=== PATIENT | female | born 1955 | race Caucasian/White ===

== ENCOUNTER 2021-12-29 07:10 | Outpatient (CLI) | payer OTHER, SELFPAY ==
--- NOTE | 2021-12-29 09:41 | W.ANESCHARGE ---
Anesthesia Charges Start Date/Time Anesthesia Start Date: 12/29/21 Anesthesia Start Time: 08:05 Stop Date/Time Anesthesia Stop Date: 12/29/21 Anesthesia Stop Time: 09:41 Summary Emergency: No
--- NOTE | 2021-12-29 10:20 | W.ANESCHARGE ---
Anesthesia Charges Start Date/Time Anesthesia Start Date: 12/29/21 Anesthesia Start Time: 08:05 Stop Date/Time Anesthesia Stop Date: 12/29/21 Anesthesia Stop Time: 09:41 Summary Emergency: No
[2021-12-29] MEDS: ERTAPENEM 1 GM in 0.9 % SODIUM CHLORIDE Mini-bag 100 ML IVPB (13:46)
== END 2021-12-29 07:11 | disposition home or self-care (01) ==
PROVIDERS: PCP Family Medicine; Visit Provider Surgery
DX: Z12.11 Encounter for screening for malignant neoplasm of colon (principal); K63.5 Polyp of colon; K64.8 Other hemorrhoids; K57.30 Diverticulosis of large intestine without perforation or abscess without bleeding; Z86.010 Personal history of colon polyps
CPT/HCPCS: 45381; 45385; 811; 812; J0780; J1170; J1335; J2405; J2704

== ENCOUNTER 2021-12-29 12:21 | Inpatient (IN) | payer OTHER, SELFPAY ==
[2021-12-29 15:59] VITALS: BP 110/59; PULSE 77; RESP 18; TEMP 36.7; O2SAT 93; BMI 26.1
--- NOTE | 2021-12-29 16:09 | P.GSHP_ITS ---
History of Present Illness History of Present Illness Chief complaint: Surgery complications Narrative: Linnette Brown is a 66 year old female Who underwent a colonoscopy today. Patient was found to have a 27 mm polyp in the cecum. This polyp was removed with endoscopic mucosal resection. The mucosal defect was closed with 8 clips in his upper like technique. When patient was woken up from mac anesthesia, she complained of nausea and right lower quadrant abdominal pain. Decision was made to admit this patient for observation. Review of Systems Narrative: General: no fevers HENT: no problems swallowing CV: no shortness of breath Resp: no cough GI: see above Skin: no new rashes Musculoskeletal: no back pain Neuro: no muscle weakness Psyche: no depression, no anxiety PFSH PFSH Medical History (Updated 12/29/21 @ 17:57 by Enriqueta Richter MD) Abdominal pain Acute flank pain Atypical chest pain Concussion (08/2018) Depression (01/13/13) Hypoxia Musculoskeletal chest pain Rectal hemorrhage Right lower quadrant abdominal pain Right upper quadrant pain Weakness of hand Surgical History (Updated 12/29/21 @ 17:56 by Enriqueta Richter MD) H/O: hysterectomy History of salpingo-oophorectomy S/P laparoscopic cholecystectomy S/P sacrocolpopexy Status post colonoscopy with polypectomy Family History Mother Diabetes High blood pressure Myocardial infarction, Onset Age: 93 Rheumatoid arthritis Father Myocardial infarction, Onset Age: 83 Maternal Grandfather Stroke, Onset Age: 42 Other Bipolar disorder Colonic polyp Schizophrenia Social History Narrative: cigarette smoker- 40 pack years, still smoking does not drink alcohol does not exercise lives with chen Greene 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 boyfriend [place], 3 kids, sons adult past problems: tobacco abuse- quitting by using e cigarettes Meds Home Medications and Allergies Allergies Allergy/AdvReac Type Severity Reaction Status Date / Time amoxicillin Allergy Intermediate itchy, Verified 12/19/21 14:20 diarhea, upset stomach venlafaxine Allergy Intermediate Hives Verified 12/19/21 14:20 atorvastatin AdvReac Unknown Verified 12/19/21 14:20 simvastatin AdvReac Unknown Verified 12/19/21 14:20 Exam Narrative: Exam Narrative: General appearance: Alert, cooperative, and in no distress Pulmonary: Chest symmetric, lungs clear bilaterally Cardiovascular Heart: Regular rate and rhythm, S1, S2, no murmurs/rubs/gallops Gastrointestinal Abdominal: soft, not distended, Tender to palpation suprapubically and in the right lower quadrant. Skin: Normal skin color, texture, and turgor. No rashes or lesions. Psychiatric: Alert, cooperative, normal affect. Const: Vital Signs, click to edit/add: Vital Signs - 24 hr 12/29/21 15:59 Temperature 98.1 F Pulse Rate [Right Pulse Oximeter] 77 Respiratory Rate 18 Blood Pressure [Le ft Arm] 110/59 L Pulse Oximetry 93 Assessment and Plan Assessment and plan (1) Right lower quadrant abdominal pain: Status: Acute (2) Status post colonoscopy with polypectomy: Status: Acute Plan 66-year-old female s/p colonoscopy today with EMR of a large cecal polyp admitted for observation due to Postprocedure right lower quadrant abdominal pain. I discussed with the patient and her that postprocedure right lower quadrant pain could be due to post polypectomy syndrome versus micro perforation. Her mucosal defect was large and was closed with endoscopic clips. At this time will keep the patient NPO with IV fluids. We will treat her with antibiotics and observe and patient.
[2021-12-29] MEDS: ALBUTEROL SULFATE 2.5 MG/3 ML VIAL.NEB NEB (17:13)
[2021-12-29] MEDS: HYDROmorphone 0.5 mg/0.5 ml inj IVP (19:26)
[2021-12-29] MEDS: LACTATED RINGERS 1000 ML 1,000 ML 100 ML IV (19:27)
[2021-12-29 19:30] VITALS: BP 104/64; PULSE 88; RESP 18; TEMP 37.1; O2SAT 91
[2021-12-29 19:37] VITALS: RESP 18; O2SAT 92
[2021-12-29 20:48] VITALS: O2SAT 85; O2SAT 91
[2021-12-29 23:00] VITALS: PULSE 88; RESP 18; O2SAT 93
--- NOTE | 2021-12-29 23:39 | PC.NURSE ---
End of Shift: Patient admitted to 245. Pleasant and cooperative. Afebrile. Patient c/o some SOB and wheezes noted, updated MD and Albuterol neb given x1 with improvement. Rating pain 4-5/10 upon arrival, PRN Dilaudid given x1. Pain decreased to 2-3/10. Patient up to bathroom with SBA. NPO. Denies passing any flatus. O2 sats decreased to mid 80s while asleep, updated MD. 1L O2 applied via nasal cannula and sats remained above 90%. Encouraged frequent use of IS while awake.
[2021-12-30] VITALS: BP 99/59; PULSE 70; RESP 18; TEMP 37; O2SAT 93
[2021-12-30] MEDS: ALBUTEROL SULFATE 2.5 MG/3 ML VIAL.NEB NEB (02:00)
[2021-12-30 03:00] VITALS: BP 109/59; PULSE 83; RESP 18; TEMP 37.1; O2SAT 96
--- NOTE | 2021-12-30 06:04 | PC.NURSE ---
shift note : pt pleasant and cooperative. SBA to assist with IV pole, NC, SCDs. pt initially complaining of gas pains, after taking a walk pt relieved gas and was rather comfortable. 2x incontinent urine episodes, pt stated she was passing gas and urinating at the same time. LS wheezy throughout, PRN neb given 1x, pt stated relief. LR running with no complications. VSS. pt on 1L O2 and maintaining sats >90%.
[2021-12-30] MEDS: LACTATED RINGERS 1000 ML 1,000 ML 100 ML IV (06:10)
[2021-12-30 07:34] LABS: Basophils Absolute Auto 0.03 K/uL (0.00-0.30); Basophils Percent Auto 0.3 % (0.0-3.0); Eosinophils Absolute Auto 0.43 K/uL (0.00-0.50); Eosinophils Percent Auto 4.5 % (0.0-7.0); Hemoglobin* 13.1 gm/dL (12.0-16.0); Immature Granulocytes Abs Auto 0.04 K/uL (0.00-0.30); Lymphocytes Absolute Auto 2.95 K/uL (0.90-2.90); Lymphocytes Percent Auto 31.2 % (20-44); Mean Corpuscular HGB Conc 33 gm/dL (32-36); Mean Corpuscular Hemoglobin 30 pg (26-34); Mean Corpuscular Volume 90 fL (80-100); Monocytes Percent Auto 8.7 % (0.0-11.0); Neutrophils Percent Auto 54.9 % (42.0-72.0); Platelet Count* 233 K/uL (140-440); RDW Coefficient of Variation % 14.5 % (11.5-15.5); Red Blood Count 4.43 m/uL (4.00-5.20); White Blood Count* 9.47 K/uL (4.50-11.00)
[2021-12-30 07:42] LABS: Albumin* 3.3 g/dL (3.3-5.0); Chloride* 107 mmol/L (96-114); Potassium* 3.5 mmol/L (3.6-5.1); Sodium* 135 mmol/L (135-149)
[2021-12-30 07:44] LABS: Bilirubin Direct* 0.2 mg/dL (0.0-0.5); Bilirubin Total* 0.6 mg/dL (0.1-1.5); Carbon Dioxide* 22 mmol/L (20-32); Creatinine* 0.5 mg/dL (0.5-1.5); Est. Creatinine Clearance* 44.95; Estimated Glomerular Filt Rate 104.67; Total Protein* 5.2 g/dL (6.0-8.3)
[2021-12-30 07:45] LABS: Alanine Aminotransferase* 74 U/L (4-35); Alkaline Phosphatase* 86 U/L (40-150); Aspartate Amino Transferase* 56 U/L (12-35); Blood Urea Nitrogen* 10 mg/dL (7-30); Calcium* 7.9 mg/dL (8.4-10.6); Glucose* 55 mg/dL (60-115); Lipase* 47 U/L (23-300)
[2021-12-30 07:46] LABS: Slide Review Reflex No
[2021-12-30 08:22] VITALS: BP 121/56; PULSE 75; RESP 16; TEMP 36.8; O2SAT 96
[2021-12-30 11:26] VITALS: BP 131/71; PULSE 65; RESP 16; TEMP 36.8; O2SAT 95
[2021-12-30] MEDS: ERTAPENEM 1 GM in 0.9 % SODIUM CHLORIDE Mini-bag 100 ML IVPB (12:45)
--- NOTE | 2021-12-30 12:58 | P.DS_ITS ---
DS: Providers Provider Date of admission: 12/29/21 12:21 Primary care physician: Cheyenne Guardado MD Admitting Clinician: Enriqueta Richter MD Attending Physician on discharge: Enriqueta Richter MD DS: Diagnosis Discharge Diagnosis (1) Right lower quadrant abdominal pain: Status: Acute (2) Status post colonoscopy with polypectomy: Status: Acute DS: Summary Hospital Course Hospital Course: Patient was admitted after she underwent a colonoscopy with EMR of 27 mm cecal polyp. Patient developed right lower quadrant pain, nausea and vomiting immediately postprocedure. She was admitted to the hospital and her pain was managed with pain medication. Patient was placed on IV antibiotics and improved overnight. She continues to have mild pain in the right lower quadrant which is significantly improved. Time Spent with Patient Time attestation: Total time spent providing and/or coordinating discharge services: Exam Narrative: Exam Narrative: Abdomen is soft, not distended, minimal discomfort to palpation in the right lower quadrant. Significantly improved from yesterday. Const: Vital Signs, click to edit/add: Vital Signs - 24 hr 12/29/21 15:59 12/29/21 19:30 12/29/21 19:37 Temperature 98.1 F 98.8 F Pulse Rate [Right Pulse Oximeter] 77 88 Respiratory Rate 18 18 18 Blood Pressure [Le ft Arm] 110/59 L 104/64 Pulse Oximetry 93 91 92 12/29/21 20:48 12/29/21 23:00 12/30/21 00:00 Temperature 98.6 F Pulse Rate [Right Pulse Oximeter] 88 70 Respiratory Rate 18 18 Blood Pressure [Le ft Arm] 99/59 L Pulse Oximetry 91 93 93 12/30/21 03:00 12/30/21 08:22 12/30/21 11:26 Temperature 98.8 F 98.2 F 98.2 F Pulse Rate [Right Pulse Oximeter] 83 75 65 Respiratory Rate 18 16 16 Blood Pressure [Le ft Arm] 109/59 L 121/56 L 131/71 Pulse Oximetry 96 96 95 DS: Data Data Completed and Pending Labs on day of discharge: Labs from last 24 hours 12/30/21 12/30/21 06:13 06:13 WBC 9.47 RBC 4.43 Hgb 13.1 Hct 40.0 MCV 90 MCH 30 MCHC 33 RDW Coeff of Helio 14.5 Plt Count 233 Neut % (Auto) 54.9 Lymph % (Auto) 31.2 [place] % (Auto) 8.7 Eos % (Auto) 4.5 Baso % (Auto) 0.3 Neut # (Auto) 5.20 Lymph # (Auto) 2.95 H [place] # (Auto) 0.80 Eos # (Auto) 0.43 Baso # (Auto) 0.03 Abs Immat Gran (auto) 0.04 Sodium 135 Potassium 3.5 L Chloride 107 Carbon Dioxide 22 BUN 10 Creatinine 0.5 Estimated Creat Clear 44.95 Glucose 55 L Calcium 7.9 L Total Bilirubin 0.6 Direct Bilirubin 0.2 AST 56 H ALT 74 H Alkaline Phosphatase 86 Total Protein 5.2 L Albumin 3.3 Lipase 47 Discharge Plan Discharge Disposition: Home, Self-Care Date of Admission: 12/29/21 12:21 Attending Provider on Discharge: Enriqueta Richter Primary Care Provider: Cheyenne Guardado Condition: Improved Anticipated Discharge Date/Time: 12/30/21 12:55 Discharge Medications: New hydrocodone-acetaminophen 5-325 mg tablet 1 tab PO Q6H PRN (Reason: pain) Qty: 25 0RF Discharge Orders: Discharge Order (Routine); Ordered 12/30/21 Ordered By: Enriqueta Richter Activity Level: Light activity Discharge Diet: Full Liquid Diet Detail: advance diet to regular tomorrow Follow Up Appointments: Enriqueta Richter MD [Staff Physician] - Forms: [facility] Info Instructions Discharge Comment: patient needs Ertapenem iv x3 days.
--- NOTE | 2021-12-30 14:23 | PC.NURSE ---
PATIENT DISCHARGED TO HOME WITH , UP AD MAIKOL WITH STEADY GAIT, IV LEFT IN PLACE PER MD PATIENT COMING IN FOR OUTPATIENT ABX THROUGHOUT THE WEEKEND, PATIENT RATING PAIN TO ABDOMEN MINIMAL, TENDERNESS TO RLQ IS BETTER BUT REMAINS PRESENT, NO PAIN MEDICATION NEED FOR ABDOMINAL PAIN, ACTIVE BOWEL SOUNDS, PASSING GAS, NO BOWEL MOVEMENT, PATIENT VERBALIZED UNDERSTANDING OF DISCHARGE INFORMATION AND HAD NO FURTHER QUESTIONS AT THIS TIME.
== END 2021-12-30 14:15 | disposition home or self-care (01) | DRG 948 ==
PROVIDERS: Admitting Provider Surgery; PCP Family Medicine; Visit Provider Surgery
DX: G89.18 Other acute postprocedural pain (principal); R10.31 Right lower quadrant pain; R11.2 Nausea with vomiting, unspecified; D12.0 Benign neoplasm of cecum; M06.9 Rheumatoid arthritis, unspecified; E11.65 Type 2 diabetes mellitus with hyperglycemia; F32.A Depression, unspecified
CPT/HCPCS: 36415; 80048; 80076; 83690; 85018; 85025; 94640; 94761; J1170; J1335; J7120

== ENCOUNTER 2022-01-02 12:59 | Outpatient (RCR) | payer OTHER, SELFPAY ==
[2021-12-31] MEDS: ERTAPENEM 1 GM in 0.9 % SODIUM CHLORIDE Mini-bag 100 ML IVPB (13:25)
[2021-12-31] MEDS: SODIUM CHLORIDE 0.9 % (FLUSH) 10 ML SYRINGE 5 ML IVF (13:27)
[2021-12-31 14:20] VITALS: BP 107/63; RESP 18; TEMP 37.2; O2SAT 96
--- NOTE | 2021-12-31 14:21 | PC.NURSE ---
IV abx infused. IV site to left wrist patent and intact. Pt to be back [facility] 01/01/22.
[2022-01-01] MEDS: ERTAPENEM 1 GM in 0.9 % SODIUM CHLORIDE Mini-bag 100 ML IVPB (13:06)
[2022-01-01] MEDS: SODIUM CHLORIDE 0.9 % (FLUSH) 10 ML SYRINGE 5 ML IVF (13:06)
[2022-01-01 13:20] VITALS: BP 115/57; RESP 18; TEMP 36.5; O2SAT 95
[2022-01-02] MEDS: ERTAPENEM 1 GM in 0.9 % SODIUM CHLORIDE Mini-bag 100 ML IVPB (13:04)
--- NOTE | 2022-01-02 13:09 | PC.NURSE ---
Pt was here 1300 for ABO IV, see VS charted and infused ABO in IV Left wrist.
[2022-01-02 13:15] VITALS: BP 118/68; RESP 20; TEMP 36.6; O2SAT 96
--- NOTE | 2022-01-02 13:16 | PC.NURSE ---
Pt has phone call follow up planned for 01/03/[address] Richter
[2022-01-02] MEDS: SODIUM CHLORIDE 0.9 % (FLUSH) 10 ML SYRINGE 5 ML IVF (13:19)
== END 2022-01-02 23:59 | disposition home or self-care (01) ==
LOC: MS OUT 12:59
PROVIDERS: PCP Family Medicine; Visit Provider Surgery
DX: K91.81 Other intraoperative complications of digestive system (principal); R10.31 Right lower quadrant pain
CPT/HCPCS: 96365; 99211; J1335

== ENCOUNTER 2022-01-18 11:04 | Emergency (ER) | payer OTHER, SELFPAY ==
[2022-01-18 11:11] VITALS: BP 107/53; PULSE 85; RESP 18; TEMP 36.8; O2SAT 92; BMI 25.2
[2022-01-18] MEDS: 0.9 % SODIUM CHLORIDE 1000 ml 1,000 ML IV (12:31)
[2022-01-18 12:37] LABS: Lactate* 1.1 mmol/L (0.5-1.9)
[2022-01-18 12:40] LABS: Basophils Absolute Auto 0.02 K/uL (0.00-0.30); Basophils Percent Auto 0.3 % (0.0-3.0); Eosinophils Absolute Auto 0.37 K/uL (0.00-0.50); Eosinophils Percent Auto 5.6 % (0.0-7.0); Hematocrit 41.5 % (33.0-51.0); Hemoglobin* 13.8 gm/dL (12.0-16.0); Immature Granulocytes Abs Auto 0.01 K/uL (0.00-0.30); Lymphocytes Absolute Auto 2.64 K/uL (0.90-2.90); Lymphocytes Percent Auto 40.1 % (20-44); Mean Corpuscular HGB Conc 33 gm/dL (32-36); Mean Corpuscular Hemoglobin 30 pg (26-34); Mean Corpuscular Volume 89 fL (80-100); Monocytes Percent Auto 9.3 % (0.0-11.0); Neutrophils Absolute Auto 2.93 K/uL (1.7-7.0); Neutrophils Percent Auto 44.5 % (42.0-72.0); Platelet Count* 309 K/uL (140-440); RDW Coefficient of Variation % 14.6 % (11.5-15.5); Red Blood Count 4.66 m/uL (4.00-5.20); White Blood Count* 6.58 K/uL (4.50-11.00)
[2022-01-18 12:43] LABS: Slide Review Reflex No
[2022-01-18 12:53] LABS: Chloride* 107 mmol/L (96-114); Sodium* 139 mmol/L (135-149)
[2022-01-18 12:54] LABS: Potassium* 4.2 mmol/L (3.6-5.1)
[2022-01-18 12:55] LABS: Creatinine* 0.6 mg/dL (0.5-1.5); Est. Creatinine Clearance* 44.95; Estimated Glomerular Filt Rate 100 ml/min
[2022-01-18 12:56] LABS: Alkaline Phosphatase* 99 U/L (40-150); Aspartate Amino Transferase* 22 U/L (12-35); Bilirubin Total* 0.4 mg/dL (0.1-1.5); Carbon Dioxide* 28 mmol/L (20-32)
[2022-01-18 12:57] LABS: Alanine Aminotransferase* 11 U/L (4-35); Blood Urea Nitrogen* 9 mg/dL (7-30); Calcium* 9.1 mg/dL (8.4-10.6); Glucose* 110 mg/dL (60-115); Total Protein* 6.3 g/dL (6.0-8.3)
[2022-01-18 12:59] LABS: C Reactive Protein* 0.9 mg/dL (0.5-1.0)
--- NOTE | 2022-01-18 13:08 | ED_ITS ---
HPI - Abdominal Pain General Time Seen by Provider: 12:00 Date Seen: 01/18/22 Chief Complaint: Abdominal Pain Stated Complaint: Abdominal pain after colonoscopy Time Seen by Provider: 01/18/22 11:51 Source: patient and RN notes reviewed Mode of arrival: ambulatory Limitations: no limitations History of Present Illness HPI narrative: Linnette is a very pleasant 66-year-old female with a history of COPD, PRANEETH with BSO, cholecystectomy and recent colonoscopy who comes to the emergency room with abdominal pain. Patient notes that she had colonoscopy with Dr. Hughes on December 29 of this year. Since that time she has continued to experience right lower quadrant pain with radiation to the left side. She notes no blood in her stools and her stools have been normal. Two nights ago she did try hard hydrocodone but it made her nauseated so she did not take it. She has been eating and drinking. When she has a bowel movement she has no relief of the discomfort. She also notes a cough but this is chronic for her as she is a smoker. She does have a history of COPD emphysema. She has not been experiencing any fevers, painful urination blood in urine or stool. Movement seems to make it worse and she describes mowing the lawn yesterday which made sleeping last night very difficult. Resting helps improve the pain. The pain has not worsened gotten better but has remained the same since she departed the hospital after her colonoscopy. MD elicited complaint: abdominal pain Pertinent past history: other (Polyp removal on 12/29/2021) Onset (ago): week(s) Pain Consistency: constant Location: RUQ and other Severity: moderate Quality: fullness and sharp Radiation: LLQ Exacerbating factors: movement Relieving factors: rest Associated symptoms: denies other symptoms Treatments prior to arrival: prescription analgesics Related Data Patient : No Home Medications Medication Instructions Recorded Confirmed albuterol sulfate 2.5 mg/3 mL mg 01/18/22 (0.083 %) solution for nebulization albuterol sulfate 90 mcg/actuation INHALATION 01/18/22 aerosol inhaler (ProAir HFA) amlodipine 5 mg tablet mg 01/18/22 evolocumab 140 mg/mL subcutaneous mg SUBCUT 01/18/22 pen injector (Repatha SureClick) ezetimibe 10 mg tablet mg 01/18/22 fluticasone propionate 115 INHALATION 01/18/22 mcg-salmeterol 21 mcg/actuation HFA inhaler (Advair HFA) mirtazapine 30 mg tablet mg 01/18/22 rosuvastatin 40 mg tablet mg 01/18/22 Previous Rx's Medication Instructions Recorded hydrocodone 5 mg-acetaminophen 325 1 tab PO Q6H PRN #25 tab 12/30/21 mg tablet Allergies Allergy/AdvReac Type Severity Reaction Status Date / Time amoxicillin Allergy Intermediate itchy, Verified 01/18/22 14:38 diarhea, upset stomach venlafaxine Allergy Intermediate Hives Verified 01/18/22 14:38 atorvastatin AdvReac Unknown Verified 01/18/22 14:38 simvastatin AdvReac Unknown Verified 01/18/22 14:38 hydocodone AdvReac Uncoded 01/18/22 14:38 Review of Systems Status of ROS Reports: 10 or more systems reviewed and unremarkable except as noted in History and below Const Denies: fever, chills or change in weight Eyes Denies: change in vision ENMT Denies: throat pain or difficulty swallowing Cardio Denies: chest pain, palpitations or shortness of breath with exertion Resp Reports: cough (Chronic); Denies: shortness of breath or pain on inspiration GI Reports: abdominal pain; Denies: diarrhea, constipation, difficulty swallowing or blood in stool Denies: painful urination or urinary frequency Musculo Reports: back pain (Some radiation to her back.) Integ/Breast Denies: rash Neuro Denies: headache or numbness in extremities PFSH PFSH Medical History Abdominal pain Acute flank pain Atypical chest pain Concussion (08/2018) Depression (01/13/13) Hypoxia Musculoskeletal chest pain Rectal hemorrhage Right lower quadrant abdominal pain Right upper quadrant pain Weakness of hand Surgical History H/O: hysterectomy History of salpingo-oophorectomy S/P laparoscopic cholecystectomy S/P sacrocolpopexy Status post colonoscopy with polypectomy Family History Mother Diabetes High blood pressure Myocardial infarction, Onset Age: 93 Rheumatoid arthritis Father Myocardial infarction, Onset Age: 83 Maternal Grandfather Stroke, Onset Age: 42 Other Bipolar disorder Colonic polyp Schizophrenia Social History Narrative: cigarette smoker- 40 pack years, still smoking does not drink alcohol does not exercise lives with chen Greene 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 also live in boyfriend [place], 3 kids, sons adult past problems: tobacco abuse- quitting by using e cigarettes Smoking Status: Current every day smoker How often do you have a drink containing alcohol: never AUDIT-C Alcohol total score: 0 Non-prescribed substance use: denies use Caffeine: Yes service: Yes Exam Const: Vital Signs, click to edit/add: Vital Signs - 24 hr 01/18/22 11:11 01/18/22 13:30 01/18/22 15:11 Temperature 98.3 F 97.4 F L Pulse Rate [Pulse Oximeter] 85 76 81 Respiratory Rate 18 18 22 Blood Pressure [Le ft Upper Arm] 107/53 L 140/73 H 154/78 H Pulse Oximetry 92 96 91 Documenting provider has reviewed patient's vital signs: yes Common normals: no apparent distress, oriented x3 and no limitations General appearance: cooperative and other (Frustrated ongoing discomfort for weeks.) HENMT: Common normals: normocephalic Head and scalp: normocephalic Mouth: oral and palatal mucosa normal Eye: Common normals: PERRL General eye: normal appearance of both eyes Pupil: PERRL Neck & C-Spine: Common normals: full ROM Resp: Common normals: normal respiratory effort Effort & inspection: able to speak in complete sentences Auscultation: wheezes Other: Occasional inspiratory wheeze otherwise clear lung sounds. Cardio: Common normals: regular rate and regular rhythm Rate: regular rate Rhythm: regular rhythm GI: Common normals: soft to palpation Auscultation: hypoactive bowel sounds Palpation: soft and tender (Right lower quadrant without rebound) : Common normals: no CVA tenderness Bladder/kidney exam: no CVA tenderness Back & Pelvis: Common normals: no CVA tenderness and no thoracic nor lumbar tenderness Extremity: Common normals: normal to inspection and full ROM Neuro: Common normals: oriented x3 Skin: Common normals: no rashes or lesions noted General skin exam: no rashes or lesions noted Course Course Hospital Course: Patient is noted to have a colonoscopy with polyp removal on December 29. She has continued to have ongoing pain since that time in the right lower quadrant with radiation to the left lower quadrant. She has been able to eat and drink. She has not had any blood in her stool. Will order CBC, comprehensive panel as well as CRP, urinalysis. Our plan is to get CT but will wait on the creatinine at this time. Patient is agreeable to waiting for any pain medications such as Toradol until creatinine has been returned. Reevaluation(s) Reevaluation #1: Patient notes that she continues to have pain. We will give her Toradol 15 mg IV. Did discuss with her normal labs including white count and CT results. Patient is also complaining about some wheezing and difficulty breathing. She is requesting a nebulizer. Reevaluation #2: Did discuss with patient her laboratory values as well as CT. She has had complete resolution of her breathing difficulty after her DuoNeb. She notes her pain has decreased to a 3/10 and she is very happy with that. She also had the opportunity to speak with Dr. Hughes. Our plan is to discharge her home. Consultations Consultation #1: Dr. Hughes consulted in regards to this patient. Informed of normal CT. Dr. Hughes seeing this patient in consult in the ED. Dr. Hughes suggest using ibuprofen 600 mg every 8 hours as needed for pain. Also suggests [facility] if [facility] can be assigned to assist her with her 's cares. Vital Signs Vital signs: Initial Vital Signs Temperature 98.3 F 01/18/22 11:11 Temperature Source Temporal Artery Scan 01/18/22 11:11 Pulse Rate 85 01/18/22 11:11 Pulse Rhythm 01/18/22 11:11 Respiratory Rate 18 01/18/22 11:11 Blood Pressure 107/53 L 01/18/22 11:11 Blood Pressure Mean 71 01/18/22 11:11 Blood Pressure Position Supine 01/18/22 11:11 Pulse Oximetry 92 01/18/22 11:11 Oxygen Delivery Method 01/18/22 11:11 Vital Signs Temperature 98.3 F 01/18/22 11:11 Pulse Rate 85 01/18/22 11:11 Respiratory Rate 18 01/18/22 11:11 Blood Pressure 107/53 L 01/18/22 11:11 Pulse Oximetry 92 01/18/22 11:11 Temperature 97.4 F L 01/18/22 15:11 Pulse Rate 81 01/18/22 15:11 Respiratory Rate 22 01/18/22 15:11 Blood Pressure 154/78 H 01/18/22 15:11 Pulse Oximetry 91 01/18/22 15:11 MDM - Abdominal Pain MDM Narrative Medical decision making narrative: 1. Abdominal pain-patient has had continued right lower quadrant pain with radiation into her left abdomen since her colonoscopy on December 29. At this time will give patient Toradol [address] and laboratory results are reassuring. Dr. Hughes in consult currently. Dr. Hughes suggests ibuprofen 800 mg p.o. t.i.d. as patient has had significant relief with Toradol IV. Patient also receive IV fluids. 2. L3 endplate compression-patient has small L3 compression fracture. She denies any history of recent falls and has no back pain at this time. 3. Disposition-home. Return for worsening symptoms and as needed. Note patient has resolution of her shortness of breath and wheezing after DuoNeb. Medical Records Attestation: I reviewed the patient's medical records. Lab Data Attestation: I reviewed the patient's lab results. Labs: Lab Results 01/18/22 01/18/22 01/18/22 Range/Units 12:25 12:25 12:25 WBC 6.58 (4.50-11.00) K/uL RBC 4.66 (4.00-5.20) m/uL Hgb 13.8 (12.0-16.0) gm/dL Hct 41.5 (33.0-51.0) % MCV 89 (80-100) fL MCH 30 (26-34) pg MCHC 33 (32-36) gm/dL RDW Coeff of Helio 14.6 (11.5-15.5) % Plt Count 309 (140-440) K/uL Neut % (Auto) 44.5 (42.0-72.0) % Lymph % (Auto) 40.1 (20-44) % [place] % (Auto) 9.3 (0.0-11.0) % Eos % (Auto) 5.6 (0.0-7.0) % Baso % (Auto) 0.3 (0.0-3.0) % Neut # (Auto) 2.93 (1.7-7.0) K/uL Lymph # (Auto) 2.64 (0.90-2.90) K/uL [place] # (Auto) 0.60 (0.00-0.90) K/UL Eos # (Auto) 0.37 (0.00-0.50) K/uL Baso # (Auto) 0.02 (0.00-0.30) K/uL Abs Immat Gran (auto) 0.01 (0.00-0.30) K/uL Sodium 139 (135-149) mmol/L Potassium 4.2 (3.6-5.1) mmol/L Chloride 107 (96-114) mmol/L Carbon Dioxide 28 (20-32) mmol/L BUN 9 (7-30) mg/dL Creatinine 0.6 (0.5-1.5) mg/dL Estimated Creat Clear 44.95 Estimated GFR 100 ml/min Glucose 110 (60-115) mg/dL Lactate 1.1 (0.5-1.9) mmol/L Calcium 9.1 (8.4-10.6) mg/dL Total Bilirubin 0.4 (0.1-1.5) mg/dL AST 22 (12-35) U/L ALT 11 (4-35) U/L Alkaline Phosphatase 99 (40-150) U/L C-Reactive Protein 0.9 (0.5-1.0) mg/dL Total Protein 6.3 (6.0-8.3) g/dL Albumin 4.0 (3.3-5.0) g/dL Urine Color (Yellow) Urine Appearance (Clear) Urine pH (5.0-8.5) Ur Specific [place] (1.000-1.030) Urine Protein (Negative) Urine Glucose (UA) (Negative) Urine Ketones (Negative) Urine Blood (Negative) Urine Nitrite (Negative) Urine Bilirubin (Negative) Urine Urobilinogen (0.2-1.0) Ur Leukocyte Esterase (Negative) 01/18/22 Range/Units 12:25 WBC (4.50-11.00) K/uL RBC (4.00-5.20) m/uL Hgb (12.0-16.0) gm/dL Hct (33.0-51.0) % MCV (80-100) fL MCH (26-34) pg MCHC (32-36) gm/dL RDW Coeff of Helio (11.5-15.5) % Plt Count (140-440) K/uL Neut % (Auto) (42.0-72.0) % Lymph % (Auto) (20-44) % [place] % (Auto) (0.0-11.0) % Eos % (Auto) (0.0-7.0) % Baso % (Auto) (0.0-3.0) % Neut # (Auto) (1.7-7.0) K/uL Lymph # (Auto) (0.90-2.90) K/uL [place] # (Auto) (0.00-0.90) K/UL Eos # (Auto) (0.00-0.50) K/uL Baso # (Auto) (0.00-0.30) K/uL Abs Immat Gran (auto) (0.00-0.30) K/uL Sodium (135-149) mmol/L Potassium (3.6-5.1) mmol/L Chloride (96-114) mmol/L Carbon Dioxide (20-32) mmol/L BUN (7-30) mg/dL Creatinine (0.5-1.5) mg/dL Estimated Creat Clear Estimated GFR ml/min Glucose (60-115) mg/dL Lactate (0.5-1.9) mmol/L Calcium (8.4-10.6) mg/dL Total Bilirubin (0.1-1.5) mg/dL AST (12-35) U/L ALT (4-35) U/L Alkaline Phosphatase (40-150) U/L C-Reactive Protein (0.5-1.0) mg/dL Total Protein (6.0-8.3) g/dL Albumin (3.3-5.0) g/dL Urine Color Yellow (Yellow) Urine Appearance Clear (Clear) Urine pH 7.5 (5.0-8.5) Ur Specific [place] 1.015 (1.000-1.030) Urine Protein Negative (Negative) Urine Glucose (UA) Negative (Negative) Urine Ketones Negative (Negative) Urine Blood Negative (Negative) Urine Nitrite Negative (Negative) Urine Bilirubin Negative (Negative) Urine Urobilinogen 0.2 (0.2-1.0) Ur Leukocyte Esterase Negative (Negative) Imaging Data CT scan - abdomen: Attestation: I have reviewed the pertinent imaging results. My impression: No acute findings Radiologist's impression: No evidence of appendicitis or other intra-abdominal acute findings. There is an L3 some endplate compression fracture that is very mild. Subacute? Discharge Plan Discharge Clinical Impression: Non-traumatic compression fracture of L3 lumbar vertebra, Abdominal pain Patient Disposition: Home, Self-Care Condition: Improved Additional Instructions: Per Dr. Hughes suggestion, recommend using ibuprofen 600 mg every [address] Hughes also recommends reaching out for help with a SEATER GRINDER so that you can avoid heavy lifting. Return to the emergency room for fever, chills, worsening symptoms. Activity Level: No strenuous activity Prescriptions: No Action albuterol sulfate 2.5 mg /3 mL (0.083 %) solution for nebulization 0RF amlodipine 5 mg tablet 0RF mirtazapine 30 mg tablet 0RF albuterol sulfate [ProAir HFA] 90 mcg/actuation HFA aerosol inhaler INHALATION 0RF ezetimibe 10 mg tablet 0RF rosuvastatin 40 mg tablet 0RF Advair HFA 115-21 mcg/actuation HFA aerosol inhaler INHALATION 0RF Repatha SureClick 140 mg/mL pen injector SUBCUT 0RF hydrocodone-acetaminophen 5-325 mg tablet 1 tab PO Q6H PRN (Reason: pain) Qty: 25 0RF Follow Up/Referrals: Cheyenne Guardado MD [Primary Care Provider] - Stand Alone Forms: [facility] Info Instructions
[2022-01-18 13:30] VITALS: BP 140/73; PULSE 76; RESP 18; O2SAT 96
--- NOTE | 2022-01-18 13:31 | CRLHL7_ITS ---
For Patients: As a result of the Century Cures Act, medical imaging exams and procedure reports are released immediately into your electronic medical record. You may view this report before your referring provider. If you have questions, please contact your health care provider. INDICATION: Right lower quadrant pain post colonoscopy. TECHNIQUE: CT of the abdomen and pelvis with 68 cc Isovue 370 IV contrast. Coronal and sagittal reconstructions. COMPARISON: CTA chest, abdomen, pelvis 07/25/2015. FINDINGS: There are tiny low-attenuation lesions in the inferior right hepatic lobe and lateral segment of the left hepatic lobe which are too small to characterize but likely benign. Cholecystectomy. Mild intra and extrahepatic bile duct dilation likely related to post cholecystectomy state. The spleen, pancreas, and adrenal glands are negative. Portal veins are patent. Symmetric enhancement of the kidneys. No hydronephrosis or ureteral dilation. No obstructing urinary calculi identified. Minimal diffuse bladder wall thickening. Hysterectomy. No adnexal mass. The pelvic floor is not fully imaged. Small hiatal hernia. No bowel dilation. Moderate amount of stool in the proximal colon. Colonic diverticulosis without evidence of diverticulitis. Negative appendix. No intraperitoneal free air or fluid. Aortoiliac vascular calcifications. No lymphadenopathy. There is new mild depression of the L3 superior endplate with associated sclerosis. This may be acute or subacute. No retropulsion. Stable scarring in the right middle lobe and lingula. The lung bases are otherwise clear. IMPRESSION: 1. New acute/subacute appearing mild superior endplate compression fracture of L3. 2. No other acute findings in the abdomen or pelvis. 3. Colonic diverticulosis. Negative appendix. No evidence of perforation. 4. Minimal diffuse bladder wall thickening. Correlate with urinalysis. Please note that all CT scans at this facility use dose modulation, iterative reconstruction, and/or weight-based dosing when appropriate to reduce radiation dose to as low as reasonably achievable. Dictated by Marielena Garza MD @ 01/18/2022 3:14:20 PM (Electronically Signed)
[2022-01-18 13:40] LABS: Appearance Urine Clear (Clear); Bilirubin Urine Negative (Negative); Blood Urine Negative (Negative); Color Urine Yellow (Yellow); Glucose Urine Negative (Negative); Ketones Urine Negative (Negative); Leukocyte Esterase Urine Negative (Negative); Nitrite Urine Negative (Negative); Protein Urine Negative (Negative); Specific Gravity Urine 1.015 (1.000-1.030); Urobilinogen Urine 0.2 (0.2-1.0); pH Urine 7.5 (5.0-8.5)
--- NOTE | 2022-01-18 15:04 | ED.NURSE ---
Report from Amber HOLLOWAY, I will now assume care of patient.
[2022-01-18 15:11] VITALS: BP 154/78; PULSE 81; RESP 22; TEMP 36.3; O2SAT 91
[2022-01-18] MEDS: KETOROLAC 15 MG/ML inj IVP (15:41)
[2022-01-18] MEDS: IPRAT-ALBUT 0.5-2.5 MG/3 ML NEB 1 NEB IH (15:41)
--- NOTE | 2022-01-18 16:01 | PM.GSCN ---
History of Present Illness Consult details Consult date: 01/18/22 Narrative: 66-year-old female presented to emergency room with right sided lower quadrant abdominal pain. Patient had a colonoscopy with removal of large cecal polyp. Patient developed right lower quadrant abdominal pain immediately postprocedure and was hospitalized overnight with IV antibiotics. Her pain improved significantly overnight and she was discharged home. She received 5 days of IV antibiotics and overall was feeling better. Patient presents today because her pain in the right lower quadrant has not been improving. The pain has not been getting worse and has been staying the same since her colonoscopy. Patient is able to tolerate regular diet and having regular bowel movements. She takes care of her with multiple sclerosis and has not been able to take it easy. Patient's fell a couple times and she had to help him get up. Patient took ibuprofen last night and that helped her pain. She has not been taking any other pain medications. Review of Systems Narrative: .ro PFSH PFSH Medical History Abdominal pain Acute flank pain Atypical chest pain Concussion (08/2018) Depression (01/13/13) Hypoxia Musculoskeletal chest pain Rectal hemorrhage Right lower quadrant abdominal pain Right upper quadrant pain Weakness of hand Surgical History H/O: hysterectomy History of salpingo-oophorectomy S/P laparoscopic cholecystectomy S/P sacrocolpopexy Status post colonoscopy with polypectomy Family History Mother Diabetes High blood pressure Myocardial infarction, Onset Age: 93 Rheumatoid arthritis Father Myocardial infarction, Onset Age: 83 Maternal Grandfather Stroke, Onset Age: 42 Other Bipolar disorder Colonic polyp Schizophrenia Social History Narrative: cigarette smoker- 40 pack years, still smoking does not drink alcohol does not exercise lives with chen Greene who has 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 boyfriend [place], 3 kids, sons adult past problems: tobacco abuse- quitting by using e cigarettes Smoking Status: Current every day smoker How often do you have a drink containing alcohol: never AUDIT-C Alcohol total score: 0 Non-prescribed substance use: denies use Caffeine: Yes service: Yes Meds Home Medications and Allergies Home Medications Medication Instructions Recorded Confirmed Type albuterol sulfate 2.5 mg/3 mL mg 01/18/22 History (0.083 %) solution for nebulization albuterol sulfate 90 mcg/actuation INHALATION 01/18/22 History aerosol inhaler (ProAir HFA) amlodipine 5 mg tablet mg 01/18/22 History evolocumab 140 mg/mL subcutaneous mg SUBCUT 01/18/22 History pen injector (Repatha SureClick) ezetimibe 10 mg tablet mg 01/18/22 History fluticasone propionate 115 INHALATION 01/18/22 History mcg-salmeterol 21 mcg/actuation HFA inhaler (Advair HFA) mirtazapine 30 mg tablet mg 01/18/22 History rosuvastatin 40 mg tablet mg 01/18/22 History Allergies Allergy/AdvReac Type Severity Reaction Status Date / Time amoxicillin Allergy Intermediate itchy, Verified 01/18/22 14:38 diarhea, upset stomach venlafaxine Allergy Intermediate Hives Verified 01/18/22 14:38 atorvastatin AdvReac Unknown Verified 01/18/22 14:38 simvastatin AdvReac Unknown Verified 01/18/22 14:38 hydocodone AdvReac Uncoded 01/18/22 14:38 Exam Narrative: Exam Narrative: General appearance: Alert, cooperative, and in no distress Pulmonary: Chest symmetric, breathing is nonlabored. Gastrointestinal Abdominal: soft, not distended, patient has some discomfort to palpation in the left lower quadrant and right lower quadrant that she describes as ?uncomfortable?. I was pressing hard in her right lower quadrant and there were no signs of guarding or significant abdominal pain. Skin: Normal skin color, texture, and turgor. No rashes or lesions. Psychiatric: Alert, cooperative, normal affect. Const: Vital Signs, click to edit/add: Vital Signs - 24 hr 01/18/22 11:11 01/18/22 13:30 01/18/22 15:11 Temperature 98.3 F 97.4 F L Pulse Rate [Pulse Oximeter] 85 76 81 Respiratory Rate 18 18 22 Blood Pressure [Le ft Upper Arm] 107/53 L 140/73 H 154/78 H Pulse Oximetry 92 96 91 Results Labs Labs: Diabetes panel 01/18/22 Range/Units 12:25 Sodium 139 (135-149) mmol/L Potassium 4.2 (3.6-5.1) mmol/L Chloride 107 (96-114) mmol/L Carbon Dioxide 28 (20-32) mmol/L BUN 9 (7-30) mg/dL Creatinine 0.6 (0.5-1.5) mg/dL Glucose 110 (60-115) mg/dL Calcium 9.1 (8.4-10.6) mg/dL AST 22 (12-35) U/L ALT 11 (4-35) U/L Alkaline Phosphatase 99 (40-150) U/L Total Protein 6.3 (6.0-8.3) g/dL Albumin 4.0 (3.3-5.0) g/dL Calcium panel 01/18/22 Range/Units 12:25 Calcium 9.1 (8.4-10.6) mg/dL Albumin 4.0 (3.3-5.0) g/dL Pituitary panel 01/18/22 Range/Units 12:25 Sodium 139 (135-149) mmol/L Potassium 4.2 (3.6-5.1) mmol/L Chloride 107 (96-114) mmol/L Carbon Dioxide 28 (20-32) mmol/L BUN 9 (7-30) mg/dL Creatinine 0.6 (0.5-1.5) mg/dL Glucose 110 (60-115) mg/dL Calcium 9.1 (8.4-10.6) mg/dL Adrenal panel 01/18/22 Range/Units 12:25 Sodium 139 (135-149) mmol/L Potassium 4.2 (3.6-5.1) mmol/L Chloride 107 (96-114) mmol/L Carbon Dioxide 28 (20-32) mmol/L BUN 9 (7-30) mg/dL Creatinine 0.6 (0.5-1.5) mg/dL Glucose 110 (60-115) mg/dL Calcium 9.1 (8.4-10.6) mg/dL Total Bilirubin 0.4 (0.1-1.5) mg/dL AST 22 (12-35) U/L ALT 11 (4-35) U/L Alkaline Phosphatase 99 (40-150) U/L Total Protein 6.3 (6.0-8.3) g/dL Albumin 4.0 (3.3-5.0) g/dL All other labs normal. Imaging Abdomen CT scan report/results: image reviewed Assessment and Plan Assessment and plan (1) Right lower quadrant abdominal pain: Status: Acute Plan 66-year-old female presents with right lower quadrant abdominal pain. I discussed with the patient that her WBC is normal. Her abdominal CT did not show any signs of inflammation near the right colon. There are no fluid collections. I think she is still recovering from her post polypectomy pain and has not been able to avoid strenuous activity and take it easy since she is helping her with multiple sclerosis. I recommended to do 600 mg of ibuprofen t.i.d. for the next week. If she patient continues to take ibuprofen beyond 1 week, I recommended to start a PPI for as long as she is taking ibuprofen. Patient should avoid heavy lifting and strenuous activity to see if that improves her pain. 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 Patient is relieved that nothing serious was found. All questions were answered.
--- OUTSIDE RECORDS SUMMARY | 2022-02-07 18:55 | XMS_ITS | Continuity of Care Document ---
:1955 Author Organization [facility] Care Team Providers Name Role Phone [facility] Unavailable Unavailable Medications Combined list of outpatient medications from Department of Defense and Veterans Affairs facilities. Medications provided include 1) outpatient medications from the last 15 months, and 2) patient-reported medications. Medication Details Route Status Patient Prescription Prescription Last Ordering Order Source Instructions Expires Number Dispense Provider Date Date ADVAIR HFA Active [id number] HERNBERG, 5/ Pharmac (FLUTICASON 2 KENISHA 2021 y Data E/SALMETERO Transac L), tion 115-21MCG, Service HFA AER AD, Facilit INHALATION, y GLAXOSMITHK LINE, 12 g CANISTER ADVAIR HFA Active [id number] HERNBERG, 12/31 6/ Pharmac (FLUTICASON 2 KENISHA 2021 y Data E/SALMETERO Transac L), tion 115-21MCG, Service HFA AER AD, Facilit INHALATION, y GLAXOSMITHK LINE, 12 g CANISTER ADVAIR HFA Active [id number] HERNBERG, 10/31 8/ Pharmac (FLUTICASON 2 KENISHA 2021 y Data E/SALMETERO Transac L), tion 115-21MCG, Service HFA AER AD, Facilit INHALATION, y GLAXOSMITHK LINE, 12 g CANISTER ADVAIR HFA Active [id number] HERNBERG, 11/30 4/ Pharmac (FLUTICASON 1 KENISHA 2020 y Data E/SALMETERO Transac L), tion 115-21MCG, Service HFA AER AD, Facilit INHALATION, y GLAXOSMITHK LINE, 12 g CANISTER ADVAIR HFA Active [id number] HERNBERG, 01/30 4/ Pharmac (FLUTICASON 1 KENISHA 2020 y Data E/SALMETERO Transac L), tion 115-21MCG, Service HFA AER AD, Facilit INHALATION, y GLAXOSMITHK LINE, 12 g CANISTER ADVAIR HFA Active [id number] HERNBERG, 03/02 5/ Pharmac (FLUTICASON 1 KENISHA 2020 y Data E/SALMETERO Transac L), tion 115-21MCG, Service HFA AER AD, Facilit INHALATION, y GLAXOSMITHK LINE, 12 g CANISTER ADVAIR HFA Active [id number] HERNBERG, 05/02 5/ Pharmac (FLUTICASON 1 KENISHA 2020 y Data E/SALMETERO Transac L), tion 115-21MCG, Service HFA AER AD, Facilit INHALATION, y GLAXOSMITHK LINE, 12 g CANISTER ADVAIR HFA Active [id number] HERNBERG, 07/02 0/ Pharmac (FLUTICASON 2 KENISHA 2021 y Data E/SALMETERO Transac L), tion 115-21MCG, Service HFA AER AD, Facilit INHALATION, y GLAXOSMITHK LINE, 12 g CANISTER ADVAIR HFA Active [id number] HERNBERG, 08/30 3/ Pharmac (FLUTICASON 2 KENISHA 2021 y Data E/SALMETERO Transac L), tion 115-21MCG, Service HFA AER AD, Facilit INHALATION, y GLAXOSMITHK LINE, 12 g CANISTER ALBUTEROL Active [id number] HERNBERG, 11/29 / Pharmac SULFATE 2 KENISHA2021 y Data (ALBUTEROL Transac SULFATE), tion 2.5 MG/3ML, Service VIAL-NEB, Facilit INHALATION, y MYLAN, 3 ml VIAL ALBUTEROL Active [id number] HERNBERG, 11/26 / Pharmac SULFATE 2 KENISHA 2021 y Data (ALBUTEROL Transac SULFATE), tion 2.5 MG/3ML, Service VIAL-NEB, Facilit INHALATION, y MYLAN, 3 ml VIAL ALBUTEROL Active [id number] BIRGITTA 10/10/ Pharmac SULFATE HFA 2 HERNBE, 2021 y Data (albuterol Transac sulfate), tion 90 MCG, HFA Service AER AD, Facilit INHALATION, y [employer] 6.7 g CANISTER ALBUTEROL Active [id number] BIRGITTA 03/27/ Pharmac SULFATE HFA 1 HERNBE, 2020 y Data (albuterol Transac sulfate), tion 90 MCG, HFA Service AER AD, Facilit INHALATION, y [employer] 6.7 g CANISTER ALBUTEROL Active [id number] BIRGITTA 07/27/ Pharmac SULFATE HFA 2 HERNBE, 2021 y Data (albuterol Transac sulfate), tion 90 MCG, HFA Service AER AD, Facilit INHALATION, y [employer] 6.7 g CANISTER ALBUTEROL Active [id number] BIRGITTA 08/22/ Pharmac SULFATE HFA 2 HERNB, 2021 y Data (albuterol Transac sulfate), tion 90 MCG, HFA Service AER AD, Facilit INHALATION, y [employer] 6.7 g CANISTER ALBUTEROL Active [id number] BIRGITTA 09/27/ Pharmac SULFATE HFA 2 HERNB, 2021 y Data (albuterol Transac sulfate), tion 90 MCG, HFA Service AER AD, Facilit INHALATION, y [employer] 6.7 g CANISTER AMLODIPINE Active [id number] KHALIL,AM 11/06 / Pharmac BESYLATE 2 Y 2021 y Data (AMLODIPINE Transac BESYLATE), tion 5 MG, Service TABLET, Facilit ORAL, y EXELAN PHARMACE, 1000 ea. BOTTLE AMLODIPINE Active [id number] KHALIL,AM 12/01 9/ Pharmac BESYLATE 2 Y 2021 y Data (AMLODIPINE Transac BESYLATE), tion 5 MG, Service TABLET, Facilit ORAL, y EXELAN PHARMACE, 1000 ea. BOTTLE AMLODIPINE Active [id number] KHALIL, 10/23/ Pharmac BESYLATE 2 2021 y Data (amlodipine Transac besylate), tion 5 MG, Service TABLET, Facilit ORAL, LUPIN y PHARMACEU, 1000 ea. BOTTLE DOXYCYCLINE Active [id number] BIRGITTA 03/03 4/ Pharmac MONOHYDRATE 1 HERNBE, 2020 y Data (DOXYCYCLIN Transac E tion MONOHYDRATE Service ), 100 MG, Facilit TABLET, y ORAL, [employer] PHARMA, 50 ea. BOTTLE DOXYCYCLINE Active [id number] HERNBERG, / Pharmac MONOHYDRATE 1 KENISHA 2020 y Data (DOXYCYCLIN Transac E tion MONOHYDRATE Service ), 100MG, Facilit TABLET, y ORAL, [employer], 50 ea. BOTTLE EZETIMIBE Active [id number] KHALIL,AM Pharmac (ezetimibe) 2 Y 2021 y Data , 10 MG, Transac TABLET, tion ORAL, [employer] 500 Facilit ea. BOTTLE y EZETIMIBE Active [id number] KHALIL,AM 01/31/ Pharmac (ezetimibe) 2 Y 2021 y Data , 10 MG, Transac TABLET, tion ORAL, [employer] 500 Facilit ea. BOTTLE y HYDROCODONE Active [id number] SANDY, 07/ Pharmac -ACETAMINOP 2 2021 y Data HEN Transac (HYDROCODON tion E/ACETAMINO Service PHEN), Facilit 5MG-325MG, y TABLET, ORAL, MALLINCKROD T PH, 500 ea. BOTTLE IBUPROFEN Active [id number] HERNBERG, 11/29 Pharmac (ibuprofen) 2 KENISHA 2021 y Data , 800 MG, Transac TABLET, tion ORAL, [employer] 500 Facilit ea. BOTTLE y IBUPROFEN Active [id number] HERNBERG, 11/26 Pharmac (ibuprofen) 2 KENISHA 2021 y Data , 800 MG, Transac TABLET, tion ORAL, [employer], [employer] 500 Facilit ea. BOTTLE y MIRTAZAPINE Active [id number] DOMPIERRE Pharmac (MIRTAZAPIN 1 , 2020 y Data E), 15 MG, Transac TABLET, tion ORAL, Service AUROBINDO Facilit PHARM, 30 y ea. BOTTLE MIRTAZAPINE Active [id number] DOMPIERRE Pharmac (MIRTAZAPIN 1 , 2020 y Data E), 15 MG, Transac TABLET, tion ORAL, Service AUROBINDO Facilit PHARM, 30 y ea. BOTTLE MIRTAZAPINE Active [id number] [facility] 07 Pharmac (mirtazapin 1 ALKA 2020 y Data e), 15 MG, Transac TABLET, tion ORAL, Service DEEPIKA Facilit JHONATHAN [place], y 1000 ea. BOTTLE MIRTAZAPINE Active [id number] DOMPIERRE Pharmac (MIRTAZAPIN 2 , 2021 y Data E), 30 MG, Transac TABLET, tion ORAL, Service AUROBINDO Facilit PHARM, 30 y ea. BOTTLE MIRTAZAPINE Active [id number] [facility] 04 Pharmac (mirtazapin 2 AL[place] 2021 y Data e), 30 MG, Transac TABLET, tion ORAL, [employer] INC[employer] 500 Facilit ea. BOTTLE y MIRTAZAPINE Active [id number] [facility]P 05 Pharmac (mirtazapin 2 AL[place] 2021 y Data e), 30 MG, Transac TABLET, tion ORAL, [employer], Service INC[employer] 500 Facilit ea. BOTTLE y MIRTAZAPINE Active [id number] [facility],SEP 03 Pharmac (mirtazapin 2 ALKA 2021 y Data e), 30 MG, Transac TABLET, tion ORAL, [employer] 500 Facilit ea. BOTTLE y MIRTAZAPINE Active [id number] [facility] 03 Pharmac (mirtazapin 2 AL[place] 2021 y Data e), 30 MG, Transac TABLET, tion ORAL, [employer] 500 Facilit ea. BOTTLE y MIRTAZAPINE Active [id number] [facility]G 31 Pharmac (mirtazapin 1 AL[place] 2021 y Data e), 30 MG, Transac TABLET, tion ORAL, [employer] 500 Facilit ea. BOTTLE y MIRTAZAPINE Active [id number] [facility] 03 Pharmac (mirtazapin 2 AL[place] 2021 y Data e), 30 MG, Transac TABLET, tion ORAL, [employer] 500 Facilit ea. BOTTLE y PREDNISONE Active [id number] BRITTNEYERG, 12/01 Pharmac (prednisone 2 KENISHA 2021 y Data ), 20 MG, Transac TABLET, tion ORAL, [employer] 500 Facilit ea. BOTTLE y PREDNISONE Active [id number] BIRGITTA 12/28 / Pharmac (prednisone 2 HERNBE, 2021 y Data ), 20 MG, Transac TABLET, tion ORAL, Service NOVITIUM Facilit PHARMA, 500 y ea. BOTTLE PREDNISONE Active [id number] HERNBERG, 03/03 Pharmac (PREDNISONE 1 KENISHA 2020 y Data ), 20MG, Transac TABLET, tion ORAL, Service QUALITEST, Facilit 500 ea. y BOTTLE PREDNISONE Active [id number] BIRGITTA 03/25 Pharmac (PREDNISONE 1 HERNBE, 2020 y Data ), 20MG, Transac TABLET, tion ORAL, Service VERNON Facilit LABS, 500 y ea. BOTTLE PROAIR HFA Active [id number] HERNBERG, Pharmac (ALBUTEROL 2 KENISHA 2021 y Data SULFATE), Transac 90 MCG, HFA tion AER AD, Service INHALATION, Facilit TEVA y SPECIALTY, 8.5 g CANISTER PROAIR HFA Active [id number] HERNBERG, 11/30 Pharmac (ALBUTEROL 2 KENISHA 2021 y Data SULFATE), Transac 90 MCG, HFA tion AER AD, Service INHALATION, Facilit TEVA y SPECIALTY, 8.5 g CANISTER PROAIR HFA Active [id number] HERNBERG, 10/30 Pharmac (ALBUTEROL 2 KENISHA 2021 y Data SULFATE), Transac 90 MCG, HFA tion AER AD, Service INHALATION, Facilit TEVA y SPECIALTY, 8.5 g CANISTER REPATHA Active [id number] KHALIL,AM 11/28/ Pharmac SURECLICK 2 Y 2021 y Data (evolocumab Transac ), 140 tion MG/ML, PEN Service INJCTR, Facilit SUBCUT, y [employer] 1 ml SYRINGE REPATHA Active [id number] KHALIL,AM 01/20/ Pharmac SURECLICK 2 Y 2021 y Data (evolocumab Transac ), 140 tion MG/ML, PEN Service INJCTR, Facilit SUBCUT, y [employer] 1 ml SYRINGE TRAZODONE Active [id number] [facility] 02/08 / Pharmac HCL 2020 y Data (trazodone Transac HCl), 50 tion MG, TABLET, Service ORAL, Facilit AVKARE, y 1000 ea. BOTTLE TRAZODONE Active [id number] [facility] 12[facility] / Pharmac HCL 2020 y Data (trazodone Transac HCl), 50 tion MG, TABLET, Service ORAL, Facilit AVKARE, y 1000 ea. BOTTLE VENLAFAXINE Active [id number] [facility] / Pharmac HCL ER 2020 y Data (venlafaxin Transac e HCl), 150 tion MG, CAP ER Service 24H, ORAL, Facilit ACETRIS y HEALTH, 30 ea. BOTTLE VENLAFAXINE Active [id number] [facility] / Pharmac HCL ER 2020 y Data (venlafaxin Transac e HCl), 150 tion MG, CAP ER Service 24H, ORAL, Facilit ACETRIS y HEALTH, 90 ea. BOTTLE VENLAFAXINE Active [id number] [facility] / Pharmac HCL ER 2020 y Data (venlafaxin Transac e HCl), 150 tion MG, CAP ER Service 24H, ORAL, Facilit ACETRIS y HEALTH, 90 ea. BOTTLE VENLAFAXINE Active [id number] NIDIA, 11/10/ Pharmac HCL ER 2020 y Data (VENLAFAXIN Transac E HCL), 150 tion MG, CAP ER Service 24H, ORAL, Facilit AUROBINDO y PHARM, 90 ea. BOTTLE VENLAFAXINE Active [id number] DOMPIERRE / Pharmac HCL ER 2020 y Data (VENLAFAXIN Transac E HCL), tion 37.5 MG, Service CAP ER 24H, Facilit ORAL, y AUROBINDO PHARM, 90 ea. BOTTLE VENLAFAXINE Active [id number] DOMPIERRE / Pharmac HCL ER 2020 y Data (VENLAFAXIN Transac E HCL), tion 37.5 MG, Service CAP ER 24H, Facilit ORAL, y AUROBINDO PHARM, 90 ea. BOTTLE VENLAFAXINE Active [id number] BENITA JACOB / Pharmac HCL ER 2020 y Data (venlafaxin Transac e HCl), 75 tion MG, CAP ER Service 24H, ORAL, Facilit ACETRIS y HEALTH, 90 ea. BOTTLE VENLAFAXINE Active [id number] NIDIA,BENITA / Pharmac HCL ER 2020 y Data (venlafaxin Transac e HCl), 75 tion MG, CAP ER Service 24H, ORAL, Facilit ACETRIS y HEALTH, 90 ea. BOTTLE VENLAFAXINE Active [id number] BENITA JACOB / Pharmac HCL ER 2020 y Data (venlafaxin Transac e HCl), 75 tion MG, CAP ER Service 24H, ORAL, Facilit ACETRIS y HEALTH, 90 ea. BOTTLE VENLAFAXINE Active [id number] NIDIA, 11/10/ Pharmac HCL ER 2020 y Data (VENLAFAXIN Transac E HCL), 75 tion MG, CAP ER Service 24H, ORAL, Facilit AUROBINDO y PHARM, 90 ea. BOTTLE Social History Combined list of available smoking, tobacco, and other social history from Department of Defense andVeterans Affairs facilities. Social History Type Response Date Comment Source This section is an empty social history section. [employer]
--- OUTSIDE RECORDS SUMMARY | 2022-02-07 19:10 | XMS_ITS | Continuity of Care Document ---
:1955 Author Organization [facility] Care Team Providers Name Role Phone [facility] Unavailable Unavailable Medications Combined list of outpatient medications from Department of Defense and Veterans Affairs facilities. Medications provided include 1) outpatient medications from the last 15 months, and 2) patient-reported medications. Medication Details Route Status Patient Prescription Prescription Last Ordering Order Source Instructions Expires Number Dispense Provider Date Date ADVAIR HFA Active [id number] HERNBERG, 5/ Pharmac (FLUTICASON 2 KENISHA 2021 y Data E/SALMETERO Transac L), tion 115-21MCG, Service HFA AER AD, Facilit INHALATION, y GLAXOSMITHK LINE, 12 g CANISTER ADVAIR HFA Active [id number] HERNBERG, 12/31 6/ Pharmac (FLUTICASON 2 KENISHA 2021 y Data E/SALMETERO Transac L), tion 115-21MCG, Service HFA AER AD, Facilit INHALATION, y GLAXOSMITHK LINE, 12 g CANISTER ADVAIR HFA Active [id number] HERNBERG, 10/31 8/ Pharmac (FLUTICASON 2 KENISHA 2021 y Data E/SALMETERO Transac L), tion 115-21MCG, Service HFA AER AD, Facilit INHALATION, y GLAXOSMITHK LINE, 12 g CANISTER ADVAIR HFA Active [id number] HERNBERG, 11/30 4/ Pharmac (FLUTICASON 1 KENISHA 2020 y Data E/SALMETERO Transac L), tion 115-21MCG, Service HFA AER AD, Facilit INHALATION, y GLAXOSMITHK LINE, 12 g CANISTER ADVAIR HFA Active [id number] HERNBERG, 01/30 4/ Pharmac (FLUTICASON 1 KENISHA 2020 y Data E/SALMETERO Transac L), tion 115-21MCG, Service HFA AER AD, Facilit INHALATION, y GLAXOSMITHK LINE, 12 g CANISTER ADVAIR HFA Active [id number] HERNBERG, 03/02 5/ Pharmac (FLUTICASON 1 KENISHA 2020 y Data E/SALMETERO Transac L), tion 115-21MCG, Service HFA AER AD, Facilit INHALATION, y GLAXOSMITHK LINE, 12 g CANISTER ADVAIR HFA Active [id number] HERNBERG, 05/02 5/ Pharmac (FLUTICASON 1 KENISHA 2020 y Data E/SALMETERO Transac L), tion 115-21MCG, Service HFA AER AD, Facilit INHALATION, y GLAXOSMITHK LINE, 12 g CANISTER ADVAIR HFA Active [id number] HERNBERG, 07/02 0/ Pharmac (FLUTICASON 2 KENISHA 2021 y Data E/SALMETERO Transac L), tion 115-21MCG, Service HFA AER AD, Facilit INHALATION, y GLAXOSMITHK LINE, 12 g CANISTER ADVAIR HFA Active [id number] HERNBERG, 08/30 3/ Pharmac (FLUTICASON 2 KENISHA 2021 y Data E/SALMETERO Transac L), tion 115-21MCG, Service HFA AER AD, Facilit INHALATION, y GLAXOSMITHK LINE, 12 g CANISTER ALBUTEROL Active [id number] HERNBERG, 11/29 / Pharmac SULFATE 2 KENISHA2021 y Data (ALBUTEROL Transac SULFATE), tion 2.5 MG/3ML, Service VIAL-NEB, Facilit INHALATION, y MYLAN, 3 ml VIAL ALBUTEROL Active [id number] HERNBERG, 11/26 / Pharmac SULFATE 2 KENISHA 2021 y Data (ALBUTEROL Transac SULFATE), tion 2.5 MG/3ML, Service VIAL-NEB, Facilit INHALATION, y MYLAN, 3 ml VIAL ALBUTEROL Active [id number] BIRGITTA 10/10/ Pharmac SULFATE HFA 2 HERNBE, 2021 y Data (albuterol Transac sulfate), tion 90 MCG, HFA Service AER AD, Facilit INHALATION, y [employer] 6.7 g CANISTER ALBUTEROL Active [id number] BIRGITTA 03/27/ Pharmac SULFATE HFA 1 HERNBE, 2020 y Data (albuterol Transac sulfate), tion 90 MCG, HFA Service AER AD, Facilit INHALATION, y [employer] 6.7 g CANISTER ALBUTEROL Active [id number] BIRGITTA 07/27/ Pharmac SULFATE HFA 2 HERNBE, 2021 y Data (albuterol Transac sulfate), tion 90 MCG, HFA Service AER AD, Facilit INHALATION, y [employer] 6.7 g CANISTER ALBUTEROL Active [id number] BIRGITTA 08/22/ Pharmac SULFATE HFA 2 HERNB, 2021 y Data (albuterol Transac sulfate), tion 90 MCG, HFA Service AER AD, Facilit INHALATION, y CIPLA Active [employer] INC[employer] 6.7 g CANISTER ALBUTEROL Active [id number] BIRGITTA 09/27/ Pharmac SULFATE HFA 2 HERNB, 2021 y Data (albuterol Transac sulfate), tion 90 MCG, HFA Service AER AD, Facilit INHALATION, y CIPLA Active [employer] INC[employer] 6.7 g CANISTER AMLODIPINE Active [id number] KHALIL,AM 11/06 / Pharmac BESYLATE 2 Y 2021 y Data (AMLODIPINE Transac BESYLATE), tion 5 MG, Service TABLET, Facilit ORAL, y EXELAN PHARMACE, 1000 ea. BOTTLE AMLODIPINE Active [id number] KHALIL,AM 12/01 9/ Pharmac BESYLATE 2 Y 2021 y Data (AMLODIPINE Transac BESYLATE), tion 5 MG, Service TABLET, Facilit ORAL, y EXELAN PHARMACE, 1000 ea. BOTTLE AMLODIPINE Active [id number] KHALIL, 10/23/ Pharmac BESYLATE 2 2021 y Data (amlodipine Transac besylate), tion 5 MG, Service TABLET, Facilit ORAL, LUPIN y PHARMACEU, 1000 ea. BOTTLE DOXYCYCLINE Active [id number] BIRGITTA 03/03 4/ Pharmac MONOHYDRATE 1 HERNBE, 2020 y Data (DOXYCYCLIN Transac E tion MONOHYDRATE Service ), 100 MG, Facilit TABLET, y ORAL, [employer] PHARMA, 50 ea. BOTTLE DOXYCYCLINE Active [id number] HERNBERG, / Pharmac MONOHYDRATE 1 KENISHA 2020 y Data (DOXYCYCLIN Transac E tion MONOHYDRATE Service ), 100MG, Facilit TABLET, y ORAL, [employer], 50 ea. BOTTLE EZETIMIBE Active [id number] KHALIL,AM Pharmac (ezetimibe) 2 Y 2021 y Data , 10 MG, Transac TABLET, tion ORAL, [employer] 500 Facilit ea. BOTTLE y EZETIMIBE Active [id number] KHALIL,AM 01/31/ Pharmac (ezetimibe) 2 Y 2021 y Data , 10 MG, Transac TABLET, tion ORAL, [employer] 500 Facilit ea. BOTTLE y HYDROCODONE Active [id number] SANDY, 07/ Pharmac -ACETAMINOP 2 2021 y Data HEN Transac (HYDROCODON tion E/ACETAMINO Service PHEN), Facilit 5MG-325MG, y TABLET, ORAL, MALLINCKROD T PH, 500 ea. BOTTLE IBUPROFEN Active [id number] HERNBERG, 11/29 Pharmac (ibuprofen) 2 KENISHA 2021 y Data , 800 MG, Transac TABLET, tion ORAL, [employer] 500 Facilit ea. BOTTLE y IBUPROFEN Active [id number] HERNBERG, 11/26 Pharmac (ibuprofen) 2 KENISHA 2021 y Data , 800 MG, Transac TABLET, tion ORAL, Orth[employer], [employer] 500 Facilit ea. BOTTLE y MIRTAZAPINE Active [id number] DOMPIERRE Pharmac (MIRTAZAPIN 1 , 2020 y Data E), 15 MG, Transac TABLET, tion ORAL, Service AUROBINDO Facilit PHARM, 30 y ea. BOTTLE MIRTAZAPINE Active [id number] DOMPIERRE Pharmac (MIRTAZAPIN 1 , 2020 y Data E), 15 MG, Transac TABLET, tion ORAL, Service AUROBINDO Facilit PHARM, 30 y ea. BOTTLE MIRTAZAPINE Active [id number] [facility] Pharmac (mirtazapin 1 [place] 2020 y Data e), 15 MG, Transac TABLET, tion ORAL, Service DEEPIKA Facilit JHONATHAN LA, y 1000 ea. BOTTLE MIRTAZAPINE Active [id number] DOMPIERRE Pharmac (MIRTAZAPIN 2 , 2021 y Data E), 30 MG, Transac TABLET, tion ORAL, Service AUROBINDO Facilit PHARM, 30 y ea. BOTTLE MIRTAZAPINE Active [id number] [facility] Pharmac (mirtazapin 2 [place] 2021 y Data e), 30 MG, Transac TABLET, tion ORAL, [employer] INC., 500 Facilit ea. BOTTLE y MIRTAZAPINE Active [id number] [facility] Pharmac (mirtazapin 2 [place] 2021 y Data e), 30 MG, Transac TABLET, tion ORAL, [employer] 500 Facilit ea. BOTTLE y MIRTAZAPINE Active [id number] [facility] 03 Pharmac (mirtazapin 2 [place] 2021 y Data e), 30 MG, Transac TABLET, tion ORAL, [employer] 500 Facilit ea. BOTTLE y MIRTAZAPINE Active [id number] [facility] Pharmac (mirtazapin 2 [place] 2021 y Data e), 30 MG, Transac TABLET, tion ORAL, GS[employer], [employer] INC[employer] 500 Facilit ea. BOTTLE y MIRTAZAPINE Active [id number] [facility] Pharmac (mirtazapin 1 [place] 2021 y Data e), 30 MG, Transac TABLET, tion ORAL, [employer] 500 Facilit ea. BOTTLE y MIRTAZAPINE Active [id number] [facility] Pharmac (mirtazapin 2 [place] 2021 y Data e), 30 MG, Transac TABLET, tion ORAL, [employer] 500 Facilit ea. BOTTLE y PREDNISONE Active [id number] BRITTNEYERG, 12/01 Pharmac (prednisone 2 KENISHA 2021 y Data ), 20 MG, Transac TABLET, tion ORAL, [employer] 500 Facilit ea. BOTTLE y PREDNISONE Active [id number] BIRGITTA 12/28 / Pharmac (prednisone 2 HERNBE, 2021 y Data ), 20 MG, Transac TABLET, tion ORAL, Service NOVITIUM Facilit PHARMA, 500 y ea. BOTTLE PREDNISONE Active [id number] HERNBERG, 03/03 Pharmac (PREDNISONE 1 KENISHA 2020 y Data ), 20MG, Transac TABLET, tion ORAL, Service QUALITEST, Facilit 500 ea. y BOTTLE PREDNISONE Active [id number] BIRGITTA 03/25 Pharmac (PREDNISONE 1 HERNBE, 2020 y Data ), 20MG, Transac TABLET, tion ORAL, Service VERNON Facilit LABS, 500 y ea. BOTTLE PROAIR HFA Active [id number] HERNBERG, Pharmac (ALBUTEROL 2 KENISHA 2021 y Data SULFATE), Transac 90 MCG, HFA tion AER AD, Service INHALATION, Facilit TEVA y SPECIALTY, 8.5 g CANISTER PROAIR HFA Active [id number] HERNBERG, 11/30 Pharmac (ALBUTEROL 2 KENISHA 2021 y Data SULFATE), Transac 90 MCG, HFA tion AER AD, Service INHALATION, Facilit TEVA y SPECIALTY, 8.5 g CANISTER PROAIR HFA Active [id number] HERNBERG, 10/30 Pharmac (ALBUTEROL 2 KENISHA 2021 y Data SULFATE), Transac 90 MCG, HFA tion AER AD, Service INHALATION, Facilit TEVA y SPECIALTY, 8.5 g CANISTER REPATHA Active [id number] KHALIL,AM 11/28/ Pharmac SURECLICK 2 Y 2021 y Data (evolocumab Transac ), 140 tion MG/ML, PEN Service INJCTR, Facilit SUBCUT, y AMGEN Active [employer] 1 ml SYRINGE REPATHA Active [id number] KHALIL,AM 01/20/ Pharmac SURECLICK 2 Y 2021 y Data (evolocumab Transac ), 140 tion MG/ML, PEN Service INJCTR, Facilit SUBCUT, y AMGEN Active [employer] 1 ml SYRINGE TRAZODONE Active [id number] [place] 02/08 / Pharmac HCL 2020 y Data (trazodone Transac HCl), 50 tion MG, TABLET, Service ORAL, Facilit AVKARE, y 1000 ea. BOTTLE TRAZODONE Active [id number] [facility] / Pharmac HCL 2020 y Data (trazodone Transac HCl), 50 tion MG, TABLET, Service ORAL, Facilit AVKARE, y 1000 ea. BOTTLE VENLAFAXINE Active [id number] [facility] / Pharmac HCL ER 2020 y Data (venlafaxin Transac e HCl), 150 tion MG, CAP ER Service 24H, ORAL, Facilit ACETRIS y HEALTH, 30 ea. BOTTLE VENLAFAXINE Active [id number] [facility] / Pharmac HCL ER 2020 y Data (venlafaxin Transac e HCl), 150 tion MG, CAP ER Service 24H, ORAL, Facilit ACETRIS y HEALTH, 90 ea. BOTTLE VENLAFAXINE Active [id number] [facility] / Pharmac HCL ER 2020 y Data (venlafaxin Transac e HCl), 150 tion MG, CAP ER Service 24H, ORAL, Facilit ACETRIS y HEALTH, 90 ea. BOTTLE VENLAFAXINE Active [id number] NIDIA, 11/10/ Pharmac HCL ER 2020 y Data (VENLAFAXIN Transac E HCL), 150 tion MG, CAP ER Service 24H, ORAL, Facilit AUROBINDO y PHARM, 90 ea. BOTTLE VENLAFAXINE Active [id number] DOMPIERRE / Pharmac HCL ER 2020 y Data (VENLAFAXIN Transac E HCL), tion 37.5 MG, Service CAP ER 24H, Facilit ORAL, y AUROBINDO PHARM, 90 ea. BOTTLE VENLAFAXINE Active [id number] DOMPIERRE / Pharmac HCL ER 2020 y Data (VENLAFAXIN Transac E HCL), tion 37.5 MG, Service CAP ER 24H, Facilit ORAL, y AUROBINDO PHARM, 90 ea. BOTTLE VENLAFAXINE Active [id number] BENITA JACOB / Pharmac HCL ER 2020 y Data (venlafaxin Transac e HCl), 75 tion MG, CAP ER Service 24H, ORAL, Facilit ACETRIS y HEALTH, 90 ea. BOTTLE VENLAFAXINE Active [id number] NIDIA,BENITA / Pharmac HCL ER 2020 y Data (venlafaxin Transac e HCl), 75 tion MG, CAP ER Service 24H, ORAL, Facilit ACETRIS y HEALTH, 90 ea. BOTTLE VENLAFAXINE Active [id number] BENITA JACOB / Pharmac HCL ER 2020 y Data (venlafaxin Transac e HCl), 75 tion MG, CAP ER Service 24H, ORAL, Facilit ACETRIS y HEALTH, 90 ea. BOTTLE VENLAFAXINE Active [id number] NIDIA, 11/10/ Pharmac HCL ER 2020 y [...]
== END 2022-01-18 16:30 | disposition home or self-care (01) ==
PROVIDERS: Emergency Provider Family Medicine; PCP Family Medicine
DX: R10.31 Right lower quadrant pain (principal); S32.030A Wedge compression fracture of third lumbar vertebra, initial encounter for closed fracture
CPT/HCPCS: 36415; 74177; 80053; 81003; 83605; 85025; 86140; 94640; 96374; 99284; 99285; J1885; J7030; Q9967

== ENCOUNTER 2022-02-07 14:36 | Outpatient (CLI) | payer OTHER, SELFPAY ==
[2022-02-07] MEDS: PERFLUTREN LIPID MICROSPHERES 2 ML VIAL IV (16:26)
[2022-02-07 16:55] VITALS: BP 126/85; PULSE 91
--- NOTE | 2022-02-07 17:12 | P.STN_ITS ---
Stress Test Note Date Date Seen: 02/07/22 Date of test: 02/07/22 Providers Referring provider: Cheyenne Guardado Primary care provider: Cheyenne Guardado Stress test physician: Rubén Palacios Stress Test Note Stress test ordered: Stress Echo Indication for test: Chest pain Stress test medicine: [facility] Results discussion: Patient is a norberto 66-year-old female presents here for stress echo and primary indication is chest pain after discussion the risks benefits and side effects he would like proceed pretest EKG shows normal sinus rhythm, Q-waves are noted in V1 V2, diffuse ST wave changes are noted throughout the baseline EKG. Rhythm is sinus, with a ventricular rate of 79 and blood pressure 120/78. Standard Jc protocol is employed along the time course of 8 minutes 50 seconds, achieved a metabolic equivalent in a 10.3 Mets. There were no dysrhythmias, EKG showed no ST wave changes, she recovered normally, her only complaint was fatigue. Impression: Negative electrographic portion of stress echo Follow up suggested: Follow-up with cardiology/primary care,suggest correlation with the Echo read by Cardiology. Patient left this facility in good condition.
--- OUTSIDE RECORDS SUMMARY | 2022-02-08 06:45 | XMS_ITS | Continuity of Care Document ---
:[address] [facility] Care Team Providers Name Role Phone [facility] Unavailable Unavailable Medications Combined list of outpatient medications from Department of Defense and Veterans Affairs facilities. Medications provided include 1) outpatient medications from the last 15 months, and 2) patient-reported medications. Medication Details Route Status Patient Prescription Prescription Last Ordering Order Source Instructions Expires Number Dispense Provider Date Date ADVAIR HFA Active [id number] HERNBERG, 5/ Pharmac (FLUTICASON 2 KENISHA 2021 y Data E/SALMETERO Transac L), tion 115-21MCG, Service HFA AER AD, Facilit INHALATION, y GLAXOSMITHK LINE, 12 g CANISTER ADVAIR HFA Active [id number] HERNBERG, 12/31 6/ Pharmac (FLUTICASON 2 KENISHA 2021 y Data E/SALMETERO Transac L), tion 115-21MCG, Service HFA AER AD, Facilit INHALATION, y GLAXOSMITHK LINE, 12 g CANISTER ADVAIR HFA Active [id number] HERNBERG, 10/31 8/ Pharmac (FLUTICASON 2 KENISHA 2021 y Data E/SALMETERO Transac L), tion 115-21MCG, Service HFA AER AD, Facilit INHALATION, y GLAXOSMITHK LINE, 12 g CANISTER ADVAIR HFA Active [id number] HERNBERG, 11/30 4/ Pharmac (FLUTICASON 1 KENISHA 2020 y Data E/SALMETERO Transac L), tion 115-21MCG, Service HFA AER AD, Facilit INHALATION, y GLAXOSMITHK LINE, 12 g CANISTER ADVAIR HFA Active [id number] HERNBERG, 01/30 4/ Pharmac (FLUTICASON 1 KENISHA 2020 y Data E/SALMETERO Transac L), tion 115-21MCG, Service HFA AER AD, Facilit INHALATION, y GLAXOSMITHK LINE, 12 g CANISTER ADVAIR HFA Active [id number] HERNBERG, 03/02 5/ Pharmac (FLUTICASON 1 KENISHA 2020 y Data E/SALMETERO Transac L), tion 115-21MCG, Service HFA AER AD, Facilit INHALATION, y GLAXOSMITHK LINE, 12 g CANISTER ADVAIR HFA Active [id number] HERNBERG, 05/02 5/ Pharmac (FLUTICASON 1 KENISHA 2020 y Data E/SALMETERO Transac L), tion 115-21MCG, Service HFA AER AD, Facilit INHALATION, y GLAXOSMITHK LINE, 12 g CANISTER ADVAIR HFA Active [id number] HERNBERG, 07/02 0/ Pharmac (FLUTICASON 2 KENISHA 2021 y Data E/SALMETERO Transac L), tion 115-21MCG, Service HFA AER AD, Facilit INHALATION, y GLAXOSMITHK LINE, 12 g CANISTER ADVAIR HFA Active [id number] HERNBERG, 08/30 3/ Pharmac (FLUTICASON 2 KENISHA 2021 y Data E/SALMETERO Transac L), tion 115-21MCG, Service HFA AER AD, Facilit INHALATION, y GLAXOSMITHK LINE, 12 g CANISTER ALBUTEROL Active [id number] HERNBERG, 11/29 / Pharmac SULFATE 2 KENISHA2021 y Data (ALBUTEROL Transac SULFATE), tion 2.5 MG/3ML, Service VIAL-NEB, Facilit INHALATION, y MYLAN, 3 ml VIAL ALBUTEROL Active [id number] HERNBERG, 11/26 / Pharmac SULFATE 2 KENISHA 2021 y Data (ALBUTEROL Transac SULFATE), tion 2.5 MG/3ML, Service VIAL-NEB, Facilit INHALATION, y MYLAN, 3 ml VIAL ALBUTEROL Active [id number] BIRGITTA 10/10/ Pharmac SULFATE HFA 2 HERNBE, 2021 y Data (albuterol Transac sulfate), tion 90 MCG, HFA Service AER AD, Facilit INHALATION, y [employer] 6.7 g CANISTER ALBUTEROL Active [id number] BIRGITTA 03/27/ Pharmac SULFATE HFA 1 HERNBE, 2020 y Data (albuterol Transac sulfate), tion 90 MCG, HFA Service AER AD, Facilit INHALATION, y [employer] 6.7 g CANISTER ALBUTEROL Active [id number] BIRGITTA 07/27/ Pharmac SULFATE HFA 2 HERNBE, 2021 y Data (albuterol Transac sulfate), tion 90 MCG, HFA Service AER AD, Facilit INHALATION, y [employer] 6.7 g CANISTER ALBUTEROL Active [id number] BIRGITTA 08/22/ Pharmac SULFATE HFA 2 HERNB, 2021 y Data (albuterol Transac sulfate), tion 90 MCG, HFA Service AER AD, Facilit INHALATION, y [employer] 6.7 g CANISTER ALBUTEROL Active [id number] BIRGITTA 09/27/ Pharmac SULFATE HFA 2 HERNB, 2021 y Data (albuterol Transac sulfate), tion 90 MCG, HFA Service AER AD, Facilit INHALATION, y [employer] 6.7 g CANISTER AMLODIPINE Active [id number] KHALIL,AM 11/06 / Pharmac BESYLATE 2 Y 2021 y Data (AMLODIPINE Transac BESYLATE), tion 5 MG, Service TABLET, Facilit ORAL, y EXELAN PHARMACE, 1000 ea. BOTTLE AMLODIPINE Active [id number] KHALIL,AM 12/01 9/ Pharmac BESYLATE 2 Y 2021 y Data (AMLODIPINE Transac BESYLATE), tion 5 MG, Service TABLET, Facilit ORAL, y EXELAN PHARMACE, 1000 ea. BOTTLE AMLODIPINE Active [id number] KHALIL, 10/23/ Pharmac BESYLATE 2 2021 y Data (amlodipine Transac besylate), tion 5 MG, Service TABLET, Facilit ORAL, LUPIN y PHARMACEU, 1000 ea. BOTTLE DOXYCYCLINE Active [id number] BIRGITTA 03/03 4/ Pharmac MONOHYDRATE 1 HERNBE, 2020 y Data (DOXYCYCLIN Transac E tion MONOHYDRATE Service ), 100 MG, Facilit TABLET, y ORAL, [employer] PHARMA, 50 ea. BOTTLE DOXYCYCLINE Active [id number] HERNBERG, / Pharmac MONOHYDRATE 1 KENISHA 2020 y Data (DOXYCYCLIN Transac E tion MONOHYDRATE Service ), 100MG, Facilit TABLET, y ORAL, [employer], 50 ea. BOTTLE EZETIMIBE Active [id number] KHALIL,AM Pharmac (ezetimibe) 2 Y 2021 y Data , 10 MG, Transac TABLET, tion ORAL, [employer] 500 Facilit ea. BOTTLE y EZETIMIBE Active [id number] KHALIL,AM 01/31/ Pharmac (ezetimibe) 2 Y 2021 y Data , 10 MG, Transac TABLET, tion ORAL, [employer] 500 Facilit ea. BOTTLE y HYDROCODONE Active [id number] SANDY, 07/ Pharmac -ACETAMINOP 2 2021 y Data HEN Transac (HYDROCODON tion E/ACETAMINO Service PHEN), Facilit 5MG-325MG, y TABLET, ORAL, MALLINCKROD T PH, 500 ea. BOTTLE IBUPROFEN Active [id number] HERNBERG, 11/29 Pharmac (ibuprofen) 2 KENISHA 2021 y Data , 800 MG, Transac TABLET, tion ORAL, [employer] 500 Facilit ea. BOTTLE y IBUPROFEN Active [id number] HERNBERG, 11/26 Pharmac (ibuprofen) 2 KENISHA 2021 y Data , 800 MG, Transac TABLET, tion ORAL, [employer] 500 Facilit ea. BOTTLE y MIRTAZAPINE Active [id number] DOMPIERRE Pharmac (MIRTAZAPIN 1 , 2020 y Data E), 15 MG, Transac TABLET, tion ORAL, Service AUROBINDO Facilit PHARM, 30 y ea. BOTTLE MIRTAZAPINE Active [id number] DOMPIERRE Pharmac (MIRTAZAPIN 1 , 2020 y Data E), 15 MG, Transac TABLET, tion ORAL, Service AUROBINDO Facilit PHARM, 30 y ea. BOTTLE MIRTAZAPINE Active [id number] [facility] Pharmac (mirtazapin 1 [place] 2020 y Data e), 15 MG, Transac TABLET, tion ORAL, Service DEEPIKA Facilit JHONATHAN ID, y 1000 ea. BOTTLE MIRTAZAPINE Active [id number] DOMPIERRE Pharmac (MIRTAZAPIN 2 , 2021 y Data E), 30 MG, Transac TABLET, tion ORAL, Service AUROBINDO Facilit PHARM, 30 y ea. BOTTLE MIRTAZAPINE Active [id number] [facility] Pharmac (mirtazapin 2 [place] 2021 y Data e), 30 MG, Transac TABLET, tion ORAL, [employer] 500 Facilit ea. BOTTLE y MIRTAZAPINE Active [id number] [facility] Pharmac (mirtazapin 2 [place] 2021 y Data e), 30 MG, Transac TABLET, tion ORAL, [employer] 500 Facilit ea. BOTTLE y MIRTAZAPINE Active [id number] [facility] 03 Pharmac (mirtazapin 2 [place] 2021 y Data e), 30 MG, Transac TABLET, tion ORAL, [employer] 500 Facilit ea. BOTTLE y MIRTAZAPINE Active [id number] [facility] Pharmac (mirtazapin 2 [place] 2021 y Data e), 30 MG, Transac TABLET, tion ORAL, [employer] 500 Facilit ea. BOTTLE y MIRTAZAPINE Active [id number] [facility] Pharmac (mirtazapin 1 [place] 2021 y Data e), 30 MG, Transac TABLET, tion ORAL, [employer] 500 Facilit ea. BOTTLE y MIRTAZAPINE Active [id number] [facility] Pharmac (mirtazapin 2 [place] 2021 y Data e), 30 MG, Transac TABLET, tion ORAL, [employer] 500 Facilit ea. BOTTLE y PREDNISONE Active [id number] BRITTNEYERG, 12/01 Pharmac (prednisone 2 KENISHA 2021 y Data ), 20 MG, Transac TABLET, tion ORAL, [employer] 500 Facilit ea. BOTTLE y PREDNISONE Active [id number] BIRGITTA 12/28 / Pharmac (prednisone 2 HERNBE, 2021 y Data ), 20 MG, Transac TABLET, tion ORAL, Service NOVITIUM Facilit PHARMA, 500 y ea. BOTTLE PREDNISONE Active [id number] HERNBERG, 03/03 Pharmac (PREDNISONE 1 KENISHA 2020 y Data ), 20MG, Transac TABLET, tion ORAL, Service QUALITEST, Facilit 500 ea. y BOTTLE PREDNISONE Active [id number] BIRGITTA 03/25 Pharmac (PREDNISONE 1 HERNBE, 2020 y Data ), 20MG, Transac TABLET, tion ORAL, Service VERNON Facilit LABS, 500 y ea. BOTTLE PROAIR HFA Active [id number] HERNBERG, Pharmac (ALBUTEROL 2 KENISHA 2021 y Data SULFATE), Transac 90 MCG, HFA tion AER AD, Service INHALATION, Facilit TEVA y SPECIALTY, 8.5 g CANISTER PROAIR HFA Active [id number] HERNBERG, 11/30 Pharmac (ALBUTEROL 2 KENISHA 2021 y Data SULFATE), Transac 90 MCG, HFA tion AER AD, Service INHALATION, Facilit TEVA y SPECIALTY, 8.5 g CANISTER PROAIR HFA Active [id number] HERNBERG, 10/30 Pharmac (ALBUTEROL 2 KENISHA 2021 y Data SULFATE), Transac 90 MCG, HFA tion AER AD, Service INHALATION, Facilit TEVA y SPECIALTY, 8.5 g CANISTER REPATHA Active [id number] KHALIL,AM 11/28/ Pharmac SURECLICK 2 Y 2021 y Data (evolocumab Transac ), 140 tion MG/ML, PEN Service INJCTR, Facilit SUBCUT, y [employer] 1 ml SYRINGE REPATHA Active [id number] KHALIL,AM 01/20/ Pharmac SURECLICK 2 Y 2021 y Data (evolocumab Transac ), 140 tion MG/ML, PEN Service INJCTR, Facilit SUBCUT, y [employer] 1 ml SYRINGE TRAZODONE Active [id number] [place] 02/08 / Pharmac HCL 2020 y Data (trazodone Transac HCl), 50 tion MG, TABLET, Service ORAL, Facilit AVKARE, y 1000 ea. BOTTLE TRAZODONE Active [id number] [place] / Pharmac HCL 2020 y Data (trazodone Transac HCl), 50 tion MG, TABLET, Service ORAL, Facilit AVKARE, y 1000 ea. BOTTLE VENLAFAXINE Active [id number] [place] / Pharmac HCL ER 2020 y Data (venlafaxin Transac e HCl), 150 tion MG, CAP ER Service 24H, ORAL, Facilit ACETRIS y HEALTH, 30 ea. BOTTLE VENLAFAXINE Active [id number] [place] / Pharmac HCL ER 2020 y Data (venlafaxin Transac e HCl), 150 tion MG, CAP ER Service 24H, ORAL, Facilit ACETRIS y HEALTH, 90 ea. BOTTLE VENLAFAXINE Active [id number] [place] / Pharmac HCL ER 2020 y Data (venlafaxin Transac e HCl), 150 tion MG, CAP ER Service 24H, ORAL, Facilit ACETRIS y HEALTH, 90 ea. BOTTLE VENLAFAXINE Active [id number] NIDIA, 11/10/ Pharmac HCL ER 2020 y Data (VENLAFAXIN Transac E HCL), 150 tion MG, CAP ER Service 24H, ORAL, Facilit AUROBINDO y PHARM, 90 ea. BOTTLE VENLAFAXINE Active [id number] DOMPIERRE / Pharmac HCL ER 2020 y Data (VENLAFAXIN Transac E HCL), tion 37.5 MG, Service CAP ER 24H, Facilit ORAL, y AUROBINDO PHARM, 90 ea. BOTTLE VENLAFAXINE Active [id number] DOMPIERRE / Pharmac HCL ER 2020 y Data (VENLAFAXIN Transac E HCL), tion 37.5 MG, Service CAP ER 24H, Facilit ORAL, y AUROBINDO PHARM, 90 ea. BOTTLE VENLAFAXINE Active [id number] BENITA JACOB / Pharmac HCL ER 2020 y Data (venlafaxin Transac e HCl), 75 tion MG, CAP ER Service 24H, ORAL, Facilit [facility], 90 ea. BOTTLE VENLAFAXINE Active [id number] NIDIA,BENITA / Pharmac HCL ER 2020 y Data (venlafaxin Transac e HCl), 75 tion MG, CAP ER Service 24H, ORAL, Facilit [facility], 90 ea. BOTTLE VENLAFAXINE Active [id number] BENITA JACOB / Pharmac HCL ER 2020 y Data (venlafaxin Transac e HCl), 75 tion MG, CAP ER Service 24H, ORAL, Facilit [facility], 90 ea. BOTTLE VENLAFAXINE Active [id number] NIDIA, 11/10/ Pharmac HCL ER 2020 y [...]
== END 2022-02-07 14:37 | disposition home or self-care (01) ==
LOC: STRESS 14:36
PROVIDERS: PCP Family Medicine; Visit Provider Family Medicine
DX: R07.89 Other chest pain (principal)
CPT/HCPCS: 80061; 83036; 93016; 93325; 93351; Q9957

== ENCOUNTER 2022-03-29 14:00 | Outpatient (RCR) | payer OTHER, SELFPAY | END 2022-05-08 08:23 | disposition home or self-care (01) | PROVIDERS: PCP Family Medicine; Visit Provider Family Medicine | DX: M75.00 Adhesive capsulitis of unspecified shoulder (principal); Z51.89 Encounter for other specified aftercare | CPT/HCPCS: 97110; 97140 ==

== ENCOUNTER 2023-01-03 10:48 | Outpatient (CLI) | payer MEDICARE, OTHER, SELFPAY ==
--- NOTE | 2023-01-03 11:00 | CRLHL7_ITS ---
For Patients: As a result of the Century Cures Act, medical imaging exams and procedure reports are released immediately into your electronic medical record. You may view this report before your referring provider. If you have questions, please contact your health care provider. INDICATION: Follow-up hemorrhage COMPARISON: 11/19/2022 TECHNIQUE: A CT volumetric acquisition was performed of the brain without IV contrast. Please note that all CT scans at this facility use dose modulation, iterative reconstruction, and/or weight-based dosing when appropriate to reduce radiation dose to as low as reasonably achievable. FINDINGS: Interval resolution of previously noted left frontal intraparenchymal hemorrhage. Resolution of the right frontal scalp hematoma. No fracture deformity. Increased fluid within the right maxillary sinus. Fluid and mucosal thickening also noted within the left maxillary sinus. Mucous in the right sphenoid sinus is similar. Mucosal thickening in the right frontal sinus noted. Mild ethmoid sinus disease. IMPRESSION: Interval resolution of previously noted intraparenchymal hemorrhage. Bilateral sinus disease, increased within the right maxillary sinus compared to the prior studies. Please note that all CT scans at this facility use dose modulation, iterative reconstruction, and/or weight-based dosing when appropriate to reduce radiation dose to as low as reasonably achievable. Dictated by Rudolph Rutherford MD @ 01/03/2023 12:07:30 PM (Electronically Signed)
== END 2023-01-03 10:49 | disposition home or self-care (01) ==
LOC: CT 10:48
PROVIDERS: PCP Family Medicine; Visit Provider Family Medicine
DX: I61.9 Nontraumatic intracerebral hemorrhage, unspecified (principal); J32.0 Chronic maxillary sinusitis
CPT/HCPCS: 70450

== ENCOUNTER 2023-01-08 10:18 | Outpatient (CLI) | payer MEDICARE, OTHER, SELFPAY | END 2023-01-08 10:19 | disposition home or self-care (01) | LOC: NFLDREF 01-09 11:13 | PROVIDERS: PCP Family Medicine; Referring Provider Family Medicine; Visit Provider Family Medicine | DX: E78.00 Pure hypercholesterolemia, unspecified (principal); I10 Essential (primary) hypertension; I61.9 Nontraumatic intracerebral hemorrhage, unspecified; R73.03 Prediabetes | CPT/HCPCS: 80053; 80061 ==

== ENCOUNTER 2023-01-18 08:02 | Outpatient (CLI) | payer MEDICARE, OTHER, SELFPAY ==
--- NOTE | 2023-01-18 07:08 | W.ANESCHARGE ---
Anesthesia Charges Start Date/Time Anesthesia Start Date: 01/18/23 Anesthesia Start Time: 09:32 Stop Date/Time Anesthesia Stop Date: 01/18/23 Anesthesia Stop Time: 10:07
--- NOTE | 2023-01-18 10:17 | W.ANESCHARGE ---
Anesthesia Charges Start Date/Time Anesthesia Start Date: 01/18/23 Anesthesia Start Time: 09:32 Stop Date/Time Anesthesia Stop Date: 01/18/23 Anesthesia Stop Time: 10:07
== END 2023-01-18 08:03 | disposition home or self-care (01) ==
LOC: OP CLINIC 08:02
PROVIDERS: PCP Family Medicine; Visit Provider Surgery
DX: Z86.010 Personal history of colon polyps (principal); K64.9 Unspecified hemorrhoids; K63.5 Polyp of colon; K57.30 Diverticulosis of large intestine without perforation or abscess without bleeding; Z98.890 Other specified postprocedural states
CPT/HCPCS: 45385; 811; 88305; J2704

== ENCOUNTER 2023-01-25 12:28 | Outpatient (CLI) | payer MEDICARE, OTHER, SELFPAY ==
--- NOTE | 2023-01-25 12:33 | CRLHL7_ITS ---
For Patients: As a result of the Cures Act, medical imaging exams and procedure reports are released immediately into your electronic medical record. You may view this report before your referring provider. If you have questions, please contact your health care provider. INDICATION: Lung cancer screening. History of smoking. High risk patient with greater than 51 pack-year smoking history. TECHNIQUE: Low-dose lung cancer screening non-contrast CT chest. Dose reduction techniques were used. COMPARISON: 07.25.15 FINDINGS: NODULES: None. LUNGS AND PLEURA: COPD/emphysema. Linear subsegmental atelectasis in the inferior lingula. MEDIASTINUM: Dense calcifications within the aorta. No adenopathy. CORONARY ARTERY CALCIFICATION: Present. LIMITED UPPER ABDOMEN: Normal. MUSCULOSKELETAL: Old right posterior lateral 10th rib fracture. IMPRESSION: Negative for lung cancer screening purposes. LUNG-RADS CATEGORY: 1: Negative. RADIOLOGIST RECOMMENDATION: Continue annual screening with low-dose CT chest in 12 months. Please note that all CT scans at this facility use dose modulation, iterative reconstruction, and/or weight-based dosing when appropriate to reduce radiation dose to as low as reasonably achievable. Dictated by Rudolph Rutherford MD @ 01/26/2023 10:08:34 AM (Electronically Signed)
--- NOTE | 2023-01-25 13:30 | CRLHL7_ITS ---
For Patients: As a result of the Century Cures Act, medical imaging exams and procedure reports are released immediately into your electronic medical record. You may view this report before your referring provider. If you have questions, please contact your health care provider. DXA BONE MINERAL DENSITY STUDY Current height (in): 61.5. Weight (lb): 110.0. Menopause age: 57. Ethnicity: White. Reason for exam: Screening. Asymptomatic menopausal state. 1. Have you had a previous hip or vertebral fracture? Yes. 2. Have you had any fractures during your adult life which did not result from significant trauma (e.g., auto accident)? Yes. 3. Did either of your parents have a hip fracture? No. 4. Do you smoke? No. 5. Have you ever taken Glucocorticoids? No. 6. Do you have rheumatoid arthritis? Yes. 7. Do you have secondary osteoporosis? No. 8. Do you drink 3 or more alcoholic drinks per day? No. 9. Are you being treated for osteoporosis? No. 10. Have you ever taken any of the following medications: Actonel, Evista, Fosamax, Miacalcin, Reclast, Boniva, Forteo, HRT (i.e. estrogen/hormone therapy), Protelos, Prolia, Vitamin D, Calcium, other ??? please specify. ANSWER: Yes, vitamin D, calcium. 11. Do you have any of the following medical conditions: Anorexia or bulimia, asthma or emphysema, end stage renal disease, hyperparathyroidism, any seizure disorders, cancer, inflammatory bowel diseases, hysterectomy, other ??? please specify. ANSWER: Yes, asthma or emphysema, hysterectomy. 12. What was your maximum height (inches)? 62. 13. Do you perform weight bearing exercise regularly? No. 14. Do you regularly consume dairy products? Yes. 15. Do you drink caffeinated beverages? Yes. 16. At what age did your period start? 15. 17. Are you premenopausal? No. 18. How many full term pregnancies have you had? 3. 19. Have you ever missed your period for more than 6 months in a row (not including or menopause)? No. TECHNIQUE: Bone mineral density study was performed using the Cortilia. FINDINGS: The results of the study expressed as bone mineral density (BMD) are as follows: Lumbar spine L1 to L4: BMD: 0.641 g/cm2. T-score: -3.7. Z-score: -1.9. Neck Left: BMD: 0.481 g/cm2. T-score: -3.3. Z-score: _-1.8. Right: BMD: 0.533 g/cm2. T-score: -2.8. Z-score: -1.3. Total Left: BMD: 0.538 g/cm2. T-score: -3.3. Z-score: -2.1. Right: BMD: 0.587 g/cm2. T-score: -2.9. Z-score: -1.7. IMPRESSION: Osteoporosis. Rudolph Rutherford M.D. Diagnostic Radiologist [email or web address] Transcribed: 9:58 a.m. DW/Dictated by: Rudolph Rutherford MD @ 01/26/2023 9:20:00 AM (Electronically Signed)
== END 2023-01-25 12:29 | disposition home or self-care (01) ==
LOC: CT 12:29
PROVIDERS: PCP Family Medicine; Visit Provider Family Medicine
DX: Z12.2 Encounter for screening for malignant neoplasm of respiratory organs (principal); Z87.891 Personal history of nicotine dependence; Z13.820 Encounter for screening for osteoporosis; Z78.0 Asymptomatic menopausal state; M81.0 Age-related osteoporosis without current pathological fracture
CPT/HCPCS: 71271; 77080

== ENCOUNTER 2023-04-26 12:36 | Outpatient (REF) | payer MEDICARE, OTHER, SELFPAY ==
[2023-04-26 13:18] LABS: Chloride* 104 mmol/L (96-114); Sodium* 140 mmol/L (135-149)
[2023-04-26 13:19] LABS: Potassium* 4.8 mmol/L (3.6-5.1)
[2023-04-26 13:21] LABS: Anion Gap 5 mEq/L (7-15); Carbon Dioxide* 31 mmol/L (20-32); Cholesterol* 97 mg/dL (90-199); Creatinine* 0.6 mg/dL (0.5-1.5); Estimated Glomerular Filt Rate 100 ml/min
[2023-04-26 13:22] LABS: Blood Urea Nitrogen* 13 mg/dL (7-30); Calcium* 9.5 mg/dL (8.4-10.6); Glucose* 105 mg/dL (60-115); HDL Cholesterol* 69 mg/dL (>=50); LDL Cholesterol Calculated 18 mg/dL (<100); Triglycerides* 49 mg/dL (40-149)
[2023-04-26 14:02] LABS: HIV 1/2/P24 Combo Screen* Negative (Negative)
[2023-04-26 19:57] LABS: Hemoglobin A1C* 5.7 % (0-5.6)
== END 2023-04-26 12:37 | disposition home or self-care (01) ==
LOC: NPINS 12:36
PROVIDERS: PCP Family Medicine; Visit Provider Nurse Practitioner Family
DX: I25.10 Atherosclerotic heart disease of native coronary artery without angina pectoris (principal); E78.5 Hyperlipidemia, unspecified; E78.01 Familial hypercholesterolemia; F17.200 Nicotine dependence, unspecified, uncomplicated; R79.89 Other specified abnormal findings of blood chemistry; R73.09 Other abnormal glucose; Z82.49 Family history of ischemic heart disease and other diseases of the circulatory system
CPT/HCPCS: 80048; 80061; 83036; 86703

== ENCOUNTER 2023-08-06 09:05 | Inpatient (IN) | payer MEDICARE, OTHER, SELFPAY ==
[2023-08-06] VITALS (25 sets, daily range): BP systolic 93–127; BP diastolic 53–77; PULSE 81–112; RESP 16–22; TEMP 36.7–37.1; O2SAT 88–98; BMI 21.0
--- OUTSIDE RECORDS SUMMARY | 2023-08-06 09:52 | XMS_ITS | Clinical Summary ---
Author Name Unknown Organization [facility] Address [place], [place] [address] Care Team Providers Care Packing Machine Tender Name Role Phone Cheyenne Guardado MD Primary Care Provider + Allergies Active Allergy Reactions Criticality Noted Date Comments Amoxicillin Rash Low 11/08/2018 Rash as well as feels flush. Venlafaxine Contact Dermatitis High 10/18/2021 Medications Medication Sig Dispensed Refills Start Date End Date Status albuterol (PROVENTIL) 0.083 % neb solution VVN Q 4 H PRN 5 019 Active PROAIR HFA 90 mcg/actuation inhaler 0 018 Active ADVAIR HFA 115-21 mcg/actuation inhaler 0 018 Active losartan (COZAAR) 25 mg tabletIndications:[facility] exam Take 1 Tablet (25 mg) by mouth once daily. 90 Tablet 1 023 Active DULoxetine (CYMBALTA) 20 mg Delayed-release capsule Take 1 Capsule by mouth once daily. 0 023 Active DULoxetine (CYMBALTA) 60 mg Delayed-release capsule Take 1 Capsule by mouth once daily. 0 023 Active cholecalciferol, Vitamin D3, 5,000 unit tab tabletIndications:Low vitamin D level Take 1 Tablet (5,000 units) by mouth once daily. 0 023 Active aspirin (ECOTRIN) 81 mg enteric coated tablet Take 1 Tablet (81 mg) by mouth once daily with a meal. 0 023 Active mirtazapine (REMERON) 7.5 mg tablet Take 5.5 Tablets (41.25 mg) by mouth at bedtime. 0 023 Active alendronate (FOSAMAX) 70 mg tablet Take 70 mg by mouth once a week in the morning. 0 023 Active amLODIPine (NORVASC) 5 mg tabletIndications:Hyper tension Take 1 Tablet (5 mg) by mouth once daily. 90 Tablet 3 024 Active ezetimibe (ZETIA) 10 mg tabletIndications:Famil ial hypercholesterolemia Take 1 Tablet (10 mg) by mouth once daily. 90 Tablet 3 024 Active evolocumab (Repatha SureClick) 140 mg/mL subcutaneous pen injectorIndications:Hyp erlipidemia, unspecified hyperlipidemia type Inject 1 mL (140 mg) subcutaneous every 2 weeks. Inject into abdomen, thigh, or upper arm; rotate injection sites. 6 mL 3 024 Active rosuvastatin (CRESTOR) 40 mg tabletIndications:Famil ial hypercholesterolemia Take 1 Tablet (40 mg) by mouth at bedtime. 90 Tablet 3 024 Active rosuvastatin (CRESTOR) 40 mg tabletIndications:Famil ial hypercholesterolemia Take 1 Tablet (40 mg) by mouth at bedtime. 90 Tablet 3 023 2023 Discontinued ezetimibe (ZETIA) 10 mg tabletIndications:Famil ial hypercholesterolemia Take 1 Tablet (10 mg) by mouth once daily. 90 Tablet 3 023 2023 Discontinued(R eorder (E-cancel not sent)) amLODIPine (NORVASC) 5 mg tabletIndications:Hyper tension TAKE 1 TABLET DAILY 90 Tablet 1 023 2023 Discontinued(R eorder (E-cancel not sent)) Repatha SureClick 140 mg/mL subcutaneous pen injectorIndications:Hyp erlipidemia, unspecified hyperlipidemia type INJECT 1 ML (140 MG) UNDER THE SKIN EVERY 2 WEEKS INTO ABDOMEN, THIGH, OR UPPER ARM. ROTATE INJECTION SITE 6 mL 3 023 2023 Discontinued(R eorder (E-cancel not sent)) rosuvastatin (CRESTOR) 40 mg tabletIndications:Famil ial hypercholesterolemia Take 1 Tablet (40 mg) by mouth at bedtime. More refills provided at completion of appointment scheduled 07/31/2023 with Pamela Conner NP. 90 Tablet 0 024 2023 Discontinued(R eorder (E-cancel not sent)) Active Problems Patient Care Coordination No te Formatting of this note is d ifferent from the original. HF/Structural/Prevention Research Eligibility Review Date: 08/04/19 Upcoming Visit Location: [facility] Age: 63 y.o. Research Purpose Insurance Type: Uncertain Body mass index is 25.8 kg/m??. Social History Tobacco Use Smoking Status Current Every Day Smoker ? ? Packs/day: 1.00 ? ? Types: Cigarettes ? ? Start date: 11/08/1978 Smokeless Tobacco Never Used Social History Substance and Sexual Activity Alcohol Use Not Currently ? ? Frequency: Never ? ? Binge frequency: Never Comments: HF: DNQ Structural: DNQ Prevention: No DMII Vesalius: no d/t on repatha currently Problem Noted Date Diagnosed Date Current every day smoker 11/12/2018 Familial hypercholesterolemia w LDL 303. Normal Lp(a) 11/07/2018 Low vitamin D level - 13 11/07/2018 Borderline Low vitamin B12 level 11/07/2018 Chronic obstructive pulmonary disease 11/20/2016 Encounters Date Type Department Care Team Description 07/31/2023 10:00 AM BACTERIOLOGY TEACHER Telemedicine [facility] [address] [facility] [address] [place] [address] Pamela Conner NP CV General Cardiology Est 07/23/2023 Refill [facility] [address] [facility] [address] [place] [address] Pamela Connre NP Refill Request (Rosuvastatin) 05/07/2023 Telephone [facility] [address] [facility] [address] [place] [phone] Research, if Research ([facility] 12 Month Follow-Up Visit) from Last 3 Months Immunizations Name Administration Dates Next Due COVID-19 vaccine ([place] [employer] 30mcg/0.3mL) 12YO+ FRANCOISE-SUCROSE PF, MDV 11/02/2021 Influenza RIV4 (Age 18+ Year s) PRESERV FREE 05/18/2020,04/04/2019 Influenza, IIV4 04/24/2018,06/07/2017 Pneumococcal Poly,23-Valent (Pneumovax) 06/07/2017 Td (Age >=7 Years) 01/31/2017(Deferred: Patient Refused),02/22/2004 Tdap 06/07/2017 Family History Medical History Relation Name Comments Heart Disease Father Stroke Maternal Grandfather Hypertension Mother Valvular heart disease Mother Relation Name Status Comments Father Maternal Grandfather Mother Social History Tobacco Use Types Packs/Day Years Used Date Smoking Tobacco: Former Cigarettes 1 44.7 S tarted: 11/08/1978 Smokeless Tobacco: Never Tobacco Cessation:Counseling Given: Not Answered Comments:0.5 to 1 pack per day Alcohol Use Standard Drinks/Week Comments Not Currently 1 (1 standard drink = 0.6 oz pure alcohol) ocassional glass of wine 07/31/23 Social Connections Answer Date Recorded Frequency of Communication with Friends and Fami ly Not on file 07/02/2021 Financial Resource Strain Answer Date R ecorded Difficulty of Paying Living Expenses Not on file 07/02/2021 Difficulty of Paying Living Expenses Not on file 07/02/2021 Sex and Gender Information Value Date Recorded Sex Assigned at Not on file Gender Identity Not on file Sexual Orientation Not on file Obstetrics History Last Filed Vital Signs Vital Sign Reading Time Taken Comments Blood Pressure 124/80 07/31/2023 9:45 AM BACTERIOLOGY TEACHER Pulse 66 11/02/2022 11:16 AM CDT Temperature - - Respiratory Rate 14 08/30/2018 10:36 AM BACTERIOLOGY TEACHER Oxygen Saturation 93% 11/02/2022 11:16 AM CDT Inhaled Oxygen Concentration - - Weight 53.1 kg (117 lb) 07/31/2023 9:45 AM BACTERIOLOGY TEACHER Height 157.5 cm (5' 2) 11/02/2022 11:16 AM CDT Body Mass Index 21.4 11/02/2022 11:16 AM CDT Plan of Treatment Health Maintenance Due Date Last Done Comments Depression screening for age 12+ 1969 HIV for age 15-65 1972 Hepatitis C screening for ag e 18-79 09/15/1975 Colonoscopy through age 75 2002 Zoster (shingles) series for age 50+ (1 of 2) 09/15/2007 Mammogram for age 45-75 12/18/2008 12/19/2007 Pneumococcal series for age 65+ (2 of 2 - PCV) 06/07/2018 06/07/2017 Pap test for age 21-65 11/11/2019 7, 11/10/2016, 11/09/2010 DEXA/DXA scan for age 65+ 2022 Medicare Wellness for age 65+ 2022 COVID-19 vaccine series ( season) 2023 04/03/2022, 11/02/2021 Influenza for age 65+ 03/02/2023 05/18/2020 , 04/04/2019, 04/24/2018, Additional history exists BMI (ht and wt on same day) for age 18+ 11/03/2023 11/02/2022, 06/09/2022, 02/28/2022, Additional history exists Tetanus booster 06/07/2027 06/07/2017, 02/22/2004 Lipids for age 45-75 11/01/2027 10/31/2022, 05/05/2022, 07/18/2002, Additional history exists Tdap Completed 06/07/2017 Care Teams Packing Machine Tender Relationship Specialty Start Date End Date Cheyenne Guardado MD [address] [place] [address] PCP - General Family Practice 09/02/18
--- OUTSIDE RECORDS SUMMARY | 2023-08-06 09:52 | XMS_ITS | Continuity of Care Document ---
Author Name [facility] Organization [facility] Care Team Providers Care Sampler Radioactive Waste Name Role Phone [facility] Unavailable Unavailable Problems Combined list of problems from Department of Defense and Veterans Affairs facilities. It does not include entries that were removed or entered in error. Problem Status Onset Date Problem Type Date of Resolution Comments Source Diagnosis: ICD-10-CM Z65.8 Oth problems related to psychosocial circumstances Active Diagnosis [facility] Medications Combined list of outpatient medications from Department of Defense and Veterans Affairs facilities.Medications provided include 1) outpatient medications from the last 15 months, and 2) patient-reported medications. Medication Details Route Status Patient Instructions Prescription Expires Prescription Number Last Dispense Date Ordering Provider Order Date Source ALBUTEROL SULFATE HFA (albuterol sulfate), 90 MCG, HFA AER AD, INHALATION, TEVA [place], 8.5 g CANISTER Active [id number] 2023 Pharmac y Data Transac tion Service Facilit y ALENDRONATE SODIUM (alendronat e sodium), 70 MG, TABLET, ORAL, EXELAN PHARMACE, 4 ea. BLIST PACK Active [id number] 2023 Pharmac y Data Transac tion Service Facilit y AMLODIPINE BESYLATE (amlodipine besylate), 5 MG, TABLET, ORAL, AVKARE, 1000 ea. BOTTLE Cancele d [id number] : 2023 Pharmac y Data Transac tion Service Facilit y AMLODIPINE BESYLATE (amlodipine besylate), 5 MG, TABLET, ORAL, AVKARE, 1000 ea. BOTTLE Cancele d [id number] : 2023 Pharmac y Data Transac tion Service Facilit y AMLODIPINE BESYLATE (amlodipine besylate), 5 MG, TABLET, ORAL, AVKARE, 1000 ea. BOTTLE Cancele d [id number] : 2023 Pharmac y Data Transac tion Service Facilit y EZETIMIBE (ezetimibe) , 10 MG, TABLET, ORAL, [employer] 500 ea. BOTTLE Cancele d [id number] : 2023 Pharmac y Data Transac tion Service Facilit y EZETIMIBE (ezetimibe) , 10 MG, TABLET, ORAL, [employer] 500 ea. BOTTLE Active [id number] 2022 Pharmac y Data Transac tion Service Facilit y MIRTAZAPINE (mirtazapin e), 30 MG, TABLET, ORAL, [employer] 500 ea. BOTTLE Active [id number] 4 2023 Pharmac y Data Transac tion Service Facilit y REPATHA SURECLICK (evolocumab ), 140 MG/ML, PEN INJCTR, SUBCUT, Mimoco., 1 ml SYRINGE Active [id number] 2023 Pharmac y Data Transac tion Service Facilit y ROSUVASTATI N CALCIUM (rosuvastat in calcium), 40 MG, TABLET, ORAL, [employer] 30 ea. BOTTLE Cancele d [id number] : 2023 Pharmac y Data Transac tion Service Facilit y ROSUVASTATI N CALCIUM (rosuvastat in calcium), 40 MG, TABLET, ORAL, [employer] 30 ea. BOTTLE Active [id number] 4 2023 Pharmac y Data Transac tion Service Facilit y Encounters Combined list of: 1) Encounters from Department of [facility] Affairs facilities going back up to thelast 18 months. 2) Encounters from the Department of Defense facilities going back up to 280 months. Location Location Details Encounter Type Encounter Number Reason For Visit Attending Provider ADM Date DC Date Status Disposition Source [facility] Outpatient [facility]counter [id number] 05/01 [facility] Outpatient Encounter [id number] 05/01 [facility] PROGRAM INTAKE ASSESSMENT [id number] Diagnos is: ICD-10- CM Z65.8 Oth problem s related to psychos ocial circums tances< br/> TONIO HERRERA 05/24 [facility] [place] [facility] Outpatient Encounter [id number] KELVIN BELTRE 06/08 [facility] Social History Combined list of available smoking, tobacco, and other social history from Department of Defense and Veterans Affairs facilities. Social History Type Response Date Comment [facility] This section is an empty social history section. DoD
--- NOTE | 2023-08-06 09:56 | CRLHL7_ITS ---
For Patients: As a result of the Century Cures Act, medical imaging exams and procedure reports are released immediately into your electronic medical record. You may view this report before your referring provider. If you have questions, please contact your health care provider. Indication: Cough Technique: Chest 2 views Comparison: Chest x-ray 04/02/2019 Findings/Impression: Cardiovascular and mediastinum: Normal heart size with atherosclerotic calcification. Lungs and pleural spaces: Mild hyperinflation without pleural effusion or pneumothorax. No focal consolidation. Bones and soft tissues: Right upper quadrant surgical clips. Dictated by Nawaf Alatorre MD @ 08/06/2023 10:54:05 AM (Electronically Signed)
[2023-08-06] MEDS: 0.9 % SODIUM CHLORIDE 1000 ml 1,000 ML IV (10:03)
[2023-08-06 10:12] LABS: PCR FLU A Negative PCR FLU A (Negative); PCR FLU B Negative PCR FLU B (Negative); PCR RSV Negative PCR RSV (Negative); SARS PCR* Negative SARS-CoV-2 (Negative)
[2023-08-06 10:27] LABS: HCO3 VBG 28 mmol/L (21-28); Lactate* 0.9 mmol/L (0.5-1.9); PCO2 VBG 43 mmHG (40-50); PO2 VBG 30.3 mmHG (25-47); pH VBG 7.424 (7.32-7.43)
[2023-08-06 10:28] LABS: Basophils Percent Auto 0.2 % (0.0-3.0); Eosinophils Percent Auto 0.4 % (0.0-7.0); Hematocrit 41.9 % (33.0-51.0); Immature Granulocytes Pct Auto 0.2 %; Lymphocytes Percent Auto 10.1 % (20-44); Mean Corpuscular HGB Conc 33 gm/dL (32-36); Mean Corpuscular Hemoglobin 30 pg (26-34); Mean Corpuscular Volume 90 fL (80-100); Monocytes Percent Auto 9.9 % (0.0-11.0); Neutrophils Percent Auto 79.2 % (42.0-72.0); Platelet Count* 182 K/uL (140-440); RDW Coefficient of Variation % 14.4 % (11.5-15.5); Red Blood Count 4.65 m/uL (4.00-5.20); White Blood Count* 17.49 K/uL (4.50-11.00)
[2023-08-06 10:30] LABS: Slide Review Reflex No
[2023-08-06] MEDS: IPRAT-ALBUT 0.5-2.5 MG/3 ML NEB 1 NEB IH ×3 (10:30→18:53)
--- NOTE | 2023-08-06 10:40 | RESP.RT ---
DuoNeb given with Mouth piece and small volume nebulizer, with Medical Air at 6 Lpm, patient used well, stated feels better post treatment and is able to take larger breath. Post treatment patient has improved cough for thick green/dark creme colored secretions. Patient had MDI of albuterol prior to admission to ED. Discussed with patient use of extension with MDI. Patient understands and verbally states so. Extension given to patient. Decreased to 1 Lpm, SaO2 93%.
[2023-08-06 10:45] LABS: Chloride* 101 mmol/L (96-114); Sodium* 136 mmol/L (135-149)
[2023-08-06 10:46] LABS: Potassium* 3.6 mmol/L (3.6-5.1)
[2023-08-06 10:48] LABS: Creatinine* 0.5 mg/dL (0.5-1.5); Est. Creatinine Clearance* 44.36; Estimated Glomerular Filt Rate 104 ml/min
[2023-08-06 10:49] LABS: Anion Gap 11 mEq/L (7-15); Blood Urea Nitrogen* 9 mg/dL (7-30); Carbon Dioxide* 24 mmol/L (20-32); Glucose* 110 mg/dL (60-115)
[2023-08-06 10:51] LABS: Prothrombin Time 14.9 Seconds
[2023-08-06 10:52] LABS: C Reactive Protein* 4.7 mg/dL (0.5-1.0); Partial Thromboplastin Time* 33 Seconds (23-33)
[2023-08-06 10:54] LABS: D Dimer Quantitative* 0.62 ug/ml (0.00-0.50)
[2023-08-06 11:03] LABS: Procalcitonin* 0.06 ng/mL (<0.50)
[2023-08-06 11:10] LABS: NT Pro B Type NatriureticPept* 73 pg/mL
--- NOTE | 2023-08-06 11:45 | ED.NURSE ---
Bed Request sent to [facility].
[2023-08-06] MEDS: METHYLPREDNISOLONE SOD SUCC 62.5 MG/ML (125) 125 MG IVP (11:50)
[2023-08-06] MEDS: levoFLOXacin 500 MG TABLET PO (11:50)
--- NOTE | 2023-08-06 12:03 | ED.SOB ---
HPI - SOB/Dyspnea General Date Seen: 08/06/23 Chief Complaint: Shortness of Breath/Dyspnea Stated Complaint: trouble breathing Time Seen by Provider: 08/06/23 09:35 Source: patient Mode of arrival: ambulatory Limitations: no limitations History of Present Illness HPI Narrative: Patient is a 67-year-old female with known COPD. She presents with a couple day history of increasing shortness of breath, feeling she can not get her breath, initially seen her saturations are 87% on room air in triage. Brought back here placed on 3 L of oxygen which she is 89, Sees in the clinic normally, was a smoker in the past but quit quite a few years ago, history of osteoporosis. No chest pain just can not catch her breath denies any leg swelling, any hemoptysis, any increasing weight, MD elicited complaint: shortness of breath and cough Pertinent past history: COPD Onset (ago): day(s) Context: recent illness Timing: constant Severity: moderate Exacerbating factors: lying flat Relieving factors: oxygen Known history of: COPD Treatment prior to arrival: none Related Data Home oxygen amount: none Home Medications Medication Instructions Recorded Confirmed evolocumab 140 mg/mL subcutaneous 140 mg subcut 01/18/22 05/31/23 pen injector (Boyd Newton) ezetimibe 10 mg tablet 10 mg PO DAILY 01/18/22 08/06/23 mirtazapine 30 mg tablet 30 mg PO HS 01/18/22 08/06/23 rosuvastatin 40 mg tablet 40 mg PO QPM 01/18/22 08/06/23 aspirin 81 mg tablet,delayed 81 mg PO QDAY 12/22/22 08/06/23 release (Adult Low Dose Aspirin) duloxetine 20 mg capsule,delayed 20 mg PO DAILY 12/22/22 08/06/23 release duloxetine 60 mg capsule,delayed 60 mg PO DAILY 12/22/22 08/06/23 release cholecalciferol (vitamin D3) 125 125 mcg PO QDAY 01/31/23 08/06/23 mcg (5,000 unit) capsule Previous Rx's Medication Instructions Recorded albuterol sulfate 2.5 mg/3 mL 2.5 mg (3 mL) continuous 04/05/22 (0.083 %) solution for nebulization nebulization Q4H PRN bronchospasm #90 mL ibuprofen 800 mg tablet 800 mg PO TID PRN pain #45 tabs 04/07/22 albuterol sulfate 90 mcg/actuation 2 puff inhalation Q4H PRN 01/11/23 aerosol inhaler shortness of breath or wheezing #8.5 grams amlodipine 5 mg tablet 5 mg PO QDAY #90 tabs 01/11/23 fluticasone propionate 115 1 puff inhalation BID #12 grams 01/11/23 mcg-salmeterol 21 mcg/actuation HFA inhaler (Advair HFA) alendronate 70 mg tablet (Fosamax) 70 mg PO QWEEK #14 tabs 02/01/23 Allergies Allergy/AdvReac Type Severity Reaction Status Date / Time amoxicillin Allergy Intermediate itchy, Verified 08/06/23 09:21 diarhea, upset stomach venlafaxine Allergy Intermediate Hives Verified 08/06/23 09:21 atorvastatin AdvReac Unknown Verified 08/06/23 09:21 simvastatin AdvReac Unknown Verified 08/06/23 09:21 hydocodone AdvReac Uncoded 05/31/23 09:27 Review of Systems Status of ROS: Reports: 10 or more systems reviewed and unremarkable except as noted in History and below [facility] Medical History Osteoporosis (12/2022) ?M81.0 - Age-related osteoporosis without current pathological fracture (ICD-10) Mixed anxiety depressive disorder ?F41.8 - Other specified anxiety disorders (ICD-10) Chronic obstructive pulmonary disease (01/13/13) ?J44.9 - Chronic obstructive pulmonary disease, unspecified (ICD-10) Insomnia ?G47.00 - Insomnia, unspecified (ICD-10) Hypertension ?I10 - Essential (primary) hypertension (ICD-10) Encounter for counseling regarding advance directives (04/04/19) ?Z71.89 - Other specified counseling (ICD-10) Nicotine dependence (07/25/12) ?F17.200 - Nicotine dependence, unspecified, uncomplicated (ICD-10) Right lower quadrant abdominal pain ?R10.31 - Right lower quadrant pain (ICD-10) Hypoxia ?R09.02 - Hypoxemia (ICD-10) Depression (01/13/13) ?F32.A - Depression, unspecified (ICD-10) Concussion (08/2018) ?S06.0X9A - Concussion with loss of consciousness of unspecified duration, initial encounter (ICD-10) Surgical History History of tonsillectomy (01/13/13) ?Z90.89 - Acquired absence of other organs (ICD-10) History of knee surgery (12/2003) ?Z98.890 - Other specified postprocedural states (ICD-10) History of esophagogastroduodenoscopy (2014) ?Z98.890 - Other specified postprocedural states (ICD-10) History of dilation and curettage (01/13/13) ?Z98.890 - Other specified postprocedural states (ICD-10) Status post colonoscopy with polypectomy (2014) ?Z98.890 - Other specified postprocedural states (ICD-10) H/O: hysterectomy ?Z90.710 - Acquired absence of both cervix and uterus (ICD-10) History of salpingo-oophorectomy ?Z90.79 - Acquired absence of other genital organ(s) (ICD-10) ?Z90.721 - Acquired absence of ovaries, unilateral (ICD-10) S/P laparoscopic cholecystectomy (2014) ?Z90.49 - Acquired absence of other specified parts of digestive tract (ICD-10) S/P sacrocolpopexy (2016) ?Z98.890 - Other specified postprocedural states (ICD-10) Family History Mother Diabetes High blood pressure Myocardial infarction, Onset Age: 93 Rheumatoid arthritis Father Myocardial infarction, Onset Age: 83 Maternal Grandfather Stroke, Onset Age: 42 Other Bipolar disorder Colonic polyp Schizophrenia Social History Narrative: lives withrene Greene who has MS, 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 smoker, 10/2022 ex-cigarette smoker- 40 pack years does not drink alcohol Walks 30 minutes 5 days a week 3 kids, sons adult What is your current living situation?: I presently have a place to live Problems where you live: no known problems In the past 12 months, utilities in danger of being shut off: no In past 12 months, lack of transportation kept you from medical appts, meetings, work, or getting things needed for daily living: no In the past 12 mos, have been you worried that your food would run out before you had money to buy more?: never true In the past 12 mos, the food you bought just didn't last and you didn't have money to buy more?: never true Smoking Status: Current every day smoker How often do you have a drink containing alcohol: never AUDIT-C Alcohol total score: 0 Non-prescribed substance use: denies use Caffeine: Yes How often does anyone, including family, friends and others, physically hurt you: never How often does anyone, including family, friends and others, insult or talk down to you: never How often does anyone, including family, friends and others, threaten you with harm: never How often does anyone, including family, friends and others, scream or curse at you: never Little interest or pleasure in doing things: not at all Feeling down, depressed, or hopeless: not at all service: Yes Exam Narrative: Exam Narrative: Patient is seen in room 7 she is in no apparent distress, although she has a hard time speaking in full sentences. Pupils are equal round reactive to light there is no scleral icterus redness, her TMs are normal oropharynx is normal there is no adenopathy anterior posterior chains wheezing is noted bilaterally in her lungs left greater than right, and prolonged expiratory phase, no crackles are noted, heart sounds are distant faint but S1-S2 are normal there is no S3-S4 clicks murmurs or gallops, her abdomen is soft there is no guarding no organomegaly, normal bowel sounds, no tenderness to palpation. Her extremities are all thin with no edema, no swelling, and symmetrical bilaterally in moving all extremities independently well, she does not have any rashes. Const: Vital Signs, click to edit/add: Vital Signs - 24 hr 08/06/23 09:17 08/06/23 09:28 08/06/23 09:29 Temperature 98.3 F Pulse Rate 98 97 Pulse Rate [Pulse Oximeter] 112 H Respiratory Rate 16 Blood Pressure 117/64 Blood Pressure [Ri ght Upper Arm] 93/58 L Pulse Oximetry 88 88 90 Oxygen Delivery Me thod Room Air Oxygen Flow Rate 08/06/23 09:30 08/06/23 09:32 08/06/23 09:45 Temperature Pulse Rate 102 H 101 H 98 Pulse Rate [Pulse Oximeter] Respiratory Rate Blood Pressure 102/67 Blood Pressure [Ri ght Upper Arm] Pulse Oximetry 93 92 95 Oxygen Delivery Me thod Oxygen Flow Rate 08/06/23 09:55 08/06/23 10:00 08/06/23 10:02 Temperature Pulse Rate 93 94 Pulse Rate [Pulse Oximeter] Respiratory Rate 18 Blood Pressure 109/64 Blood Pressure [Ri ght Upper Arm] Pulse Oximetry 98 95 95 Oxygen Delivery Me thod Oxygen Flow Rate 08/06/23 10:15 08/06/23 10:36 08/06/23 10:41 Temperature Pulse Rate 100 91 Pulse Rate [Pulse Oximeter] Respiratory Rate 22 Blood Pressure Blood Pressure [Ri ght Upper Arm] Pulse Oximetry 93 93 89 Oxygen Delivery Me thod Nasal Cannula Oxygen Flow Rate 1 08/06/23 10:45 08/06/23 11:00 08/06/23 11:02 Temperature Pulse Rate 89 96 93 Pulse Rate [Pulse Oximeter] Respiratory Rate 18 Blood Pressure 127/66 Blood Pressure [Ri ght Upper Arm] Pulse Oximetry 92 93 95 Oxygen Delivery Me thod Nasal Cannula Oxygen Flow Rate 1 08/06/23 11:02 08/06/23 11:15 08/06/23 11:30 Temperature Pulse Rate 93 97 101 H Pulse Rate [Pulse Oximeter] Respiratory Rate Blood Pressure 127/66 Blood Pressure [Ri ght Upper Arm] Pulse Oximetry 95 93 92 Oxygen Delivery Me thod Oxygen Flow Rate 08/06/23 11:31 08/06/23 11:45 Temperature Pulse Rate 99 100 Pulse Rate [Pulse Oximeter] Respiratory Rate Blood Pressure 119/67 Blood Pressure [Ri ght Upper Arm] Pulse Oximetry 91 93 Oxygen Delivery Me thod Oxygen Flow Rate Documenting provider has reviewed patient's vital signs: yes Course Course ED Course: I had respiratory a Medicine see her, Demetria helped her, we were able to wean her down to 1 L of oxygen, we gave her Solu-Medrol, and oral route of Levaquin. I spoke to Dr. Francisco from hospital medicine she agreed to admit her to the hospital with COPD exacerbation. Vital Signs Vital signs: Initial Vital Signs Temperature 98.3 F 08/06/23 09:17 Temperature Source Oral 08/06/23 09:17 Pulse Rate 112 H 08/06/23 09:17 Pulse Rhythm Regular 08/06/23 09:17 Pulse Strength 3+ Normal 08/06/23 09:17 Respiratory Rate 16 08/06/23 09:17 Blood Pressure 93/58 L 08/06/23 09:17 Blood Pressure Mean 69 L 08/06/23 09:17 Blood Pressure Position Sitting 08/06/23 09:17 Pulse Oximetry 88 08/06/23 09:17 Oxygen Delivery Method Room Air 08/06/23 09:17 Vital Signs Temperature 98.3 F 08/06/23 09:17 Pulse Rate 112 H 08/06/23 09:17 Respiratory Rate 16 08/06/23 09:17 Blood Pressure 93/58 L 08/06/23 09:17 Pulse Oximetry 88 08/06/23 09:17 Oxygen Delivery Method Room Air 08/06/23 09:17 Temperature 98.3 F 08/06/23 09:17 Pulse Rate 100 08/06/23 11:45 Respiratory Rate 18 08/06/23 10:45 Blood Pressure 119/67 08/06/23 11:31 Pulse Oximetry 93 08/06/23 11:45 Oxygen Delivery Method Nasal Cannula 08/06/23 10:45 Oxygen Flow Rate 1 08/06/23 10:45 Medications Administered Medications: Discontinued Medications Generic Name Dose Route Start Last Admin Trade Name Freq PRN Reason Stop Dose Admin Albuterol/Ipratropium 1 neb 08/06/23 09:55 08/06/23 10:30 Iprat-Albut 0.5-2.5 Mg/3 Ml Neb IH 08/06/23 09:56 1 neb ONCE ONE Administration Sodium Chloride 1,000 mls @ 1,000 mls/hr 08/06/23 10:00 08/06/23 11:50 0.9 % Sodium Chloride 1000 Ml IV 08/06/23 10:59 Infused .Q1H GAY Infusion Levofloxacin 500 mg 08/06/23 10:57 08/06/23 11:50 Levofloxacin 500 Mg Tablet PO 08/06/23 10:58 500 mg ONCE ONE Administration Methylprednisolone Sodium Succinate 125 mg 08/06/23 10:57 08/06/23 11:50 Methylprednisolone Sod Succ 62.5 Mg/Ml (125) IVP 08/06/23 10:58 125 mg ONCE ONE Administration MDM - SOB/Dyspnea MDM Narrative Medical decision making narrative: Life-threatening differential diagnosis includes occluded COPD exacerbation, pulmonary edema, acute coronary syndromes, pulmonary embolism, pneumonia, and pneumothorax. Other differential diagnosis considerations include asthma, bronchitis as well as other etiologies Differential Diagnosis Differential diagnosis: Likely acute exacerbation of chronic obstructive airways disease, congestive heart failure, community acquired pneumonia, asthma with exacerbation and pulmonary embolism Medical Records Attestation: I reviewed the patient's medical records. Lab Data Attestation: I reviewed the patient's lab results. Labs: Lab Results 08/06/23 08/06/23 08/06/23 Range/Units 10:10 10:10 10:10 WBC 17.49 H (4.50-11.00) K/uL RBC 4.65 (4.00-5.20) m/uL Hgb 14.0 (12.0-16.0) gm/dL Hct 41.9 (33.0-51.0) % MCV 90 (80-100) fL MCH 30 (26-34) pg MCHC 33 (32-36) gm/dL RDW Coeff of Helio 14.4 (11.5-15.5) % Plt Count 182 (140-440) K/uL Neut % (Auto) 79.2 H (42.0-72.0) % Lymph % (Auto) 10.1 L (20-44) % Christian % (Auto) 9.9 (0.0-11.0) % Eos % (Auto) 0.4 (0.0-7.0) % Baso % (Auto) 0.2 (0.0-3.0) % Neut # (Auto) 13.90 H (1.7-7.0) K/uL Lymph # (Auto) 1.80 (0.90-2.90) K/uL Christian # (Auto) 1.70 H (0.00-0.90) K/UL Eos # (Auto) 0.10 (0.00-0.50) K/uL Baso # (Auto) 0.00 (0.00-0.30) K/uL Abs Immat Gran (auto) 0.00 (0.00-0.30) K/uL Imm/Tot Granulo (auto) 0.2 % INR 1.10 (0.91-1.10) APTT 33 (23-33) Seconds D-Dimer Quant (PE/DVT) 0.62 H (0.00-0.50) ug/ml ABG pH Cancelled ABG pCO2 Cancelled ABG pO2 Cancelled ABG HCO3 Cancelled ABG Total CO2 Cancelled ABG O2 Saturation Cancelled ABG Base Excess Cancelled VBG pH Cancelled 7.424 VBG pCO2 Cancelled 43 VBG pO2 Cancelled VBG HCO3 Carboxyhemoglobin Sodium Potassium Chloride Carbon Dioxide Anion Gap BUN Creatinine Estimated Creat Clear Estimated GFR Glucose Lactate (0.5-1.9) mmol/L Calcium C-Reactive Protein NT-Pro-B Natriuret Pep pg/mL Procalcitonin (<0.50) ng/mL POC Troponin I (0.01-0.04) ng/ml 08/06/23 08/06/23 08/06/23 Range/Units 10:10 10:10 10:10 WBC (4.50-11.00) K/uL RBC (4.00-5.20) m/uL Hgb (12.0-16.0) gm/dL Hct (33.0-51.0) % MCV (80-100) fL MCH (26-34) pg MCHC (32-36) gm/dL RDW Coeff of Helio (11.5-15.5) % Plt Count (140-440) K/uL Neut % (Auto) (42.0-72.0) % Lymph % (Auto) (20-44) % Christian % (Auto) (0.0-11.0) % Eos % (Auto) (0.0-7.0) % Baso % (Auto) (0.0-3.0) % Neut # (Auto) (1.7-7.0) K/uL Lymph # (Auto) (0.90-2.90) K/uL Christian # (Auto) (0.00-0.90) K/UL Eos # (Auto) (0.00-0.50) K/uL Baso # (Auto) (0.00-0.30) K/uL Abs Immat Gran (auto) (0.00-0.30) K/uL Imm/Tot Granulo (auto) % INR (0.91-1.10) APTT (23-33) Seconds D-Dimer Quant (PE/DVT) (0.00-0.50) ug/ml ABG pH ABG pCO2 ABG pO2 ABG HCO3 ABG Total CO2 ABG O2 Saturation ABG Base Excess VBG pH VBG pCO2 VBG pO2 30.3 VBG HCO3 Cancelled 28 Carboxyhemoglobin Cancelled Sodium Cancelled 136 Potassium Cancelled Chloride Carbon Dioxide Anion Gap BUN Creatinine Estimated Creat Clear Estimated GFR Glucose Lactate (0.5-1.9) mmol/L Calcium C-Reactive Protein NT-Pro-B Natriuret Pep pg/mL Procalcitonin (<0.50) ng/mL POC Troponin I (0.01-0.04) ng/ml 08/06/23 08/06/23 08/06/23 Range/Units 10:10 10:10 10:10 WBC (4.50-11.00) K/uL RBC (4.00-5.20) m/uL Hgb (12.0-16.0) gm/dL Hct (33.0-51.0) % MCV (80-100) fL MCH (26-34) pg MCHC (32-36) gm/dL RDW Coeff of Helio (11.5-15.5) % Plt Count (140-440) K/uL Neut % (Auto) (42.0-72.0) % Lymph % (Auto) (20-44) % Christian % (Auto) (0.0-11.0) % Eos % (Auto) (0.0-7.0) % Baso % (Auto) (0.0-3.0) % Neut # (Auto) (1.7-7.0) K/uL Lymph # (Auto) (0.90-2.90) K/uL Christian # (Auto) (0.00-0.90) K/UL Eos # (Auto) (0.00-0.50) K/uL Baso # (Auto) (0.00-0.30) K/uL Abs Immat Gran (auto) (0.00-0.30) K/uL Imm/Tot Granulo (auto) % INR (0.91-1.10) APTT (23-33) Seconds D-Dimer Quant (PE/DVT) (0.00-0.50) ug/ml ABG pH ABG pCO2 ABG pO2 ABG HCO3 ABG Total CO2 ABG O2 Saturation ABG Base Excess VBG pH VBG pCO2 VBG pO2 VBG HCO3 Carboxyhemoglobin Sodium Potassium 3.6 Chloride Cancelled 101 Carbon Dioxide Cancelled 24 Anion Gap Cancelled BUN Creatinine Estimated Creat Clear Estimated GFR Glucose Lactate (0.5-1.9) mmol/L Calcium C-Reactive Protein NT-Pro-B Natriuret Pep pg/mL Procalcitonin (<0.50) ng/mL POC Troponin I (0.01-0.04) ng/ml 08/06/23 08/06/23 08/06/23 Range/Units 10:10 10:10 10:10 WBC (4.50-11.00) K/uL RBC (4.00-5.20) m/uL Hgb (12.0-16.0) gm/dL Hct (33.0-51.0) % MCV (80-100) fL MCH (26-34) pg MCHC (32-36) gm/dL RDW Coeff of Helio (11.5-15.5) % Plt Count (140-440) K/uL Neut % (Auto) (42.0-72.0) % Lymph % (Auto) (20-44) % Christian % (Auto) (0.0-11.0) % Eos % (Auto) (0.0-7.0) % Baso % (Auto) (0.0-3.0) % Neut # (Auto) (1.7-7.0) K/uL Lymph # (Auto) (0.90-2.90) K/uL Christian # (Auto) (0.00-0.90) K/UL Eos # (Auto) (0.00-0.50) K/uL Baso # (Auto) (0.00-0.30) K/uL Abs Immat Gran (auto) (0.00-0.30) K/uL Imm/Tot Granulo (auto) % INR (0.91-1.10) APTT (23-33) Seconds D-Dimer Quant (PE/DVT) (0.00-0.50) ug/ml ABG pH ABG pCO2 ABG pO2 ABG HCO3 ABG Total CO2 ABG O2 Saturation ABG Base Excess VBG pH VBG pCO2 VBG pO2 VBG HCO3 Carboxyhemoglobin Sodium Potassium Chloride Carbon Dioxide Anion Gap 11 BUN Cancelled 9 Creatinine Cancelled 0.5 Estimated Creat Clear Cancelled Estimated GFR Glucose Lactate (0.5-1.9) mmol/L Calcium C-Reactive Protein NT-Pro-B Natriuret Pep pg/mL Procalcitonin (<0.50) ng/mL POC Troponin I (0.01-0.04) ng/ml 08/06/23 08/06/23 08/06/23 Range/Units 10:10 10:10 10:10 WBC (4.50-11.00) K/uL RBC (4.00-5.20) m/uL Hgb (12.0-16.0) gm/dL Hct (33.0-51.0) % MCV (80-100) fL MCH (26-34) pg MCHC (32-36) gm/dL RDW Coeff of Helio (11.5-15.5) % Plt Count (140-440) K/uL Neut % (Auto) (42.0-72.0) % Lymph % (Auto) (20-44) % Christian % (Auto) (0.0-11.0) % Eos % (Auto) (0.0-7.0) % Baso % (Auto) (0.0-3.0) % Neut # (Auto) (1.7-7.0) K/uL Lymph # (Auto) (0.90-2.90) K/uL Christian # (Auto) (0.00-0.90) K/UL Eos # (Auto) (0.00-0.50) K/uL Baso # (Auto) (0.00-0.30) K/uL Abs Immat Gran (auto) (0.00-0.30) K/uL Imm/Tot Granulo (auto) % INR (0.91-1.10) APTT (23-33) Seconds D-Dimer Quant (PE/DVT) (0.00-0.50) ug/ml ABG pH ABG pCO2 ABG pO2 ABG HCO3 ABG Total CO2 ABG O2 Saturation ABG Base Excess VBG pH VBG pCO2 VBG pO2 VBG HCO3 Carboxyhemoglobin Sodium Potassium Chloride Carbon Dioxide Anion Gap BUN Creatinine Estimated Creat Clear 44.36 Estimated GFR Cancelled 104 Glucose Cancelled 110 Lactate 0.9 (0.5-1.9) mmol/L Calcium Cancelled C-Reactive Protein NT-Pro-B Natriuret Pep pg/mL Procalcitonin (<0.50) ng/mL POC Troponin I (0.01-0.04) ng/ml 08/06/23 08/06/23 08/06/23 Range/Units 10:10 10:10 10:15 WBC (4.50-11.00) K/uL RBC (4.00-5.20) m/uL Hgb (12.0-16.0) gm/dL Hct (33.0-51.0) % MCV (80-100) fL MCH (26-34) pg MCHC (32-36) gm/dL RDW Coeff of Helio (11.5-15.5) % Plt Count (140-440) K/uL Neut % (Auto) (42.0-72.0) % Lymph % (Auto) (20-44) % Christian % (Auto) (0.0-11.0) % Eos % (Auto) (0.0-7.0) % Baso % (Auto) (0.0-3.0) % Neut # (Auto) (1.7-7.0) K/uL Lymph # (Auto) (0.90-2.90) K/uL Christian # (Auto) (0.00-0.90) K/UL Eos # (Auto) (0.00-0.50) K/uL Baso # (Auto) (0.00-0.30) K/uL Abs Immat Gran (auto) (0.00-0.30) K/uL Imm/Tot Granulo (auto) % INR (0.91-1.10) APTT (23-33) Seconds D-Dimer Quant (PE/DVT) (0.00-0.50) ug/ml ABG pH ABG pCO2 ABG pO2 ABG HCO3 ABG Total CO2 ABG O2 Saturation ABG Base Excess VBG pH VBG pCO2 VBG pO2 VBG HCO3 Carboxyhemoglobin Sodium Potassium Chloride Carbon Dioxide Anion Gap BUN Creatinine Estimated Creat Clear Estimated GFR Glucose Lactate (0.5-1.9) mmol/L Calcium 9.0 C-Reactive Protein Cancelled 4.7 H NT-Pro-B Natriuret Pep 73 pg/mL Procalcitonin 0.06 (<0.50) ng/mL POC Troponin I 0.00 L (0.01-0.04) ng/ml ABG Data Attestation: I personally reviewed and interpreted this ABG as follows: Interpretation: Hypoxia Imaging Data Chest x-ray: Attestation: I have reviewed the pertinent imaging results. My impression: Hyperinflation no acute changes ECG Data ECG interpretation date: 08/06/23 Prior ECG tracings: not available for review Interpretation: EKG shows normal sinus rhythm with a ventricular rate of 93, Q-waves are noted V1 and V2, with no some nonspecific ST wave changes, assessment abnormal EKG Discharge Plan Discharge Clinical Impression: Leukocytosis, Hypoxia, Acute exacerbation of chronic obstructive pulmonary disease Patient Disposition: Admitted As Observation
[2023-08-06] MEDS: ASPIRIN 81 MG TABLET EC PO (13:57)
[2023-08-06] MEDS: AMLODIPINE 5 MG TABLET PO (13:57)
--- NOTE | 2023-08-06 14:07 | RESP.RT ---
PEP instruction, information and return demonstration by patient. Good to excellent exhalation with Aerobika set at 5. Good chest shake, had patient feel chest shake to help understand how Aerobika was helping mobilize secretions. Promoted good forceful cough with scant amount secretions. Sputum cup on table for patient to cough secretions in when present. Patient now receiving DuoNeb as scheduled.
[2023-08-06] MEDS: predniSONE 20 MG TABLET 40 MG PO (14:37)
--- NOTE | 2023-08-06 15:02 | P.IMHP_ITS ---
Hospitalist- H&P: HPI History of Present Illness Time Seen by Provider: 12:00 Date Seen: 08/06/23 Chief complaint: trouble breathing Narrative: Linnette Brown is a 67 year old female who has a history of COPD who developed worsening dyspnea over the weekend. She notes that she had RSV in May for which she was on 5 days of prednisone, but has felt that she never really recovered from that. About 3 weeks ago she had an episode where she woke up completely drenched in the middle of the night and then felt cold for a while after that. Since then she has felt hot and cold. This weekend she has been coughing more, bringing up cloudy greenish or yellow sputum, and has become more short of breath. She has been checking her oxygen saturations at home and her monitor reads 75-85%. This morning she did not feel better and could not get in with her usual provider, Dr. Guardado, so she came to the emergency department. She has been using albuterol nebs q.6 hours at home and they do help some. She can use them every 4 hours but has not done that for unclear reasons. Review of Systems Status of ROS: Reports: 10 or more systems reviewed and unremarkable except as noted in History and below [facility] Medical History (Updated 08/06/23 @ 15:13 by Hanna Francisco MD) RSV infection (~05/2023) ?B33.8 - Other specified viral diseases (ICD-10) Allergic rhinitis ?J30.9 - Allergic rhinitis, unspecified (ICD-10) Chronic sinusitis ?J32.9 - Chronic sinusitis, unspecified (ICD-10) Ex-smoker for less than 1 year ?Z78.9 - Other specified health status (ICD-10) Brain bleed (11/18/22) ?I61.9 - Nontraumatic intracerebral hemorrhage, unspecified (ICD-10) Screening for lung cancer (11/2021) ?Z12.2 - Encounter for screening for malignant neoplasm of respiratory organs (ICD-10) Osteoarthritis involving multiple joints on both sides of body ?M15.9 - Polyosteoarthritis, unspecified (ICD-10) Hypercholesterolemia ?E78.00 - Pure hypercholesterolemia, unspecified (ICD-10) Upper airway resistance syndrome ?G47.8 - Other sleep disorders (ICD-10) Colon polyp ?K63.5 - Polyp of colon (ICD-10) Osteoporosis (12/2022) ?M81.0 - Age-related osteoporosis without current pathological fracture (ICD- 10) Mixed anxiety depressive disorder ?F41.8 - Other specified anxiety disorders (ICD-10) Chronic obstructive pulmonary disease (01/13/13) ?J44.9 - Chronic obstructive pulmonary disease, unspecified (ICD-10) Insomnia ?G47.00 - Insomnia, unspecified (ICD-10) Hypertension ?I10 - Essential (primary) hypertension (ICD-10) Encounter for counseling regarding advance directives (04/04/19) ?Z71.89 - Other specified counseling (ICD-10) Nicotine dependence (07/25/12) ?F17.200 - Nicotine dependence, unspecified, uncomplicated (ICD-10) Right lower quadrant abdominal pain ?R10.31 - Right lower quadrant pain (ICD-10) Hypoxia ?R09.02 - Hypoxemia (ICD-10) Depression (01/13/13) ?F32.A - Depression, unspecified (ICD-10) Concussion (08/2018) ?S06.0X9A - Concussion with loss of consciousness of unspecified duration, initial encounter (ICD-10) Surgical History History of tonsillectomy (01/13/13) ?Z90.89 - Acquired absence of other organs (ICD-10) History of knee surgery (12/2003) ?Z98.890 - Other specified postprocedural states (ICD-10) History of esophagogastroduodenoscopy (2014) ?Z98.890 - Other specified postprocedural states (ICD-10) History of dilation and curettage (01/13/13) ?Z98.890 - Other specified postprocedural states (ICD-10) Status post colonoscopy with polypectomy (2014) ?Z98.890 - Other specified postprocedural states (ICD-10) H/O: hysterectomy ?Z90.710 - Acquired absence of both cervix and uterus (ICD-10) History of salpingo-oophorectomy ?Z90.79 - Acquired absence of other genital organ(s) (ICD-10) ?Z90.721 - Acquired absence of ovaries, unilateral (ICD-10) S/P laparoscopic cholecystectomy (2015) ?Z90.49 - Acquired absence of other specified parts of digestive tract (ICD- 10) S/P sacrocolpopexy (2017) ?Z98.890 - Other specified postprocedural states (ICD-10) Family History Mother Diabetes High blood pressure Myocardial infarction, Onset Age: 93 Rheumatoid arthritis Father Myocardial infarction, Onset Age: 83 Maternal Grandfather Stroke, Onset Age: 42 Other Bipolar disorder Colonic polyp Schizophrenia Social History (Updated 08/06/23 @ 15:07 by Hanna Francisco MD) Narrative: lives withrene Greene who has MS, 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 Her son and grandson also live with her. Non smoker, 10/2022 ex-cigarette smoker- 40 pack years does not drink alcohol Walks 30 minutes 5 days a week 3 kids, sons adult What is your current living situation?: I presently have a place to live Problems where you live: no known problems Problems where you live details: NA In the past 12 months, utilities in danger of being shut off: no In past 12 months, lack of transportation kept you from medical appts, meetings, work, or getting things needed for daily living: no In the past 12 mos, have been you worried that your food would run out before you had money to buy more?: never true In the past 12 mos, the food you bought just didn't last and you didn't have money to buy more?: never true Highest level of school completed/degree received: some college, no degree Smoking Status: Current some day smoker Do you use any of these nicotine containing products: None Nicotine containing products detail: quit in November 2022 How often do you have a drink containing alcohol: never AUDIT-C Alcohol total score: 0 Non-prescribed substance use: denies use Caffeine: Yes How often does anyone, including family, friends and others, physically hurt you : never How often does anyone, including family, friends and others, insult or talk down to you: never How often does anyone, including family, friends and others, threaten you with harm: never How often does anyone, including family, friends and others, scream or curse at you: never Little interest or pleasure in doing things: not at all Feeling down, depressed, or hopeless: not at all service: Yes Meds Home Medications and Allergies Home Medications Medication Instructions Recorded Confirmed Type evolocumab 140 mg/mL subcutaneous 140 mg subcut 01/18/22 05/31/23 History pen injector (Boyd Newton) ezetimibe 10 mg tablet 10 mg PO DAILY 01/18/22 05/31/23 History mirtazapine 30 mg tablet 30 mg PO HS 01/18/22 05/31/23 History rosuvastatin 40 mg tablet 40 mg PO QPM 01/18/22 05/31/23 History aspirin 81 mg tablet,delayed 81 mg PO QDAY 12/22/22 05/31/23 History release (Adult Low Dose Aspirin) duloxetine 20 mg capsule,delayed 20 mg PO DAILY 12/22/22 05/31/23 History release duloxetine 60 mg capsule,delayed 60 mg PO DAILY 12/22/22 05/31/23 History release cholecalciferol (vitamin D3) 125 125 mcg PO QDAY 01/31/23 05/31/23 History mcg (5,000 unit) capsule Allergies Allergy/AdvReac Type Severity Reaction Status Date / Time amoxicillin Allergy Intermediate itchy, Verified 08/06/23 09:21 diarhea, upset stomach venlafaxine Allergy Intermediate Hives Verified 08/06/23 09:21 atorvastatin AdvReac Unknown Verified 08/06/23 09:21 simvastatin AdvReac Unknown Verified 08/06/23 09:21 hydocodone AdvReac Uncoded 05/31/23 09:27 Exam Narrative: Exam Narrative: General: No acute distress. Awake alert oriented x3. HEENT: Normocephalic atraumatic, pupils equally round and reactive to light and accommodation. Oropharynx clear. Mucous membranes are moist. No cervical lymphadenopathy, thyromegaly or carotid bruits. No JVD. Cardiovascular: Regular rate and rhythm. No murmurs, gallops, or rubs. Chest: No increased work of breathing. Distant breath sounds, some air movement, no crackles or wheezes. Abdomen: Bowel sounds present. Soft, nondistended, nontender. No hepatosplenomegaly or masses. Extremities: No edema, no cyanosis or clubbing. Skin: No jaundice, no pallor, no rashes. Neuro: Grossly intact. No focal deficits. Const: Vital Signs, click to edit/add: Vital Signs - 24 hr 08/06/23 09:17 08/06/23 09:28 08/06/23 09:29 Temperature 98.3 F Pulse Rate 98 97 Pulse Rate [Pulse Oximeter] 112 H Respiratory Rate 16 Blood Pressure 117/64 Blood Pressure [Ri ght Arm] Blood Pressure [Ri ght Upper Arm] 93/58 L Pulse Oximetry 88 88 90 Oxygen Delivery Me thod Room Air Oxygen Flow Rate 08/06/23 09:30 08/06/23 09:32 08/06/23 09:45 Temperature Pulse Rate 102 H 101 H 98 Pulse Rate [Pulse Oximeter] Respiratory Rate Blood Pressure 102/67 Blood Pressure [Ri ght Arm] Blood Pressure [Ri ght Upper Arm] Pulse Oximetry 93 92 95 Oxygen Delivery Me thod Oxygen Flow Rate 08/06/23 09:55 08/06/23 10:00 08/06/23 10:02 Temperature Pulse Rate 93 94 Pulse Rate [Pulse Oximeter] Respiratory Rate 18 Blood Pressure 109/64 Blood Pressure [Ri ght Arm] Blood Pressure [Ri ght Upper Arm] Pulse Oximetry 98 95 95 Oxygen Delivery Me thod Oxygen Flow Rate 08/06/23 10:15 08/06/23 10:36 08/06/23 10:41 Temperature Pulse Rate 100 91 Pulse Rate [Pulse Oximeter] Respiratory Rate 22 Blood Pressure Blood Pressure [Ri ght Arm] Blood Pressure [Ri ght Upper Arm] Pulse Oximetry 93 93 89 Oxygen Delivery Me thod Nasal Cannula Oxygen Flow Rate 1 08/06/23 10:45 08/06/23 11:00 08/06/23 11:02 Temperature Pulse Rate 89 96 93 Pulse Rate [Pulse Oximeter] Respiratory Rate 18 Blood Pressure 127/66 Blood Pressure [Ri ght Arm] Blood Pressure [Ri ght Upper Arm] Pulse Oximetry 92 93 95 Oxygen Delivery Me thod Nasal Cannula Oxygen Flow Rate 1 08/06/23 11:02 08/06/23 11:15 08/06/23 11:30 Temperature Pulse Rate 93 97 101 H Pulse Rate [Pulse Oximeter] Respiratory Rate Blood Pressure 127/66 Blood Pressure [Ri ght Arm] Blood Pressure [Ri ght Upper Arm] Pulse Oximetry 95 93 92 Oxygen Delivery Me thod Oxygen Flow Rate 08/06/23 11:31 08/06/23 11:45 08/06/23 12:09 Temperature 98.1 F Pulse Rate 99 100 Pulse Rate [Pulse Oximeter] 95 Respiratory Rate 20 Blood Pressure 119/67 Blood Pressure [Ri ght Arm] 115/77 Blood Pressure [Ri ght Upper Arm] Pulse Oximetry 91 93 91 Oxygen Delivery Me thod Nasal Cannula Oxygen Flow Rate 0.5 08/06/23 12:35 08/06/23 14:40 08/06/23 14:45 Temperature 98.2 F Pulse Rate Pulse Rate [Pulse Oximeter] 93 Respiratory Rate 20 18 18 Blood Pressure Blood Pressure [Ri ght Arm] 103/53 L Blood Pressure [Ri ght Upper Arm] Pulse Oximetry 91 90 90 Oxygen Delivery Me thod Nasal Cannula Room Air Room Air Oxygen Flow Rate 0.5 Hospitalist - H&P: Result Labs Labs: Short CBC 08/06/23 Range/Units 10:10 WBC 17.49 H (4.50-11.00) K/uL Hgb 14.0 (12.0-16.0) gm/dL Hct 41.9 (33.0-51.0) % Plt Count 182 (140-440) K/uL BMP 08/06/23 08/06/23 08/06/23 10:10 10:10 10:10 Sodium Cancelled 136 Potassium Cancelled 3.6 Chloride Cancelled Carbon Dioxide BUN Creatinine Glucose Calcium 08/06/23 08/06/23 08/06/23 10:10 10:10 10:10 Sodium Potassium Chloride 101 Carbon Dioxide Cancelled 24 BUN Cancelled 9 Creatinine Cancelled Glucose Calcium 08/06/23 08/06/23 08/06/23 10:10 10:10 10:10 Sodium Potassium Chloride Carbon Dioxide BUN Creatinine 0.5 Glucose Cancelled 110 Calcium Cancelled 9.0 08/06/2023 EKG: Normal sinus rhythm, 93 beats per minute, left axis deviation, septal infarct, age undetermined. Ordering Physician: Rubén Palacios M.D. Date of Service: 08/06/23 Procedure(s): XR chest 2V Accession Number(s): [id number] cc: Cheyenne Guardado M.D.; Rubén Palacios M.D.~ For Patients: As a result of the Cures Act, medical imaging exams and procedure reports are released immediately into your electronic medical record. You may view this report before your referring provider. If you have questions, please contact your health care provider. Indication: Cough Technique: Chest 2 views Comparison: Chest x-ray 04/02/2019 Findings/Impression: Cardiovascular and mediastinum: Normal heart size with atherosclerotic calcification. Lungs and pleural spaces: Mild hyperinflation without pleural effusion or pneumothorax. No focal consolidation. Bones and soft tissues: Right upper quadrant surgical clips. Dictated by Nawaf Alatorre MD @ 08/06/2023 10:54:05 AM (Electronically Signed) Assessment and Plan Assessment and plan (1) Acute exacerbation of chronic obstructive pulmonary disease: Problem comment: Admit for observation, oxygen as needed to keep O2 sats greater than 88%. VBG is reviewed and she has no CO2 retention, no symptoms of hypercapnia. Scheduled q.6 hours DuoNebs, also p.r.n. albuterol nebs. Was given methylprednisolone in the emergency department. Will start oral prednisone burst for 5 days. She already appears much better than what she was in the emergency department and I think she will likely be able to go home tomorrow. Additionally I note that she has leukocytosis and increased sputum production which is concerning for bronchitis. She was started on levofloxacin in the emergency department which I will continue, renally dosed. Notably her chest x-ray does not show consolidation and her procalcitonin is unremarkable. SARs/influenza/RSV swabs are negative. Will obtain a sputum culture and start her on vibratory pep as well. Status: Acute (2) Chronic obstructive pulmonary disease: Problem comment: - outpatient meds: Advair and albuterol - 11/[address] screen negative Status: Chronic (3) Hypertension: Problem comment: Continue outpatient medication Status: Chronic (4) Hypercholesterolemia: Problem comment: Severe , sees specialist Repatha injections every 2 weeks, Zetia 10 mg, rosuvastatin 40 mg Continue outpatient medication Status: Chronic (5) Upper airway resistance syndrome: Problem comment: severe, on CPAP Status: Chronic (6) Obstructive sleep apnea syndrome: Problem comment: On CPAP Status: Chronic
[2023-08-06] MEDS: ROSUVASTATIN CALCIUM 10 MG TABLET 40 MG PO (18:23)
--- NOTE | 2023-08-06 18:45 | PC.NURSE ---
Pt arrived to floor from ED at 1209pm. Pt alert and oriented. Pt up independently. Pt has SOB with exertion. Pt arrived to floor on 1 Liter and was titrated down to 0.5 L and Pt maintained saturations of 89-95%. Pt titrated to RA and maintained saturations of 88-90%.Pt to bed at 88% or higher per hospitalist. Pt had no complaints of dizziness with activity and Pt stated, ?she feels a lot better since arriving in ED this morning?.? ?
[2023-08-06] MEDS: MIRTAZAPINE 15 MG TABLET 30 MG PO (21:28)
[2023-08-06] MEDS: SODIUM CHLORIDE 0.9 % (FLUSH) 10 ML SYRINGE 5 ML IVF (21:28)
[2023-08-06] MEDS: DULOXETINE 30 MG CAPSULE DR 60 MG PO (21:28)
[2023-08-06] MEDS: DULOXETINE HCL 20 MG CAPSULE DR PO (21:28)
[2023-08-07] VITALS (11 sets, daily range): BP systolic 95–115; BP diastolic 51–68; PULSE 81–99; RESP 16–20; TEMP 36.8–37; O2SAT 83–91
[2023-08-07] MEDS: IPRAT-ALBUT 0.5-2.5 MG/3 ML NEB 1 NEB IH ×3 (06:59→19:58)
--- NOTE | 2023-08-07 07:53 | PC.NURSE ---
Pt alert and oriented x3. Afebrile. Pleasant and cooperative. Pt denies pain, SOB, chest pain and N/V. Pt is up ad kojo in room, voiding, and on room air throughout night. Pt refused one scheduled neb overnight wanting to sleep and agreed to take the scheduled neb in the morning. Pt slept throughout most of night.
[2023-08-07] MEDS: EZETIMIBE 10 MG TABLET PO (08:26)
[2023-08-07] MEDS: ASPIRIN 81 MG TABLET EC PO (08:27)
[2023-08-07] MEDS: AMLODIPINE 5 MG TABLET PO (08:27)
[2023-08-07] MEDS: levoFLOXacin 250 MG TABLET PO (08:27)
[2023-08-07] MEDS: predniSONE 20 MG TABLET 40 MG PO (08:27)
[2023-08-07] MEDS: SODIUM CHLORIDE 0.9 % (FLUSH) 10 ML SYRINGE 5 ML IVF ×2 (08:30→20:35)
--- NOTE | 2023-08-07 08:35 | PC.NURSE ---
MD notified of diminished lung sounds in RLL. MD plans to order a CT scan.
--- NOTE | 2023-08-07 08:48 | CRLHL7_ITS ---
For Patients: As a result of the Century Cures Act, medical imaging exams and procedure reports are released immediately into your electronic medical record. You may view this report before your referring provider. If you have questions, please contact your health care provider. INDICATION: Hypoxia. TECHNIQUE: CT chest PE was acquired with 95 cc Isovue 370 IV contrast. COMPARISON: 01/25/2023. FINDINGS: Heart and vasculature: Contrast opacification of the pulmonary arterial tree is adequate. No sign of pulmonary embolism. Mild atherosclerotic coronary calcifications. Lungs and pleura: Mild bilateral upper lobe predominant centrilobular emphysema. Bilateral multilobar multisegmental subsegmental bronchial wall thickening (right upper lobe greater than left upper lobe, medial segment right middle lobe, anterior basal segment right lower lobe, posterior basal segment right lower lobe and posterior basal segment left lower lobe). Posterior segment right lower lobe subsegmental mucous plugging associated with minimal subpleural atelectasis. Clustered apical segment right upper lobe ground-glass tree-in-bud opacities consistent with nonspecific benign small airways disease. No coalescent consolidation, significant atelectasis or pleural effusion. Anterior right upper lobe and bibasilar multilobar (lingular and anterior basal segment right lower lobe) pleural-based reticular opacities consistent with nonspecific fibrosis. Lymph nodes/mediastinum: No mediastinal, hilar, or axillary adenopathy. Chest wall: No masses. Upper abdomen: Cholecystectomy. Bones: Unremarkable for age. IMPRESSION: No evidence of pulmonary embolism. Mild emphysema. Bilateral multilobar small airways disease described in detail above. No coalescent consolidation, significant atelectasis or pleural effusion. Please note that all CT scans at this facility use dose modulation, iterative reconstruction, and/or weight-based dosing when appropriate to reduce radiation dose to as low as reasonably achievable. Dictated by Yuval Quiñones MD @ 08/07/2023 12:06:38 PM (Electronically Signed)
--- NOTE | 2023-08-07 12:16 | PM.IMPN1 ---
Progress Note: A&P Assessment and plan (1) Acute hypoxic respiratory failure: Problem details: - CTA negative for PE 08/07/23, does show mucous plugging - Secondary to COPD exacerbation and mucous plugging Status: Acute (2) Mucus plugging of bronchi: Problem details: - 08/07 Continue oxygen supplementation as needed, nebs, vibratory pep, levofloxacin Status: Acute (3) Acute exacerbation of chronic obstructive pulmonary disease: Problem details: - 2/5 Oxygen as needed to keep O2 sats greater than 88%. VBG is reviewed and she has no CO2 retention, no symptoms of hypercapnia. Scheduled q.6 hours DuoNebs, also p.r.n. albuterol nebs. Was given methylprednisolone in the emergency department. Notably her chest x-ray does not show consolidation and her procalcitonin is unremarkable. SARs/influenza/RSV swabs are negative. - 08/07 Continue levofloxacin, vibratory pep, oral prednisone burst for 5 days. Status: Acute (4) Upper airway resistance syndrome: Problem details: severe, on CPAP Status: Chronic (5) Chronic obstructive pulmonary disease: Problem details: - outpatient meds: Advair and albuterol - 11/[address] screen negative Status: Chronic (6) Obstructive sleep apnea syndrome: Problem details: On CPAP Status: Chronic Subjective Time Seen by Provider: 08:30 Date Seen: 08/07/23 Interval history: Linnette feels much better, but she is having slightly increased oxygen needs today. Exam Narrative: Exam Narrative: General: No acute distress. Awake alert oriented. Cardiovascular: Regular rate and rhythm. No murmurs, gallops, or rubs. Chest: No increased work of breathing. Improved breath sounds on left, diminished breath sounds on right. No crackles or wheezes. Abdomen: Bowel sounds present. Soft, nondistended, nontender. No hepatosplenomegaly or masses. Extremities: No edema, no cyanosis or clubbing. Const: Vital Signs, click to edit/add: Vital Signs - 24 hr 08/06/23 12:35 08/06/23 14:40 08/06/23 14:45 Temperature 98.2 F Pulse Rate [Pulse Oximeter] 93 Respiratory Rate 20 18 18 Blood Pressure [Ri ght Arm] 103/53 L Pulse Oximetry 91 90 90 Oxygen Delivery Me thod Nasal Cannula Room Air Room Air Oxygen Flow Rate 0.5 08/06/23 19:50 08/06/23 23:00 08/06/23 23:00 Temperature 98.8 F Pulse Rate [Pulse Oximeter] 86 Respiratory Rate 18 18 16 Blood Pressure [Ri ght Arm] 104/62 Pulse Oximetry 89 91 Oxygen Delivery Me thod Room Air Room Air Oxygen Flow Rate 08/06/23 23:00 08/07/23 01:20 08/07/23 07:28 Temperature 98.3 F 98.3 F 98.2 F Pulse Rate [Pulse Oximeter] 81 81 88 Respiratory Rate 18 18 16 Blood Pressure [Ri ght Arm] 119/65 95/53 L 108/66 Pulse Oximetry 90 91 83 L Oxygen Delivery Me thod Room Air Room Air Room Air Oxygen Flow Rate 08/07/23 07:29 08/07/23 09:31 Temperature Pulse Rate [Pulse Oximeter] Respiratory Rate Blood Pressure [Ri ght Arm] Pulse Oximetry 90 89 Oxygen Delivery Me thod Nasal Cannula Nasal Cannula Oxygen Flow Rate [address] scan - chest: Attestation: I have reviewed the pertinent imaging results. Radiologist's impression: Ordering Physician: Hanna Francisco M.D. Date of Service: 08/07/23 Procedure(s): CT angio chest PE protocol Accession Number(s): [id number] cc: Cheyenne Guardado M.D.; Hanna Francisco M.D.~ For Patients: As a result of the Cures Act, medical imaging exams and procedure reports are released immediately into your electronic medical record. You may view this report before your referring provider. If you have questions, please contact your health care provider. INDICATION: Hypoxia. TECHNIQUE: CT chest PE was acquired with 95 cc Isovue 370 IV contrast. COMPARISON: 01/25/2023. FINDINGS: Heart and vasculature: Contrast opacification of the pulmonary arterial tree is adequate. No sign of pulmonary embolism. Mild atherosclerotic coronary calcifications. Lungs and pleura: Mild bilateral upper lobe predominant centrilobular emphysema. Bilateral multilobar multisegmental subsegmental bronchial wall thickening (right upper lobe greater than left upper lobe, medial segment right middle lobe, anterior basal segment right lower lobe, posterior basal segment right lower lobe and posterior basal segment left lower lobe). Posterior segment right lower lobe subsegmental mucous plugging associated with minimal subpleural atelectasis. Clustered apical segment right upper lobe ground-glass tree-in-bud opacities consistent with nonspecific benign small airways disease. No coalescent consolidation, significant atelectasis or pleural effusion. Anterior right upper lobe and bibasilar multilobar (lingular and anterior basal segment right lower lobe) pleural-based reticular opacities consistent with nonspecific fibrosis. Lymph nodes/mediastinum: No mediastinal, hilar, or axillary adenopathy. Chest wall: No masses. Upper abdomen: Cholecystectomy. Bones: Unremarkable for age. IMPRESSION: No evidence of pulmonary embolism. Mild emphysema. Bilateral multilobar small airways disease described in detail above. No coalescent consolidation, significant atelectasis or pleural effusion. Please note that all CT scans at this facility use dose modulation, iterative reconstruction, and/or weight-based dosing when appropriate to reduce radiation dose to as low as reasonably achievable. Dictated by Yuval Quiñones MD @ 08/07/2023 12:06:38 PM (Electronically Signed)
[2023-08-07] MEDS: ALBUTEROL SULFATE 2.5 MG/3 ML VIAL.NEB NEB (12:46)
--- NOTE | 2023-08-07 14:02 | PC.NURSE ---
End of shift report: Patient reports feeling much better today than yesterday. Patient very pleasant. Patient's saturations were 85% this morning on room air. Right lower lobe lung sounds were diminished. MD notified of this. CT of chest completed. Spoke with RT regarding patient breathing through mouth and not nose. Recommended oxymask for oxygen. This was placed on patient and tolerating well. Currently on 1L oxymask. Did attempt to wean to RA but patient desaturated to 86%. Patient has been doing aerobika every hour. Has been coughing up a lot of yellow, thick mucous. BP has been soft but patient denies dizzy and light headedness. Afebrile this shift. Up independently in room. PIV patent. Denies n/v. Tolerating a regular diet. Voiding without difficulty. LBM 2/5. Patient plans to stay another night.
[2023-08-07] MEDS: ROSUVASTATIN CALCIUM 10 MG TABLET 40 MG PO (18:18)
[2023-08-07] MEDS: DULOXETINE 30 MG CAPSULE DR 60 MG PO (20:34)
[2023-08-07] MEDS: DULOXETINE HCL 20 MG CAPSULE DR PO (20:34)
[2023-08-07] MEDS: MIRTAZAPINE 15 MG TABLET 30 MG PO (20:34)
[2023-08-08] MEDS: ACETAMINOPHEN 325 MG TABLET 650 MG PO (04:23)
[2023-08-08 04:31] VITALS: BP 118/70; PULSE 77; RESP 20; TEMP 36.7; O2SAT 89
[2023-08-08 04:34] LABS: Appearance Urine Clear (Clear); Bilirubin Urine Negative (Negative); Blood Urine Trace-intact (Negative); Color Urine Yellow (Yellow); Glucose Urine Negative (Negative); Ketones Urine Negative (Negative); Leukocyte Esterase Urine 1+ (Negative); Nitrite Urine Negative (Negative); Protein Urine Negative (Negative); Urobilinogen Urine 0.2 (0.2-1.0)
[2023-08-08 04:52] LABS: Bacteria Urine Few; RBC Urine 0-2 (0-2); Squamous Epithelial Cell Urine Few (None-Few); WBC Urine 0-2 (0-5)
[2023-08-08] MEDS: IPRAT-ALBUT 0.5-2.5 MG/3 ML NEB 1 NEB IH ×2 (06:11→18:42)
[2023-08-08 06:49] LABS: Basophils Percent Auto 0.1 % (0.0-3.0); Hematocrit 37.2 % (33.0-51.0); Hemoglobin* 12.5 gm/dL (12.0-16.0); Immature Granulocytes Pct Auto 0.3 %; Lymphocytes Percent Auto 9.8 % (20-44); Mean Corpuscular HGB Conc 34 gm/dL (32-36); Mean Corpuscular Hemoglobin 30 pg (26-34); Mean Corpuscular Volume 90 fL (80-100); Monocytes Percent Auto 6.9 % (0.0-11.0); Neutrophils Percent Auto 82.9 % (42.0-72.0); Platelet Count* 243 K/uL (140-440); RDW Coefficient of Variation % 14.4 % (11.5-15.5); Red Blood Count 4.15 m/uL (4.00-5.20); White Blood Count* 19.83 K/uL (4.50-11.00)
--- NOTE | 2023-08-08 06:51 | PC.NURSE ---
15: pleasant and cooperative. Indep. Pt remains on 1L NC when awake, and 1L Oxymask when asleep d/t mouth breathing. LS dim in the bases, clear throughout. Pt reports coughing up thick sputum, by end of shift pt reports feeling much better & expresses that she hopes to d/c today so she can get home to her grandson to whom she recently became primary caregiver for.
[2023-08-08 07:06] LABS: Slide Review Reflex No
[2023-08-08 07:20] LABS: C Reactive Protein* 3.7 mg/dL (0.5-1.0)
[2023-08-08 09:00] VITALS: BP 118/66; PULSE 76; RESP 22; TEMP 36.8; O2SAT 92
[2023-08-08] MEDS: EZETIMIBE 10 MG TABLET PO (09:03)
[2023-08-08] MEDS: AMLODIPINE 5 MG TABLET PO (09:03)
[2023-08-08] MEDS: ASPIRIN 81 MG TABLET EC PO (09:03)
[2023-08-08] MEDS: predniSONE 20 MG TABLET 40 MG PO (09:04)
[2023-08-08] MEDS: SODIUM CHLORIDE 0.9 % (FLUSH) 10 ML SYRINGE 5 ML IVF ×2 (09:04→20:56)
[2023-08-08 11:00] VITALS: BP 106/69; PULSE 87; RESP 22; TEMP 36.8; O2SAT 90
[2023-08-08] MEDS: levoFLOXacin 250 MG TABLET PO (11:13)
[2023-08-08 15:00] VITALS: RESP 20; O2SAT 91
--- NOTE | 2023-08-08 15:23 | P.IMPN_ITS ---
Progress Note: A&P Assessment and plan (1) Acute hypoxic respiratory failure: Problem details: - CTA negative for PE 08/07/23, does show mucous plugging - Secondary to COPD exacerbation and mucous plugging Status: Acute (2) Mucus plugging of bronchi: Problem details: Continue oxygen supplementation as needed, nebs, vibratory pep, aerobika, levofloxacin. Mucinex added Status: Acute (3) Acute exacerbation of chronic obstructive pulmonary disease: Problem details: - COPD outpatient meds: Advair and albuterol - 11/[address] screen negative - 2/ Oxygen as needed to keep O2 sats greater than 88%. VBG is reviewed and she has no CO2 retention, no symptoms of hypercapnia. Scheduled q.6 hours D uoNebs, also p.r.n. albuterol nebs. Was given methylprednisolone in the emergency department. Notably her chest x-ray does not show consolidation and her procalcitonin is unremarkable. SARs/influenza/RSV swabs are negative. - 08/07 Continue levofloxacin, vibratory pep, oral prednisone burst for 5 days - leukocytosis noted c/w steroid use Status: Acute (4) Upper airway resistance syndrome: Problem details: severe, on CPAP Status: Chronic (5) Obstructive sleep apnea syndrome: Problem details: On CPAP Status: Chronic Plan Possible discharge 1-2 days pending continued clinical improvement Time Spent With Patient Total time spent: Total time spent caring for the patient today was 45 minutes. This includes time spent for the visit reviewing the chart, time spent during the visit, time spent after the visit and documentation and planning in coordination of care. Subjective Date Seen: 08/08/23 Interval history: Patient reports feeling better today than on admission. Shortness of breath slightly improving. Denies chest pain or tightness. Denies headaches or dizziness. Has remained afebrile. Exam Narrative: Exam Narrative: PHYSICAL EXAM General: Pleasant, conversant, NAD HEENT: Normocephalic, atraumatic, sclera white, EOMI, oral mucosa moist Cardiovascular: RRR, S1S2. No pitting edema Pulmonary: Mildly diminished, few expiratory wheezes. No dyspnea on 1 L Neurological: Alert, answering questions appropriately, cranial nerves intact, no focal findings Extremities: No gross joint deformity or swelling. AROMI. Neurovascularly intact Skin: Warm, dry. Const: Vital Signs, click to edit/add: Vital Signs - 24 hr 08/07/23 19:00 08/07/23 22:30 08/07/23 22:30 Temperature 98.4 F Pulse Rate [Pulse Oximeter] 98 99 Respiratory Rate 20 20 20 Blood Pressure [Ri ght Arm] 112/63 101/59 L Pulse Oximetry 89 89 89 Oxygen Delivery Me thod OxyMask OxyMask OxyMask Oxygen Flow Rate 1 1 1 08/07/23 23:00 08/08/23 04:31 08/08/23 09:00 Temperature 98.1 F Pulse Rate [Pulse Oximeter] 77 Respiratory Rate 20 20 22 Blood Pressure [Ri ght Arm] 118/70 Pulse Oximetry 89 92 Oxygen Delivery Me thod OxyMask Nasal Cannula Oxygen Flow Rate 1 1 08/08/23 09:00 08/08/23 11:00 Temperature 98.3 F 98.3 F Pulse Rate [Pulse Oximeter] 76 87 Respiratory Rate 22 22 Blood Pressure [Ri ght Arm] 118/66 106/69 Pulse Oximetry 92 90 Oxygen Delivery Me thod Nasal Cannula Nasal Cannula Oxygen Flow Rate 1 1 Labs Labs: Laboratory Results - last 24 hr 08/08/23 08/08/23 04:20 06:07 WBC 19.83 H RBC 4.15 Hgb 12.5 Hct 37.2 MCV 90 MCH 30 MCHC 34 RDW Coeff of Helio 14.4 Plt Count 243 Neut % (Auto) 82.9 H Lymph % (Auto) 9.8 L [place] % (Auto) 6.9 Eos % (Auto) 0.0 Baso % (Auto) 0.1 Neut # (Auto) 16.40 H Lymph # (Auto) 1.90 [place] # (Auto) 1.40 H Eos # (Auto) 0.00 Baso # (Auto) 0.00 Abs Immat Gran (auto) 0.10 Imm/Tot Granulo (auto) 0.3 C-Reactive Protein 3.7 H Urine Color Yellow Urine Appearance Clear Urine pH 6.0 Ur Specific [place] 1.010 Urine Protein Negative Urine Glucose (UA) Negative Urine Ketones Negative Urine Blood Trace-intact A Urine Nitrite Negative Urine Bilirubin Negative Urine Urobilinogen 0.2 Ur Leukocyte Esterase 1+ A Urine RBC 0-2 Urine WBC 0-2 Ur Squamous Epith Cells Few Urine Bacteria Few A
[2023-08-08] MEDS: ROSUVASTATIN CALCIUM 10 MG TABLET 40 MG PO (18:41)
[2023-08-08 19:00] VITALS: BP 120/55; PULSE 78; RESP 20; TEMP 36.8; O2SAT 90
--- NOTE | 2023-08-08 19:55 | PC.NURSE ---
Pt denies pain. Pt reports phlegm she is coughing up has changed from thick green to thinner creamy yellow. Using Arobika and nebs along with 1L O2 to maintain sats 88-93%. Independent in room.
[2023-08-08] MEDS: MIRTAZAPINE 15 MG TABLET 30 MG PO (20:53)
[2023-08-08] MEDS: DULOXETINE 30 MG CAPSULE DR 60 MG PO (20:54)
[2023-08-08] MEDS: guaiFENesin 600 MG TAB.ER.12H PO (20:54)
[2023-08-08] MEDS: DULOXETINE HCL 20 MG CAPSULE DR PO (20:54)
[2023-08-08 23:00] VITALS: BP 114/79; PULSE 87; RESP 20; TEMP 36.6; O2SAT 90
[2023-08-09] MEDS: IPRAT-ALBUT 0.5-2.5 MG/3 ML NEB 1 NEB IH ×4 (01:39→19:46)
[2023-08-09 03:00] VITALS: BP 120/90; PULSE 85; RESP 20; TEMP 36.6; O2SAT 91
--- NOTE | 2023-08-09 05:26 | PC.NURSE ---
Shift note: Pt has been on 1L of oxygen throughout the shift.Alert and oriented, pleasant and cooperate with treatment. Cough out clear to yellowish creamy sputum. Pt is independent in room. V/S checked and recorded as per chart.
[2023-08-09 06:57] LABS: Hematocrit 39.1 % (33.0-51.0); Mean Corpuscular HGB Conc 33 gm/dL (32-36); Mean Corpuscular Hemoglobin 30 pg (26-34); Mean Corpuscular Volume 90 fL (80-100); Platelet Count* 212 K/uL (140-440); Red Blood Count 4.33 m/uL (4.00-5.20); White Blood Count* 12.27 K/uL (4.50-11.00)
[2023-08-09 07:22] LABS: Chloride* 106 mmol/L (96-114); Sodium* 140 mmol/L (135-149)
[2023-08-09 07:23] LABS: Potassium* 3.5 mmol/L (3.6-5.1)
[2023-08-09 07:25] LABS: Anion Gap 8 mEq/L (7-15); Carbon Dioxide* 26 mmol/L (20-32); Creatinine* 0.5 mg/dL (0.5-1.5); Est. Creatinine Clearance* 44.36; Estimated Glomerular Filt Rate 104 ml/min
[2023-08-09 07:26] LABS: Blood Urea Nitrogen* 13 mg/dL (7-30); Calcium* 8.7 mg/dL (8.4-10.6); Glucose* 103 mg/dL (60-115)
[2023-08-09 07:35] LABS: Slide Review Reflex No
[2023-08-09 09:00] VITALS: BP 129/84; PULSE 84; RESP 24; TEMP 36.7; O2SAT 90
[2023-08-09] MEDS: levoFLOXacin 250 MG TABLET PO (09:06)
[2023-08-09] MEDS: AMLODIPINE 5 MG TABLET PO (09:06)
[2023-08-09] MEDS: predniSONE 20 MG TABLET 40 MG PO (09:06)
[2023-08-09] MEDS: EZETIMIBE 10 MG TABLET PO (09:06)
[2023-08-09] MEDS: ASPIRIN 81 MG TABLET EC PO (09:06)
[2023-08-09] MEDS: guaiFENesin 600 MG TAB.ER.12H PO ×2 (09:06→21:09)
[2023-08-09] MEDS: SODIUM CHLORIDE 0.9 % (FLUSH) 10 ML SYRINGE 5 ML IVF (09:07)
[2023-08-09 11:00] VITALS: BP 109/74; PULSE 93; RESP 20; TEMP 36.9; O2SAT 93
--- NOTE | 2023-08-09 13:23 | P.IMPN_ITS ---
Progress Note: A&P Assessment and plan (1) Acute hypoxic respiratory failure: Problem details: - CTA negative for PE 08/07/23, does show mucous plugging - Secondary to COPD exacerbation and mucous plugging Status: Acute (2) Mucus plugging of bronchi: Problem details: Continue oxygen supplementation as needed, nebs, vibratory pep, aerobika, levofloxacin. Mucinex added Status: Acute (3) Acute exacerbation of chronic obstructive pulmonary disease: Problem details: - COPD outpatient meds: Advair and albuterol - 11/[address] screen negative - 2/ Oxygen as needed to keep O2 sats greater than 88%. VBG is reviewed and she has no CO2 retention, no symptoms of hypercapnia. Scheduled q.6 hours D uoNebs, also p.r.n. albuterol nebs. Was given methylprednisolone in the emergency department. Notably her chest x-ray does not show consolidation and her procalcitonin is unremarkable. SARs/influenza/RSV swabs are negative. - 08/07 Continue levofloxacin, vibratory pep, oral prednisone burst for 5 days - leukocytosis noted c/w steroid use, improving Status: Acute (4) Upper airway resistance syndrome: Problem details: severe, on CPAP Status: Chronic (5) Obstructive sleep apnea syndrome: Problem details: On CPAP Status: Chronic Plan Likely discharge tomorrow 08/10 to complete oral antibiotic and prednisone course Time Spent With Patient Total time spent: Total time spent caring for the patient today was 45 minutes. This includes time spent for the visit reviewing the chart, time spent during the visit, time spent after the visit and documentation and planning in coordination of care. Subjective Date Seen: 08/09/23 Interval history: Patient is feeling better this morning but tells me she does not feel she is ready to go yet today. She was able to cough up quite a bit of phlegm yesterday but tells me this wore her out. Has remained afebrile. No events reported overnight. Tolerating orals without nausea. Exam Narrative: Exam Narrative: PHYSICAL EXAM General: Pleasant, conversant, NAD HEENT: Normocephalic, atraumatic, sclera white, EOMI, oral mucosa moist Cardiovascular: RRR, S1S2. No pitting edema Pulmonary: Breath sounds improving, no wheezes, upper airway noise noted. No dyspnea on 1 L Neurological: Alert, answering questions appropriately, cranial nerves intact, no focal findings Extremities: No gross joint deformity or swelling. AROMI. Neurovascularly intact Skin: Warm, dry. Const: Vital Signs, click to edit/add: Vital Signs - 24 hr 08/08/23 15:00 08/08/23 19:00 08/08/23 23:00 Temperature 98.3 F 98 F Pulse Rate [Pulse Oximeter] 78 87 Respiratory Rate 20 20 20 Blood Pressure [Ri ght Arm] 120/55 L 114/79 Pulse Oximetry 91 90 90 Oxygen Delivery Me thod Nasal Cannula Nasal Cannula Nasal Cannula Oxygen Flow Rate 1 1 1 08/08/23 23:00 08/08/23 23:00 08/09/23 03:00 Temperature 98 F Pulse Rate [Pulse Oximeter] 87 85 Respiratory Rate 20 20 20 Blood Pressure [Ri ght Arm] 120/90 H Pulse Oximetry 90 91 Oxygen Delivery Me thod Nasal Cannula Nasal Cannula Oxygen Flow Rate 1 1 08/09/23 09:00 08/09/23 09:00 08/09/23 09:00 Temperature 98.1 F Pulse Rate [Pulse Oximeter] 84 Respiratory Rate 24 24 24 Blood Pressure [Ri ght Arm] 129/84 Pulse Oximetry 90 90 Oxygen Delivery Me thod Nasal Cannula Nasal Cannula Oxygen Flow Rate 1 1 Labs Labs: Laboratory Results - last 24 hr 08/09/23 05:58 WBC 12.27 H RBC 4.33 Hgb 13.0 Hct 39.1 MCV 90 MCH 30 MCHC 33 Plt Count 212 Sodium 140 Potassium 3.5 L Chloride 106 Carbon Dioxide 26 Anion Gap 8 BUN 13 Creatinine 0.5 Estimated Creat Clear 44.36 Estimated GFR 104 Glucose 103 Calcium 8.7
[2023-08-09 15:00] VITALS: BP 103/65; PULSE 74; RESP 20; O2SAT 91
--- NOTE | 2023-08-09 18:26 | PC.NURSE ---
Pt denies pain. Reports phlegm being secreted is becoming less often and looser. Arobika and neb treatments with relief. Up independently in room. Trial on RA showed sats in mid 80's; pt remained on 1 L O2 via nasal cannula.
[2023-08-09 19:00] VITALS: BP 97/79; PULSE 79; RESP 20; TEMP 36.6; O2SAT 91
[2023-08-09] MEDS: ROSUVASTATIN CALCIUM 10 MG TABLET 40 MG PO (19:49)
[2023-08-09] MEDS: DULOXETINE HCL 20 MG CAPSULE DR PO (21:09)
[2023-08-09] MEDS: DULOXETINE 30 MG CAPSULE DR 60 MG PO (21:09)
[2023-08-09] MEDS: MIRTAZAPINE 15 MG TABLET 30 MG PO (21:09)
[2023-08-09 23:00] VITALS: BP 117/62; PULSE 70; RESP 20; TEMP 36.6; O2SAT 89
[2023-08-10] MEDS: IPRAT-ALBUT 0.5-2.5 MG/3 ML NEB 1 NEB IH ×3 (01:30→15:12)
[2023-08-10 03:00] VITALS: BP 119/62; PULSE 70; RESP 20; TEMP 36.6; O2SAT 90
--- NOTE | 2023-08-10 04:45 | PC.NURSE ---
Shift note: Pt continue to desaturate to 80s without oxygen. Has been on 1L throughout the shift. Alert and oriented 3x. Coughing out yellowish creamy sputum. Pt in independent in room. No fever and chest pain observed.
[2023-08-10 08:46] VITALS: BP 127/85; PULSE 70; RESP 18; O2SAT 95
[2023-08-10] MEDS: predniSONE 20 MG TABLET 40 MG PO (08:51)
[2023-08-10] MEDS: AMLODIPINE 5 MG TABLET PO (08:51)
[2023-08-10] MEDS: levoFLOXacin 250 MG TABLET PO (08:51)
[2023-08-10] MEDS: EZETIMIBE 10 MG TABLET PO (08:52)
[2023-08-10] MEDS: guaiFENesin 600 MG TAB.ER.12H PO (08:52)
[2023-08-10] MEDS: ASPIRIN 81 MG TABLET EC PO (08:52)
[2023-08-10 08:53] VITALS: O2SAT 82; O2SAT 86; O2SAT 90
[2023-08-10 11:00] VITALS: BP 116/73; PULSE 94; RESP 18; O2SAT 92
--- NOTE | 2023-08-10 14:52 | PM.DS1 ---
DS: Providers Provider Date Seen: 08/10/23 Date of admission: 08/07/23 09:52 Primary care physician: Cheyenne Guardado MD Admitting Clinician: Hanna Francisco MD Consults: 08/06/23 09:55 Consult to Respiratory Therapy [CONS] Urgent Comment: Reason(s) for RT Consult:: Consult 08/06/23 13:20 Consult to Respiratory Therapy [CONS] Routine Comment: Reason(s) for RT Consult:: Consult Attending Physician on discharge: Codie Perez [facility] Date of Discharge: 08/10/23 DS: Diagnosis Discharge Diagnosis (1) Acute hypoxic respiratory failure: Status: Acute Problem details: CTA negative for PE 08/07/23, does show mucous plugging. Secondary to COPD exacerbation and mucous plugging. Improved during hospital course, requiring 1 L at discharge. Home oxygen assessment completed, requiring home O2. PCP to continue to manage this. Encouraged to continue Aerobika, Mucinex. (2) Acute exacerbation of chronic obstructive pulmonary disease: Status: Acute Problem details: Continued on COPD outpatient meds: Advair and albuterol. Completed a 5 day course of oral levofloxacin and prednisone with significant clinical improvement. - 11/[address] screen negative (3) Upper airway resistance syndrome: Status: Chronic Problem details: severe, on CPAP (4) Obstructive sleep apnea syndrome: Status: Chronic Problem details: On CPAP DS: Summary Hospital Course Hospital Course: [age] year old female past medical history significant for COPD, SRAVAN, chronic sinusitis, oa, hypercholesterolemia, upper airway resistance syndrome, hypertension was admitted to the medical floor for further management COPD exacerbation with acute hypoxic respiratory failure. Course of care and details as noted above. Details as above, patient completed a 5 day course of oral levofloxacin and prednisone with significant clinical improvement. She is discharged to home with home oxygen. PCP to continue to monitor and manage this. Patient will need a COVID booster. Remainder of chronic medical comorbidities were monitored and managed with home medications. Status at Discharge Overall status at discharge: patient is back to baseline Time Spent with Patient Time attestation: Total time spent providing and/or coordinating discharge services: Time spent: Greater than 30 minutes Exam Narrative: Exam Narrative: PHYSICAL EXAM General: Pleasant, conversant, NAD Cardiovascular: RRR Pulmonary: No dyspnea Neurological: Alert, answering questions appropriately Skin: Warm, dry. Const: Vital Signs, click to edit/add: Vital Signs - 24 hr 08/09/23 15:00 08/09/23 15:00 08/09/23 19:00 Temperature 97.9 F Pulse Rate [Pulse Oximeter] 74 79 Respiratory Rate 20 20 20 Blood Pressure [Ri ght Arm] 103/65 97/79 Pulse Oximetry 91 91 91 Oxygen Delivery Me thod Nasal Cannula Nasal Cannula Nasal Cannula Oxygen Flow Rate 1 1 1 08/09/23 23:00 08/09/23 23:00 08/09/23 23:00 Temperature 97.9 F Pulse Rate [Pulse Oximeter] 70 Respiratory Rate 20 20 20 Blood Pressure [Ri ght Arm] 117/62 Pulse Oximetry 89 89 Oxygen Delivery Me thod Nasal Cannula Nasal Cannula Oxygen Flow Rate 1 1 08/10/23 03:00 08/10/23 08:46 08/10/23 08:46 Temperature 98 F Pulse Rate [Pulse Oximeter] 70 70 Respiratory Rate 20 18 18 Blood Pressure [Ri ght Arm] 119/62 Pulse Oximetry 90 95 Oxygen Delivery Me thod Nasal Cannula Nasal Cannula Oxygen Flow Rate 1 1 08/10/23 08:46 08/10/23 11:00 Temperature Pulse Rate [Pulse Oximeter] 70 94 Respiratory Rate 18 18 Blood Pressure [Ri ght Arm] 127/85 116/73 Pulse Oximetry 95 92 Oxygen Delivery Me thod Nasal Cannula Nasal Cannula Oxygen Flow Rate 1 0.5 DS: Data Data Completed and Pending Labs on day of discharge: Preliminary micro results at discharge 08/06/23 10:19 Blood Culture - Preliminary Blood NO GROWTH AFTER 96 HOURS 08/06/23 10:10 Blood Culture - Preliminary Blood NO GROWTH AFTER 96 HOURS Discharge Plan Discharge Disposition: Home, Self-Care Date of Admission: 08/07/23 09:52 Attending Provider on Discharge: Codie Perez Primary Care Provider: Cheyenne Guardado Condition: Improved Anticipated Discharge Date/Time: 08/10/23 14:46 Discharge Medications: Continued duloxetine 60 mg capsule,delayed release(DR/EC) 60 mg PO DAILY duloxetine 20 mg capsule,delayed release(DR/EC) 20 mg PO DAILY aspirin [Adult Low Dose Aspirin] 81 mg tablet,delayed release (DR/EC) 81 mg PO QDAY amlodipine 5 mg tablet 5 mg PO QDAY Qty: 90 4RF Advair HFA 115-21 mcg/actuation HFA aerosol inhaler 1 puff INHALATION BID Qty: 12 12RF Rx Instructions: 1 puff twice a day albuterol sulfate 90 mcg/actuation HFA aerosol inhaler 2 puff inhalation Q4H PRN (Reason: shortness of breath or wheezing) Qty: 8.5 12RF mirtazapine 30 mg tablet 30 mg PO HS ezetimibe 10 mg tablet 10 mg PO DAILY rosuvastatin 40 mg tablet 40 mg PO QPM Repatha SureClick 140 mg/mL pen injector 140 mg SUBCUT albuterol sulfate 2.5 mg /3 mL (0.083 %) solution for nebulization 2.5 mg continuous nebulization Q4H PRN (Reason: bronchospasm) Qty: 90 2RF ibuprofen 800 mg tablet 800 mg PO TID PRN (Reason: pain) Qty: 45 1RF cholecalciferol (vitamin D3) 125 mcg (5,000 unit) capsule 125 mcg PO QDAY alendronate [Fosamax] 70 mg tablet 70 mg PO QWEEK Qty: 14 3RF Discharge Orders: Discharge Order (Routine); Ordered 08/10/23 Ordered By: Codie Perez Patient Education: Chronic Lung Disease and Infection Prevention (GEN) Additional Instructions: You have completed a 5 day course of oral antibiotics and prednisone for your COPD exacerbation. Continue your home inhalers, Aerobika use. Follow-up with your PCP and get your latest COVID booster. You are discharged with home oxygen. Your PCP will continue to manage this for you. Activity Level: No Restrictions Discharge Diet: Regular Follow Up Appointments: Cheyenne Guardado MD [Primary Care Provider] - 08/17/23 (Post hospital follow-up, COPD exacerbation, home oxygen. Needs COVID booster) Forms: [employer] Info Instructions
[2023-08-10 15:13] VITALS: BP 97/67; PULSE 81; RESP 18; O2SAT 94; O2SAT 95
--- NOTE | 2023-08-10 18:43 | PC.NURSE ---
Nursing Care Hours: [id number] Pt this shift calm and cooperative, alert and oriented. No c/o pain. Attempt to titrate to RA d/t sats being 93% on 0.5L but alarm would set off frequently. Placed back on 0.5L and maintained spo2 at 90-93%. Moist productive cough. Pt using areobika frequently and states how impressed she is with how well it works. Pt states she has not felt this good in months. Independent in room. Eating and drinking sufficiently. No IV. DC instructions went over with pt. No question or concerns per pt. Picked up by friend.
== END 2023-08-10 16:23 | disposition home or self-care (01) | DRG 189 ==
LOC: ED 09:50 → MEDSURG 12:02
PROVIDERS: Physician Assistant; Admitting Provider Family Medicine; Emergency Provider Family Medicine; PCP Family Medicine; Visit Provider Family Medicine
DX: J96.01 Acute respiratory failure with hypoxia (principal); J44.1 Chronic obstructive pulmonary disease with (acute) exacerbation; Z99.81 Dependence on supplemental oxygen; G47.33 Obstructive sleep apnea (adult) (pediatric); Z99.89 Dependence on other enabling machines and devices; I10 Essential (primary) hypertension; J32.8 Other chronic sinusitis; E78.00 Pure hypercholesterolemia, unspecified; M81.0 Age-related osteoporosis without current pathological fracture; F41.8 Other specified anxiety disorders; G47.00 Insomnia, unspecified; Z87.891 Personal history of nicotine dependence; F32.A Depression, unspecified
CPT/HCPCS: 36415; 36600; 71046; 71275; 80048; 81001; 82803; 83605; 83880; 84145; 84484; 85025; 85027; 85379; 85610; 85730; 86140; 87040; 87070; 87086; 87631; 94640; 94664; 94761; 99284; 99285; A9270; G0378; J2930; J7030; J7512; Q9967

== ENCOUNTER 2024-01-16 10:22 | Outpatient (CLI) | payer MEDICARE, OTHER, SELFPAY ==
--- OUTSIDE RECORDS SUMMARY | 2024-01-18 07:29 | XMS_ITS | Continuity of Care Document ---
Author Name [facility] Organization [facility] Care Team Providers Care Picture Booker Name Role Phone [facility] Unavailable Unavailable Medications Combined list of outpatient medications from Department of Defense and Veterans Affairs facilities.Medications provided include 1) outpatient medications from the last 15 months, and 2) patient-reported medications. Medication Details Route Status Patient Instructions Prescription Expires Prescription Number Last Dispense Date Ordering Provider Order Date Order Qty Source ALBUTEROL SULFATE HFA (albuterol sulfate), 90 MCG, HFA AER AD, INHALATION, [employer], 8.5 g CANISTER Active [id number] 4 2023 8.5 Pharmac y Data Transac tion Service Facilit y ALBUTEROL SULFATE HFA (albuterol sulfate), 90 MCG, HFA AER AD, INHALATION, [employer], 8.5 g CANISTER Active [id number] 4 2023 8.5 Pharmac y Data Transac tion Service Facilit y ALBUTEROL SULFATE HFA (albuterol sulfate), 90 MCG, HFA AER AD, INHALATION, [employer], 8.5 g CANISTER Active [id number] 4 2023 8.5 Pharmac y Data Transac tion Service Facilit y ALENDRONATE SODIUM (alendronat e sodium), 70 MG, TABLET, ORAL, EXELAN [employer]ARMACE, 4 ea. BLIST PACK Active [id number] 2023 12 Pharmac y Data Transac tion Service Facilit y ALENDRONATE SODIUM (alendronat e sodium), 70 MG, TABLET, ORAL, MARLEX PHARM., 4 ea. BLIST PACK Active [id number] 4 2023 12 Pharmac y Data Transac tion Service Facilit y ALENDRONATE SODIUM (alendronat e sodium), 70 MG, TABLET, ORAL, [employer]., 4 ea. BLIST PACK Active [id number] 4 2023 12 Pharmac y Data Transac tion Service Facilit y AMLODIPINE BESYLATE (amlodipine besylate), 5 MG, TABLET, ORAL, AVKARE, 1000 ea. BOTTLE Cancele d [id number] : 2023 0 Pharmac y Data Transac tion Service Facilit y AMLODIPINE BESYLATE (amlodipine besylate), 5 MG, TABLET, ORAL, AVKARE, 1000 ea. BOTTLE Cancele d [id number] 4 [id number] : 2023 0 Pharmac y Data Transac tion Service Facilit y AMLODIPINE BESYLATE (amlodipine besylate), 5 MG, TABLET, ORAL, AVKARE, 1000 ea. BOTTLE Cancele d [id number] : 2023 0 Pharmac y Data Transac tion Service Facilit y AMLODIPINE BESYLATE (AMLODIPINE BESYLATE), 5 MG, TABLET, ORAL, EXELAN PHARMACE, 1000 ea. BOTTLE Cancele d [id number] : 2023 0 Pharmac y Data Transac tion Service Facilit y AMLODIPINE BESYLATE (AMLODIPINE BESYLATE), 5 MG, TABLET, ORAL, EXELAN PHARMACE, 1000 ea. BOTTLE Cancele d [id number] 4 [id number] : 2023 0 Pharmac y Data Transac tion Service Facilit y AMLODIPINE BESYLATE (AMLODIPINE BESYLATE), 5 MG, TABLET, ORAL, EXELAN PHARMACE, 1000 ea. BOTTLE Active [id number] 4 2023 90 Pharmac y Data Transac tion Service Facilit y DULOXETINE HCL (duloxetine HCl), 20 MG, CAPSULE DR, ORAL, [employer] 60 ea. BOTTLE Cancele d [id number] 4 [id number] : 2023 0 Pharmac y Data Transac tion Service Facilit y DULOXETINE HCL (duloxetine HCl), 20 MG, CAPSULE DR, ORAL, [employer] 60 ea. BOTTLE Active [id number] 4 2023 90 Pharmac y Data Transac tion Service Facilit y DULOXETINE HCL (duloxetine HCl), 60 MG, CAPSULE DR, ORAL, [employer] 1000 ea. BOTTLE Active [id number] 4 2023 90 Pharmac y Data Transac tion Service Facilit y EZETIMIBE (ezetimibe) , 10 MG, TABLET, ORAL, [employer] 500 ea. BOTTLE Cancele d [id number] 4 [id number] : 2023 0 Pharmac y Data Transac tion Service Facilit y EZETIMIBE (ezetimibe) , 10 MG, TABLET, ORAL, [employer] 500 ea. BOTTLE Active [id number] 4 2023 90 Pharmac y Data Transac tion Service Facilit y EZETIMIBE (ezetimibe) , 10 MG, TABLET, ORAL, [employer] 500 ea. BOTTLE Active [id number] 3 2022 90 Pharmac y Data Transac tion Service Facilit y FLUTICASONE -SALMETEROL HFA (fluticason e propionate/ salmeterol xinafoate), 115-21MCG, HFA AER AD, INHALATION, [employer] [facility], 12 g CANISTER Active [id number] 4 2023 12 Pharmac y Data Transac tion Service Facilit y FLUTICASONE -SALMETEROL HFA (fluticason e propionate/ salmeterol xinafoate), 115-21MCG, HFA AER AD, INHALATION, [employer] [facility], 12 g CANISTER Active [id number] 2023 36 Pharmac y Data Transac tion Service Facilit y MIRTAZAPINE (mirtazapin e), 30 MG, TABLET, ORAL, [employer] 500 ea. BOTTLE Active [id number] 4 2023 90 Pharmac y Data Transac tion Service Facilit y MIRTAZAPINE (mirtazapin e), 30 MG, TABLET, ORAL, [employer] 500 ea. BOTTLE Active [id number] 2023 90 Pharmac y Data Transac tion Service Facilit y REPATHA SURECLICK (evolocumab ), 140 MG/ML, PEN INJCTR, SUBCUT, [employer] 1 ml SYRINGE Active [id number] 4 2023 6 Pharmac y Data Transac tion Service Facilit y REPATHA SURECLICK (evolocumab ), 140 MG/ML, PEN INJCTR, SUBCUT, [employer] 1 ml SYRINGE Active [id number] 4 2023 6 Pharmac y Data Transac tion Service Facilit y ROSUVASTATI N CALCIUM (rosuvastat in calcium), 40 MG, TABLET, ORAL, [employer] 1000 ea. BOTTLE Active [id number] 4 2023 90 Pharmac y Data Transac tion Service Facilit y ROSUVASTATI N CALCIUM (rosuvastat in calcium), 40 MG, TABLET, ORAL, [employer] 30 ea. BOTTLE Cancele d [id number] 4 [id number] : 2023 0 Pharmac y Data Transac tion Service Facilit y ROSUVASTATI N CALCIUM (rosuvastat in calcium), 40 MG, TABLET, ORAL, [employer] 30 ea. BOTTLE Active [id number] 4 2023 90 Pharmac y Data Transac tion Service Facilit y Social History Combined list of available smoking, tobacco, and other social history from Department of Defense and Veterans Affairs facilities. Social History Type Response Date Comment Sour e This section is an empty social history section. [employer]
--- OUTSIDE RECORDS SUMMARY | 2024-01-18 07:29 | XMS_ITS | Clinical Summary ---
Author Organization [employer] [facility] Address [place], [place] [address] Care Team Providers Care Racing Mechanic Name Role Phone Cheyenne Guardado MD Primary Care Provider + Allergies Active Allergy Reactions Criticality Noted Date Comments Amoxicillin Rash Low 11/08/2018 Rash as well as feels flush. Venlafaxine Contact Dermatitis High 10/18/2021 Medications Medication Sig Dispensed Refills Start Date End Date Status albuterol (PROVENTIL) 0.083 % neb solution VVN Q 4 H PRN 5 9 Active PROAIR HFA 90 mcg/actuation inhaler 8 Active ADVAIR HFA 115-21 mcg/actuation inhaler 8 Active DULoxetine (CYMBALTA) 20 mg Delayed-release capsule Take 1 Capsule by mouth once daily. 3 Active DULoxetine (CYMBALTA) 60 mg Delayed-release capsule Take 1 Capsule by mouth once daily. 3 Active cholecalciferol, Vitamin D3, 5,000 unit tab tabletIndications:Low vitamin D level Take 1 Tablet (5,000 units) by mouth once daily. 0 3 Active aspirin (ECOTRIN) 81 mg enteric coated tablet Take 1 Tablet (81 mg) by mouth once daily with a meal. 0 3 Active mirtazapine (REMERON) 7.5 mg tablet Take 5.5 Tablets (41.25 mg) by mouth at bedtime. 3 Active alendronate (FOSAMAX) 70 mg tablet Take 70 mg by mouth once a week in the morning. 3 Active amLODIPine (NORVASC) 5 mg tabletIndications:Hyperte nsion Take 1 Tablet (5 mg) by mouth once daily. 90 Tablet 3 4 Active ezetimibe (ZETIA) 10 mg tabletIndications:Abhi l hypercholesterolemia Take 1 Tablet (10 mg) by mouth once daily. 90 Tablet 3 4 Active evolocumab (Repatha SureClick) 140 mg/mL subcutaneous pen injectorIndications:Hyper lipidemia, unspecified hyperlipidemia type Inject 1 mL (140 mg) subcutaneous every 2 weeks. Inject into abdomen, thigh, or upper arm; rotate injection sites. 6 mL 3 4 Active rosuvastatin (CRESTOR) 40 mg tabletIndications:Abhi l hypercholesterolemia Take 1 Tablet (40 mg) by mouth at bedtime. 90 Tablet 3 4 Active Active Problems Patient Care Coordination No te [...] level 11/07/2018 Chronic obstructive pulmonary disease 11/20/2016 Immunizations Name Administration Dates Next Due COVID-19 vaccine ([employer] 30mcg/0.3mL) 12YO+ FRANCOISE-SUCROSE PF, MDV 11/02/2021 Influenza [...] Used Date Smoking Tobacco: Former Cigarettes 1 45.2 S tarted: 11/08/1978 Smokeless Tobacco: Never Tobacco [...] Comments Blood Pressure 124/80 07/31/2023 9:45 AM INSTALLATION TECHNICIAN Pulse 66 11/02/2022 11:16 AM CDT Temperature - - Respiratory Rate 14 08/30/2018 10:36 AM INSTALLATION TECHNICIAN Oxygen Saturation 93% 11/02/2022 11:16 AM CDT Inhaled Oxygen Concentration - - Weight 53.1 kg (117 lb) 07/31/2023 9:45 AM INSTALLATION TECHNICIAN Height 157.5 cm (5' 2) 11/02/2022 11:16 AM CDT Body Mass Index 21.4 11/02/2022 11:16 AM CDT Plan of Treatment Health Maintenance Due Date Last Done Comments Depression screening for age 12+ 1969 Hepatitis C screening for ag e 18-79 09/15/1975 Colonoscopy through age 75 2002 Zoster (shingles) series for age 50+ (1 of 2) 09/15/2007 Mammogram for age 45-75 12/18/2008 12/19/2007 Pneumococcal series for age 65+ (2 of 2 - PCV) 06/07/2018 06/07/2017 DEXA/DXA scan for age 65+ 2022 Medicare Wellness for age 65+ 2022 COVID-19 vaccine series (3 - season) 2023 04/03/2022, 11/02/2021 BMI (ht and wt on same day) for age 18+ 11/03/2023 11/02/2022, 06/09/2022, 02/28/2022, Additional history exists Influenza for age 65+ 03/02/2024 05/18/2020 , 04/04/2019, 04/24/2018, Additional history exists Tetanus booster 06/07/2027 06/07/2017, 02/22/2004 Lipids for age 45-75 11/01/2027 10/31/2022, 05/05/2022, 07/18/2002, Additional history exists Tdap Completed 06/07/2017 Procedures Procedure Name Priority Date/Time Associated Diagnosis Comments LIPID PANEL Routine 10/31/2022 9:15 AM CDT Hyperlipidemia, unspecified hyperlipidemia type Familial hypercholesterolemia Hypertension Current every day smoker Family history of ASCVD Low vitamin D level Chronic obstructive pulmonary disease, unspecified COPD type (HC) Coronary artery calcification Elevated hemoglobin A1c SCAN-MAMMOGRAPHY REPORT 12/19/2007 12:00 AM CDT from Last 3 Months or Most Recently Relevant to Health Maintenance Results * (ABNORMAL) LIPID PANEL (10/31/2022 9:15 AM CDT) CHOLESTEROL,TOTAL 108 mg/dL 023 6:42 PM CDT [facility] Comment: Cholesterol, Total Reference Ranges Desirable <200 mg/dL Borderline 200-239 mg/dL High >=240 mg/dL TRIGLYCERIDES 86 <150 mg/dL 10/31/2022 6:42 PM CDT [employer] [facility] HDL CHOLESTEROL 47 >40 mg/dL 3 6:42 PM CDT [facility] [employer] [facility] NON-HDL CHOLESTEROL 61 <145 mg/dl 10/31/2022 6:42 PM CDT [facility] CHOL/HDL RATIO 2.30 <4.50 10/31/2022 6:42 PM CDT [facility] LDL CHOLESTEROL 44 <=130 mg/dL 10/31/2022 6:42 PM CDT [facility] VLDL CHOLESTEROL 17(L) >30 mg/dL 11/01/19 6:42 PM CDT [facility] PROVIDER ORDERED STATUS RANDOM 10/31/2022 6:42 PM CDT [facility] Blood BLOOD SPECIMEN / Unknown Venipuncture / Unknown 10/31/2022 9:15 AM CDT 10/31/2022 9:21 AM CDT Pamela Conner NP [facility] [address] [place] [address], * SCAN-MAMMOGRAPHY REPORT (12/19/2007 12:00 AM CDT) Anatomical Region Laterality Modality Other Narrative Procedure Note Scanner - 12/19/2007 12:00 AM CDT Scanner OTHER from Last 3 Months or Most Recently Relevant to Health Maintenance Care Teams Racing Mechanic Relationship Specialty Start Date End Date Cheyenne Guardado MD [address] [place] [address] PCP - General Family Practice 09/02/18
== END 2024-01-16 10:23 | disposition home or self-care (01) ==
LOC: NFLDREF 01-18 07:26
PROVIDERS: PCP Family Medicine; Referring Provider Family Medicine; Visit Provider Family Medicine
DX: R73.03 Prediabetes (principal); E55.9 Vitamin D deficiency, unspecified; I10 Essential (primary) hypertension; E78.5 Hyperlipidemia, unspecified
CPT/HCPCS: 80053; 80061; 82306

== ENCOUNTER 2024-01-24 07:40 | Outpatient (CLI) | payer MEDICARE, OTHER, SELFPAY ==
--- OUTSIDE RECORDS SUMMARY | 2024-01-24 07:43 | XMS_ITS | Clinical Summary ---
Author Organization [employer] [facility] Address [place], [place] [address] Care Team Providers Care Accelerator Operator Name Role Phone Cheyenne Guardado MD Primary [...] Name Administration Dates Next Due COVID-19 vaccine ([employer] 30mcg/0.3mL) 12YO+ FRANCOISE-SUCROSE PF, MDV 11/02/2021 Influenza [...] Comments Blood Pressure 124/80 07/31/2023 9:45 AM CONDEMNATION ENGINEER Pulse 66 11/02/2022 11:16 AM CDT Temperature - - Respiratory Rate 14 08/30/2018 10:36 AM CONDEMNATION ENGINEER Oxygen Saturation 93% 11/02/2022 11:16 AM CDT Inhaled Oxygen Concentration - - Weight 53.1 kg (117 lb) 07/31/2023 9:45 AM CONDEMNATION ENGINEER Height 157.5 cm (5' 2) 11/02/2022 11:16 [...] CHOLESTEROL,TOTAL 108 mg/dL 023 6:42 PM CDT [employer] Comment: Cholesterol, Total Reference Ranges Desirable <200 mg/dL Borderline 200-239 mg/dL High >=240 mg/dL TRIGLYCERIDES 86 <150 mg/dL 10/31/2022 6:42 PM CDT [employer] [facility] HDL CHOLESTEROL 47 >40 mg/dL 3 6:42 PM CDT [facility] [employer] [facility]AT[facility] NON-HDL CHOLESTEROL 61 <145 mg/dl 10/31/2022 6:42 PM CDT [facility] CHOL/HDL RATIO 2.30 <4.50 10/31/2022 6:42 PM CDT [facility] LDL CHOLESTEROL 44 <=130 mg/dL 10/31/2022 6:42 PM CDT [facility] VLDL CHOLESTEROL 17(L) >30 mg/dL 11/01/19 6:42 PM CDT [facility] PROVIDER ORDERED STATUS RANDOM 10/31/2022 6:42 PM CDT [facility] Blood BLOOD SPECIMEN / Unknown Venipuncture / Unknown 10/31/2022 9:15 AM CDT 10/31/2022 9:21 AM CDT Pamela Conner [facility] [address] [place] [address], * SCAN-MAMMOGRAPHY REPORT (12/19/2007 12:00 AM CDT) Anatomical Region Laterality Modality Other Narrative Procedure Note Scanner - 12/19/2007 12:00 AM CDT Scanner OTHER from Last 3 Months or Most Recently Relevant to Health Maintenance Care Teams Accelerator Operator Relationship Specialty Start Date End Date Cheyenne Guardado MD [address] [place] [address] PCP - General Family Practice 09/02/18
--- OUTSIDE RECORDS SUMMARY | 2024-01-24 07:43 | XMS_ITS | Continuity of Care Document ---
Author Name [employer] Organization [facility] Care Team Providers Care Pipe Stress Engineer Name Role Phone [employer] Unavailable Unavailable Medications Combined list of outpatient [...] INHALATION, TEVA [place], 8.5 g CANISTER Active [id number] 4 2023 8.5 Pharmac y Data Transac tion Service Facilit y ALBUTEROL SULFATE HFA (albuterol sulfate), 90 MCG, HFA AER AD, INHALATION, TEVA [place], 8.5 g CANISTER Active [id number] 4 2023 8.5 Pharmac y Data Transac tion Service Facilit y ALBUTEROL SULFATE HFA (albuterol sulfate), 90 MCG, HFA AER AD, INHALATION, TEVA [place], 8.5 g CANISTER Active [id number] 4 2023 8.5 Pharmac y Data Transac tion Service Facilit y ALENDRONATE SODIUM (alendronat e sodium), 70 MG, TABLET, ORAL, EXELAN PHARMACE, 4 ea. BLIST PACK Active [id number] 4 2023 12 Pharmac y Data Transac tion Service Facilit y ALENDRONATE SODIUM (alendronat e sodium), 70 MG, TABLET, ORAL, MARLEX PHARM., 4 ea. BLIST PACK Active [id number] 4 2023 12 Pharmac y Data Transac tion Service Facilit y ALENDRONATE SODIUM (alendronat e sodium), 70 MG, TABLET, ORAL, [employer]., 4 ea. BLIST PACK Active [id number] 4 2023 12 Pharmac y Data Transac tion Service Facilit y AMLODIPINE BESYLATE (amlodipine besylate), 5 MG, TABLET, ORAL, AVKARE, 1000 ea. BOTTLE Cancele d [id number] 4 [id number] : 2023 0 Pharmac y Data Transac tion Service Facilit y AMLODIPINE BESYLATE (amlodipine besylate), 5 MG, TABLET, ORAL, AVKARE, 1000 ea. BOTTLE Cancele d [id number] : 2023 0 Pharmac y Data Transac tion Service Facilit y AMLODIPINE BESYLATE (amlodipine besylate), 5 MG, TABLET, ORAL, AVKARE, 1000 ea. BOTTLE Cancele d [id number] 4 [id number] : 2023 0 Pharmac y Data Transac tion Service Facilit y AMLODIPINE BESYLATE (AMLODIPINE BESYLATE), 5 MG, TABLET, ORAL, EXELAN PHARMACE, 1000 ea. BOTTLE Cancele d [id number] : 2023 0 Pharmac y Data Transac tion Service Facilit y AMLODIPINE BESYLATE (AMLODIPINE BESYLATE), 5 MG, TABLET, ORAL, EXELAN PHARMACE, 1000 ea. BOTTLE Cancele d [id number] 4 [id number] : 2023 0 Pharmac y Data Transac tion Service Facilit y AMLODIPINE BESYLATE (AMLODIPINE BESYLATE), 5 MG, TABLET, ORAL, EXELAN PHARMACE, 1000 ea. BOTTLE Active [id number] 4 2023 90 Pharmac y Data Transac tion Service Facilit y DULOXETINE HCL (duloxetine HCl), 20 MG, CAPSULE DR, ORAL, [employer] 60 ea. BOTTLE Cancele d [id number] 4 [id number] : 2023 0 Pharmac y Data Transac tion Service Facilit y DULOXETINE HCL (duloxetine HCl), 20 MG, CAPSULE DR, ORAL, [employer] 60 ea. BOTTLE Active [id number] 2023 90 Pharmac y Data Transac tion Service Facilit y DULOXETINE HCL (duloxetine HCl), 60 MG, CAPSULE DR, ORAL, [employer] 1000 ea. BOTTLE Active [id number] 4 2023 90 Pharmac y Data Transac tion Service Facilit y EZETIMIBE (ezetimibe) , 10 MG, TABLET, ORAL, [employer] 500 ea. BOTTLE Cancele d [id number] : 2023 0 Pharmac y Data Transac tion Service Facilit y EZETIMIBE (ezetimibe) , 10 MG, TABLET, ORAL, [employer] 500 ea. BOTTLE Active [id number] 2023 90 Pharmac y Data Transac tion Service Facilit y EZETIMIBE (ezetimibe) , 10 MG, TABLET, ORAL, [employer] 500 ea. BOTTLE Active [id number] 3 2022 90 Pharmac y Data Transac tion Service Facilit y FLUTICASONE -SALMETEROL HFA (fluticason e propionate/ salmeterol xinafoate), 115-21MCG, HFA AER AD, INHALATION, [facility], 12 g CANISTER Active [id number] 4 2023 12 Pharmac y Data Transac tion Service Facilit y FLUTICASONE -SALMETEROL HFA (fluticason e propionate/ salmeterol xinafoate), 115-21MCG, HFA AER AD, INHALATION, [facility], 12 g CANISTER Active [id number] 2023 36 Pharmac y Data Transac tion Service Facilit y MIRTAZAPINE (mirtazapin e), 30 MG, TABLET, ORAL, [employer] 500 ea. BOTTLE Active [id number] 4 2023 90 Pharmac y Data Transac tion Service Facilit y MIRTAZAPINE (mirtazapin e), 30 MG, TABLET, ORAL, [employer] 500 ea. BOTTLE Active [id number] 4 2023 90 Pharmac y Data Transac tion Service Facilit y REPATHA SURECLICK (evolocumab ), 140 MG/ML, PEN INJCTR, SUBCUT, [employer] 1 ml SYRINGE Active [id number] 2023 6 Pharmac y Data Transac tion Service Facilit y REPATHA SURECLICK (evolocumab ), 140 MG/ML, PEN INJCTR, SUBCUT, [employer] 1 ml SYRINGE Active [id number] 4 2023 6 Pharmac y Data Transac tion Service Facilit y ROSUVASTATI N CALCIUM (rosuvastat in calcium), 40 MG, TABLET, ORAL, [employer] 1000 ea. BOTTLE Active [id number] 4 2023 90 Pharmac y Data Transac tion Service Facilit y ROSUVASTATI N CALCIUM (rosuvastat in calcium), 40 MG, TABLET, ORAL, [employer] 30 ea. BOTTLE Cancele d [id number] : 2023 0 Pharmac y Data Transac tion Service Facilit y ROSUVASTATI N CALCIUM (rosuvastat in calcium), 40 MG, TABLET, ORAL, [employer] 30 ea. BOTTLE Active [id number] 2023 90 Pharmac y Data Transac tion Service Facilit y Social History Combined list of available smoking, tobacco, and other social history from Department of Defense and Veterans Affairs facilities. Social History Type Response Date Comment Sour e This section is an empty social history section. DoD
--- NOTE | 2024-01-24 09:19 | W.ANESCHARGE ---
Anesthesia Charges Start Date/Time Anesthesia Start Date: 01/24/24 Anesthesia Start Time: 08:31 Stop Date/Time Anesthesia Stop Date: 01/24/24 Anesthesia Stop Time: 09:14
--- NOTE | 2024-01-24 11:28 | W.ANESCHARGE ---
Anesthesia Charges Start Date/Time Anesthesia Start Date: 01/24/24 Anesthesia Start Time: 08:31 Stop Date/Time Anesthesia Stop Date: 01/24/24 Anesthesia Stop Time: 09:14
== END 2024-01-24 07:41 | disposition home or self-care (01) ==
LOC: OP CLINIC 07:41
PROVIDERS: PCP Family Medicine; Visit Provider Surgery
DX: Z12.11 Encounter for screening for malignant neoplasm of colon (principal); Z86.010 Personal history of colon polyps; K64.9 Unspecified hemorrhoids; K57.30 Diverticulosis of large intestine without perforation or abscess without bleeding; K91.71 Accidental puncture and laceration of a digestive system organ or structure during a digestive system procedure
CPT/HCPCS: 00811; 45381; J0330; J1100; J1335; J2371; J2405; J2704; J3010

== ENCOUNTER 2024-01-24 10:20 | Inpatient (IN) | payer MEDICARE, OTHER, SELFPAY ==
[2024-01-24] VITALS (28 sets, daily range): BP systolic 85–109; BP diastolic 48–65; PULSE 80–104; RESP 14–24; TEMP 36–37.6; O2SAT 88–98; BMI 21.3
--- OUTSIDE RECORDS SUMMARY | 2024-01-24 10:27 | XMS_ITS | Clinical Summary ---
Author Organization [employer] [facility] [employer] Address [place], [place] [address] Care Team Providers Care On Air Personality Name Role Phone Cheyenne Guardado MD Primary [...] Name Administration Dates Next Due COVID-19 vaccine ([employer] 30mcg/0.3mL) 12YO+ FRANCOISE-SUCROSE PF, MDV 11/02/2021 Influenza [...] Comments Blood Pressure 124/80 07/31/2023 9:45 AM SUPERVISING PRODUCER Pulse 66 11/02/2022 11:16 AM CDT Temperature - - Respiratory Rate 14 08/30/2018 10:36 AM SUPERVISING PRODUCER Oxygen Saturation 93% 11/02/2022 11:16 AM CDT Inhaled Oxygen Concentration - - Weight 53.1 kg (117 lb) 07/31/2023 9:45 AM SUPERVISING PRODUCER Height 157.5 cm (5' 2) 11/02/2022 11:16 [...] CHOLESTEROL,TOTAL 108 mg/dL 023 6:42 PM CDT [facility] Comment: Cholesterol, Total Reference Ranges Desirable <200 mg/dL Borderline 200-239 mg/dL High >=240 mg/dL TRIGLYCERIDES 86 <150 mg/dL 10/31/2022 6:42 PM CDT [email or web address] HDL CHOLESTEROL 47 >40 mg/dL 3 6:42 PM CDT [facility] [facility] NON-HDL CHOLESTEROL 61 <145 mg/dl 10/31/2022 6:42 PM CDT [facility] CHOL/HDL RATIO 2.30 <4.50 10/31/2022 6:42 PM CDT [facility] LDL CHOLESTEROL 44 <=130 mg/dL 10/31/2022 6:42 PM CDT [facility] VLDL CHOLESTEROL 17(L) >30 mg/dL 11/01/19 6:42 PM CDT [facility] PROVIDER ORDERED STATUS RANDOM 10/31/2022 6:42 PM CDT [facility] Blood BLOOD SPECIMEN / Unknown Venipuncture / Unknown 10/31/2022 9:15 AM CDT 10/31/2022 9:21 AM CDT Pamela Conner NP [facility] [address] [place] [address], * SCAN-MAMMOGRAPHY REPORT (12/19/2007 12:00 AM CDT) Anatomical Region Laterality Modality Other Narrative Procedure Note Scanner - 12/19/2007 12:00 AM CDT Scanner OTHER from Last 3 Months or Most Recently Relevant to Health Maintenance Care Teams On Air Personality Relationship Specialty Start Date End Date Cheyenne Guardado MD [address] [place] [address] PCP - General Family Practice 09/02/18
--- OUTSIDE RECORDS SUMMARY | 2024-01-24 10:27 | XMS_ITS | Continuity of Care Document ---
Author Name [facility] Organization [facility] Care Team Providers Care Manager Infrastructure Name Role Phone [facility] Unavailable Unavailable Medications Combined list of outpatient [...] INHALATION, TEVA [place], 8.5 g CANISTER Active [id number] 4 2023 8.5 Pharmac y Data Transac tion Service Facilit y ALBUTEROL SULFATE HFA (albuterol sulfate), 90 MCG, HFA AER AD, INHALATION, TEVA [place], 8.5 g CANISTER Active [id number] 4 2023 8.5 Pharmac y Data Transac tion Service Facilit y ALBUTEROL SULFATE HFA (albuterol sulfate), 90 MCG, HFA AER AD, INHALATION, TEVA [place], 8.5 g CANISTER Active [id number] 4 2023 8.5 Pharmac y Data Transac tion Service Facilit y ALENDRONATE SODIUM (alendronat e sodium), 70 MG, TABLET, ORAL, EXELAN PHARMACE, 4 ea. BLIST PACK Active [id number] 4 2023 12 Pharmac y Data Transac tion Service Facilit y ALENDRONATE SODIUM (alendronat e sodium), 70 MG, TABLET, ORAL, MARLEX PHARM., 4 ea. BLIST PACK Active [id number] 2023 12 Pharmac y Data Transac tion Service Facilit y ALENDRONATE SODIUM (alendronat e sodium), 70 MG, TABLET, ORAL, [employer] PH[employer]., 4 ea. BLIST PACK Active [id number] 4 2023 12 Pharmac y Data Transac tion Service Facilit y AMLODIPINE BESYLATE (amlodipine besylate), 5 MG, TABLET, ORAL, AVKARE, 1000 ea. BOTTLE Cancele d [id number] : 2023 0 Pharmac y Data Transac tion Service Facilit y AMLODIPINE BESYLATE (amlodipine besylate), 5 MG, TABLET, ORAL, AVKARE, 1000 ea. BOTTLE Cancele d [id number] : 2023 0 Pharmac y Data Transac tion Service Facilit y AMLODIPINE BESYLATE (amlodipine besylate), 5 MG, TABLET, ORAL, AVKARE, 1000 ea. BOTTLE Cancele d [id number] : 2023 0 Pharmac y Data Transac tion Service Facilit y AMLODIPINE BESYLATE (AMLODIPINE BESYLATE), 5 MG, TABLET, ORAL, EXELAN PHARMACE, 1000 ea. BOTTLE Cancele d [id number] : 2023 0 Pharmac y Data Transac tion Service Facilit y AMLODIPINE BESYLATE (AMLODIPINE BESYLATE), 5 MG, TABLET, ORAL, EXELAN PHARMACE, 1000 ea. BOTTLE Cancele d [id number] : 2023 0 Pharmac y Data Transac tion Service Facilit y AMLODIPINE BESYLATE (AMLODIPINE BESYLATE), 5 MG, TABLET, ORAL, EXELAN PHARMACE, 1000 ea. BOTTLE Active [id number] 4 2023 90 Pharmac y Data Transac tion Service Facilit y DULOXETINE HCL (duloxetine HCl), 20 MG, CAPSULE DR, ORAL, [employer] 60 ea. BOTTLE Cancele d [id number] : 2023 0 Pharmac y Data Transac tion Service Facilit y DULOXETINE HCL (duloxetine HCl), 20 MG, CAPSULE DR, ORAL, [employer] 60 ea. BOTTLE Active [id number] 4 2023 90 Pharmac y Data Transac tion Service Facilit y DULOXETINE HCL (duloxetine HCl), 60 MG, CAPSULE DR, ORAL, [employer] 1000 ea. BOTTLE Active [id number] 2023 90 Pharmac y Data Transac tion Service Facilit y EZETIMIBE (ezetimibe) , 10 MG, TABLET, ORAL, [employer] 500 ea. BOTTLE Cancele d [id number] : 2023 0 Pharmac y Data Transac tion Service Facilit y EZETIMIBE (ezetimibe) , 10 MG, TABLET, ORAL, [employer] 500 ea. BOTTLE Active [id number] 2023 90 Pharmac y Data Transac tion Service Facilit y EZETIMIBE (ezetimibe) , 10 MG, TABLET, ORAL, [employer] 500 ea. BOTTLE Active [id number] 2022 90 Pharmac y Data Transac tion Service Facilit y FLUTICASONE -SALMETEROL HFA (fluticason e propionate/ salmeterol xinafoate), 115-21MCG, HFA AER AD, INHALATION, [facility], 12 g CANISTER Active [id number] 2023 12 Pharmac y Data Transac tion Service Facilit y FLUTICASONE -SALMETEROL HFA (fluticason e propionate/ salmeterol xinafoate), 115-21MCG, HFA AER AD, INHALATION, [facility], 12 g CANISTER Active [id number] 2023 36 Pharmac y Data Transac tion Service Facilit y MIRTAZAPINE (mirtazapin e), 30 MG, TABLET, ORAL, [employer] 500 ea. BOTTLE Active [id number] 4 2023 90 Pharmac y Data Transac tion Service Facilit y MIRTAZAPINE (mirtazapin e), 30 MG, TABLET, ORAL, [employer] 500 ea. BOTTLE Active [id number] 2023 90 Pharmac y Data Transac tion Service Facilit y REPATHA SURECLICK (evolocumab ), 140 MG/ML, PEN INJCTR, SUBCUT, [employer] 1 ml SYRINGE Active [id number] 2023 6 Pharmac y Data Transac tion Service Facilit y REPATHA SURECLICK (evolocumab ), 140 MG/ML, PEN INJCTR, SUBCUT, [employer] 1 ml SYRINGE Active [id number] 2023 6 Pharmac y Data Transac tion Service Facilit y ROSUVASTATI N CALCIUM (rosuvastat in calcium), 40 MG, TABLET, ORAL, [employer] 1000 ea. BOTTLE Active [id number] 4 2023 90 Pharmac y Data Transac tion Service Facilit y ROSUVASTATI N CALCIUM (rosuvastat in calcium), 40 MG, TABLET, ORAL, [employer] 30 ea. BOTTLE Cancele d [id number] : 2023 0 Pharmac y Data Transac tion Service Facilit y ROSUVASTATI N CALCIUM (rosuvastat in calcium), 40 MG, TABLET, ORAL, [employer] 30 ea. BOTTLE Active [id number] 2023 90 Pharmac y Data Transac tion Service Facilit y Social History Combined list of available smoking, tobacco, and other social history from Department of Defense and Veterans Affairs facilities. Social History Type Response Date Comment Sour e This section is an empty social history section. DoD
[2024-01-24] MEDS: ERTAPENEM 1 GM in 0.9 % SODIUM CHLORIDE Mini-bag 100 ML IVPB (10:44)
--- NOTE | 2024-01-24 11:30 | W.ANESCHARGE ---
Anesthesia Charges Start Date/Time Anesthesia Start Date: 01/24/24 Anesthesia Start Time: 10:24 Stop Date/Time Anesthesia Stop Date: 01/24/24 Anesthesia Stop Time: 12:20 Summary Emergency: MDA
--- NOTE | 2024-01-24 11:30 | W.PM.NB ---
Nerve Block Nerve Block Time Seen by Provider: 10:35 Date Seen: 01/24/24 Type of block requested by surgeon for post-operative analgesia: TAP Side: bilateral Time out performed: Yes Verification of patient name: Yes Verification of date of : Yes Site marking: site marked Name of person performing procedure: Suleman Continuous monitoring Was continuous monitoring of O2 sat, B/P, quality assurance monitor final, recorded every 15 minutes?: Yes Procedure Checklist: sterile prep, needles and gloves Ultrasound guided. Images saved: Yes Medications given in 5ml increments after negative aspiration: Marcaine %: 0.25 mL: 30 Needle gauge: 20 and Exparel mL: 10 Patient tolerated procedure well: Yes Additional comments: Needle noted between internal oblique and transversus abdominus. Local spread visualized Block Charges Block Charge (with Pro Fee): TAP Bilateral Use of Ultrasound Machine for Block: Yes- US Guidance/pain block
[2024-01-24] MEDS: LACTATED RINGERS 1000 ML 1,000 ML 100 ML IV (11:50)
--- NOTE | 2024-01-24 12:07 | PM.GSHP ---
History of Present Illness History of Present Illness Date Seen: 01/24/24 Chief complaint: Surgery Narrative: Linnette Brown is a 68 year old female was undergoing surveillance colonoscopy today. She sustained a perforation at the sigmoid colon. The perforation was attempted to be closed with clips but was not successful. Tattoo was placed distal to the perforation site and patient was brought to the postoperative area. She had abdominal pain and abdominal distension. Patient was taken to the operating room emergently for exploratory laparotomy and repair of sigmoid perforation. Review of Systems Narrative: General: no fevers HENT: no problems swallowing CV: no shortness of breath Resp: no cough GI: No nausea, vomiting, abdominal pain : no dysuria, no increased urinary frequency, no hematuria Skin: no new rashes Musculoskeletal: no back pain Neuro: no muscle weakness Psyche: no depression, no anxiety PFSH PFSH Medical History Hypertension ?I10 - Essential (primary) hypertension (ICD-10) Hypercholesterolemia ?E78.00 - Pure hypercholesterolemia, unspecified (ICD-10) Mucus plugging of bronchi ?T17.500A - Unspecified foreign body in bronchus causing asphyxiation, initial encounter (ICD-10) Obstructive sleep apnea syndrome ?G47.33 - Obstructive sleep apnea (adult) (pediatric) (ICD-10) RSV infection (~05/2023) ?B33.8 - Other specified viral diseases (ICD-10) Allergic rhinitis ?J30.9 - Allergic rhinitis, unspecified (ICD-10) Chronic sinusitis ?J32.9 - Chronic sinusitis, unspecified (ICD-10) Ex-smoker for less than 1 year ?Z78.9 - Other specified health status (ICD-10) Brain bleed (11/18/22) ?I61.9 - Nontraumatic intracerebral hemorrhage, unspecified (ICD-10) Screening for lung cancer (11/2021) ?Z12.2 - Encounter for screening for malignant neoplasm of respiratory organs (ICD-10) Osteoarthritis involving multiple joints on both sides of body ?M15.9 - Polyosteoarthritis, unspecified (ICD-10) Upper airway resistance syndrome ?G47.8 - Other sleep disorders (ICD-10) Colon polyp ?K63.5 - Polyp of colon (ICD-10) Osteoporosis (12/2022) ?M81.0 - Age-related osteoporosis without current pathological fracture (ICD-10) Mixed anxiety depressive disorder ?F41.8 - Other specified anxiety disorders (ICD-10) Chronic obstructive pulmonary disease (01/13/13) ?J44.9 - Chronic obstructive pulmonary disease, unspecified (ICD-10) Insomnia ?G47.00 - Insomnia, unspecified (ICD-10) Encounter for counseling regarding advance directives (04/04/19) ?Z71.89 - Other specified counseling (ICD-10) Nicotine dependence (07/25/12) ?F17.200 - Nicotine dependence, unspecified, uncomplicated (ICD-10) Right lower quadrant abdominal pain ?R10.31 - Right lower quadrant pain (ICD-10) Hypoxia ?R09.02 - Hypoxemia (ICD-10) Depression (01/13/13) ?F32.A - Depression, unspecified (ICD-10) Concussion (08/2018) ?S06.0X9A - Concussion with loss of consciousness of unspecified duration, initial encounter (ICD-10) Surgical History (Updated 01/24/24 @ 12:11 by Enriqueta Richter MD) History of tonsillectomy (01/13/13) ?Z90.89 - Acquired absence of other organs (ICD-10) History of knee surgery (12/2003) ?Z98.890 - Other specified postprocedural states (ICD-10) History of esophagogastroduodenoscopy (2014) ?Z98.890 - Other specified postprocedural states (ICD-10) History of dilation and curettage (01/13/13) ?Z98.890 - Other specified postprocedural states (ICD-10) Status post colonoscopy with polypectomy (2014) ?Z98.890 - Other specified postprocedural states (ICD-10) H/O: hysterectomy ?Z90.710 - Acquired absence of both cervix and uterus (ICD-10) History of salpingo-oophorectomy ?Z90.79 - Acquired absence of other genital organ(s) (ICD-10) ?Z90.721 - Acquired absence of ovaries, unilateral (ICD-10) S/P laparoscopic cholecystectomy (2014) ?Z90.49 - Acquired absence of other specified parts of digestive tract (ICD-10) S/P sacrocolpopexy (2017) ?Z98.890 - Other specified postprocedural states (ICD-10) Family History Rheumatoid arthritis Mother Diabetes Mother Bipolar disorder Myocardial infarction Mother, Onset Age: 93 Father, Onset Age: 83 Schizophrenia High blood pressure Mother Colonic polyp Stroke Maternal Grandfather, Onset Age: 42 Social History Narrative: lives withrene Greene who has MS, 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 Her son and grandson also live with her. Non smoker, 10/2022 ex-cigarette smoker- 40 pack years does not drink alcohol Walks 30 minutes 5 days a week 3 kids, sons adult What is your current living situation?: I presently have a place to live Problems where you live: no known problems Problems where you live details: NA In the past 12 months, utilities in danger of being shut off: no In past 12 months, lack of transportation kept you from medical appts, meetings, work, or getting things needed for daily living: no In the past 12 mos, have been you worried that your food would run out before you had money to buy more?: never true In the past 12 mos, the food you bought just didn't last and you didn't have money to buy more?: never true Highest level of school completed/degree received: some college, no degree Smoking Status: Current some day smoker Do you use any of these nicotine containing products: None Nicotine containing products detail: quit in November 2022 How often do you have a drink containing alcohol: never AUDIT-C Alcohol total score: 0 Non-prescribed substance use: denies use Caffeine: Yes How often does anyone, including family, friends and others, physically hurt you: never How often does anyone, including family, friends and others, insult or talk down to you: never How often does anyone, including family, friends and others, threaten you with harm: never How often does anyone, including family, friends and others, scream or curse at you: never Little interest or pleasure in doing things: not at all Feeling down, depressed, or hopeless: not at all service: Yes Meds Home Medications and Allergies Home Medications ?Medication ?Instructions ?Recorded ?Confirmed ?Type evolocumab 140 mg/mL subcutaneous 140 mg subcut Q14D 01/18/22 01/24/24 History pen injector (Boyd Newton) ezetimibe 10 mg tablet 10 mg PO DAILY 01/18/22 01/24/24 History mirtazapine 30 mg tablet 30 mg PO HS 01/18/22 01/24/24 History rosuvastatin 40 mg tablet 40 mg PO HS 01/18/22 01/24/24 History aspirin 81 mg tablet,delayed 81 mg PO DAILY 12/22/22 01/24/24 History release (Adult Low Dose Aspirin) duloxetine 20 mg capsule,delayed 20 mg PO DAILY 12/22/22 01/24/24 History release duloxetine 60 mg capsule,delayed 60 mg PO DAILY 12/22/22 01/24/24 History release cholecalciferol (vitamin D3) 125 125 mcg PO DAILY 01/31/23 01/24/24 History mcg (5,000 unit) capsule amlodipine 5 mg tablet 5 mg PO DAILY 01/24/24 01/24/24 History Allergies Allergy/AdvReac Type Severity Reaction Status Date / Time amoxicillin Allergy Intermediate itchy, Verified 01/18/24 12:43 diarhea, upset stomach venlafaxine Allergy Intermediate Hives Verified 01/18/24 12:43 atorvastatin AdvReac Unknown Verified 01/18/24 12:43 simvastatin AdvReac Unknown Verified 01/18/24 12:43 hydocodone AdvReac Uncoded 01/18/24 12:43 Exam Narrative: Exam Narrative: General appearance: Alert, cooperative, and in no distress Pulmonary: Chest symmetric, lungs clear bilaterally Cardiovascular Heart: Regular rate and rhythm, S1, S2, no murmurs/rubs/gallops Gastrointestinal Abdominal: soft, distended,tender to palpation throughout the abdomen Skin: Normal skin color, texture, and turgor. No rashes or lesions. Psychiatric: Alert, cooperative, normal affect. Progress Note:A&P Assessment and plan (1) S/P exploratory laparotomy: Status: Acute Assessment and Plan: 68-year-old female presented for surveillance colonoscopy that was complicated by sigmoid perforation s/p exploratory laparotomy with primary repair of sigmoid perforation and rigid proctoscopy. Will admit patient to the hospital. We will keep NPO for now and keep the patient on prophylactic antibiotics. Will consult hospitalist for management of comorbidities.
--- NOTE | 2024-01-24 12:16 | P.GSOP_ITS ---
Operative Note Date of procedure: 01/24/24 Pre-op diagnosis: 1. Iatrogenic sigmoid perforation during surveillance colonoscopy. Post-op diagnosis: 1. Sigmoid perforation adjacent to diverticulum in the mid sigmoid colon. 2. Redundant sigmoid colon with diverticulosis. Type of Procedure: 1. Exploratory laparotomy. 2. Primary repair of sigmoid perforation. 3. Rigid proctoscopy. Indications: 68-year-old female was undergoing surveillance colonoscopy due to history of polyps. 2 years ago patient had a large adenoma removed from the cecum. Patient subsequently had follow-up colonoscopy with inadequate prep. She presented today for surveillance colonoscopy. The colonoscopy was difficult due to rigid mobility of the colon and was complicated by perforation in the sigmoid colon. An attempt was made to close the perforation with clips but was not successful. A tattoo was placed just distal to the site of perforation and the scope was removed. Patient was woken up from anesthesia and the complication of perforation were discussed with the patient. The perforation was also discussed with the patient's son. Patient had moderate amount of abdominal pain postprocedure. Exploratory laparotomy was recommended. The procedure was discussed in detail. The risks associated procedure including infection, bleeding, the need for sigmoid colectomy, and the need for additional procedures were all discussed with the patient and her son, and the son signed informed consent. Procedure Description: After discussing the risks and benefits of the procedure, the patient signed informed consent.? The operative site was marked and the patient was brought to the operating room and placed on the operating table in supine position.? Care was taken to pad the patient's pressure points.?? The patient was then intubated by anesthesia.? Shepherd catheter was placed under sterile conditions. TAP blocks were placed by Anesthesia.? The operative site was then prepped and draped in the usual sterile fashion.? A time-out was then performed. A lower midline vertical laparotomy incision was made with a scalpel. Subcutaneous fat was divided with cautery down to the anterior fascia. The anterior fascia was grasped with Art clamps and incised with Metzenbaum scissors. The posterior sheath and peritoneum were then grasped with Luly clamps and incised with Metzenbaum scissors as well. Abdomen was entered. Small amount of murky ascites was suctioned out. Peritonitis was noted in the small bowel mesentery. The small bowel was then retracted cephalad and a redundant sigmoid colon was examined. Tattoo was identified in the distal to mid sigmoid colon. Trauma was seen on the right lateral sigmoid colon and a site of perforation was found. This was located adjacent to a diverticulum. The mucosa of sigmoid colon was then closed with [id number] 3-0 Vicryl suture. The perforated serosa was then closed with Lembert sutures incorporating the adjacent diverticulum in the closure. This was done with 3-0 silk. The sigmoid colon was well perfused and no bleeding was seen. The sigmoid colon was palpated and was widely patent after this closure. We then elected to proceed with rigid proctoscopy. Patient was placed in the modified lithotomy position and a proctoscope was inserted through the anus. With the manual pressure applied just proximal to the close perforation site by an operations manager assistant, sigmoid colon was insufflated with air and submerged under sterile saline. No bubbles were seen confirming tight closure. The proctoscope was then removed. I then changed my gown and gloves and proceeded with abdominal closure. The abdomen was irrigated with copious amounts of warm normal saline. The omentum was placed over the small intestine. The Deepak retractor was removed and dairy instruments were removed from the field. The anterior fascia was then closed with 2 running 0-0 Maxon sutures. Subcutaneous fat was reapproximated with interrupted 3-O Vicryl sutures. The incision was closed with matt. All counts were correct at the end of the case. Sterile dressings were then applied. ? The patient tolerated the procedure well and was transferred to PACU in stable condition. Findings: Sigmoid perforation in the mid sigmoid adjacent to diverticulum. Closed primarily. Anesthesia: GETA Surgeon: Enriqueta Richter MD Estimated blood loss (mL): 10 Additional Specimen Information: None Condition: stable Disposition: PACU
--- NOTE | 2024-01-24 12:35 | W.ANESCHARGE ---
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
[2024-01-24] MEDS: ONDANSETRON 2 MG/ML inj 4 MG IVP (12:40)
[2024-01-24] MEDS: fentaNYL 100 MCG/2 ML inj 50 MCG IVP (13:05)
[2024-01-24] MEDS: HYDROmorphone 0.5 mg/0.5 ml inj IVP ×2 (13:46→18:50)
--- NOTE | 2024-01-24 15:03 | CRLHL7_ITS ---
For Patients: As a result of the Century Cures Act, medical imaging exams and procedure reports are released immediately into your electronic medical record. You may view this report before your referring provider. If you have questions, please contact your health care provider. Indication: Postop emergency laparotomy Comparison: Two-view chest August 06, 2023 Technique: Single AP view chest Findings: There is hyperinflation and chronic interstitial change. Mildly increased interstitial markings likely representing minimal pulmonary vascular congestion. There is no pneumothorax or pleural effusion. The cardiomediastinal silhouette is within normal limits. The bony thorax is grossly intact. Impression: Chronic interstitial change with mildly increased interstitial markings likely representing mild pulmonary vascular congestion. Dictated by Mazin Mclean MD @ 01/24/2024 4:01:32 PM (Electronically Signed)
--- NOTE | 2024-01-24 15:21 | PM.IMCN1 ---
Date of Consult Consult date: 01/24/24 Requesting Physician: General Surgery Primary Care Provider: Cheyenne Guardado MD Consult Narrative Reason for consult: post-op care Narrative: HOSPITALIST CONSULT Hospital Day 1, Post OP Day 0 Procedure; Dr. Richter, 01/24/24 1. Exploratory laparotomy. 2. Primary repair of sigmoid perforation. 3. Rigid proctoscopy. The hospital medicine team was asked by the general surgery team to help manage the patient's postoperative course. Patient was having a surveillance colonoscopy this morning, given her history of a large polypectomy last year. She suffered an iatrogenic sigmoid perforation that was immediately identified. This resulted in open exploratory laparotomy and primary repair of the sigmoid perforation. Patient has moderate to severe COPD, severe hyperlipidemia, hypertension, history of and current use of tobacco, depression with insomnia and chronic pain. Her her weight is 51 kilos. She is edentulous. I have updated and reviewed the active medical problems, past medical history, past surgical history, social history, allergies and medications in our electronic EMR. This includes a cross reference to care everywhere in [facility] and with [facility] databases. Labs: CBC wnl, INR 1.10, chemistries show LFT elevation, GGT normal , VBG at 1515 revealed acidosis (repeating in three hours) and mild CO2 retention, lactate XXXX CXR: hyperinflated. no pneumo or infiltrate. official read: Chronic interstitial change with mildly increased interstitial markings likely representing mild pulmonary vascular congestion. Weaned from oxygen at 1615 hrs ECG: some new TWave changes in the lateral leads, loss of R wave height. Neg troponin tonight. IV fluids ongoing w/LR @ 100cc/hr - UOP since arrival on the floor at 1330 - 100 cc which equals 0.48 cc/kg/hr - will give fluid bolus Shepherd in place MAP has been 65-70 without pressors PHYSICAL EXAM: CODE STATUS: FULL CODE CONSTITUTIONAL: Sleepy, clearly uncomfortable. Able to make small jokes and answer my questions in short answers. VITAL SIGNS: see record. Map 65-70. HEENT: Normocephalic, atraumatic. PERRL, EOMI, conjunctivae pink, no scleral icterus. Ears and nose externally normal. Pharynx normal. NECK: No JVD. No carotid bruit, no thyromegaly, no adenopathy. CHEST: Prolonged expiratory phase. No obvious wheezes. HEART: S1 and S2 normal. ABDOMEN: Soft. Tender appropriately. Surgical dressing in place. No obvious bleeding. EXTREMITIES: No edema. NEURO: Cranial nerves intact. Mentation normal. Normal affect. SKIN: No rashes, petechiae, concerning changes PSYCHIATRIC: Mentation normal. INVESTIGATIONS: EMR Reviewed; Pre-OP Reviewed, operative note reviewed. DISPOSITION: Inpatient, home when bowel function returns to normal. DVT: SCDs. GI: Currently NPO. Consider PPI, IV PFSH PFSH Medical History (Updated 01/24/24 @ 15:41 by Juju Hughes MD) Encounter for follow-up surveillance of colon cancer ?Z08 - Encounter for follow-up examination after completed treatment for malignant neoplasm (ICD-10) ?Z85.038 - Personal history of other malignant neoplasm of large intestine (ICD-10) SRAVAN and COPD overlap syndrome ?G47.33 - Obstructive sleep apnea (adult) (pediatric) (ICD-10) ?J44.9 - Chronic obstructive pulmonary disease, unspecified (ICD-10) Edentulism ?K08.109 - Complete loss of teeth, unspecified cause, unspecified class (ICD-10) Smoker ?F17.200 - Nicotine dependence, unspecified, uncomplicated (ICD-10) Hypertension ?I10 - Essential (primary) hypertension (ICD-10) Hypercholesterolemia ?E78.00 - Pure hypercholesterolemia, unspecified (ICD-10) Mucus plugging of bronchi ?T17.500A - Unspecified foreign body in bronchus causing asphyxiation, initial encounter (ICD-10) Obstructive sleep apnea syndrome ?G47.33 - Obstructive sleep apnea (adult) (pediatric) (ICD-10) RSV infection (~05/2023) ?B33.8 - Other specified viral diseases (ICD-10) Allergic rhinitis ?J30.9 - Allergic rhinitis, unspecified (ICD-10) Chronic sinusitis ?J32.9 - Chronic sinusitis, unspecified (ICD-10) Brain bleed (11/18/22) ?I61.9 - Nontraumatic intracerebral hemorrhage, unspecified (ICD-10) Screening for lung cancer (11/2021) ?Z12.2 - Encounter for screening for malignant neoplasm of respiratory organs (ICD-10) Osteoarthritis involving multiple joints on both sides of body ?M15.9 - Polyosteoarthritis, unspecified (ICD-10) Upper airway resistance syndrome ?G47.8 - Other sleep disorders (ICD-10) Colon polyp ?K63.5 - Polyp of colon (ICD-10) Osteoporosis (12/2022) ?M81.0 - Age-related osteoporosis without current pathological fracture (ICD-10) Mixed anxiety depressive disorder ?F41.8 - Other specified anxiety disorders (ICD-10) Chronic obstructive pulmonary disease (01/13/13) ?J44.9 - Chronic obstructive pulmonary disease, unspecified (ICD-10) Insomnia ?G47.00 - Insomnia, unspecified (ICD-10) Encounter for counseling regarding advance directives (04/04/19) ?Z71.89 - Other specified counseling (ICD-10) Nicotine dependence (07/25/12) ?F17.200 - Nicotine dependence, unspecified, uncomplicated (ICD-10) Hypoxia ?R09.02 - Hypoxemia (ICD-10) Concussion (08/2018) ?S06.0X9A - Concussion with loss of consciousness of unspecified duration, initial encounter (ICD-10) Surgical History (Updated 01/24/24 @ 16:50 by Juju Hughes MD) History of tonsillectomy (01/13/13) ?Z90.89 - Acquired absence of other organs (ICD-10) History of knee surgery (12/2003) ?Z98.890 - Other specified postprocedural states (ICD-10) History of esophagogastroduodenoscopy (2014) ?Z98.890 - Other specified postprocedural states (ICD-10) History of dilation and curettage (01/13/13) ?Z98.890 - Other specified postprocedural states (ICD-10) Status post colonoscopy with polypectomy (2014) ?Z98.890 - Other specified postprocedural states (ICD-10) H/O: hysterectomy ?Z90.710 - Acquired absence of both cervix and uterus (ICD-10) History of salpingo-oophorectomy ?Z90.79 - Acquired absence of other genital organ(s) (ICD-10) ?Z90.721 - Acquired absence of ovaries, unilateral (ICD-10) S/P laparoscopic cholecystectomy (2014) ?Z90.49 - Acquired absence of other specified parts of digestive tract (ICD-10) S/P sacrocolpopexy (2017) ?Z98.890 - Other specified postprocedural states (ICD-10) Family History Rheumatoid arthritis Mother Diabetes Mother Bipolar disorder Myocardial infarction Mother, Onset Age: 93 Father, Onset Age: 83 Schizophrenia High blood pressure Mother Colonic polyp Stroke Maternal Grandfather, Onset Age: 42 Social History Narrative: lives withrene Greene who has MS, patient is warp tier. Her son and grandson also live with her. Non smoker, 10/2022 ex-cigarette smoker- 40 pack years does not drink alcohol Walks 30 minutes 5 days a week 3 kids, sons adult What is your current living situation?: I presently have a place to live Problems where you live: no known problems Problems where you live details: NA In the past 12 months, utilities in danger of being shut off: no In past 12 months, lack of transportation kept you from medical appts, meetings, work, or getting things needed for daily living: no In the past 12 mos, have been you worried that your food would run out before you had money to buy more?: never true In the past 12 mos, the food you bought just didn't last and you didn't have money to buy more?: never true Highest level of school completed/degree received: some college, no degree Smoking Status: Current some day smoker Do you use any of these nicotine containing products: None Nicotine containing products detail: quit in November 2022 How often do you have a drink containing alcohol: never AUDIT-C Alcohol total score: 0 Non-prescribed substance use: denies use Caffeine: Yes How often does anyone, including family, friends and others, physically hurt you: never How often does anyone, including family, friends and others, insult or talk down to you: never How often does anyone, including family, friends and others, threaten you with harm: never How often does anyone, including family, friends and others, scream or curse at you: never Little interest or pleasure in doing things: not at all Feeling down, depressed, or hopeless: not at all service: Yes Meds Home Medications and Allergies Home Medications ?Medication ?Instructions ?Recorded ?Confirmed ?Type evolocumab 140 mg/mL subcutaneous 140 mg subcut Q14D 01/18/22 01/24/24 History pen injector (Boyd Newton) ezetimibe 10 mg tablet 10 mg PO DAILY 01/18/22 01/24/24 History mirtazapine 30 mg tablet 30 mg PO HS 01/18/22 01/24/24 History rosuvastatin 40 mg tablet 40 mg PO HS 01/18/22 01/24/24 History aspirin 81 mg tablet,delayed 81 mg PO DAILY 12/22/22 01/24/24 History release (Adult Low Dose Aspirin) duloxetine 20 mg capsule,delayed 20 mg PO DAILY 12/22/22 01/24/24 History release duloxetine 60 mg capsule,delayed 60 mg PO DAILY 12/22/22 01/24/24 History release cholecalciferol (vitamin D3) 125 125 mcg PO DAILY 01/31/23 01/24/24 History mcg (5,000 unit) capsule amlodipine 5 mg tablet 5 mg PO DAILY 01/24/24 01/24/24 History Allergies Allergy/AdvReac Type Severity Reaction Status Date / Time amoxicillin Allergy Intermediate itchy, Verified 01/18/24 12:43 diarhea, upset stomach venlafaxine Allergy Intermediate Hives Verified 01/18/24 12:43 hydrocodone Allergy Verified 01/24/24 12:26 atorvastatin AdvReac Unknown Verified 01/18/24 12:43 simvastatin AdvReac Unknown Verified 01/18/24 12:43 Exam Const: Vital Signs, click to edit/add: Vital Signs - 24 hr 01/24/24 12:15 01/24/24 12:20 01/24/24 12:25 Temperature 96.8 F L Pulse Rate 80 81 82 Respiratory Rate 24 22 23 Blood Pressure 106/54 L 90/54 L 101/56 L Pulse Oximetry 95 94 96 Oxygen Delivery Me thod OxyMask Oxygen Flow Rate 6 01/24/24 12:30 01/24/24 12:35 01/24/24 12:40 Temperature Pulse Rate 80 80 80 Respiratory Rate 22 20 22 Blood Pressure 88/57 L 98/53 L 91/52 L Pulse Oximetry 94 95 94 Oxygen Delivery Me thod Oxygen Flow Rate 01/24/24 12:45 01/24/24 12:50 01/24/24 12:55 Temperature Pulse Rate 81 82 86 Respiratory Rate 23 24 22 Blood Pressure 98/52 L 98/57 L 91/61 Pulse Oximetry 93 94 95 Oxygen Delivery Me thod Oxygen Flow Rate 01/24/24 13:00 01/24/24 13:10 01/24/24 13:15 Temperature Pulse Rate 85 80 81 Respiratory Rate 24 24 24 Blood Pressure 88/64 L 92/48 L 85/48 L Pulse Oximetry 92 98 97 Oxygen Delivery Me thod Oxygen Flow Rate 01/24/24 13:20 01/24/24 13:30 01/24/24 13:45 Temperature 97.6 F 96.8 F L 97.2 F L Pulse Rate 84 88 88 Respiratory Rate 22 14 18 Blood Pressure 89/55 L 91/56 L 94/57 L Pulse Oximetry 98 92 93 Oxygen Delivery Me thod OxyMask OxyMask Oxygen Flow Rate 3.5 3.5 01/24/24 14:00 01/24/24 14:36 01/24/24 14:37 Temperature 97.4 F L Pulse Rate 86 91 92 Respiratory Rate 16 Blood Pressure 90/57 L 94/53 L Pulse Oximetry 97 92 91 Oxygen Delivery Me thod OxyMask Oxygen Flow Rate 3 Assessment and Plan Assessment and plan (1) S/P exploratory laparotomy: Problem comment: -screening colonoscopy with iatrogenic sigmoid perforation - immediately recognized and exploratory laparotomy pursued. -repaired -surveilliance colonoscopy was originally for hx of large polyp resected in 2022 -hospital medicine team is happy to co-manage. cardiac monitoring, continuous pulse ox, aggressive pulmonary hygiene, pain management and fluid balance all top of mind. -EKG shows some flipped Ts in the lateral leads that are new from Aug 2023. Trop negative -LFT elevation likely from surgical trauma -low UOP and acidosis post op: nebs, fluid bolus, respiratory hygiene with ISP/Aerobika Status: Acute (2) Chronic obstructive pulmonary disease: Problem comment: -several hospitalizations -albuterol, advair -oxygenation supplementation, RT to see and evaluated. Has both oxygen at home (used on humid days) and CPAP - not used. Walking test: Oximetry 99% on room air at rest, oximetry 95% at room air after walking briskly. 09/20/2023 Status: Chronic (3) SRAVAN and COPD overlap syndrome: Problem comment: non compliance with home oxygen and CPAP still smoking -will have nebs, pulmonary exercises/hygiene, and monitoring in place Status: Acute (4) Smoker: Status: Acute (5) Hypertension: Problem comment: amlodipine 5mg qhs Status: Chronic (6) Hypercholesterolemia: Problem comment: Severe , sees specialist Repatha injections every 2 weeks, Zetia 10 mg, rosuvastatin 40 mg Continue outpatient medication Status: Acute (7) Mixed anxiety depressive disorder: Problem comment: sees Dr Lo for CBT duloxetine 80mg daily Status: Chronic (8) Insomnia: Problem comment: mirtazapine 30mg qhs Status: Chronic (9) Edentulism: Status: Acute
[2024-01-24 15:24] LABS: HCO3 VBG 24 mmol/L (21-28); PCO2 VBG 56 mmHG (40-50)
[2024-01-24 15:39] LABS: Basophils Absolute Auto 0.01 K/uL (0.00-0.30); Basophils Percent Auto 0.2 % (0.0-3.0); Eosinophils Absolute Auto 0.01 K/uL (0.00-0.50); Eosinophils Percent Auto 0.2 % (0.0-7.0); Hematocrit 39.9 % (33.0-51.0); Hemoglobin* 12.7 gm/dL (12.0-16.0); Lymphocytes Percent Auto 6.3 % (20-44); Mean Corpuscular HGB Conc 32 gm/dL (32-36); Mean Corpuscular Hemoglobin 30 pg (26-34); Mean Corpuscular Volume 93 fL (80-100); Monocytes Percent Auto 5.4 % (0.0-11.0); Neutrophils Percent Auto 87.9 % (42.0-72.0); Platelet Count* 177 K/uL (140-440); RDW Coefficient of Variation % 14.9 % (11.5-15.5); Red Blood Count 4.27 m/uL (4.00-5.20); White Blood Count* 6.06 K/uL (4.50-11.00)
[2024-01-24 15:53] LABS: Albumin* 3.2 g/dL (3.3-5.0); Chloride* 109 mmol/L (96-114); Sodium* 137 mmol/L (135-149)
[2024-01-24 15:54] LABS: Potassium* 3.8 mmol/L (3.6-5.1)
[2024-01-24 15:55] LABS: Slide Review Reflex No
[2024-01-24 15:56] LABS: Bilirubin Total* 0.7 mg/dL (0.1-1.5); Creatinine* 0.6 mg/dL (0.5-1.5); Est. Creatinine Clearance* 41.76; Estimated Glomerular Filt Rate 99 ml/min
[2024-01-24 15:57] LABS: Alanine Aminotransferase* 223 U/L (4-35); Alkaline Phosphatase* 64 U/L (40-150); Anion Gap 3 mEq/L (7-15); Aspartate Amino Transferase* 643 U/L (12-35); Blood Urea Nitrogen* 14 mg/dL (7-30); Calcium* 7.9 mg/dL (8.4-10.6); Carbon Dioxide* 25 mmol/L (20-32); Glucose* 97 mg/dL (60-115); Magnesium* 1.5 mg/dL (1.5-2.6); Total Protein* 5.2 g/dL (6.0-8.3)
[2024-01-24 15:59] LABS: C Reactive Protein* 0.6 mg/dL (0.5-1.0)
[2024-01-24 16:04] LABS: Prothrombin Time 14.9 Seconds
[2024-01-24] MEDS: IPRAT-ALBUT 0.5-2.5 MG/3 ML NEB 1 NEB IH ×3 (16:07→23:28)
[2024-01-24 16:08] LABS: Troponin I* < 0.01 ng/mL (0.01-0.04)
[2024-01-24 16:28] LABS: pH VBG 7.241 (7.32-7.43)
[2024-01-24 16:31] LABS: Gamma Glutamyl Transpeptidase* 20 U/L (8-55)
[2024-01-24] MEDS: LACTATED RINGERS 1000 ML 1,000 ML 500 ML IV (17:04)
[2024-01-24 17:27] LABS: Lactate* 1.2 mmol/L (0.5-1.9)
[2024-01-24 18:48] LABS: HCO3 VBG 24 mmol/L (21-28); PCO2 VBG 50 mmHG (40-50); PO2 VBG 31.8 mmHG (25-47); pH VBG 7.288 (7.32-7.43)
--- NOTE | 2024-01-24 19:48 | PC.NURSE ---
End of Shift: patient pleasant and cooperative, A&O. Patient was hypotensive after surgery, MD notified. Patient came up to the med surg unit on oxygen via oxymask, she slowly weened down to 0.5L O2 nasal cannula by the end of this shift, with O2 sats above 88%. Patient has been reporting pain on her abdomen, managed with PRN medication, see MAR. Dressing on abdomen C/D/I. Shepherd catheter patent. SCD's applied. NPO.
[2024-01-24] MEDS: LACTATED RINGERS 500 ML 500 ML 250 ML IV (20:16)
[2024-01-24] MEDS: BUDESONIDE 0.5 MG/2ML NEB NEB (20:16)
[2024-01-25] VITALS (11 sets, daily range): BP systolic 95–113; BP diastolic 50–64; PULSE 62–104; RESP 16–18; TEMP 36.6–38; O2SAT 88–94; BMI 21.3
[2024-01-25] MEDS: LACTATED RINGERS 1000 ML 1,000 ML 30 ML IV ×2 (04:18→15:23)
[2024-01-25] MEDS: HYDROCODONE-ACETAMIN 5-325 MG 1 TAB PO ×3 (05:16→17:58)
--- NOTE | 2024-01-25 06:05 | PC.NURSE ---
Shift note: Pt is alert and oriented, ambulated with SBA in room. Pt consistently and persistently requested for ice and water. MD order noted as NPO with ice and chips. IV R/L infusing at 100ml/hr. Pt tolerated pain well. Pain level rated between 3 and 5. Ice pack applied. 1X pain med given at 0500. Bowel sound hypoactive. Pt had 4 loose stool tonight, 2 small and 2 medium size. Dressing appeared clean and dry.
[2024-01-25 06:26] LABS: HCO3 VBG 25 mmol/L (21-28); PCO2 VBG 43 mmHG (40-50); PO2 VBG 62.2 mmHG (25-47); pH VBG 7.382 (7.32-7.43)
[2024-01-25] MEDS: IPRAT-ALBUT 0.5-2.5 MG/3 ML NEB 1 NEB IH ×3 (06:26→17:55)
[2024-01-25 06:29] LABS: Hemoglobin* 11.3 gm/dL (12.0-16.0); Immature Granulocytes Pct Auto 0.1 %; Lymphocytes Percent Auto 5.5 % (20-44); Mean Corpuscular HGB Conc 33 gm/dL (32-36); Mean Corpuscular Hemoglobin 30 pg (26-34); Mean Corpuscular Volume 90 fL (80-100); Monocytes Percent Auto 7.3 % (0.0-11.0); Neutrophils Percent Auto 87.1 % (42.0-72.0); Platelet Count* 163 K/uL (140-440); RDW Coefficient of Variation % 14.9 % (11.5-15.5); Red Blood Count 3.78 m/uL (4.00-5.20); White Blood Count* 15.33 K/uL (4.50-11.00)
[2024-01-25 06:30] LABS: Slide Review Reflex No
[2024-01-25 06:41] LABS: Chloride* 106 mmol/L (96-114)
[2024-01-25 06:42] LABS: Potassium* 3.7 mmol/L (3.6-5.1); Sodium* 134 mmol/L (135-149)
[2024-01-25 06:44] LABS: Creatinine* 0.5 mg/dL (0.5-1.5); Est. Creatinine Clearance* 41.76; Estimated Glomerular Filt Rate 103 ml/min
[2024-01-25 06:45] LABS: Alanine Aminotransferase* 168 U/L (4-35); Alkaline Phosphatase* 53 U/L (40-150); Anion Gap 4 mEq/L (7-15); Aspartate Amino Transferase* 195 U/L (12-35); Bilirubin Direct* 0.1 mg/dL (0.0-0.5); Bilirubin Total* 0.3 mg/dL (0.1-1.5); Blood Urea Nitrogen* 11 mg/dL (7-30); Calcium* 8.4 mg/dL (8.4-10.6); Carbon Dioxide* 24 mmol/L (20-32); Glucose* 126 mg/dL (60-115); Total Protein* 5.1 g/dL (6.0-8.3)
[2024-01-25] MEDS: HYDROmorphone 0.5 mg/0.5 ml inj IVP ×3 (08:08→13:59)
[2024-01-25] MEDS: ENOXAPARIN 40 MG/0.4 ML INJ SUBCUT (08:09)
--- NOTE | 2024-01-25 08:21 | P.GSPN_ITS ---
Subjective Subjective Date Seen: 01/25/24 Interval history: Patient is doing well. She had a low-grade fever. Her blood pressure is normally low normal. Her urine output was low yesterday and she received 2 boluses. She has 300 mL of urine in the bag since midnight. Her pain is contr olled with pain medications. Exam Narrative: Exam Narrative: Abdomen is soft, not distended, tender to palpation in bilateral lower quadrants, surgical incision is covered with clean dressing. Const: Vital Signs, click to edit/add: Vital Signs - 24 hr 01/24/24 12:15 01/24/24 12:20 01/24/24 12:25 Temperature 96.8 F L Pulse Rate 80 81 82 Pulse Rate [Pulse Oximeter] Respiratory Rate 24 22 23 Blood Pressure 106/54 L 90/54 L 101/56 L Blood Pressure [Le ft Arm] Pulse Oximetry 95 94 96 Oxygen Delivery Me thod OxyMask Oxygen Flow Rate 6 01/24/24 12:30 01/24/24 12:35 01/24/24 12:40 Temperature Pulse Rate 80 80 80 Pulse Rate [Pulse Oximeter] Respiratory Rate 22 20 22 Blood Pressure 88/57 L 98/53 L 91/52 L Blood Pressure [Le ft Arm] Pulse Oximetry 94 95 94 Oxygen Delivery Me thod Oxygen Flow Rate 01/24/24 12:45 01/24/24 12:50 01/24/24 12:55 Temperature Pulse Rate 81 82 86 Pulse Rate [Pulse Oximeter] Respiratory Rate 23 24 22 Blood Pressure 98/52 L 98/57 L 91/61 Blood Pressure [Le ft Arm] Pulse Oximetry 93 94 95 Oxygen Delivery Me thod Oxygen Flow Rate 01/24/24 13:00 01/24/24 13:10 01/24/24 13:15 Temperature Pulse Rate 85 80 81 Pulse Rate [Pulse Oximeter] Respiratory Rate 24 24 24 Blood Pressure 88/64 L 92/48 L 85/48 L Blood Pressure [Le ft Arm] Pulse Oximetry 92 98 97 Oxygen Delivery Me thod Oxygen Flow Rate 01/24/24 13:20 01/24/24 13:30 01/24/24 13:30 Temperature 97.6 F 96.8 F L 96.8 F L Pulse Rate 84 88 88 Pulse Rate [Pulse Oximeter] Respiratory Rate 22 14 14 Blood Pressure 89/55 L 91/56 L 91/56 L Blood Pressure [Le ft Arm] Pulse Oximetry 98 92 88 Oxygen Delivery Me thod OxyMask OxyMask Oxygen Flow Rate 3.5 3.5 01/24/24 13:45 01/24/24 14:00 01/24/24 14:36 Temperature 97.2 F L 97.4 F L Pulse Rate 88 86 91 Pulse Rate [Pulse Oximeter] Respiratory Rate 18 16 Blood Pressure 94/57 L 90/57 L 94/53 L Blood Pressure [Le ft Arm] Pulse Oximetry 93 97 92 Oxygen Delivery Me thod OxyMask OxyMask OxyMask Oxygen Flow Rate 3.5 3 2.5 01/24/24 14:37 01/24/24 15:00 01/24/24 15:00 Temperature 97.3 F L 97.3 F L Pulse Rate 92 88 Pulse Rate [Pulse Oximeter] 88 Respiratory Rate 16 16 Blood Pressure 91/52 L Blood Pressure [Le ft Arm] 91/52 L Pulse Oximetry 91 95 95 Oxygen Delivery Me thod OxyMask OxyMask Oxygen Flow Rate 2 2 01/24/24 15:30 01/24/24 16:00 01/24/24 17:00 Temperature 97.8 F Pulse Rate 88 87 87 Pulse Rate [Pulse Oximeter] Respiratory Rate 18 Blood Pressure 98/57 L 91/56 L 107/65 Blood Pressure [Le ft Arm] Pulse Oximetry 96 88 92 Oxygen Delivery Me thod OxyMask Nasal Cannula Nasal Cannula Oxygen Flow Rate 2 1 1 01/24/24 18:00 01/24/24 19:00 01/24/24 22:00 Temperature 98.3 F 99.4 F 99.6 F Pulse Rate 90 90 Pulse Rate [Pulse Oximeter] 94 Respiratory Rate 16 16 16 Blood Pressure 109/64 100/56 L Blood Pressure [Le ft Arm] 94/57 L Pulse Oximetry 88 91 98 Oxygen Delivery Me thod Room Air Room Air Nasal Cannula Oxygen Flow Rate 1 1 01/24/24 22:14 01/24/24 22:14 01/24/24 22:14 Temperature 99.6 F Pulse Rate Pulse Rate [Pulse Oximeter] 98 Respiratory Rate 16 16 Blood Pressure Blood Pressure [Le ft Arm] 100/56 L Pulse Oximetry 92 92 92 Oxygen Delivery Me thod Nasal Cannula Nasal Cannula Oxygen Flow Rate 1 1 01/24/24 22:18 01/24/24 23:00 01/25/24 00:18 Temperature 99.6 F 99.6 F Pulse Rate 90 104 H 104 H Pulse Rate [Pulse Oximeter] Respiratory Rate 16 16 Blood Pressure 100/56 L 100/56 L Blood Pressure [Le ft Arm] Pulse Oximetry 92 92 Oxygen Delivery Me thod Nasal Cannula Nasal Cannula Oxygen Flow Rate 1 1 01/25/24 03:00 01/25/24 05:25 01/25/24 05:25 Temperature 100.4 F H 100.4 F H Pulse Rate Pulse Rate [Pulse Oximeter] 94 94 Respiratory Rate 16 16 16 Blood Pressure Blood Pressure [Le ft Arm] 108/56 L 108/56 L Pulse Oximetry 88 88 88 Oxygen Delivery Me thod Nasal Cannula Nasal Cannula Nasal Cannula Oxygen Flow Rate 1 1 1 Progress Note:A&P Assessment and plan (1) S/P exploratory laparotomy: Status: Acute Assessment and Plan: 68-year-old female s/p exploratory laparotomy and repair of iatrogenic sigmoid perforation POD 1. Patient had multiple loose stools yesterday. We can give the patient's sips of clears but I would not advance her until she is passing gas. Patient had peritonitis intraoperatively and has sepsis picture with low-grade fever, elevated WBC, and transaminitis. I would expect her to have ileus. If patient feels nauseated or becomes distended, I would place her NPO. Will start patient on Lovenox for DVT prophylaxis. I discussed with the patient to ambulate as much as possible. Will remove her Shepherd today. Patient is on prophylactic antibiotics.
[2024-01-25] MEDS: BUDESONIDE 0.5 MG/2ML NEB NEB ×2 (08:39→20:45)
--- NOTE | 2024-01-25 09:07 | PM.IMPN1 ---
Progress Note: A&P Assessment and plan (1) S/P exploratory laparotomy: Problem details: - screening colonoscopy 01/23 (h/o large polyp resection 2022), iatrogenic sigmoid perforation - immediately recognized and repaired during ex lap - postoperatively: acidosis, acute on chronic hypoxic respiratory failure, EKG changes (flipped T waves in lateral leads) with negative troponin, elevated LFTs - 01/24: LFTs improving, UOP wnl, pH normalized, stable on RA, able to ambulate without symptoms - on Ertapenem, following VS and WBC - RT following - slowly advancing diet with sips of clears 01/24, holding po medications Status: Acute (2) Prediabetes: Problem details: - A1C 5.06 January 2024 Status: Chronic (3) Chronic obstructive pulmonary disease: Problem details: - several hospitalizations - albuterol, advair - oxygenation supplementation, RT to see and evaluate. Has both oxygen at home (using on humid days) and CPAP (not using) - outpatient walking test: Oximetry 99% on room air at rest, oximetry 95% at room air after walking briskly. 09/20/2023 Status: Chronic (4) SRAVAN and COPD overlap syndrome: Problem details: - non compliance with home oxygen and CPAP - smoking history - will have nebs, pulmonary exercises/hygiene, and monitoring in place Status: Acute (5) Hypertension: Problem details: - amlodipine 5mg QHS, holding at this time 2/2 postoperative hypotension Status: Chronic Plan - per above - continue abx, Lovenox for ppx Subjective Date Seen: 01/25/24 Interval history: Linnette was admitted last night after sigmoid perforation during sigmoid colonoscopy. She is POD #1 from an exploratory laparotomy and primary repair of perforation with Dr. Richter of General Surgery. Hospitalist team consulted given postoperative acidosis, acute on chronic hypoxic respiratory failure, elevated LFTs, decreased UOP. Treated with supplemental oxygen, nebs, IVFs, abx (Ertapenem), RT following. This morning, patient's pH has normalized, she is stable on RA. She is ambulating and passing some flatus. Shepherd discontinued, will continue to follow UOP. 2 BMs overnight. Sips of clears added this morning, tolerating well. TMax 100.4, WBC 15 this morning. Exam Narrative: Exam Narrative: GEN: Alert and sitting comfortably in bedside chair, speaking in full sentences HEENT: Edentulous, EOMIs bilaterally, no scleral icterus CV: RRR, No concerning murmurs R: Inspiratory rhonchi, no rales. No wheezing, air movement adequate Ab: + ttp, hypoactive bowel sounds, incision not formally examined Ext: wwp, no concerning edema Skin: No concerning skin lesions or rashes on exposed skin Neuro: Nonfocal Psych: Appropriate Const: Vital Signs, click to edit/add: Vital Signs - 24 hr 01/24/24 12:15 01/24/24 12:20 01/24/24 12:25 Temperature 96.8 F L Pulse Rate 80 81 82 Pulse Rate [Pulse Oximeter] Respiratory Rate 24 22 23 Blood Pressure 106/54 L 90/54 L 101/56 L Blood Pressure [Le ft Arm] Pulse Oximetry 95 94 96 Oxygen Delivery Me thod OxyMask Oxygen Flow Rate 6 01/24/24 12:30 01/24/24 12:35 01/24/24 12:40 Temperature Pulse Rate 80 80 80 Pulse Rate [Pulse Oximeter] Respiratory Rate 22 20 22 Blood Pressure 88/57 L 98/53 L 91/52 L Blood Pressure [Le ft Arm] Pulse Oximetry 94 95 94 Oxygen Delivery Me thod Oxygen Flow Rate 01/24/24 12:45 01/24/24 12:50 01/24/24 12:55 Temperature Pulse Rate 81 82 86 Pulse Rate [Pulse Oximeter] Respiratory Rate 23 24 22 Blood Pressure 98/52 L 98/57 L 91/61 Blood Pressure [Le ft Arm] Pulse Oximetry 93 94 95 Oxygen Delivery Me thod Oxygen Flow Rate 01/24/24 13:00 01/24/24 13:10 01/24/24 13:15 Temperature Pulse Rate 85 80 81 Pulse Rate [Pulse Oximeter] Respiratory Rate 24 24 24 Blood Pressure 88/64 L 92/48 L 85/48 L Blood Pressure [Le ft Arm] Pulse Oximetry 92 98 97 Oxygen Delivery Me thod Oxygen Flow Rate 01/24/24 13:20 01/24/24 13:30 01/24/24 13:30 Temperature 97.6 F 96.8 F L 96.8 F L Pulse Rate 84 88 88 Pulse Rate [Pulse Oximeter] Respiratory Rate 22 14 14 Blood Pressure 89/55 L 91/56 L 91/56 L Blood Pressure [Le ft Arm] Pulse Oximetry 98 92 88 Oxygen Delivery Me thod OxyMask OxyMask Oxygen Flow Rate 3.5 3.5 01/24/24 13:45 01/24/24 14:00 01/24/24 14:36 Temperature 97.2 F L 97.4 F L Pulse Rate 88 86 91 Pulse Rate [Pulse Oximeter] Respiratory Rate 18 16 Blood Pressure 94/57 L 90/57 L 94/53 L Blood Pressure [Le ft Arm] Pulse Oximetry 93 97 92 Oxygen Delivery Me thod OxyMask OxyMask OxyMask Oxygen Flow Rate 3.5 3 2.5 01/24/24 14:37 01/24/24 15:00 01/24/24 15:00 Temperature 97.3 F L 97.3 F L Pulse Rate 92 88 Pulse Rate [Pulse Oximeter] 88 Respiratory Rate 16 16 Blood Pressure 91/52 L Blood Pressure [Le ft Arm] 91/52 L Pulse Oximetry 91 95 95 Oxygen Delivery Me thod OxyMask OxyMask Oxygen Flow Rate 2 2 01/24/24 15:30 01/24/24 16:00 01/24/24 17:00 Temperature 97.8 F Pulse Rate 88 87 87 Pulse Rate [Pulse Oximeter] Respiratory Rate 18 Blood Pressure 98/57 L 91/56 L 107/65 Blood Pressure [Le ft Arm] Pulse Oximetry 96 88 92 Oxygen Delivery Me thod OxyMask Nasal Cannula Nasal Cannula Oxygen Flow Rate 2 1 1 01/24/24 18:00 01/24/24 19:00 01/24/24 22:00 Temperature 98.3 F 99.4 F 99.6 F Pulse Rate 90 90 Pulse Rate [Pulse Oximeter] 94 Respiratory Rate 16 16 16 Blood Pressure 109/64 100/56 L Blood Pressure [Le ft Arm] 94/57 L Pulse Oximetry 88 91 98 Oxygen Delivery Me thod Room Air Room Air Nasal Cannula Oxygen Flow Rate 1 1 01/24/24 22:14 01/24/24 22:14 01/24/24 22:14 Temperature 99.6 F Pulse Rate Pulse Rate [Pulse Oximeter] 98 Respiratory Rate 16 16 Blood Pressure Blood Pressure [Le ft Arm] 100/56 L Pulse Oximetry 92 92 92 Oxygen Delivery Me thod Nasal Cannula Nasal Cannula Oxygen Flow Rate 1 1 01/24/24 22:18 01/24/24 23:00 07/26/24 00:18 Temperature 99.6 F 99.6 F Pulse Rate 90 104 H 104 H Pulse Rate [Pulse Oximeter] Respiratory Rate 16 16 Blood Pressure 100/56 L 100/56 L Blood Pressure [Le ft Arm] Pulse Oximetry 92 92 Oxygen Delivery Me thod Nasal Cannula Nasal Cannula Oxygen Flow Rate 1 1 01/25/24 03:00 01/25/24 05:25 01/25/24 05:25 Temperature 100.4 F H 100.4 F H Pulse Rate Pulse Rate [Pulse Oximeter] 94 94 Respiratory Rate 16 16 16 Blood Pressure Blood Pressure [Le ft Arm] 108/56 L 108/56 L Pulse Oximetry 88 88 88 Oxygen Delivery Me thod Nasal Cannula Nasal Cannula Nasal Cannula Oxygen Flow Rate 1 1 1 Labs Labs: Laboratory Results - last 24 hr 01/24/24 01/24/24 01/24/24 15:15 16:06 18:44 WBC 6.06 RBC 4.27 Hgb 12.7 Hct 39.9 MCV 93 MCH 30 MCHC 32 RDW Coeff of Helio 14.9 Plt Count 177 Neut % (Auto) 87.9 H Lymph % (Auto) 6.3 L [place] % (Auto) 5.4 Eos % (Auto) 0.2 Baso % (Auto) 0.2 Neut # (Auto) 5.30 Lymph # (Auto) 0.40 L [place] # (Auto) 0.30 Eos # (Auto) 0.01 Baso # (Auto) 0.01 Abs Immat Gran (auto) 0.00 Imm/Tot Granulo (auto) 0.0 INR 1.10 VBG pH 7.241 L* 7.288 L VBG pCO2 56 H 50 VBG pO2 33.0 31.8 VBG HCO3 24 24 Sodium 137 Potassium 3.8 Chloride 109 Carbon Dioxide 25 Anion Gap 3 L BUN 14 Creatinine 0.6 Estimated Creat Clear 41.76 Estimated GFR 99 Glucose 97 Lactate 1.2 Calcium 7.9 L Magnesium 1.5 Total Bilirubin 0.7 Direct Bilirubin GGT 20 AST 643 H ALT 223 H Alkaline Phosphatase 64 Troponin I < 0.01 L C-Reactive Protein 0.6 Total Protein 5.2 L Albumin 3.2 L Lab Acknowledgement Test Added 01/25/24 05:56 WBC 15.33 H RBC 3.78 L Hgb 11.3 L Hct 34.0 MCV 90 MCH 30 MCHC 33 RDW Coeff of Helio 14.9 Plt Count 163 Neut % (Auto) 87.1 H Lymph % (Auto) 5.5 L [place] % (Auto) 7.3 Eos % (Auto) 0.0 Baso % (Auto) 0.0 Neut # (Auto) 13.40 H Lymph # (Auto) 0.80 L [place] # (Auto) 1.10 H Eos # (Auto) 0.00 Baso # (Auto) 0.00 Abs Immat Gran (auto) 0.00 Imm/Tot Granulo (auto) 0.1 INR VBG pH 7.382 VBG pCO2 43 VBG pO2 62.2 H VBG HCO3 25 Sodium 134 L Potassium 3.7 Chloride 106 Carbon Dioxide 24 Anion Gap 4 L BUN 11 Creatinine 0.5 Estimated Creat Clear 41.76 Estimated GFR 103 Glucose 126 H Lactate Calcium 8.4 Magnesium Total Bilirubin 0.3 Direct Bilirubin 0.1 GGT AST 195 H ALT 168 H Alkaline Phosphatase 53 Troponin I C-Reactive Protein Total Protein 5.1 L Albumin 3.0 L Lab Acknowledgement
[2024-01-25] MEDS: ERTAPENEM 1 GM in 0.9 % SODIUM CHLORIDE Mini-bag 100 ML IVPB (10:43)
--- NOTE | 2024-01-25 14:14 | PC.NURSE ---
shift note: vss stable. abd drsg c/d/i . BS hypo x4. pt passing flatus. donovan dc'd @ 0900. pt voided 200cc. pain 4-02/08. Pt medicated with prn pain meds with relief. IV x2 patent. LS dim throughout. IS indept x8 @ 750. pt using 1.5-2L pnc O2 while at rest to keep sats >92%
--- NOTE | 2024-01-25 18:44 | PC.NURSE ---
(Shift 15-19) Pt alert and oriented. Pt pleasant and cooperative. Pt SBA. Pt up walking in halls x 1. Pt had complaints of pain ranging from 6-8; see EMAR for intervention. Pt?s dressing is dry and intact. Pt is passing gas.
[2024-01-25] MEDS: SODIUM CHLORIDE 0.9 % (FLUSH) 10 ML SYRINGE 5 ML IVF (20:52)
[2024-01-26] VITALS (10 sets, daily range): BP systolic 100–122; BP diastolic 53–69; PULSE 76–111; RESP 16–20; TEMP 36.5–37.7; O2SAT 88–96
[2024-01-26] MEDS: HYDROCODONE-ACETAMIN 5-325 MG 1 TAB PO ×4 (00:21→22:37)
[2024-01-26] MEDS: IPRAT-ALBUT 0.5-2.5 MG/3 ML NEB 1 NEB IH ×5 (00:25→23:16)
[2024-01-26] MEDS: LACTATED RINGERS 1000 ML 1,000 ML 100 ML IV ×3 (02:51→23:16)
[2024-01-26] MEDS: ACETAMINOPHEN 325 MG TABLET 650 MG PO ×2 (05:32→20:37)
[2024-01-26 07:05] LABS: HCO3 VBG 29 mmol/L (21-28); PCO2 VBG 47 mmHG (40-50); PO2 VBG 33.8 mmHG (25-47)
[2024-01-26 07:12] LABS: Basophils Percent Auto 0.1 % (0.0-3.0); Eosinophils Percent Auto 1.4 % (0.0-7.0); Hematocrit 33.2 % (33.0-51.0); Hemoglobin* 10.8 gm/dL (12.0-16.0); Immature Granulocytes Pct Auto 0.4 %; Lymphocytes Percent Auto 10.6 % (20-44); Mean Corpuscular HGB Conc 33 gm/dL (32-36); Mean Corpuscular Hemoglobin 30 pg (26-34); Mean Corpuscular Volume 91 fL (80-100); Monocytes Percent Auto 4.2 % (0.0-11.0); Neutrophils Percent Auto 83.3 % (42.0-72.0); Platelet Count* 157 K/uL (140-440); RDW Coefficient of Variation % 15.7 % (11.5-15.5); Red Blood Count 3.66 m/uL (4.00-5.20); White Blood Count* 13.55 K/uL (4.50-11.00)
[2024-01-26 07:19] LABS: Albumin* 3.3 g/dL (3.3-5.0); Chloride* 104 mmol/L (96-114); Sodium* 136 mmol/L (135-149)
[2024-01-26 07:20] LABS: Potassium* 3.6 mmol/L (3.6-5.1)
[2024-01-26 07:22] LABS: Alkaline Phosphatase* 63 U/L (40-150); Anion Gap 5 mEq/L (7-15); Aspartate Amino Transferase* 88 U/L (12-35); Bilirubin Total* 0.5 mg/dL (0.1-1.5); Carbon Dioxide* 27 mmol/L (20-32); Creatinine* 0.5 mg/dL (0.5-1.5); Est. Creatinine Clearance* 41.76; Estimated Glomerular Filt Rate 103 ml/min; Total Protein* 5.8 g/dL (6.0-8.3)
[2024-01-26 07:23] LABS: Alanine Aminotransferase* 118 U/L (4-35); Blood Urea Nitrogen* 8 mg/dL (7-30); Calcium* 8.8 mg/dL (8.4-10.6); Glucose* 90 mg/dL (60-115)
[2024-01-26 07:28] LABS: Slide Review Reflex No
--- NOTE | 2024-01-26 08:43 | PC.NURSE ---
Addendum entered by Deisy Sheppard RN 01/27/24 06:52: Correction: Patient was given PRN [place] for pain, not Oxycodone. Original Note: End of shift note (): Patient pleasant, alert and oriented. Ambulates with stand by assist of one. Pt had a crying episode and stated that she was tired and was not able to get any rest here. She also reported pain in her abdomen at that time. O2 sats dropped?with activity. Sats dropped?below 80 when tearful and upset. O2 needed to be increased to 4LPM to reach 90%. O2 was decreased to 1 LPM when patient was resting and O2 sats remained above 90%. Patient using pillow for splinting abdomen and given PRN Oxycodone, Tylenol and ice packs for pain. Dressing clean, dry and intact.?
[2024-01-26] MEDS: BUDESONIDE 0.5 MG/2ML NEB NEB ×2 (09:21→20:38)
[2024-01-26] MEDS: HYDROmorphone 0.5 mg/0.5 ml inj IVP (09:21)
[2024-01-26] MEDS: ERTAPENEM 1 GM in 0.9 % SODIUM CHLORIDE Mini-bag 100 ML IVPB (09:33)
--- NOTE | 2024-01-26 09:48 | P.GSPN_ITS ---
Subjective Subjective Date Seen: 01/26/24 Interval history: Patient had a rough night, but is doing better this morning. Main complaint was of pain at the incision site. She continues on oxygen, which she does intermittently needed at home. She lives with her who is wheelchair- bound, son and grandson. She is feeling hungry this morning. She tolerated clears yesterday. She has been passing gas, no bowel movement. Exam Narrative: Exam Narrative: General: Alert and oriented, no acute distress Abdomen: Soft, appropriately tender over incision site. Midline incision with matt in place. Const: Vital Signs, click to edit/add: Vital Signs - 24 hr 01/25/24 11:00 01/25/24 15:22 01/25/24 15:22 Temperature 98.2 F 98.5 F Pulse Rate Pulse Rate [Pulse Oximeter] 62 95 Respiratory Rate 18 16 Blood Pressure [Le ft Arm] 100/59 L 100/53 L Pulse Oximetry 89 88 88 Oxygen Delivery Me thod Nasal Cannula Room Air Oxygen Flow Rate 1.5 01/25/24 15:22 01/25/24 15:22 01/25/24 15:54 Temperature Pulse Rate 96 Pulse Rate [Pulse Oximeter] Respiratory Rate 16 16 Blood Pressure [Le ft Arm] Pulse Oximetry 88 Oxygen Delivery Me thod Room Air Oxygen Flow Rate 0 01/25/24 19:00 01/25/24 22:45 01/25/24 22:47 Temperature 98.8 F 98.4 F Pulse Rate Pulse Rate [Pulse Oximeter] 96 97 Respiratory Rate 16 18 18 Blood Pressure [Le ft Arm] 95/50 L 113/64 Pulse Oximetry 90 92 93 Oxygen Delivery Me thod Nasal Cannula Nasal Cannula Nasal Cannula Oxygen Flow Rate 1.5 1.5 1.5 01/25/24 23:00 01/25/24 23:00 01/26/24 02:31 Temperature 99.8 F H Pulse Rate 95 Pulse Rate [Pulse Oximeter] 99 Respiratory Rate 18 Blood Pressure [Le ft Arm] 104/53 L Pulse Oximetry 93 88 Oxygen Delivery Me thod Nasal Cannula Oxygen Flow Rate 2 01/26/24 07:57 01/26/24 07:57 01/26/24 07:57 Temperature 98 F Pulse Rate Pulse Rate [Pulse Oximeter] 87 Respiratory Rate 16 Blood Pressure [Le ft Arm] 100/57 L Pulse Oximetry 96 96 96 Oxygen Delivery Me thod Nasal Cannula Nasal Cannula Oxygen Flow Rate 1 1 Labs/Imaging Labs Labs: WBC down trending (15.3--13.5). Hemoglobin stable at 10.8. Progress Note:A&P Assessment and plan (1) S/P exploratory laparotomy: Status: Acute Assessment and Plan: 68-year-old female s/p exploratory laparotomy and repair of iatrogenic sigmoid perforation POD 2. Patient passing gas and feeling hungry this morning. Will slowly advanced diet as tolerated today. Vital signs stable and pain improving. Leukocytosis trending down, she continues on IV antibiotics at this time. Will encourage ambulation. Elevated O2 needs, she does need oxygen intermittently at home. An ticipate discharge in next 1-2 days.
[2024-01-26] MEDS: ENOXAPARIN 40 MG/0.4 ML INJ SUBCUT (10:52)
[2024-01-26] MEDS: ALBUTEROL SULFATE 2.5 MG/3 ML VIAL.NEB NEB (10:54)
--- NOTE | 2024-01-26 14:58 | PM.IMPN1 ---
Progress Note: A&P Assessment and plan (1) S/P exploratory laparotomy: Problem details: - screening colonoscopy 01/23 (h/o large polyp resection 2022), iatrogenic sigmoid perforation - immediately recognized and repaired during ex lap - postoperatively: acidosis, acute on chronic hypoxic respiratory failure, EKG changes (flipped T waves in lateral leads) with negative troponin, elevated LFTs - 01/24: LFTs improving, UOP wnl, pH normalized, stable on RA, able to ambulate without symptoms - 01/25: LFTs continue to improve. Tolerating increased activities. Still oxygen requiring. - on Ertapenem, following VS and WBC - RT following - slowly advancing diet with sips of clears 01/24, holding po medications Status: Acute (2) Chronic obstructive pulmonary disease: Problem details: - several hospitalizations - albuterol, advair - oxygenation supplementation, RT to see and evaluate. Has both oxygen at home (using on humid days) and CPAP (not using) - outpatient walking test: Oximetry 99% on room air at rest, oximetry 95% at room air after walking briskly. 09/20/2023 Status: Chronic (3) SRAVAN and COPD overlap syndrome: Problem details: - non compliance with home oxygen and CPAP - smoking history - will have nebs, pulmonary exercises/hygiene, and monitoring in place Status: Acute (4) Smoker: Status: Acute (5) Hypertension: Problem details: - amlodipine 5mg QHS, holding at this time 2/2 postoperative hypotension Status: Chronic (6) Mixed anxiety depressive disorder: Problem details: sees Dr Lo for CBT duloxetine 80mg daily Status: Chronic Plan 1. Reviewed impression with patient and Dr. Adorno, general surgeon. 2. Answered patient's questions to her satisfaction. 3. Continue with plan as specified above and per Dr. Adorno. Time Spent With Patient Total time spent: 35 minutes Subjective Date Seen: 01/26/24 Interval history: Linnette was admitted last night after sigmoid perforation during sigmoid colonoscopy. She is POD #2 from an exploratory laparotomy and primary repair of perforation with Dr. Richter of General Surgery. Hospitalist team consulted given postoperative acidosis, acute on chronic hypoxic respiratory failure, elevated LFTs, decreased UOP. Treated with supplemental oxygen, nebs, IVFs, abx (Ertapenem), RT following. Continues to require oxygen supplementation. At home she has oxygen supplementation as she is supposed to use but she does not use it regularly. She is ambulating and passing some flatus. Shepherd discontinued, and tolerating. Having bowel movements. Tolerating clear liquids. TMax 100.4, WBC down to 13.6 from 15 yesterday. Exam Narrative: Exam Narrative: Examined patient in her hospital room. Appears comfortable. Vision and hearing are adequate. Alert and oriented x4 Friendly and cooperative. Pursed lip breathing at rest which is not new. Lungs are clear with barrel-shaped chest and prolonged expiratory phase. Heart tones distant but regular. Abdomen with active bowel sounds, soft. Independent in transfer, station and gait. No lower extremity edema. Const: Vital Signs, click to edit/add: Vital Signs - 24 hr 01/25/24 15:22 01/25/24 15:22 01/25/24 15:22 Temperature 98.5 F Pulse Rate Pulse Rate [Pulse Oximeter] 95 Respiratory Rate 16 16 Blood Pressure [Le ft Arm] 100/53 L Pulse Oximetry 88 88 88 Oxygen Delivery Me thod Room Air Room Air Oxygen Flow Rate 0 01/25/24 15:22 01/25/24 15:54 01/25/24 19:00 Temperature 98.8 F Pulse Rate 96 Pulse Rate [Pulse Oximeter] 96 Respiratory Rate 16 16 Blood Pressure [Le ft Arm] 95/50 L Pulse Oximetry 90 Oxygen Delivery Me thod Nasal Cannula Oxygen Flow Rate 1.5 01/25/24 22:45 01/25/24 22:47 01/25/24 23:00 Temperature 98.4 F Pulse Rate Pulse Rate [Pulse Oximeter] 97 Respiratory Rate 18 18 Blood Pressure [Le ft Arm] 113/64 Pulse Oximetry 92 93 93 Oxygen Delivery Me thod Nasal Cannula Nasal Cannula Oxygen Flow Rate 1.5 1.5 01/25/24 23:00 01/26/24 02:31 01/26/24 07:57 Temperature 99.8 F H Pulse Rate 95 Pulse Rate [Pulse Oximeter] 99 Respiratory Rate 18 Blood Pressure [Le ft Arm] 104/53 L Pulse Oximetry 88 96 Oxygen Delivery Me thod Nasal Cannula Oxygen Flow Rate 2 01/26/24 07:57 01/26/24 07:57 01/26/24 11:00 Temperature 98 F 97.7 F Pulse Rate Pulse Rate [Pulse Oximeter] 87 78 Respiratory Rate 16 18 Blood Pressure [Le ft Arm] 100/57 L 107/57 L Pulse Oximetry 96 96 93 Oxygen Delivery Me thod Nasal Cannula Nasal Cannula Nasal Cannula Oxygen Flow Rate 1 1 2 01/26/24 11:03 Temperature Pulse Rate 76 Pulse Rate [Pulse Oximeter] Respiratory Rate Blood Pressure [Le ft Arm] Pulse Oximetry Oxygen Delivery Me thod Oxygen Flow Rate Labs Labs: Laboratory Results - last 24 hr 01/26/24 06:12 WBC 13.55 H RBC 3.66 L Hgb 10.8 L Hct 33.2 MCV 91 MCH 30 MCHC 33 RDW Coeff of Helio 15.7 H Plt Count 157 Neut % (Auto) 83.3 H Lymph % (Auto) 10.6 L [place] % (Auto) 4.2 Eos % (Auto) 1.4 Baso % (Auto) 0.1 Neut # (Auto) 11.30 H Lymph # (Auto) 1.40 [place] # (Auto) 0.60 Eos # (Auto) 0.20 Baso # (Auto) 0.00 Abs Immat Gran (auto) 0.10 Imm/Tot Granulo (auto) 0.4 VBG pH 7.390 VBG pCO2 47 VBG pO2 33.8 VBG HCO3 29 H Sodium 136 Potassium 3.6 Chloride 104 Carbon Dioxide 27 Anion Gap 5 L BUN 8 Creatinine 0.5 Estimated Creat Clear 41.76 Estimated GFR 103 Glucose 90 Calcium 8.8 Total Bilirubin 0.5 AST 88 H ALT 118 H Alkaline Phosphatase 63 Total Protein 5.8 L Albumin 3.3
--- NOTE | 2024-01-26 18:17 | PC.NURSE ---
shift note: stable vss. pt using 1L pnc with sleep. LS dim. Pt using IS indept 750-1000. abd drsg removed by Dr. Adorno. abd surgical site c/d/i. BS hypoactive. pt sleepy and needing encouragement to ambulate in [place]. pt amb x2. No flatus or BM. pain relieved by prn medications..
[2024-01-27] VITALS (8 sets, daily range): BP systolic 104–132; BP diastolic 58–69; PULSE 79–97; RESP 16–28; TEMP 36.6–37; O2SAT 89–94
[2024-01-27] MEDS: IPRAT-ALBUT 0.5-2.5 MG/3 ML NEB 1 NEB IH ×3 (05:40→21:28)
--- NOTE | 2024-01-27 06:50 | PC.NURSE ---
End of shift note ([id number]): Patient pleasant, alert and oriented. Ambulates with stand by assist of one. Patient reported pain in right side of abdomen rated 8-9/10. Using pillow for splinting abdomen and given PRN [place], Tylenol and ice packs for pain. Incision ORTHOPAEDIC GENERAL. [place] intact. No drainage or signs of infection. O2 titrated down. Currently 91% on 0.5 LPM. Frequent urination since approximately 0200 with multiple incontinent episodes. Urine very pale and diluted. Charge updated [place] and verbal orders given to saline lock pt. Patient saline locked at that time. ?
[2024-01-27] MEDS: ALBUTEROL SULFATE 2.5 MG/3 ML VIAL.NEB NEB (07:23)
[2024-01-27 08:20] LABS: HCO3 VBG 31 mmol/L (21-28); PCO2 VBG 45 mmHG (40-50); PO2 VBG < 30.1 mmHG (25-47); pH VBG 7.448 (7.32-7.43)
[2024-01-27 08:25] LABS: Basophils Absolute Auto 0.02 K/uL (0.00-0.30); Basophils Percent Auto 0.2 % (0.0-3.0); Eosinophils Absolute Auto 0.46 K/uL (0.00-0.50); Hematocrit 33.8 % (33.0-51.0); Immature Granulocytes Abs Auto 0.02 K/uL (0.00-0.30); Immature Granulocytes Pct Auto 0.2 %; Lymphocytes Percent Auto 12.2 % (20-44); Mean Corpuscular HGB Conc 33 gm/dL (32-36); Mean Corpuscular Hemoglobin 30 pg (26-34); Mean Corpuscular Volume 91 fL (80-100); Monocytes Percent Auto 4.9 % (0.0-11.0); Neutrophils Percent Auto 77.5 % (42.0-72.0); Platelet Count* 156 K/uL (140-440); RDW Coefficient of Variation % 15.7 % (11.5-15.5); Red Blood Count 3.71 m/uL (4.00-5.20)
[2024-01-27 08:28] LABS: Slide Review Reflex No
[2024-01-27] MEDS: ERTAPENEM 1 GM in 0.9 % SODIUM CHLORIDE Mini-bag 100 ML IVPB (09:36)
[2024-01-27] MEDS: HYDROCODONE-ACETAMIN 5-325 MG 1 TAB PO (09:41)
[2024-01-27] MEDS: BUDESONIDE 0.5 MG/2ML NEB NEB ×2 (09:42→21:28)
[2024-01-27] MEDS: SODIUM CHLORIDE 0.9 % (FLUSH) 10 ML SYRINGE 5 ML IVF ×2 (09:42→21:28)
[2024-01-27] MEDS: ENOXAPARIN 40 MG/0.4 ML INJ SUBCUT (10:43)
--- NOTE | 2024-01-27 10:43 | P.GSPN_ITS ---
Subjective Subjective Date Seen: 01/27/24 Interval history: Patient is breathing feels better this morning. She did not get up and ambulate a lot yesterday. This was secondary to pain. She continues to be very tender underneath her ribs. She wonders if an abdominal binder would help, will get her 1 this morning. She did not pass gas yesterday and has not yet had a bowel movement. She did tolerate full liquids without any nausea or vomiting. She is not feeling as hungry this morning. Exam Narrative: Exam Narrative: General: Alert and oriented, no acute distress Respiratory: Maintained on 1 L nasal cannula CV: Regular rhythm and rate, well perfused Abdomen: Soft, diffusely tender to palpation with some guarding, no rebound. [place] in place clean/dry/intact with no concern for infection. No significant distention. Const: Vital Signs, click to edit/add: Vital Signs - 24 hr 01/26/24 11:00 01/26/24 11:03 01/26/24 15:00 Temperature 97.7 F Pulse Rate 76 Pulse Rate [Pulse Oximeter] 78 Respiratory Rate 18 Blood Pressure [Le ft Arm] 107/57 L Pulse Oximetry 93 93 Oxygen Delivery Me thod Nasal Cannula Oxygen Flow Rate 2 01/26/24 15:00 01/26/24 15:00 01/26/24 16:01 Temperature 97.8 F Pulse Rate Pulse Rate [Pulse Oximeter] 84 84 Respiratory Rate 16 16 16 Blood Pressure [Le ft Arm] 119/69 Pulse Oximetry 93 91 Oxygen Delivery Me thod Nasal Cannula Nasal Cannula Oxygen Flow Rate 2 2 01/26/24 17:42 01/26/24 19:00 01/26/24 22:35 Temperature 99.9 F H 99.7 F H Pulse Rate 111 H Pulse Rate [Pulse Oximeter] 95 Respiratory Rate 20 Blood Pressure [Le ft Arm] 122/60 Pulse Oximetry 91 Oxygen Delivery Me thod Nasal Cannula Oxygen Flow Rate 1 01/26/24 22:39 01/26/24 22:39 01/26/24 22:39 Temperature 99.5 F Pulse Rate Pulse Rate [Pulse Oximeter] 96 Respiratory Rate 17 17 Blood Pressure [Le ft Arm] 115/64 Pulse Oximetry 89 89 89 Oxygen Delivery Me thod Nasal Cannula Nasal Cannula Oxygen Flow Rate 2 2 01/27/24 01:40 01/27/24 02:16 01/27/24 07:00 Temperature 98.0 F Pulse Rate 90 Pulse Rate [Pulse Oximeter] 80 Respiratory Rate 17 Blood Pressure [Le ft Arm] 126/64 Pulse Oximetry 91 91 Oxygen Delivery Me thod Nasal Cannula Oxygen Flow Rate 1.5 01/27/24 07:00 01/27/24 07:36 Temperature 97.8 F Pulse Rate Pulse Rate [Pulse Oximeter] 87 Respiratory Rate 28 H 22 Blood Pressure [Le ft Arm] 121/67 Pulse Oximetry 93 94 Oxygen Delivery Me thod Nasal Cannula Nasal Cannula Oxygen Flow Rate 2.5 2.5 Labs/Imaging Labs Labs: WBC 9.2, hemoglobin stable at 11 Imaging Imaging: No new imaging Progress Note:A&P Assessment and plan (1) S/P exploratory laparotomy: Status: Acute Assessment and Plan: 68-year-old female s/p exploratory laparotomy and repair of iatrogenic sigmoid perforation POD 3. Evidence of peritonitis in contamination per operative report. Will hold off on advancing diet further. Continue on full liquids today. Patient was encouraged to ambulate. Please get patient in abdominal binder. Consult for physical and occupational therapy. Recommend she continue on IV antibiotics. Will continue to trend fever curve, no evidence of leukocytosis t his morning.
--- NOTE | 2024-01-27 13:07 | PM.IMPN1 ---
Progress Note: A&P Assessment and plan (1) S/P exploratory laparotomy: Problem details: - screening colonoscopy 01/23 (h/o large polyp resection 2022), iatrogenic sigmoid perforation - immediately recognized and repaired during ex lap - postoperatively: acidosis, acute on chronic hypoxic respiratory failure, EKG changes (flipped T waves in lateral leads) with negative troponin, elevated LFTs - 01/24: LFTs improving, UOP wnl, pH normalized, stable on RA, able to ambulate without symptoms - 01/25: LFTs continue to improve. Tolerating increased activities. Still oxygen requiring. - on Ertapenem, following VS and WBC - RT following - slowly advancing diet with sips of clears 01/24, holding po medications Status: Acute (2) Chronic obstructive pulmonary disease: Problem details: - several hospitalizations - albuterol, advair - oxygenation supplementation, RT to see and evaluate. Has both oxygen at home (using on humid days) and CPAP (not using) - outpatient walking test: Oximetry 99% on room air at rest, oximetry 95% at room air after walking briskly. 09/20/2023 - continues to have low oxygen saturations here in the hospital requiring low-flow oxygen administration. - benefit in from Aerobika device use in hospital. Status: Chronic (3) SRAVAN and COPD overlap syndrome: Problem details: - non compliance with home oxygen and CPAP - smoking history - will have nebs, pulmonary exercises/hygiene, and monitoring in place Status: Acute (4) Smoker: Status: Acute (5) Hypertension: Problem details: - amlodipine 5mg QHS, holding at this time 2/2 postoperative hypotension Status: Chronic (6) Hypercholesterolemia: Problem details: Severe , sees specialist Repatha injections every 2 weeks, Zetia 10 mg, rosuvastatin 40 mg Continue outpatient medication Status: Acute (7) Osteoporosis: Problem details: Fosamax started January 2023 Status: Acute (8) Mixed anxiety depressive disorder: Problem details: sees Dr Lo for CBT duloxetine 80mg daily Status: Chronic (9) Edentulism: Status: Acute Plan 1. Reviewed impression with patient and with Dr. Adorno, general surgeon. 2. Answered patient's questions to her satisfaction. 3. Will continue to follow with General surgery Time Spent With Patient Total time spent: 35 minutes Subjective Date Seen: 01/27/24 Interval history: Linnette was admitted 01/24/2024 after sigmoid perforation during sigmoid colonoscopy. She is POD #3 s/p exploratory laparotomy and primary repair of perforation on 01/24/[address] Richter, General Surgery. Hospitalist team consulted given postoperative acidosis, acute on chronic hypoxic respiratory failure, elevated LFTs, decreased UOP. Treated with supplemental oxygen, nebs, IVFs, abx (Ertapenem), RT following. Continues to require oxygen supplementation. At home she has oxygen supplementation and is supposed to use it but she does not use it regularly. She is ambulating and passing some flatus. Shepherd discontinued, and tolerating. Having bowel movements. Tolerating clear liquids. Still not interested in eating or drinking. TMax 99.9, WBC normalized to 9.6 from 13.6 on 01/25, and from 15 on01/25/24. Exam Narrative: Exam Narrative: Examined patient in her hospital room. Does not appears tired and weary a she did yesterday. Appears more comfortable today and not pursed lip breathing at rest. Vision and hearing are adequate. Alert and oriented to self, place, time, situation. Friendly and articulate. Lungs with adequate air movement. Less scattered rhonchi. No wheezing. No rales. Hyperinflated lungs, not new. Heart tones with regular rhythm, normal S1-S2. Distant tones. Abdomen with active bowel sounds, soft. Extremities without edema. Const: Vital Signs, click to edit/add: Vital Signs - 24 hr 01/26/24 15:00 01/26/24 15:00 01/26/24 15:00 Temperature Pulse Rate Pulse Rate [Pulse Oximeter] 84 Respiratory Rate 16 16 Blood Pressure [Le ft Arm] Pulse Oximetry 93 93 Oxygen Delivery Me thod Nasal Cannula Oxygen Flow Rate 2 01/26/24 16:01 01/26/24 17:42 01/26/24 19:00 Temperature 97.8 F 99.9 F H Pulse Rate 111 H Pulse Rate [Pulse Oximeter] 84 95 Respiratory Rate 16 20 Blood Pressure [Le ft Arm] 119/69 122/60 Pulse Oximetry 91 91 Oxygen Delivery Me thod Nasal Cannula Nasal Cannula Oxygen Flow Rate 2 1 01/26/24 22:35 01/26/24 22:39 01/26/24 22:39 Temperature 99.7 F H Pulse Rate Pulse Rate [Pulse Oximeter] Respiratory Rate 17 Blood Pressure [Le ft Arm] Pulse Oximetry 89 89 Oxygen Delivery Me thod Nasal Cannula Oxygen Flow Rate 2 01/26/24 22:39 01/27/24 01:40 01/27/24 02:16 Temperature 99.5 F 98.0 F Pulse Rate 90 Pulse Rate [Pulse Oximeter] 96 80 Respiratory Rate 17 17 Blood Pressure [Le ft Arm] 115/64 126/64 Pulse Oximetry 89 91 Oxygen Delivery Me thod Nasal Cannula Nasal Cannula Oxygen Flow Rate 2 1.5 01/27/24 07:00 01/27/24 07:00 01/27/24 07:36 Temperature 97.8 F Pulse Rate Pulse Rate [Pulse Oximeter] 87 Respiratory Rate 28 H 22 Blood Pressure [Le ft Arm] 121/67 Pulse Oximetry 91 93 94 Oxygen Delivery Me thod Nasal Cannula Nasal Cannula Oxygen Flow Rate 2.5 2.5 Labs Labs: Laboratory Results - last 24 hr 01/27/24 08:09 WBC 9.20 RBC 3.71 L Hgb 11.0 L Hct 33.8 MCV 91 MCH 30 MCHC 33 RDW Coeff of Helio 15.7 H Plt Count 156 Neut % (Auto) 77.5 H Lymph % (Auto) 12.2 L [place] % (Auto) 4.9 Eos % (Auto) 5.0 Baso % (Auto) 0.2 Neut # (Auto) 7.10 H Lymph # (Auto) 1.10 [place] # (Auto) 0.50 Eos # (Auto) 0.46 Baso # (Auto) 0.02 Abs Immat Gran (auto) 0.02 Imm/Tot Granulo (auto) 0.2 VBG pH 7.448 H VBG pCO2 45 VBG pO2 < 30.1 VBG HCO3 31 H
[2024-01-27] MEDS: DULOXETINE 30 MG CAPSULE DR 60 MG PO (13:29)
[2024-01-27] MEDS: DULOXETINE HCL 20 MG CAPSULE DR PO (13:30)
--- NOTE | 2024-01-27 15:19 | PC.NURSE ---
shift note: prn neb given this a,m for insp/exp wheezing,increased RR of 28-32/min with minimal activity and moist cough. pt using aerobika indecently. bs hypoactive x4, no flatus or bm. Pt up with abd binder for comfort while ambulating in jacobo. pain managed with norco.
[2024-01-27] MEDS: ACETAMINOPHEN 325 MG TABLET 650 MG PO (15:53)
[2024-01-27] MEDS: HYDROmorphone 0.5 mg/0.5 ml inj IVP (15:54)
--- NOTE | 2024-01-27 19:36 | PC.NURSE ---
Nursing Care Hours: [id number] Pt this shift calm but agitated with pain, rating 9/10. Pt states it feels like a gas bubble but unable to pass it. Treated per eMAR and heating pad. Pt took a 1.5 hr nap and woke up stating pain decreased to 4/10 and best abhijit felt since being here. Reminded pt to request pain medication when pain increases and alternate with heat and ice. Pt up walking the jacobo, tolerating full liquid.
[2024-01-27] MEDS: MIRTAZAPINE 15 MG TABLET 30 MG PO (21:29)
[2024-01-28] VITALS (10 sets, daily range): BP systolic 123–144; BP diastolic 66–77; PULSE 89–99; RESP 16–24; TEMP 36.9–37.5; O2SAT 85–93
[2024-01-28] MEDS: ACETAMINOPHEN 325 MG TABLET 650 MG PO ×3 (03:34→17:03)
[2024-01-28 06:23] LABS: HCO3 VBG 27 mmol/L (21-28); Lactate* 0.7 mmol/L (0.5-1.9); PCO2 VBG 38 mmHG (40-50); PO2 VBG 43.5 mmHG (25-47); pH VBG 7.467 (7.32-7.43)
[2024-01-28] MEDS: IPRAT-ALBUT 0.5-2.5 MG/3 ML NEB 1 NEB IH ×3 (06:30→18:56)
[2024-01-28 06:31] LABS: Hematocrit 35.3 % (33.0-51.0); Hemoglobin* 11.6 gm/dL (12.0-16.0); Mean Corpuscular HGB Conc 33 gm/dL (32-36); Mean Corpuscular Hemoglobin 30 pg (26-34); Mean Corpuscular Volume 90 fL (80-100); Platelet Count* 181 K/uL (140-440); Red Blood Count 3.91 m/uL (4.00-5.20); White Blood Count* 6.19 K/uL (4.50-11.00)
[2024-01-28 06:42] LABS: Chloride* 103 mmol/L (96-114)
[2024-01-28 06:43] LABS: Slide Review Reflex No; Sodium* 138 mmol/L (135-149)
[2024-01-28 06:45] LABS: Alanine Aminotransferase* 95 U/L (4-35); Anion Gap 10 mEq/L (7-15); Aspartate Amino Transferase* 84 U/L (12-35); Blood Urea Nitrogen* 2 mg/dL (7-30); Carbon Dioxide* 25 mmol/L (20-32); Creatinine* 0.4 mg/dL (0.5-1.5); Est. Creatinine Clearance* 41.76; Estimated Glomerular Filt Rate 109 ml/min
[2024-01-28 06:46] LABS: Calcium* 8.4 mg/dL (8.4-10.6); Glucose* 78 mg/dL (60-115)
--- NOTE | 2024-01-28 06:50 | PC.NURSE ---
END OF SHIFT NOTE: PT PLEASANT AND COOPERATIVE. A&Ox4. DENIES CP, SOB, N/V. AMBULATES INDEPENDENTLY WITHIN ROOM. MIDLINE INCISION STAPLED AND LYUDMILA. PT REPORTS PASSING FLATUS. NO BM. VSS ON RA TO 0.5L NC; AFEBRILE. BED ALARM ON AND CALL LIGHT WITHIN PT?S REACH.?
[2024-01-28 07:01] LABS: Procalcitonin* 0.84 ng/mL (<0.50)
[2024-01-28 07:03] LABS: NT Pro B Type NatriureticPept* 777 pg/mL; Potassium* 2.8 mmol/L (3.6-5.1)
[2024-01-28] MEDS: BUDESONIDE 0.5 MG/2ML NEB NEB ×2 (09:32→20:39)
[2024-01-28] MEDS: DULOXETINE 30 MG CAPSULE DR 60 MG PO (09:32)
[2024-01-28] MEDS: SODIUM CHLORIDE 0.9 % (FLUSH) 10 ML SYRINGE 5 ML IVF ×2 (09:33→20:39)
[2024-01-28] MEDS: DULOXETINE HCL 20 MG CAPSULE DR PO (09:33)
[2024-01-28] MEDS: POTASSIUM CHLORIDE 10 MEQ/100 ML PIGGYBACK 100 MEQ IVPB ×3 (09:33→23:20)
[2024-01-28] MEDS: ENOXAPARIN 40 MG/0.4 ML INJ SUBCUT (09:35)
--- NOTE | 2024-01-28 10:08 | PM.IMPN1 ---
Progress Note: A&P Assessment and plan (1) S/P exploratory laparotomy: Problem details: - screening colonoscopy 01/23 (h/o large polyp resection 2022), iatrogenic sigmoid perforation - immediately recognized and repaired during ex lap - postoperatively: acidosis - slowly improving, acute on chronic hypoxic respiratory failure with 0.5L oxygen requirement - RT following, EKG changes (flipped T waves in lateral leads) with negative troponin, elevated LFTs - trending down, UOP wnl - on Ertapenem, following VS and WBC - slowly advancing diet - fulls - per General Surgery. BUN, [employer] low, reflecting poor oral intake. Replacing potassium. Check magnesium - encourage ambulation, PT following Status: Acute (2) Chronic obstructive pulmonary disease: Problem details: - several hospitalizations - albuterol, advair - oxygenation supplementation, RT to see and evaluate. Has both oxygen at home (using on humid days) and CPAP (not using) - outpatient walking test: Oximetry 99% on room air at rest, oximetry 95% at room air after walking briskly. 09/20/2023 - continues to have low oxygen saturations here in the hospital requiring low-flow oxygen administration. - benefit from Aerobika device use in hospital. Status: Chronic (3) SRAVAN and COPD overlap syndrome: Problem details: - non compliance with home oxygen and CPAP - smoking history - will have nebs, pulmonary exercises/hygiene, and monitoring in place Status: Acute (4) Smoker: Problem details: - noted, COPD, post op pulmonary hygiene encouraged Status: Acute (5) Hypertension: Problem details: - amlodipine 5mg QHS, holding at this time 2/2 postoperative hypotension Status: Chronic (6) Hypercholesterolemia: Problem details: Severe , sees specialist Repatha injections every 2 weeks, Zetia 10 mg, rosuvastatin 40 mg Outpatient medication on hold until improved oral intake Status: Acute (7) Osteoporosis: Problem details: Fosamax started January 2023 Status: Acute (8) Mixed anxiety depressive disorder: Problem details: sees Dr Lo for CBT Duloxetine 80mg daily, Remeron at bedtime Status: Chronic (9) Edentulism: Problem details: noted Status: Acute (10) Hypokalemia: Problem details: Potassium 2.8, postoperatively Will replace with IV pumps given ongoing decreased oral intake Recheck this afternoon and tomorrow morning Status: Acute Plan Continue to follow general surgery recommendations Time Spent With Patient Total time spent: Total time spent caring for the patient today was 45 minutes. This includes time spent for the visit reviewing the chart, time spent during the visit, time spent after the visit and documentation and planning in coordination of care. Subjective Date Seen: 01/28/24 Interval history: Patient is seen lying in bed in position this morning. Reports feeling slightly better. Pain at rest is 2/10. Increases to 5/10 with ambulation. Tolerating slow advancement in diet without nausea vomiting. Reports passing gas. Continue to encourage ambulation. Potassium has dropped to 2.8 postoperatively, will replace with IV bumps. Exam Narrative: Exam Narrative: PHYSICAL EXAM General: Conversant, flat, NAD HEENT: Normocephalic, atraumatic, sclera white, EOMI, oral mucosa moist Cardiovascular: RRR, S1S2. No pitting edema Pulmonary: CTA bilaterally without rhonchi, rales, expiratory wheezes. No dyspnea on 0.5 L Abdominal: Soft, nondistended, NTTP Neurological: Alert, answering questions appropriately, cranial nerves intact, no focal findings Extremities: No gross joint deformity or swelling. AROMI. Neurovascularly intact Skin: Warm, dry. Const: Vital Signs, click to edit/add: Vital Signs - 24 hr 01/27/24 11:00 01/27/24 15:00 01/27/24 15:00 Temperature 97.9 F Pulse Rate [Pulse Oximeter] 79 97 Respiratory Rate 20 20 Blood Pressure [Le ft Arm] 104/58 L Pulse Oximetry 94 92 Oxygen Delivery Me thod Nasal Cannula Oxygen Flow Rate 0.5 01/27/24 15:00 01/27/24 15:00 01/27/24 21:20 Temperature 98.6 F Pulse Rate [Pulse Oximeter] 97 82 Respiratory Rate 18 18 16 Blood Pressure [Le ft Arm] 132/65 126/65 Pulse Oximetry 92 92 89 Oxygen Delivery Me thod Room Air Nasal Cannula Nasal Cannula Oxygen Flow Rate 0.5 0.5 01/27/24 21:20 01/27/24 21:20 01/27/24 21:20 Temperature Pulse Rate [Pulse Oximeter] 97 Respiratory Rate 16 16 Blood Pressure [Le ft Arm] Pulse Oximetry 89 89 Oxygen Delivery Me thod Nasal Cannula Oxygen Flow Rate 0.5 01/27/24 23:30 01/28/24 03:22 Temperature 98.4 F 99.5 F Pulse Rate [Pulse Oximeter] 89 91 Respiratory Rate 16 16 Blood Pressure [Le ft Arm] 130/69 142/77 H Pulse Oximetry 91 93 Oxygen Delivery Me thod Nasal Cannula Nasal Cannula Oxygen Flow Rate 0.5 0.5 Labs Labs: Laboratory Results - last 24 hr 01/28/24 06:16 WBC 6.19 RBC 3.91 L Hgb 11.6 L Hct 35.3 MCV 90 MCH 30 MCHC 33 Plt Count 181 VBG pH 7.467 H VBG pCO2 38 L VBG pO2 43.5 VBG HCO3 27 Sodium 138 Potassium 2.8 L* Chloride 103 Carbon Dioxide 25 Anion Gap 10 BUN 2 L Creatinine 0.4 L Estimated Creat Clear 41.76 Estimated GFR 109 Glucose 78 Lactate 0.7 Calcium 8.4 AST 84 H ALT 95 H NT-Pro-B Natriuret Pep 777 Procalcitonin 0.84 H
[2024-01-28 11:36] LABS: Magnesium* 1.7 mg/dL (1.5-2.6)
--- NOTE | 2024-01-28 12:07 | PM.GSPN ---
Subjective Subjective Date Seen: 01/28/24 Interval history: Patient did well overnight. He she tolerated full liquid diet. She is passing gas. She did not have stools yet. Still complains of SOB with walking but that is improving. She has oxygen at home and uses it as needed. Exam Narrative: Exam Narrative: Abdomen is soft, not distended, not tender to palpation. Midline laparotomy incision is with intact matt with no surrounding erythema. Const: Vital Signs, click to edit/add: Vital Signs - 24 hr 01/27/24 15:00 01/27/24 15:00 01/27/24 15:00 Temperature Pulse Rate [Pulse Oximeter] 97 Respiratory Rate 20 18 Blood Pressure [Le ft Arm] Pulse Oximetry 92 92 Oxygen Delivery Me thod Room Air Oxygen Flow Rate 01/27/24 15:00 01/27/24 21:20 01/27/24 21:20 Temperature 98.6 F Pulse Rate [Pulse Oximeter] 97 82 Respiratory Rate 18 16 Blood Pressure [Le ft Arm] 132/65 126/65 Pulse Oximetry 92 89 89 Oxygen Delivery Me thod Nasal Cannula Nasal Cannula Oxygen Flow Rate 0.5 0.5 01/27/24 21:20 01/27/24 21:20 01/27/24 23:30 Temperature 98.4 F Pulse Rate [Pulse Oximeter] 97 89 Respiratory Rate 16 16 16 Blood Pressure [Le ft Arm] 130/69 Pulse Oximetry 89 91 Oxygen Delivery Me thod Nasal Cannula Nasal Cannula Oxygen Flow Rate 0.5 0.5 01/28/24 03:22 01/28/24 07:00 01/28/24 10:57 Temperature 99.5 F 99.0 F Pulse Rate [Pulse Oximeter] 91 97 Respiratory Rate 16 24 Blood Pressure [Le ft Arm] 142/77 H 123/76 Pulse Oximetry 93 90 90 Oxygen Delivery Me thod Nasal Cannula Nasal Cannula Oxygen Flow Rate 0.5 0.5 01/28/24 11:06 Temperature Pulse Rate [Pulse Oximeter] Respiratory Rate 24 Blood Pressure [Le ft Arm] Pulse Oximetry 90 Oxygen Delivery Me thod Nasal Cannula Oxygen Flow Rate 0.5 Progress Note:A&P Assessment and plan (1) S/P exploratory laparotomy: Status: Acute Assessment and Plan: 68-year-old female s/p exploratory laparotomy and repair of sigmoid perforation POD 4. Will advance patient to regular diet today. Patient has a friend with dementia that has appointment that Linnette was going to attend and patient is hoping to discharge tomorrow. If she continues to do well today, I think it is reasonable. Will switch her to PO pain meds only. I discussed with the patient that she can't drive if she is taking narcotics.
[2024-01-28] MEDS: ERTAPENEM 1 GM in 0.9 % SODIUM CHLORIDE Mini-bag 100 ML IVPB (12:21)
[2024-01-28] MEDS: MAGNESIUM IV 2 GM/50 ML PIGGYBACK IVPB (13:14)
[2024-01-28] MEDS: POTASSIUM BICARB 25 MEQ EFFERVESCENT TAB PO (17:03)
--- NOTE | 2024-01-28 20:01 | PC.NURSE ---
End of shift - Pt alert, oriented, cooperative. Up in room independently and observed to walk in halls with PT. Tolerating 0.5L O2 via nasal cannula. Pt transitioned from full liquid to regular diet during shift. Reported stomach feeling weird and described it as rolling with mild nausea. RN offered anti-nausea medication per MAR and pt refused. Pt accepted palomo riley from RN and reported nausea resolving. Pt reported pain in her abdomen as 5/10 that increased with movement and change of position. Medication given per MAR with pt reporting improved comfort. Incision open to air and CDI. Pt reported a headache later in shift, given medication per MAR with pt verbalizing improvement. Shared with RN that she tired later in the day, observed to sleep. Pt appears to be resting comfortably in bed at end of shift with call light within reach.
[2024-01-28] MEDS: MIRTAZAPINE 15 MG TABLET 30 MG PO (20:39)
[2024-01-28 21:25] LABS: Potassium* 2.7 mmol/L (3.6-5.1)
[2024-01-29] MEDS: HYDROCODONE-ACETAMIN 5-325 MG 1 TAB PO
[2024-01-29] MEDS: POTASSIUM CHLORIDE 10 MEQ/100 ML PIGGYBACK 100 MEQ IVPB ×5 (00:18→04:58)
[2024-01-29 03:00] VITALS: BP 129/69; PULSE 88; RESP 18; TEMP 37.4; O2SAT 92
--- NOTE | 2024-01-29 05:28 | PC.NURSE ---
End of shift [id number]: Assumed care of pt at 2300. She?s been A&O, afebrile and VSS. SpO2 maintained 88-92% on 0.5L NC overnight which is her baseline at home. She?s up ad kojo in her room. Received x6 bags of IV potassium overnight for a level of 2.7 yesterday evening. Midline abdominal incision is intact with matt and LYUDMILA. Pt reported 8/10 abd pain last night so she was given PRN Seltzer @ 0000 which provided adequate relief. PIV in right hand is SL and C/D/I and PIV in right AC infused K+ overnight and is also C/D/I. Pt slept well in between cares. ?
[2024-01-29] MEDS: IPRAT-ALBUT 0.5-2.5 MG/3 ML NEB 1 NEB IH ×2 (06:08)
[2024-01-29 06:40] LABS: Hematocrit 32.7 % (33.0-51.0); Hemoglobin* 10.8 gm/dL (12.0-16.0); Mean Corpuscular HGB Conc 33 gm/dL (32-36); Mean Corpuscular Hemoglobin 29 pg (26-34); Mean Corpuscular Volume 89 fL (80-100); Platelet Count* 204 K/uL (140-440); Red Blood Count 3.68 m/uL (4.00-5.20); White Blood Count* 5.86 K/uL (4.50-11.00)
[2024-01-29 06:51] LABS: Slide Review Reflex No
[2024-01-29 07:02] LABS: Chloride* 106 mmol/L (96-114); Sodium* 136 mmol/L (135-149)
[2024-01-29 07:03] LABS: Potassium* 3.7 mmol/L (3.6-5.1)
[2024-01-29 07:05] LABS: Anion Gap 7 mEq/L (7-15); Carbon Dioxide* 23 mmol/L (20-32); Creatinine* 0.4 mg/dL (0.5-1.5); Est. Creatinine Clearance* 41.76; Estimated Glomerular Filt Rate 109 ml/min
[2024-01-29 07:06] LABS: Blood Urea Nitrogen* 4 mg/dL (7-30); Calcium* 8.6 mg/dL (8.4-10.6); Glucose* 88 mg/dL (60-115)
[2024-01-29] MEDS: POTASSIUM CHLORIDE 10 MEQ CAPSULE ER 20 MEQ PO (09:10)
--- NOTE | 2024-01-29 09:33 | P.DS_ITS ---
DS: Providers Provider Date Seen: 01/29/24 Date of admission: 01/24/24 10:20 Primary care physician: Cheyenne Guardado MD Admitting Clinician: Enriqueta Richter MD Consults: 01/27/24 07:25 Consult to Respiratory Therapy [CONS] Routine Comment: Reason(s) for RT Consult:: Consult Comment: en 01/27/24 14:34 Consult to Occupational Therapy [CONS] Routine Comment: Reason(s) for OT Consult:: Evaluate and Treat Any Restrictions?:: No Restrictions Consult to Physical Therapy [CONS] Routine Comment: Reason(s) for PT Consult:: Weakness Any Restrictions?:: No Restrictions Attending Physician on discharge: Enriqueta Richter MD DS: Diagnosis Discharge Diagnosis (1) S/P exploratory laparotomy: Status: Acute DS: Summary Hospital Course Hospital Course: Patient presented for surveillance colonoscopy that was complicated by sigmoid perforation. Patient was taken to the operating room emergently for repair of sigmoid perforation. Patient did well postoperatively. She was tolerating regular diet and passing gas. Her pain was controlled with pain medications. She was on oxygen due to her history of COPD. Patient uses home oxygen p.r.n. and is discharged home on low-dose oxygen. Time Spent with Patient Time attestation: Total time spent providing and/or coordinating discharge services: Exam Narrative: Exam Narrative: Abdomen is soft, not distended, minimally sore to palpation in bilateral lower quadrants, midline laparotomy incision is with intact matt with no s urrounding erythema. Const: Vital Signs, click to edit/add: Vital Signs - 24 hr 01/28/24 10:57 01/28/24 11:06 01/28/24 14:46 Temperature 98.4 F Pulse Rate [Pulse Oximeter] 89 Respiratory Rate 24 24 Blood Pressure [Le ft Arm] 137/77 Pulse Oximetry 90 90 90 Oxygen Delivery Me thod Nasal Cannula Nasal Cannula Oxygen Flow Rate 0.5 0.5 01/28/24 17:18 01/28/24 17:20 01/28/24 17:22 Temperature 99.0 F Pulse Rate [Pulse Oximeter] 97 Respiratory Rate 20 Blood Pressure [Le ft Arm] Pulse Oximetry 85 L 85 L 85 L Oxygen Delivery Me thod Nasal Cannula Nasal Cannula Oxygen Flow Rate 0.5 0.5 01/28/24 19:00 01/28/24 23:00 01/28/24 23:00 Temperature 99.1 F Pulse Rate [Pulse Oximeter] 99 96 Respiratory Rate 22 18 Blood Pressure [Le ft Arm] 139/66 Pulse Oximetry 89 91 Oxygen Delivery Me thod Nasal Cannula Oxygen Flow Rate 0.5 01/28/24 23:00 01/28/24 23:00 01/29/24 03:00 Temperature 99 F 99.3 F Pulse Rate [Pulse Oximeter] 96 88 Respiratory Rate 20 20 18 Blood Pressure [Le ft Arm] 144/68 H 129/69 Pulse Oximetry 91 91 92 Oxygen Delivery Me thod Nasal Cannula Nasal Cannula Nasal Cannula Oxygen Flow Rate 0.5 0.5 0.5 DS: Data Data Completed and Pending Completed studies during hospitalization: Procedures Introduction of Other Therapeutic Substance into Respiratory Tract, Via Natural or Artificial Opening (08/07/23) Labs on day of discharge: Labs from last 24 hours 01/29/24 01/28/24 01/28/24 06:20 20:30 11:12 WBC 5.86 RBC 3.68 L Hgb 10.8 L Hct 32.7 L MCV 89 MCH 29 MCHC 33 Plt Count 204 Sodium 136 Potassium 3.7 2.7 L* Chloride 106 Carbon Dioxide 23 Anion Gap 7 BUN 4 L Creatinine 0.4 L Estimated Creat Clear 41.76 Estimated GFR 109 Glucose 88 Calcium 8.6 Magnesium Lab Acknowledgement Test Added 01/28/24 06:16 WBC RBC Hgb Hct MCV MCH MCHC Plt Count Sodium Potassium Chloride Carbon Dioxide Anion Gap BUN Creatinine Estimated Creat Clear Estimated GFR Glucose Calcium Magnesium 1.7 Lab Acknowledgement Discharge Plan Discharge Disposition: Home, Self-Care Date of Admission: 01/24/24 10:20 Attending Provider on Discharge: Enriqueta Richter Primary Care Provider: Cheyenne Guardado Condition: Improved Anticipated Discharge Date/Time: 01/29/24 09:06 Discharge Medications: New hydrocodone-acetaminophen 5-325 mg tablet 1 tab PO Q6H PRN (Reason: pain) Qty: 20 0RF ciprofloxacin HCl [Cipro] 500 mg tablet 500 mg PO BID Qty: 10 0RF metronidazole [Flagyl] 375 mg capsule 375 mg PO BID Qty: 10 0RF potassium chloride 10 mEq Capsule, Extended Release 20 meq PO BIDWM 4 Days Qty: 16 0RF Continued duloxetine 60 mg capsule,delayed release(DR/EC) 60 mg PO DAILY Patient Comments: total dose 80mg duloxetine 20 mg capsule,delayed release(DR/EC) 20 mg PO DAILY Patient Comments: total dose 80mg aspirin [Adult Low Dose Aspirin] 81 mg tablet,delayed release (DR/EC) 81 mg PO DAILY albuterol sulfate 90 mcg/actuation HFA aerosol inhaler 2 puff inhalation Q4H PRN (Reason: shortness of breath or wheezing) Qty: 8.5 12RF mirtazapine 30 mg tablet 30 mg PO HS ezetimibe 10 mg tablet 10 mg PO DAILY rosuvastatin 40 mg tablet 40 mg PO HS Repatha SureClick 140 mg/mL pen injector 140 mg SUBCUT Q14D amlodipine 5 mg tablet 5 mg PO DAILY albuterol sulfate 2.5 mg /3 mL (0.083 %) solution for nebulization 2.5 mg continuous nebulization Q4H PRN (Reason: bronchospasm) Qty: 90 2RF cholecalciferol (vitamin D3) 125 mcg (5,000 unit) capsule 125 mcg PO DAILY alendronate [Fosamax] 70 mg tablet 70 mg PO QWEEK Qty: 12 0RF ondansetron 4 mg tablet,disintegrating 4 mg PO Q8H PRN (Reason: nausea and vomiting) Qty: 2 0RF fluticasone propion-salmeterol 115-21 mcg/actuation HFA aerosol inhaler 2 puff inhalation BID Qty: 12 0RF Discontinued ibuprofen 800 mg tablet 800 mg PO TID PRN (Reason: pain) Qty: 45 1RF Discharge Orders: Discharge Order (Routine); Ordered 01/29/24 Ordered By: Enriqueta Richter Patient Education: Ciprofloxacin (By mouth), Hydrocodone/Acetaminophen (By mouth), Potassium Chloride (By mouth), Metronidazole (By mouth), Hypokalemia (GEN), Exploratory Laparotomy (GEN) Activity Level: No strenuous activity Activity Detail: No swimming or bath tubs for 2 weeks. Discharge Diet: Regular Follow Up Appointments: Enriqueta Richter MD [Staff Physician] - 02/04/24 1:00 pm ([facility] for staple removal with Nurse on 2023 @1:00pm. Second appointment is 2023 @9:30am with Dr. Vaughn Richter for follow-up.) Cheyenne Guardado MD [Primary Care Provider] - 01/31/24 12:45 pm (Post hospital follow up 2-3 days with recheck potassium) Forms: Translation[employer] Info Instructions
[2024-01-29 09:36] VITALS: O2SAT 89
[2024-01-29 09:39] VITALS: RESP 24; O2SAT 89
[2024-01-29 09:40] VITALS: PULSE 95; RESP 24; O2SAT 89
--- NOTE | 2024-01-29 10:49 | PC.NURSE ---
Discharge - Pt alert, oriented, cooperative and very pleasant. Up independently in room, continent of bowel and bladder during shift. Pt tolerating O2 via nasal cannula at 0.5 and regular diet/fluids. Surgical site open to air and CDI. Pt reported pain as minimal and used proper splinting techniques and abdominal binder to improve comfort while moving. IV removed with catheter intact x 2. Discharge education given with pt verbalizing understanding. Pt d/c'd to home via wheelchair with son at approximately 1020.
--- NOTE | 2024-01-29 13:42 | P.IMPN_ITS ---
Progress Note: A&P Assessment and plan (1) S/P exploratory laparotomy: Problem details: - screening colonoscopy 01/23 (h/o large polyp resection 2022), iatrogenic sigmoid perforation - immediately recognized and repaired during ex lap - postoperatively: acidosis - slowly improving, acute on chronic hypoxic respiratory failure with 0.5L oxygen requirement - RT following, EKG changes (flipped T waves in lateral leads) with negative troponin, elevated LFTs - trending down, UOP wnl - on Ertapenem, following VS and WBC - slowly advancing diet - fulls - per General Surgery. BUN, Strain Technician low, reflecting poor oral intake. Replacing potassium. Check magnesium - encourage ambulation, PT following Being discharged home on 01/28 Status: Acute (2) Chronic obstructive pulmonary disease: Problem details: - several hospitalizations - albuterol, advair - oxygenation supplementation, RT to see and evaluate. Has both oxygen at home (using on humid days) and CPAP (not using) - outpatient walking test: Oximetry 99% on room air at rest, oximetry 95% at room air after walking briskly. 09/20/2023 - continues to have low oxygen saturations here in the hospital requiring low- flow oxygen administration. - benefit from Aerobika device use in hospital. Outpatient follow-up with PCP. Continue to use Aerobika, supplemental oxygen as needed Status: Chronic (3) SRAVAN and COPD overlap syndrome: Problem details: - non compliance with home oxygen and CPAP - smoking history - will have nebs, pulmonary exercises/hygiene, and monitoring in place Outpatient follow-up with PCP Status: Acute (4) Smoker: Problem details: - noted, COPD, post op pulmonary hygiene encouraged Status: Acute (5) Hypertension: Problem details: - amlodipine 5mg QHS, holding at this time 2/2 postoperative hypotension. Resume home medication on discharge. Status: Chronic (6) Hypercholesterolemia: Problem details: Severe , sees specialist Repatha injections every 2 weeks, Zetia 10 mg, rosuvastatin 40 mg Outpatient medication on hold until improved oral intake. Resume home medication on discharge. Status: Acute (7) Osteoporosis: Problem details: Fosamax started January 2023 Status: Acute (8) Mixed anxiety depressive disorder: Problem details: sees Dr Lo for CBT Duloxetine 80mg daily, Remeron at bedtime Status: Chronic (9) Edentulism: Problem details: noted Status: Acute (10) Hypokalemia: Problem details: Potassium 2.8, postoperatively Will replace with IV pumps given ongoing decreased oral intake Improved to 3.7 on day of discharge. Continue oral supplement twice daily with recheck with PCP this week. Status: Acute Plan Discharged to home per General surgery on 01/28 Time Spent With Patient Total time spent: Total time spent caring for the patient today was 45 minutes. This includes time spent for the visit reviewing the chart, time spent during the visit, time spent after the visit and documentation and planning in coordination of care. Subjective Date Seen: 01/29/24 Interval history: Patient is feeling much better today. Being discharged to home. Has been seen by general surgery already this morning. Will discharge with oral Cipro and Flagyl. Will need outpatient follow-up with PCP this week for recheck of her potassium which has improved to 3.7 following IV supplementation overnight. Exam Narrative: Exam Narrative: PHYSICAL EXAM General: Pleasant, conversant, NAD Cardiovascular: RRR Pulmonary: No dyspnea Neurological: Alert, answering questions appropriately Skin: Warm, dry. Const: Vital Signs, click to edit/add: Vital Signs - 24 hr 01/28/24 14:46 01/28/24 17:18 01/28/24 17:20 Temperature 98.4 F Pulse Rate [Pulse Oximeter] 89 Respiratory Rate 24 Blood Pressure [Le ft Arm] 137/77 Pulse Oximetry 90 85 L 85 L Oxygen Delivery Me thod Nasal Cannula Nasal Cannula Oxygen Flow Rate 0.5 0.5 01/28/24 17:22 01/28/24 19:00 01/28/24 23:00 Temperature 99.0 F 99.1 F Pulse Rate [Pulse Oximeter] 97 99 Respiratory Rate 20 22 Blood Pressure [Le ft Arm] 139/66 Pulse Oximetry 85 L 89 91 Oxygen Delivery Me thod Nasal Cannula Nasal Cannula Oxygen Flow Rate 0.5 0.5 01/28/24 23:00 01/28/24 23:00 01/28/24 23:00 Temperature 99 F Pulse Rate [Pulse Oximeter] 96 96 Respiratory Rate 18 20 20 Blood Pressure [Le ft Arm] 144/68 H Pulse Oximetry 91 91 Oxygen Delivery Me thod Nasal Cannula Nasal Cannula Oxygen Flow Rate 0.5 0.5 01/29/24 03:00 01/29/24 09:36 01/29/24 09:39 Temperature 99.3 F Pulse Rate [Pulse Oximeter] 88 Respiratory Rate 18 24 Blood Pressure [Le ft Arm] 129/69 Pulse Oximetry 92 89 89 Oxygen Delivery Me thod Nasal Cannula Nasal Cannula Oxygen Flow Rate 0.5 01/29/24 09:40 Temperature Pulse Rate [Pulse Oximeter] 95 Respiratory Rate 24 Blood Pressure [Le ft Arm] Pulse Oximetry 89 Oxygen Delivery Me thod Nasal Cannula Oxygen Flow Rate 0.5 Labs Labs: Laboratory Results - last 24 hr 01/28/24 01/29/24 20:30 06:20 WBC 5.86 RBC 3.68 L Hgb 10.8 L Hct 32.7 L MCV 89 MCH 29 MCHC 33 Plt Count 204 Sodium 136 Potassium 2.7 L* 3.7 Chloride 106 Carbon Dioxide 23 Anion Gap 7 BUN 4 L Creatinine 0.4 L Estimated Creat Clear 41.76 Estimated GFR 109 Glucose 88 Calcium 8.6
== END 2024-01-29 10:20 | disposition home or self-care (01) | DRG 907 ==
PROVIDERS: Family Medicine; Internal Medicine; Physician Assistant; Admitting Provider Surgery; PCP Family Medicine; Visit Provider Surgery
PROC: 0DQN0ZZ Repair Sigmoid Colon, Open Approach (ICD-10-PCS; CPT 49000; principal; 2024-01-24 09:45)
DX: K91.71 Accidental puncture and laceration of a digestive system organ or structure during a digestive system procedure (principal); J95.822 Acute and chronic postprocedural respiratory failure; K65.8 Other peritonitis; R18.8 Other ascites; E87.21 Acute metabolic acidosis; K57.30 Diverticulosis of large intestine without perforation or abscess without bleeding; G89.18 Other acute postprocedural pain; Z99.81 Dependence on supplemental oxygen; G47.33 Obstructive sleep apnea (adult) (pediatric); E87.6 Hypokalemia; I10 Essential (primary) hypertension; J44.9 Chronic obstructive pulmonary disease, unspecified; F17.200 Nicotine dependence, unspecified, uncomplicated; F41.8 Other specified anxiety disorders; Z91.198 Patient's noncompliance with other medical treatment and regimen for other reason; R73.03 Prediabetes; R74.01 Elevation of levels of liver transaminase levels; K08.109 Complete loss of teeth, unspecified cause, unspecified class; M81.0 Age-related osteoporosis without current pathological fracture; E78.00 Pure hypercholesterolemia, unspecified; G47.00 Insomnia, unspecified
CPT/HCPCS: 00811; 00840; 36415; 45381; 64488; 71045; 76942; 80048; 80053; 80076; 82803; 82977; 83605; 83735; 83880; 84132; 84145; 84450; 84460; 84484; 85025; 85027; 85610; 86140; 93005; 94640; 94664; 94761; 97116; 97161; 97165; 97530; 97535; 99140; A9270; C9290; J0330; J0665; J1170; J1335; J1650; J2371; J2405; J2704; J3010; J3475; J3480; J7120; J7626

== ENCOUNTER 2024-01-31 13:38 | Outpatient (CLI) | payer MEDICARE, OTHER, SELFPAY ==
--- OUTSIDE RECORDS SUMMARY | 2024-01-31 13:48 | XMS_ITS | Clinical Summary ---
Author Organization [place] Address [address] [place] [address] Care Team Providers Care Writing Center Director Name Role Phone Clinic, [facility] Nice Primary Care Provider Allergies Active Allergy Reactions Criticality Noted Date Comments Amoxicillin Hives 01/29/2024 Medications No known medications Active Problems Problem Noted Date Diagnosed Date Acute respiratory failure with hypoxia Respiratory failure 01/29/2024 Encounters Date Type Department Care Team Description 01/29/2024 6:12 PM CDT - 01/30/2024 1:16 PM CDT Hospital Encounter [facility] Emergency Dept [address] [place] [id number] Dakota Dwyer MD Foehrenbacher, MD Jena Ford, Nolberto Miramontes MD Acute respiratory failure with hypoxia (H); COPD with acute exacerbation (H); Pneumonia of both lower lobes due to infectious organism Discharge Disposition: Home or Self Care 01/29/2024 Travel from Last 3 Months Social History Tobacco Use Types Packs/Day Years Used Date Smoking Tobacco: Never Assessed Adolescent Education Answer Date Record ed Getting School Help Needed Not on file 01/28 Sex and Gender Information Value Date Recorded Sex Assigned at Not on file Gender Identity Not on file Sexual Orientation Not on file Last Filed Vital Signs Vital Sign Reading Time Taken Comments Blood Pressure 112/67 01/30/2024 11:30 AM CDT Pulse 116 01/30/2024 12:19 PM CDT Temperature 36.9 ??C (98.4 ??F) 01/30/2024 6:45 AM CD T Respiratory Rate 16 01/30/2024 12:19 PM CDT Oxygen Saturation 95% 01/30/2024 12:19 PM CDT Inhaled Oxygen Concentration - - Weight 120.6 kg (265 lb 14 oz) 01/29/2024 6:16 P M CDT Height 154.9 cm (5' 1) 01/29/2024 6:16 PM CDT Body Mass Index 50.24 01/29/2024 6:16 PM CDT Plan of Treatment Health Maintenance Due Date Last Done Comments ADVANCE CARE PLANNING 1957 ANNUAL REVIEW OF HM ORDERS 1957 COPD ACTION PLAN [address] CT COLONOGRAPHY 1957 DEXA 1957 FIT 1957 FLEX SIG 1957 MAMMO SCREENING 1957 SPIROMETRY 1957 sDNA (Cologuard) 1957 COLONOSCOPY 09/15/1967 COLORECTAL CANCER SCREENING 09/15/1967 HEPATITIS C SCREENING 09/15/1975 LIPID 1997 RSV VACCINE ( & 60+) (1 - 1-dose 60+ series) 2017 ZOSTER IMMUNIZATION (2 of 2) 01/20/2022 11/25/2021 FALL RISK ASSESSMENT 2022 MEDICARE ANNUAL WELLNESS VISIT 2022 PHQ-2 (once per calendar year) 2023 COVID-19 Vaccine (2022- season) 2023 08/16/2023, 04/03/2022, 11/02/2021, Additional history exists INFLUENZA VACCINE (#1) 2024 , 05/18/2020, 04/04/2019, Additional history exists GLUCOSE 01/28/2027 01/29/2024 DTAP/TDAP/TD IMMUNIZATION (2 - Td or Tdap) 06/07/2027 06/07/2017, 01/31/2017, 02/22/2004 Pneumococcal Vaccine: 65+ Years Completed 01/11/2023, 06/07/2017 HPV IMMUNIZATION Aged Out No longer e ligible based on patient's age to complete this topic IPV IMMUNIZATION Aged Out No longer e ligible based on patient's age to complete this topic MENINGITIS IMMUNIZATION Aged Out No l onger eligible based on patient's age to complete this topic RSV MONOCLONAL ANTIBODY Aged Out No l onger eligible based on patient's age to complete this topic Procedures Procedure Name Priority Date/Time Associated Diagnosis Comments MAGNESIUM STAT 01/30/2024 7:37 AM CDT POTASSIUM STAT 01/30/2024 7:37 AM CDT ROUTINE UA WITH MICROSCOPIC REFLEX TO CULTURE STAT 01/29/2024 8:[address] CHEST PULMONARY EMBOLISM W CONTRAST STAT 01/29/2024 7:11 PM CDT BLOOD CULTURE STAT 01/29/2024 6:40 PM CDT ISTAT CREATININE POCT STAT 01/29/2024 6:36 PM CDT ISTAT GASES LACTATE VENOUS POCT STAT 01/29/2024 6:24 PM CDT CBC WITH PLATELETS & DIFFERENTIAL STAT 01/29/2024 6:21 PM CDT MAGNESIUM STAT 01/29/2024 6:21 PM CDT CREATININE Add-On 01/29/2024 6:21 PM CDT NT PROBNP INPATIENT STAT 01/29/2024 6 :21 PM CDT TROPONIN T, HIGH SENSITIVITY STAT 01/29/2024 6:21 PM CDT EXTRA RED TOP TUBE STAT 01/29/2024 6: 21 PM CDT EXTRA BLUE TOP TUBE STAT 01/29/2024 6 :21 PM CDT CBC WITH PLATELETS AND DIFFERENTIAL STAT 01/29/2024 6:21 PM CDT EXTRA TUBE STAT 01/29/2024 6:21 PM CDT BASIC METABOLIC PANEL STAT 01/29/2024 6:21 PM CDT EKG 12-LEAD, TRACING ONLY STAT 01/29/2024 6:15 PM CDT from Last 3 Months Results * Potassium (01/30/2024 7:37 AM CDT) Potassium 3.7 3.4 - 5.3 mmol/L 01/30/2024 8:29 AM CDT LABORATORY Blood STRUCTURE OF RIGHT UPPER LIMB / Unknown Venipuncture / Unknown 01/30/2024 7:37 AM CDT 01/30/2024 8:17 AM CDT Crescencio Santos MD LAB - BLO OD ORDERABLES Performing Organization Address City/[facility]/ZIP Co de Phone Number [facility] [address] Lab (1st floor, no room number) [place] [address] * Magnesium (01/30/2024 7:37 AM CDT) Only the most recent of2 resultswithin the time period is included. Magnesium 1.7 1.7 - 2.3 mg/dL 01/30/2024 8:29 AM CDT LABORATORY Blood STRUCTURE OF RIGHT UPPER LIMB / Unknown Venipuncture / Unknown 01/30/2024 7:37 AM CDT 01/30/2024 8:17 AM CDT Crescencio Santos MD LAB - BLO OD ORDERABLES Performing Organization Address City/[facility]/ZIP Co de Phone Number [facility] [address] Lab (1st floor, no room number) [place] [address], [facility] * (ABNORMAL) UA with Microscopic reflex to Culture (01/29/2024 8:08 PM CDT) Color Urine Light Yellow Colorless, Straw, Light Yellow, Yellow 01/29/2024 8:36 PM CDT LABORATORY Appearance Urine Clear Clear 01/29/20 24 8:36 PM CDT LABORATORY Glucose Urine Negative Negative mg/dL 01/29/2024 8:36 PM CDT [facility] Bilirubin Urine Negative Negative 8:36 PM CDT [facility] Ketones Urine >150(A) Negative mg/dL 01/29/2024 8:36 PM CDT [facility] Specific [place] Urine 1.034 1.003 - 1.035 01/29/2024 8:36 PM CDT [facility] Blood Urine Trace(A) Negative 01/29/2024 8:36 PM CDT LABORATORY pH Urine 5.5 5.0 - 7.0 01/29/2024 8:36 PM CDT [facility] Protein Albumin Urine Negative Negative mg/dL 01/29/2024 8:36 PM CDT [facility] Urobilinogen Urine Normal Normal, 2.0 mg/dL 01/29/2024 8:36 PM CDT [facility] Nitrite Urine Negative Negative 01/29/2024 8:36 PM CDT [facility] Leukocyte Esterase Urine Negative Negative 01/29/2024 8:36 PM CDT [facility] RBC Urine 1 <=2 /HPF 01/29/2024 8:36 PM CDT [facility] WBC Urine 1 <=5 /HPF 01/29/2024 8:36 PM CDT [facility] Squamous Epithelials Urine 1 <=1 /HPF 01/29/2024 8:36 PM CDT [facility] Hyaline Casts Urine 1 <=2 /LPF 01/29/2024 8:36 PM CDT LABORATORY Urine URINE SPECIMEN OBTAINED BY CLEAN CATCH PROCEDURE / Unknown Non-blood Collection / Unknown 01/29/2024 8:08 PM CDT 01/29/2024 8:17 PM CDT Narrative [facility] - 01/29/2024 8:36 PM CDT Urine Culture not indicated Dakota Dwyer MD LAB - URINE ORD ERABLES LABORATORY [facility] Lab [address] Lab (1st floor, no room number) [place] [address], [facility] * CT Chest Pulmonary Embolism w Contrast (01/29/2024 7:11 PM CDT) Anatomical Region Laterality Modality Chest, SUBRAD CT BODY, UMP CT CHEST Computed Tomography 01/29/2024 7:11 PM CDT Impressions 01/29/2024 7:31 PM CDT IMPRESSION: 1. ??No pulmonary artery embolism. 2. ??Extensive bilateral lower lobar endobronchial debris with occlusion of left lower lobe central bronchi and partial left lower lobar atelectasis. This may reflect aspiration or severe bronchiolitis. 3. ??Trace bilateral pleural effusions. 4. ??Moderate emphysema. 5. ??Mild upper abdominal pneumoperitoneum. The patient has a reported history of recent abdominal surgery which correlates with this finding. This was discussed with Dr. Dakota Dwyer on 01/29/2024 7:30 PM. Narrative 01/29/2024 7:31 PM CDT EXAM: CT CHEST PULMONARY EMBOLISM W CONTRAST LOCATION: [facility] DATE: 01/29/2024 INDICATION: hypoxia; Female sex; Not ; No prior imaging in the last 24 hours; Pulmonary Embolism Rule Out Criteria (PERC) score > 0; Revised [place] Score (RGS) not >= 11; No D dimer result available; D dimer not ordered COMPARISON: CT chest exams 12/01/2021 and 08/14/2018 TECHNIQUE: CT chest pulmonary angiogram during arterial phase injection of IV contrast. Multiplanar reformats and MIP reconstructions were performed. Dose reduction techniques were used. CONTRAST: 60 mL Isovue 370 FINDINGS: ANGIOGRAM CHEST: Pulmonary arteries are normal caliber and negative for pulmonary emboli. Thoracic aorta is negative for dissection. No CT evidence of right heart strain. LUNGS AND PLEURA: Mild tracheal secretions. Extensive bilateral lower lobar endobronchial debris. Occlusion of the left lower lobar central bronchi with associated partial left lower lobar atelectasis. Moderate emphysema. Mild patchy opacities in the medial lingula. Trace bilateral pleural effusions. MEDIASTINUM/AXILLAE: Normal heart size and no pericardial effusion. No thoracic adenopathy. CORONARY ARTERY CALCIFICATION: Mild. UPPER ABDOMEN: Cholecystectomy with stable biliary ectasia. Mild upper abdominal pneumoperitoneum. Small hiatal hernia. MUSCULOSKELETAL: Normal. Procedure Note Zeb Lemos MD - 01/29/2024 EXAM: CT CHEST PULMONARY EMBOLISM W CONTRAST LOCATION: [facility] DATE: 01/29/2024 INDICATION: hypoxia; Female sex; Not ; No prior imaging in thelast 24 hours; Pulmonary Embolism Rule Out Criteria (PERC) score > 0;Revised [place] Score (RGS) not >= 11; No D dimer result available; D dimernot ordered COMPARISON: CT chest exams 12/01/2021 and 08/14/2018 TECHNIQUE: CT chest pulmonary angiogram during arterial phase injection ofIV contrast. Multiplanar reformats and MIP reconstructions were performed.Dose reduction techniques were used. CONTRAST: 60 mL Isovue 370 FINDINGS: ANGIOGRAM CHEST: Pulmonary arteries are normal caliber and negative forpulmonary emboli. Thoracic aorta is negative for dissection. No CTevidence of right heart strain. LUNGS AND PLEURA: Mild tracheal secretions. Extensive bilateral lowerlobar endobronchial debris. Occlusion of the left lower lobar centralbronchi with associated partial left lower lobar atelectasis. Moderateemphysema. Mild patchy opacities in the medial lingula. Trace bilateral pleural effusions. MEDIASTINUM/AXILLAE: Normal heart size and no pericardial effusion. Nothoracic adenopathy. CORONARY ARTERY CALCIFICATION: Mild. UPPER ABDOMEN: Cholecystectomy with stable biliary ectasia. Mild upperabdominal pneumoperitoneum. Small hiatal hernia. MUSCULOSKELETAL: Normal. IMPRESSION: 1. No pulmonary artery embolism. 2. Extensive bilateral lower lobar endobronchial debris with occlusion ofleft lower lobe central bronchi and partial left lower lobar atelectasis.This may reflect aspiration or severe bronchiolitis. 3. Trace bilateral pleural effusions. 4. Moderate emphysema. 5. Mild upper abdominal pneumoperitoneum. The patient has a reportedhistory of recent abdominal surgery which correlates with this finding.This was discussed with Dr. Dakota Dwyer on 01/29/2024 7:30 PM. Dakota Dwyer MD IMG CT ORDERABL ES * (ABNORMAL) Creatinine POCT (01/29/2024 6:36 PM CDT) Creatinine POCT 0.4(L) 0.5 - 1.0 mg/dL 01/29/2024 6:40 PM CDT [facility] LAB[facility] POC GFR, ESTIMATED POCT >60 >60 mL/min/1.7 3m2 01/29/2024 6:40 PM CDT [facility] POC Blood, venous BLOOD SPECIMEN / Unknown 01/29/2024 6:36 PM CDT 01/29/2024 6:40 PM CDT Dakota Dwyer MD LAB - [facility] PO CT [facility] POC [facility] Lab [address] Lab (1st floor, no room number) [place] [address] * (ABNORMAL) iStat Gases (lactate) venous, POCT (01/29/2024 6:24 PM CDT) Lactic Acid POCT 1.3 <=2.0 mmol/L 01/29/2024 6:29 PM CDT [facility] POC Bicarbonate Venous POCT 24 21 - 28 mmol/L 01/29/2024 6:29 PM CDT [facility] POC O2 Sat, Venous POCT 81(H) 70 - 75 % 01/29/2024 6:29 PM CDT [facility] POC pCO2 Venous POCT 42 40 - 50 mm Hg 01/29/2024 6:29 PM CDT [facility] POC pH Venous POCT 7.37 7.32 - 7.43 01/29/2024 6:29 PM CDT [facility] POC pO2 Venous POCT 46 25 - 47 mm Hg 01/29/2024 6:29 PM CDT [facility] POC Blood, venous BLOOD SPECIMEN / Unknown 01/29/2024 6:24 PM CDT 01/29/2024 6:29 PM CDT Provider Unknown LAB - [facility] POCT [facility]AT[facility] POC [facility] Lab [address] Lab (1st floor, no room number) [place] [address] * Extra Red Top Tube (01/29/2024 6:21 PM CDT) Hold Specimen JIC 01/29/2024 7:31 PM CDT [facility] Blood STRUCTURE OF LEFT UPPER LIMB / Unknown Venipuncture / Unknown 01/29/2024 6:21 PM CDT 01/29/2024 6:24 PM CDT Dakota Dwyer MD LAB - BLOOD ORD ERABLES [facility] [address] Lab (1st floor, no room number) [place] [address] * Extra Blue Top Tube (01/29/2024 6:21 PM CDT) Hold Specimen JIC 01/29/2024 7:31 PM CDT [facility] Blood STRUCTURE OF LEFT UPPER LIMB / Unknown Venipuncture / Unknown 01/29/2024 6:21 PM CDT 01/29/2024 6:24 PM CDT Dakota Dwyer MD LAB - BLOOD ORD ERABLES Performing Organization Address City/[facility]/ZIP Co de Phone Number [facility] [address] Lab (1st floor, no room number) [place] [address] * (ABNORMAL) CBC with platelets and differential (01/29/2024 6:21 PM CDT) WBC Count 15.6(H) 4.0 - 11.0 10e3/uL 01/29/2024 6:27 PM CDT [facility] RBC Count 4.07 3.80 - 5.20 10e6/uL 01/29/2024 6:27 PM CDT [facility] Hemoglobin 12.1 11.7 - 15.7 g/dL 01/29/2024 6:27 PM CDT [facility] Hematocrit 36.8 35.0 - 47.0 % 01/29/2024 6:27 PM CDT [facility] MCV 90 78 - 100 fL 01/29/2024 6:27 PM CDT [facility] MCH 29.7 26.5 - 33.0 pg 01/29/2024 6:27 PM CDT [facility] MCHC 32.9 31.5 - 36.5 g/dL 01/29/2024 6:27 PM CDT [facility] RDW 16.2(H) 10.0 - 15.0 % 01/29/2024 6:27 PM CDT [facility] Platelet Count 244 150 - 450 10e3/uL 01/29/2024 6:27 PM CDT [facility] % Neutrophils 76 % 01/29/2024 6:27 PM CDT [facility] % Lymphocytes 11 % 01/29/2024 6:27 PM CDT [facility] % Monocytes 10 % 01/29/2024 6:27 PM CDT [facility] % Eosinophils 2 % 01/29/2024 6:27 PM CDT [facility] % Basophils 0 % 01/29/2024 6:27 PM CDT [facility] % Immature Granulocytes 1 % 01/29/2024 6:27 PM CDT [facility] NRBCs per 100 WBC 0 <1 /100 024 6:27 PM CDT [facility] Absolute Neutrophils 11.9(H) 1.6 - 8.3 10e3/uL 01/29/2024 6:27 PM CDT [facility] Absolute Lymphocytes 1.7 0.8 - 5.3 10e3/uL 01/29/2024 6:27 PM CDT [facility] Absolute Monocytes 1.5(H) 0.0 - 1.3 10e3/uL 01/29/2024 6:27 PM CDT [facility] Absolute Eosinophils 0.3 0.0 - 0.7 10e3/uL 01/29/2024 6:27 PM CDT [facility] Absolute Basophils 0.0 0.0 - 0.2 10e3/uL 01/29/2024 6:27 PM CDT [facility] Absolute Immature Granulocytes 0.1 <=0.4 10e3/uL 01/29/2024 6:27 PM CDT [facility] Absolute NRBCs 0.0 10e3/uL 01/29/2024 6:27 PM CDT [facility] Blood STRUCTURE OF LEFT UPPER LIMB / Unknown Venipuncture / Unknown 01/29/2024 6:21 PM CDT 01/29/2024 6:24 PM CDT Dakota Dwyer MD LAB - BLOOD ORD ERABLES [facility] LAB[facility]ATORY [facility] Lab [address] [facility] Lab (1st floor, no room number) [place] [address] * Troponin T, High Sensitivity (01/29/2024 6:21 PM CDT) Pathologist [facility] Troponin T, High Sensitivity 11 <=14 ng/L 01/29/2024 7:22 PM CDT [facility] Comment: Either a High Sensitivity Troponin T baseline (0 hours) value = 100 ng/L, or an increase in High Sensitivity Troponin T = 7 ng/L at 2 hours compared to 0 hours (2-0 hours), suggests myocardial injury, and urgent clinical attention is required. ?? If the 2-0 hours increase is <7 ng/L, a High Sensitivity Troponin T result above gender-specific reference ranges warrants further evaluation. Recommendations for further evaluation include correlation with clinical decision-making tool (e.g., HEART), a 3rd High Sensitivity Troponin T test 2 hours after the 2nd (a 20% change from baseline would represent concern), admission for observation, close PCC/cardiology follow-up, or urgent outpatient provocative testing. Blood STRUCTURE OF LEFT UPPER LIMB / Unknown Venipuncture / Unknown 01/29/2024 6:21 PM CDT 01/29/2024 6:24 PM CDT Dakota Dwyer MD LAB - BLOOD ORD ERABLES [facility] [address] Lab (1st floor, no room number) [place] [address] * Nt probnp inpatient (BNP) (01/29/2024 6:21 PM CDT) Pathologist [facility] N terminal Pro BNP Inpatient 349 0 - 900 pg/mL 01/29/2024 7:22 PM CDT [facility] Comment: Reference range shown and results flagged as abnormal are suggested inpatient cut points for confirming diagnosis if CHF in an acute setting. Establishing a baseline value for each individual patient is useful for follow-up. An inpatient or emergency department NT-proPBNP <300 pg/mL effectively rules out acute CHF, with 99% negative predictive value. The outpatient non-acute reference range for ruling out CHF is: 0-125 pg/mL (age 18 to less than 75) 0-450 pg/mL (age 75 yrs and older) Blood STRUCTURE OF LEFT UPPER LIMB / Unknown Venipuncture / Unknown 01/29/2024 6:21 PM CDT 01/29/2024 6:24 PM CDT Dakota Dwyer MD LAB - BLOOD ORD ERABLES Performing Organization Address [facility] de Phone Number [facility] [address] Lab (1st floor, no room number) [place] [address] * (ABNORMAL) Creatinine (01/29/2024 6:21 PM CDT) Creatinine 0.42(L) 0.51 - 0.95 mg/dL 01/29/2024 10:55 PM CDT LABORATORY GFR Estimate >90 >60 mL/min/1.7 3m2 01/29/2024 10:55 PM CDT LABORATORY Comment: eGFR calculated using 2020 CKD-EPI equation. eGFR calculated using 2020 CKD-EPI equation. Blood STRUCTURE OF LEFT UPPER LIMB / Unknown Venipuncture / Unknown 01/29/2024 6:21 PM CDT 01/29/2024 6:24 PM CDT Crescencio Santos MD LAB - BLO OD ORDERABLES Performing Organization Address [facility] de Phone Number [facility] [address] Lab (1st floor, no room number) [place] [address] * (ABNORMAL) Basic metabolic panel (01/29/2024 6:21 PM CDT) Sodium 141 135 - 145 mmol/L 01/29/2024 6:42 PM CDT LABORATORY Potassium 3.8 3.4 - 5.3 mmol/L 01/29/2024 6:42 PM CDT LABORATORY Chloride 102 98 - 107 mmol/L 01/29/2024 6:42 PM CDT LABORATORY Carbon Dioxide (CO2) 19(L) 22 - 29 mmol/L 01/29/2024 6:42 PM CDT [facility] Anion Gap 20(H) 7 - 15 mmol/L 01/29/2024 6:42 PM CDT [facility] Urea Nitrogen 5.7(L) 8.0 - 23.0 mg/dL 01/29/2024 6:42 PM CDT [facility] Creatinine 0.40(L) 0.51 - 0.95 mg/dL 01/29/2024 6:42 PM CDT [facility] GFR Estimate >90 >60 mL/min/1.7 3m2 01/29/2024 6:42 PM CDT [facility] Comment:eGFR calculated usin 2020 CKD-EPI equation. Calcium 8.8 8.8 - 10.4 mg/dL 01/29/2024 6:42 PM CDT [facility] Comment:Reference intervals for this test were updated on 01/15/2024 to reflect our healthy population more accurately. There may be differences in the flagging of prior results with similar values performed with this method. Those prior results can be interpreted in the context of the updated reference intervals. Glucose 137(H) 70 - 99 mg/dL 01/29/2024 6:42 PM CDT LABORATORY Blood STRUCTURE OF LEFT UPPER LIMB / Unknown Venipuncture / Unknown 01/29/2024 6:21 PM CDT 01/29/2024 6:24 PM CDT Dakota Dwyer MD LAB - BLOOD ORD ERABLES LABORATORY [facility] Lab [address] [facility] Lab (1st floor, no room number) [place] [address] * EKG 12-lead, tracing only (01/29/2024 6:15 PM CDT) Systolic Blood Pressure mmHg RADIOLOGY RESULTS Diastolic Blood Pressure mmHg RADIOLOGY RESULTS Ventricular Rate 117 BPM RAD IOLOGY RESULTS Atrial Rate 117 BPM RADIOLOG Y RESULTS IL Interval 156 ms RADIOLOG Y RESULTS QRS Duration 78 ms RADIOLO GY RESULTS QT 316 ms RADIOLOGY RESULTS QTc 440 ms RADIOLOGY RESULTS P [place] 75 degrees RADIOLOGY RESULTS R AXIS 31 degrees RADIOLOGY RESULTS T [place] 66 degrees RADIOLOGY RESULTS Interpretation ECG Sinus tachycardia Low voltage QRS Septal infarct , age undetermined Abnormal ECG No previous ECGs available Confirmed by - EMERGENCY ROOM, PHYSICIAN ([id number]), manuscript editor BRIANA MONTESINOS ([id number]) on 01/30/2024 6:49:48 AM RADIOLOGY RESULTS 01/29/2024 6:15 PM CDT 01/30/2024 6:49 AM CDT Jorge Iniguez MD ECG ORDERABLES RADIOLOGY RESULTS from Last 3 Months Advance Directives For more information, please contact: [phone] * Full Code (Latest Code Status on File) Date Activated Date Inactivated Comments 01/29/2024 10:29 PM 01/30/2024 3:21 PM All basic a nd advanced life-sustaining interventions are performed as appropriate Question Answer Comments Code status determined by: Other (please patricia mcdowell) Care Teams Writing Center Director Relationship Specialty Start Date End Date [facility], [address] [address] PCP - General 01/29/24
--- OUTSIDE RECORDS SUMMARY | 2024-01-31 13:49 | XMS_ITS | Encounter Summary ---
Author Organization [facility] Address [address] [place] [id number] Care Team Providers Care Chief Port Director Name Role Phone Clinic, [facility] Primary Care Provider Reason for Visit * Reason Comments Shortness of Breath * Auth/Cert Specialty Diagnoses / Procedures Referred By Contac t Referred To Contact EMERGENCY MEDICINE Diagnoses Acute respiratory failure with hypoxia (H) Emergency Dept [address] [place] [address] Referral ID Status Reason Start Date Expiration Date Visits Re quested Visits Authorized [id number] 1 1 Encounter Details Date Type Department Care Team (Late st Contact Info) Description 01/29/2024 6:12 PM CDT - 01/30/2024 1:16 PM CDT Hospital Encounter [facility] Emergency Dept [address] [place] [id number] Dakota Dwyer MD [address] [place], [place] [id number] Crescencio Santos MD [address] [place], [place] [id number] Nolberto Bella MD [facility] [address] [place] [place], [place] [address] Acute respiratory failure with hypoxia (H); COPD with acute exacerbation (H); Pneumonia of both lower lobes due to infectious organism Discharge Disposition: Home or Self Care Social History Tobacco Use Types Packs/Day Years Used Date Smoking Tobacco: Never Assessed Adolescent Education Answer Date Record ed Getting School Help Needed Not on file 01/28 Sex and Gender Information Value Date Recorded Sex Assigned at Not on file Gender Identity Not on file Sexual Orientation Not on file documented as of this encounter Last Filed Vital Signs Vital Sign Reading [...] Mass Index 50.24 01/29/2024 6:16 PM CDT documented in this encounter Discharge Summaries * Darrick Manzanares MD - 01/30/2024 1:16 PM CDT [facility] Hospitalist Discharge Summary Date of Admission: 01/29/2024 Date of Discharge: 01/30/2024 1:16 PM, left AMA Discharging Provider: Darrick Manzanares MD Discharge Service: Hospitalist Service Discharge Diagnoses See H&P from yesterday. Unresulted Labs Ordered in the Past 30 Days of this Admission Date and Time Order Name Status Description 01/29/2024 6:33 PM Blood Culture Arm, Right Preliminary These results will be followed up by Hospitalist. Discharge Disposition Condition at discharge: Guarded Hospital Course Please see H&P note for details as below. Patient was admitted to hospital for Acute hypoxemic respiratory failure due to COPD exacerbation. At the time of admission she required BIPAP, later changed to HFNC and continued to require about 5 to 6 L of oxygen. However patient requested to go back to [facility] where she had surgery and just discharged today earlier. She was advised to stay here as her current presentation has anything to do with her surgery, as her current problem is respiratory failure. Patient declined to stay, signed AMA and left with a plan to go to [facility]. Her husbandand son at bedside. Patient is aware of the risk associated with leaving AGAINST MEDICAL ADVICE. Consultations This Hospital Stay None Code Status Full Code Time Spent on this Encounter 15 minutes, patient left AMA Darrick Manzanares MD [facility] EMERGENCY DEPT [address] [facility] [id number] Physical Exam Vital Signs: Temp: 98.4 ??F (36.9 ??C) Temp src: Oral BP: 112/67 Pulse: 116 Resp: 16 SpO2: 95 % O2 Device: Nasal cannula Oxygen Delivery: 5 LPM Weight: 265 lbs 14 oz See H&P, no detail exam done [facility] Discharge Orders No discharge procedures on file. Significant Results and Procedures Discharge Medications There are no discharge medications for this patient. Allergies Allergies Allergen Reactions Amoxicillin Hives documented in this encounter Progress Notes * Ailin Keene RT - 01/30/2024 6:22 AM CDT A HFNC of 30L and 60% was applied to pt via nasal prong for PEEP therapy. Pt tolerating it well. Will continue to follow. * Ailin [facility] RT - 01/30/2024 3:33 AM CDT A BiPAP of 10/5 @ 60% remains on the pt via the mask for an increase in WOB and/or SOB. The bridge of the nose looks good and remains intact. Pt is tolerating it well. RT will continue to monitor andassess the pt's current respiratory status and needs. * Valeria Roa, - 01/29/2024 6:37 PM CDT Respiratory Therapy Note A BiPAP of 10/5 @ 100% was applied to the pt via the mask for an increase in WOB and/or SOB. The bridge of the nose looks good and remains intact. Pt is tolerating it well. Patient weaned to 80% FiO2. Patient received x2 Duonebs inline with BiPAP. Will continue to monitor and assess the pt's current respiratory status and needs. RT Km 6:37 PM January 29, 2024 documented in this encounter H&P Notes * Crescencio Santos MD - 01/29/2024 8:49 PM CDT [facility] History and Physical - Hospitalist Service Date of Admission: 01/29/2024 Assessment & Plan Linnette Brown is a 68 year old female with past medical history including COPD intermittentlyon home O2, anxiety, hypertension and former smoking who presented to [facility] emergency room 01/29/2024. She was actually just discharged from [facility] earlier the day of admission during which time she reports undergoing an abdominal surgery/laparotomy for what sounds like a bowel perforation sustained during a routine colonoscopy. She was driving in the car with her friend andthe air conditioner was not working on a very hot day and she began feeling short of breath so called EMS. She admits she has had more trouble coughing due to abdominal pain. She was brought here to the emergency room at [facility] and oxygen saturations were in the low 70s on room air and she had increased work of breathing. She was tachycardic but otherwise hemodynamically stable. Lab workup was notable for a white blood count of 15.6. She did have an elevation in anion gap of 20 with a carbon dioxide level of 19. Lactic acid was normal at 1.3 however. BNP and troponin were normal. Urine analysis was obtained and showed ketones but otherwise negative. CT PE protocol was negative for pulmonary embolism but showed extensive bilateral lower lobar endobronchial debris with occlusion of the left lower lobe central bronchi and partial left lower lobe atelectasis. There was also moderate emphysema and mild upper abdominal pneumoperitoneum compatible with recent surgery. She was given IV Solu-Medrol and started on empiric IV ceftriaxone and azithromycin. She was also given nebs and due to work of breathing was started on BiPAP but seems to be significantly more comfortable now so will be admitted under IMC status rather than ICU. Acute hypoxemic respiratory failure due to COPD exacerbation, evidence of significant endobronchialdebris causing some atelectasis: I do suspect that her recent abdominal surgery and reduced pulmonary toilet/less effective cough due to abdominal pain might be playing a role. -- Admit under IMC status -- Continue IV Solu-Medrol 40 mg twice daily -- Continue BiPAP, wean as able. N.p.o. until off BiPAP. Consider trial on high flow nasal cannula later this evening pending ongoing stability. -- Continue ceftriaxone azithromycin and scheduled nebs -- Once off BiPAP will certainly need good pulmonary hygiene. -- If slow to improve consider consulting pulmonology. Unclear if a bronchoscopy would help or not. -- Goal SpO2 low 90s and not higher 2. History of COPD with chronic hypoxemic respiratory failure: It sounds as though she is off and on home O2. Treating for exacerbation. Still awaiting med rec but will need to resume home inhalers once verified. 3. Recent admission at [facility] requiring laparotomy for colon perforation sustained during a colonoscopy: She reports being admitted from 01/23 to 01/28. Would be somewhat cautious with diet advancement but it sounds as though she has been recovering well. -- Will have Tylenol and oxycodone available as needed, IV Dilaudid while on BiPAP 4. History of hypertension: Await med rec 5. History of familial dyslipidemia 6. Former smoker Diet: N.p.o. until off BiPAP DVT Prophylaxis: Enoxaparin (Lovenox) SQ Shepherd Catheter: Not present Lines: None Cardiac Monitoring: None Code Status: Full Clinically Significant Risk Factors Present on Admission # Anion Gap Metabolic Acidosis: Highest Anion Gap = 20 mmol/L in last 2 days, will monitor and treat as appropriate # Acute Respiratory Failure: Documented O2 saturation < 91%. Continue supplemental oxygen as needed # Severe Obesity: Estimated body mass index is 50.24 kg/m?? as calculated from the following: Height as of this encounter: 1.549 m (5' 1). Weight as of this encounter: 120.6 kg (265 lb 14 oz). Disposition Plan Medically Ready for Discharge: Anticipated in 2-4 Days Crescencio Santos MD Hospitalist Service [facility] Securely message with [email or web address] (more info) Text page via [facility] Paging/Directory Chief Complaint Respiratory failure History of Present Illness Linnette Brown is a 68 year old female with past medical history including COPD intermittentlyon home O2, anxiety, hypertension and former smoking who presented to [facility] emergency room 01/29/2024. She was actually just discharged from [facility] earlier the day of admission during which time she reports undergoing an abdominal surgery/laparotomy for what sounds like a bowel perforation sustained during a routine colonoscopy. She was driving in the car with her friend andthe air conditioner was not working on a very hot day and she began feeling short of breath so called EMS. She admits she has had more trouble coughing due to abdominal pain. At home she mostly just uses 1 L/min oxygen while sleeping. Sometimes with activity she will use low rate oxygen as well depending on what her pulse oximeter shows. She reports using an Aerobika fairly religiously at home. She thinks that she has had a lot more difficulty coughing up mucus etc. dueto abdominal pain from her surgery. She already feels significantly better than when she arrived to the ER. She does not like the way the mask feels and hopes she can transition to a nasal device soon even if its high flow nasal cannula. Notably, she lived much of her life in [place] and relocated to this area about a year ago as her best friend has dementia and she wanted to be here to help support her and coordinate her care. Surgical History Surgical History Surgery Date Site/Laterality Comments ABDOMINAL HYSTERECTOMY OVARIAN CYST REMOVAL CHOLECYSTECTOMY TONSILLECTOMY Medical History Medical History Medical History Date Comments COPD (chronic obstructive pulmonary disease) (HC) Smoking Familial hypercholesterolemia Family History Family History Medical History Relation Name Comments Heart Disease Father Stroke Maternal Grandfather Hypertension Mother Valvular heart disease Mother Family History Relation Name Status Comments Father Maternal Grandfather Mother Medications Reconcile with Patient's ChartMedications Medication Sig Dispensed Refills Start Date End Date Status albuterol (PROVENTIL) 0.083 % neb solution VVN Q 4 H PRN 5 01/07/2019 Active PROAIR HFA 90 mcg/actuation inhaler 05/27/2018 Active ADVAIR HFA 115-21 mcg/actuation inhaler 04/24/2018 Active DULoxetine (CYMBALTA) 20 mg Delayed-release capsule Take 1 Capsule by mouth once daily. 10/18/2022 Active DULoxetine (CYMBALTA) 60 mg Delayed-release capsule Take 1 Capsule by mouth once daily. 10/18/2022 Active cholecalciferol, Vitamin D3, 5,000 unit tab tablet Indications: Low vitamin D level Take 1 Tablet (5,000 units) by mouth once daily. 0 11/02/2022 Active aspirin (ECOTRIN) 81 mg enteric coated tablet Take 1 Tablet (81 mg) by mouth once daily with a meal. 0 11/02/2022 Active mirtazapine (REMERON) 7.5 mg tablet Take 5.5 Tablets (41.25 mg) by mouth at bedtime. 11/02/2022 Active alendronate (FOSAMAX) 70 mg tablet Take 70 mg by mouth once a week in the morning. 02/01/2023 Active amLODIPine (NORVASC) 5 mg tablet Indications: Hypertension Take 1 Tablet (5 mg) by mouth once daily. 90 Tablet 3 07/31/2023 Active ezetimibe (ZETIA) 10 mg tablet Indications: Familial hypercholesterolemia Take 1 Tablet (10 mg) by mouth once daily. 90 Tablet 3 07/31/2023 Active evolocumab (Repatha SureClick) 140 mg/mL subcutaneous pen injector Indications: Hyperlipidemia, unspecified hyperlipidemia type Inject 1 mL (140 mg) subcutaneous every 2 weeks. Inject into abdomen, thigh, or upper arm; rotate injection sites. 6 mL 3 07/31/2023 Active rosuvastatin (CRESTOR) 40 mg tablet Indications: Familial hypercholesterolemia Take 1 Tablet (40 mg) by mouth at bedtime. 90 Tablet 3 07/31/2023 Active Social History Social History Tobacco Use Types Packs/Day Years Used Date Smoking Tobacco: Former Cigarettes 1 45.2 Started: 11/08/1978 Smokeless Tobacco: Never Social History Tobacco Cessation: Counseling Given: Not Answered Comments: 0.5 to 1 pack per day Social History Alcohol Use Standard Drinks/Week Comments Not Currently 1 (1 standard drink = 0.6 oz pure alcohol) ocassional glass of wine 07/31/23 Social History Social Connections Answer Date Recorded Frequency of Communication with Friends and Family Not on file 07/02/2021 Social History Financial Resource Strain Answer Date Recorded Difficulty of Paying Living Expenses Not on file 07/02/2021 Difficulty of Paying Living Expenses Not on file 07/02/2021 Social History Sex and Gender Information Value Date Recorded Sex Assigned at Not on file Gender Identity Not on file Sexual Orientation Physical Exam Vital Signs: Temp: 98.8 ??F (37.1 ??C) Temp src: Temporal BP: 119/76 Pulse: 115 Resp: 27 SpO2: 96 %O2 Device: Oxymask Oxygen Delivery: 15 LPM Weight: 265 lbs 14 oz General: Alert, awake, able to speak clearly and answer all questions. HEENT: NC/AT, eyes anicteric, external occular movements intact, face symmetric. BiPAP mask in place Cardiac: RRR, S1, S2. No murmurs appreciated. Pulmonary: Normal chest rise, ventilated with BiPAP, expiratory wheezes, diminished Abdomen: soft, non-tender, non-distended. Bowel Sounds Present. No guarding. Extremities: no deformities. Warm, well perfused. Skin: no rashes or lesions noted. Warm and Dry. Neuro: No focal deficits noted. Speech clear. Coordination and strength grossly normal. Psych: Appropriate affect. Medical Decision Making 60 MINUTES SPENT BY ME on the date of service doing chart review, history, exam, documentation & further activities per the note. Data I have personally reviewed the following data over the past 24 hrs: 15.6 (H) \ 12.1 / 244 141 102 5.7 (L) / 137 (H) 3.8 19 (L) 0.4 (L) \ Trop: 11 BNP: 349 Procal: N/A CRP: N/A Lactic Acid: 1.3 Imaging results reviewed over the past 24 hrs: Recent Results (from the past 24 hour(s)) CT Chest Pulmonary Embolism w Contrast Narrative EXAM: CT CHEST PULMONARY EMBOLISM W CONTRAST LOCATION: [facility] DATE: 01/29/2024 INDICATION: hypoxia; Female sex; Not ; No prior imaging in the last 24 hours; Pulmonary Embolism Rule Out Criteria (PERC) score > 0; Revised [place] Score (RGS) not >= 11; No D dimer result available; D dimer not ordered COMPARISON: CT chest exams 12/01/2021 and 08/14/2018 TECHNIQUE: CT chest pulmonary angiogram during arterial phase injection of IV contrast. Multiplanarreformats and MIP reconstructions were performed. Dose reduction [...] abdominal pneumoperitoneum. Small hiatal hernia. MUSCULOSKELETAL: Normal. Impression IMPRESSION: 1. No pulmonary artery embolism. 2. [...] Dr. Dakota Dwyer on 01/29/2024 7:30 PM. documented in this encounter ED Notes * Lilian Ho RN - 01/30/2024 1:05 PM CDT Patient wanted to be transferred back to [facility]. Transfer is not possible due level ofcare. Cannot transfer a patient from a higher level of care hospital to a lower level of care hospital. Patient trialed on 5L O2nc and sats were in low to mid 90s at rest. Patient aware of risk of leaving AMA but wants to go to [facility] anyway. Dr Manzanares came to advise patient to continue care here at [facility]. IV removed. AMA paperwork signed. * Sara De Jesus RN - 01/30/2024 6:06 AM CDT [facility] ED Nurse Handoff Report ED Chief complaint: Shortness of Breath . ED Diagnosis: Final diagnoses: Acute respiratory failure with hypoxia (H) COPD with acute exacerbation (H) Pneumonia of both lower lobes due to infectious organism Allergies: Allergies Allergen Reactions Amoxicillin Hives Code Status: Full Code Activity level - Baseline/Home: in bed. Activity Level - Current: in bed. Lift room needed: No. Bariatric: No Business Continuity Manager Needed: No Isolation: No. Infection: Not Applicable. Respiratory status: High Flow Nasal Cannula Vital Signs (within 30 minutes): Vitals: 01/30/24 0533 01/30/24 0534 01/30/24 0535 01/30/24 0547 BP: 114/68 Pulse: 105 106 105 102 Resp: 22 21 18 17 Temp: TempSrc: SpO2: 91% 92% 91% 91% Weight: Height: Cardiac Rhythm: , Cardiac Cardiac Rhythm: Sinus tachycardia (HR ranging from 110-130's) Pain level: Patient confused: No. Patient Falls Risk: bed/chair alarm on, nonskid shoes/slippers when out of bed, arm band in place, and patient and family education. Elimination Status: Has voided Patient Report - Initial Complaint: Linnette Brown is a 68 year old female with a history of COPD who presents with shortness of breath. The patient was in her car taking a friend to a doctors appointment when the car broke down and no longer had AC. She then started to develop shortness of breath and called EMS. She is normally on oxygen at home, not continually, never more than one liter, n o longer smokes as she quit about a year ago. She uses albuterol and Advair inhalers at home, no recent steroid use. No history of DVT or PE. No anticoagulation use. The patient was recently admitted at [facility] with a colonic perforation. She underwent laparotomy and did well postoperatively. She was discharged from the hospital earlier today. Focused Assessment: Abnormal Results: Labs Ordered and Resulted from Time of ED Arrival to Time of ED Departure BASIC METABOLIC PANEL - Abnormal Result Value Sodium 141 Potassium 3.8 Chloride 102 Carbon Dioxide (CO2) 19 (*) Anion Gap 20 (*) Urea Nitrogen 5.7 (*) Creatinine 0.40 (*) GFR Estimate >90 Calcium 8.8 Glucose 137 (*) CBC WITH PLATELETS AND DIFFERENTIAL - Abnormal WBC Count 15.6 (*) RBC Count 4.07 Hemoglobin 12.1 Hematocrit 36.8 MCV 90 MCH 29.7 MCHC 32.9 RDW 16.2 (*) Platelet Count 244 % Neutrophils 76 % Lymphocytes 11 % Monocytes 10 % Eosinophils 2 % Basophils 0 % Immature Granulocytes 1 NRBCs per 100 WBC 0 Absolute Neutrophils 11.9 (*) Absolute Lymphocytes 1.7 Absolute Monocytes 1.5 (*) Absolute Eosinophils 0.3 Absolute Basophils 0.0 Absolute Immature Granulocytes 0.1 Absolute NRBCs 0.0 ISTAT GASES LACTATE VENOUS POCT - Abnormal Lactic Acid POCT 1.3 Bicarbonate Venous POCT 24 O2 Sat, Venous POCT 81 (*) pCO2 Venous POCT 42 pH Venous POCT 7.37 pO2 Venous POCT 46 ROUTINE UA WITH MICROSCOPIC REFLEX TO CULTURE - Abnormal Color Urine Light Yellow Appearance Urine Clear Glucose Urine Negative Bilirubin Urine Negative Ketones Urine >150 (*) Specific [place] Urine 1.034 Blood Urine Trace (*) pH Urine 5.5 Protein Albumin Urine Negative Urobilinogen Urine Normal Nitrite Urine Negative Leukocyte Esterase Urine Negative RBC Urine 1 WBC Urine 1 Squamous Epithelials Urine 1 Hyaline Casts Urine 1 ISTAT CREATININE POCT - Abnormal Creatinine POCT 0.4 (*) GFR, ESTIMATED POCT >60 CREATININE - Abnormal Creatinine 0.42 (*) GFR Estimate >90 MAGNESIUM - Abnormal Magnesium 1.6 (*) TROPONIN T, HIGH SENSITIVITY - Normal Troponin T, High Sensitivity 11 NT PROBNP INPATIENT - Normal N terminal Pro BNP Inpatient 349 GLUCOSE MONITOR NURSING POCT POTASSIUM MAGNESIUM BLOOD CULTURE CT Chest Pulmonary Embolism w Contrast Final Result IMPRESSION: 1. No pulmonary artery embolism. 2. [...] Dr. Dakota Dwyer on 01/29/2024 7:30 PM. Treatments provided: Family Comments: OBS brochure/video discussed/provided to patient: N/A ED Medications: Medications LORazepam (ATIVAN) injection 0.25 mg (has no administration in time range) lidocaine 1 % 0.1-1 mL (has no administration in time range) lidocaine (LMX4) cream (has no administration in time range) sodium chloride (PF) 0.9% PF flush 3 mL (has no administration in time range) sodium chloride (PF) 0.9% PF flush 3 mL (has no administration in time range) senna-docusate (SENOKOT-S/PERICOLACE) 8.6-50 MG per tablet 1 tablet (has no administration in time range) Or senna-docusate (SENOKOT-S/PERICOLACE) 8.6-50 MG per tablet 2 tablet (has no administration in time range) calcium carbonate (TUMS) chewable tablet 1,000 mg (has no administration in time range) lidocaine 1 % 0.1-1 mL (has no administration in time range) lidocaine (LMX4) cream (has no administration in time range) sodium chloride (PF) 0.9% PF flush 3 mL (has no administration in time range) sodium chloride (PF) 0.9% PF flush 3 mL (has no administration in time range) enoxaparin ANTICOAGULANT (LOVENOX) injection 40 mg (40 mg Subcutaneous $Given 01/29/24 0601) dextrose 5% and 0.9% NaCl infusion ( Intravenous $New Bag 01/29/24 7814) acetaminophen (TYLENOL) tablet 650 mg (has no administration in time range) Or acetaminophen (TYLENOL) Suppository 650 mg (has no administration in time range) azithromycin (ZITHROMAX) tablet 250 mg (has no administration in time range) cefTRIAXone (ROCEPHIN) 2 g vial to attach to NS 100 ml bag for ADULTS or NS 50 ml bag for PEDS (hasno administration in time range) methylPREDNISolone sodium succinate (SOLU-MEDROL) injection 40 mg (has no administration in time range) ipratropium - albuterol 0.5 mg/2.5 mg/3 mL (DUONEB) neb solution 3 mL (has no administration in time range) albuterol (PROVENTIL) neb solution 2.5 mg (has no administration in time range) oxyCODONE (ROXICODONE) tablet 5 mg (5 mg Oral $Given 01/29/24 2335) HYDROmorphone (PF) (DILAUDID) injection 0.3 mg (has no administration in time range) ipratropium - albuterol 0.5 mg/2.5 mg/3 mL (DUONEB) neb solution 6 mL (6 mLs Nebulization $Given 01/29/24 183) sodium chloride (PF) 0.9% PF flush 100 mL (80 mLs Intravenous $Given 01/29/24 190) iopamidol (ISOVUE-370) solution 500 mL (60 mLs Intravenous $Given 01/29/241904) cefTRIAXone (ROCEPHIN) 2 g vial to attach to NS 100 ml bag for ADULTS or NS 50 ml bag for PEDS (0 gIntravenous Stopped 01/29/242041) azithromycin (ZITHROMAX) 500 mg in NS 250 mL intermittent infusion (0 mg Intravenous Stopped 01/29/242218) Drips infusing: Yes D5+ NS at 100 ml/h For the majority of the shift this patient was Green. Interventions performed were BIPAP --> HHFNC Sepsis treatment initiated: No Cares/treatment/interventions/medications to be completed following ED care: Heated high flow NC ED Nurse Name: Sara De Jesus RN 6:06 AM * Sara De Jesus RN - 01/30/2024 5:46 AM CDT Pt placed on High flow nasal cannula and tolerating well. Pt satting at 90-91% on 40LPM. Calm, resting in bed. * Leland Moore RN - 01/30/2024 5:25 AM CDT Bed: ED09 Expected date: Expected time: Means of arrival: Comments: ED3 * Sara De Jesus RN - 01/30/2024 4:16 AM CDT Pt placed on BiPAP by chief underwriter as she was desatting on 10 LPM Oxymask. No concerns as pt is satting at 97% on 30% FiO2, resp rate of 21. * Sara De Jesus RN - 01/30/2024 3:08 AM CDT Pt given water by chief underwriter as per request- had sip of water. Verbal permission obtained by chief underwriter from MD Bella. Pt tolerated well. * Farideh Perdue RN - 01/29/2024 6:59 PM CDT [facility] ED Nurse Handoff Report ED Chief complaint: Shortness of Breath . ED Diagnosis: Final diagnoses: None Allergies: Allergies Allergen Reactions Amoxicillin Hives Code Status: Full Code Activity level - Baseline/Home: independent. Activity Level - Current: assist of 1. Lift room needed: No. Bariatric: No Business Continuity Manager Needed: No Isolation: No. Infection: Not Applicable. Respiratory status: BiPap Vital Signs (within 30 minutes): Vitals: 01/29/24 1830 01/29/24 1844 01/29/24 1845 01/29/24 1851 BP: 132/84 123/77 Pulse: 116 112 Resp: Temp: TempSrc: SpO2: 94% 97% 96% Weight: Height: Cardiac Rhythm: , Cardiac Cardiac Rhythm: Sinus tachycardia (HR ranging from 110-130's) Pain level: Patient confused: No. Patient Falls Risk: nonskid shoes/slippers when out of bed, arm band in place, patient and family education, and activity supervised. Elimination Status: Pt has not voided in ED Patient Report - Initial Complaint: Shortness of breath. Focused Assessment: Cardiac CT Cardiac (Adult)Cardiac WDL: .WDL except; allCardiac Rhythm: ST (HR ranging from 110-130's) Chest Pain AssessmentAssociated Signs/Symptoms: dyspneaChest Pain Intervention: gambling monitor placed; activity minimized; 12-lead ECG obtained [address] RespiratoryAirway WDL: WDLAdditional Documentation: Breath Sounds (Group) Respiratory WDLRespiratory WDL: .WDL except; allRhythm/Pattern, Respiratory: dyspnea upon exertion;pursed lip breathing; tachypneic; shortness of breath (Pt had car trouble and was in a car without AC. Pt felt that the heat was contributing to her increased work of breathing. Normally on 1-2 liters as needed at baseline during the day. H/o COPD.)Expansion/Accessory Muscles/Retractions: accessorymuscle use Breath SoundsBreath Sounds: All FieldsAll Lung Hart Breath Sounds: diminished Abnormal Results: Labs Ordered and Resulted from Time of ED Arrival to Time of ED Departure BASIC METABOLIC PANEL - Abnormal Result Value Sodium 141 Potassium 3.8 Chloride 102 Carbon Dioxide (CO2) 19 (*) Anion Gap 20 (*) Urea Nitrogen 5.7 (*) Creatinine 0.40 (*) GFR Estimate >90 Calcium 8.8 Glucose 137 (*) CBC WITH PLATELETS AND DIFFERENTIAL - Abnormal WBC Count 15.6 (*) RBC Count 4.07 Hemoglobin 12.1 Hematocrit 36.8 MCV 90 MCH 29.7 MCHC 32.9 RDW 16.2 (*) Platelet Count 244 % Neutrophils 76 % Lymphocytes 11 % Monocytes 10 % Eosinophils 2 % Basophils 0 % Immature Granulocytes 1 NRBCs per 100 WBC 0 Absolute Neutrophils 11.9 (*) Absolute Lymphocytes 1.7 Absolute Monocytes 1.5 (*) Absolute Eosinophils 0.3 Absolute Basophils 0.0 Absolute Immature Granulocytes 0.1 Absolute NRBCs 0.0 ISTAT GASES LACTATE VENOUS POCT - Abnormal Lactic Acid POCT 1.3 Bicarbonate Venous POCT 24 O2 Sat, Venous POCT 81 (*) pCO2 Venous POCT 42 pH Venous POCT 7.37 pO2 Venous POCT 46 ISTAT CREATININE POCT - Abnormal Creatinine POCT 0.4 (*) GFR, ESTIMATED POCT >60 ROUTINE UA WITH MICROSCOPIC REFLEX TO CULTURE TROPONIN T, HIGH SENSITIVITY NT PROBNP INPATIENT BLOOD CULTURE CT Chest Pulmonary Embolism w Contrast (Results Pending) Treatments provided: Bipap, duoneb Family Comments: Pt here currently by herself OBS brochure/video discussed/provided to patient: N/A ED Medications: Medications ipratropium - albuterol 0.5 mg/2.5 mg/3 mL (DUONEB) neb solution 3 mL (has no administration in time range) ipratropium - albuterol 0.5 mg/2.5 mg/3 mL (DUONEB) 0.5-2.5 (3) MG/3ML neb solution (has no administration in time range) sodium chloride (PF) 0.9% PF flush 100 mL (has no administration in time range) iopamidol (ISOVUE-370) solution 500 mL (has no administration in time range) ipratropium - albuterol 0.5 mg/2.5 mg/3 mL (DUONEB) neb solution 6 mL (6 mLs Nebulization $Given 01/29/241831) Drips infusing: No For the majority of the shift this patient was Green. Interventions performed were n/a. Sepsis treatment initiated: No Cares/treatment/interventions/medications to be completed following ED care: Monitor oxygen needs and mental status ED Nurse Name: Farideh Perdue RN 6:59 PM * Farideh Perdue RN - 01/29/2024 6:28 PM CDT Pt switched over to oxymask in room. Pt satting upper 70% and low 80% on 15 liters. RN brought MD Dwyer to bedside for assessment. Istat gas completed. RT called for Bipap. * Farideh Perdue RN - 01/29/2024 6:17 PM CDT Pt arrives to the ED via EMS due to increased SOB and work of breathing. Per EMS, pt was in a car that had broken down that did not have AC and then started to develop increasing SOB. H/o COPD. Normally on oxygen at baseline, states less than 2 liters. Pt given duoneb and solumedrol by EMS. Pt satting initally 79% for EMS, pt placed onrto 15 liters non re-breather with sats then up to 89%. Pt normally sats 92% at baseline per report. Pt discharged today from [facility] where she was admitted for a ruptured colon after a colonoscopy. * Becky Mir RN - 01/29/2024 6:12 PM CDT Bed: [facility] Expected date: 01/29/24 Expected time: 5:59 PM Means of arrival: Comments: Clay * Dakota Dwyer MD - 01/29/2024 6:12 PM CDT Emergency Department Note History of Present Illness Chief Complaint Shortness of Breath HPI Linnette Brown is a 68 year old female with a history of COPD who presents with shortness of breath. The patient was in her car taking a friend to a doctors appointment when the car broke down and no longer had AC. She then started to develop shortness of breath and called EMS. She is normallyon oxygen at home, not continually, never more than one liter, no longer smokes as she quit about ayear ago. She uses albuterol and Advair inhalers at home, no recent steroid use. No history of DVT or PE. No anticoagulation use. The patient was recently admitted at [facility] with a colonic perforation. She underwent laparotomy and did well postoperatively. She was discharged from the hospital earlier today. Independent Historian History taken from EMS or note the degree of the patient's hypoxia and shortness of breath en route. Review of External Notes Cardiology notes reviewed from November 02, 2022. The patient was noted to have COPD at that time. Past Medical History Medical History and Problem List COPD Medications Albuterol Cymbalta Remeron Aspirin Norvasc Zetia Crestor Surgical History Abdominal hysterectomy Ovarian cyst removal Cholecystectomy Tonsillectomy Physical Exam Patient Vitals for the past 24 hrs: BP Temp Temp src Pulse Resp SpO2 Height Weight 01/29/242214 115/79 -- -- 112 24 96 % -- -- 01/29/242140 126/77 -- -- 113 21 95 % -- -- 01/29/242125 119/78 -- -- 117 -- -- -- -- 01/29/242118 -- -- -- 118 -- -- -- -- 01/29/242117 -- -- -- -- -- 96 % -- -- 01/29/242114 113/77 -- -- 114 -- -- -- -- 01/29/242039 117/82 -- -- 114 -- -- -- -- 01/29/242024 119/74 -- -- 115 25 96 % -- -- 01/29/242020 -- -- -- 115 27 96 % -- -- 01/29/242014 119/76 -- -- 116 -- -- -- -- 01/29/241925 120/70 -- -- -- -- -- -- -- 01/29/241850 -- -- -- -- -- 96 % -- -- 01/29/241844 123/77 -- -- 112 -- 97 % -- -- 01/29/241843 -- -- -- -- -- 94 % -- -- 01/29/241829 132/84 -- -- 116 -- -- -- -- 01/29/241828 -- -- -- -- -- (!) 84 % -- -- 01/29/241827 -- -- -- 115 29 (!) 80 % -- -- 01/29/241826 -- -- -- 115 17 (!) 78 % -- -- 01/29/241823 -- 98.8 ??F (37.1 ??C) Temporal -- -- -- -- -- 01/29/24 1816 (!) 130/92 -- -- 118 26 94 % 1.549 m (5' 1) 120.6 kg (265 lb 14 oz) Physical Exam Constitutional: General: She is in acute distress. HENT: Head: Atraumatic. Mouth/Throat: Mouth: Mucous membranes are moist. Eyes: General: No scleral icterus. Conjunctiva/sclera: Conjunctivae normal. Cardiovascular: Rate and Rhythm: Normal rate and regular rhythm. Heart sounds: Normal heart sounds. Pulmonary: Comments: Increased work of breathing. Scattered diffuse wheezes. Speaks in full sentences. Abdominal: General: Abdomen is flat. Comments: No distention of the abdomen. There is a well-healing surgical wound in the midline. Mildtenderness near the wound but no peritoneal signs. Musculoskeletal: Cervical back: Neck supple. Right lower leg: No edema. Left lower leg: No edema. Skin: General: Skin is warm. Capillary Refill: Capillary refill takes less than 2 seconds. Findings: No rash. Neurological: General: No focal deficit present. Mental Status: She is alert and oriented to person, place, and time. Psychiatric: Mood and Affect: Mood normal. Behavior: Behavior normal. Diagnostics Lab Results Labs Ordered and Resulted from Time of ED Arrival to Time of ED Departure BASIC METABOLIC PANEL - Abnormal Result Value Sodium 141 Potassium 3.8 Chloride 102 Carbon Dioxide (CO2) 19 (*) Anion Gap 20 (*) Urea Nitrogen 5.7 (*) Creatinine 0.40 (*) GFR Estimate >90 Calcium 8.8 Glucose 137 (*) CBC WITH PLATELETS AND DIFFERENTIAL - Abnormal WBC Count 15.6 (*) RBC Count 4.07 Hemoglobin 12.1 Hematocrit 36.8 MCV 90 MCH 29.7 MCHC 32.9 RDW 16.2 (*) Platelet Count 244 % Neutrophils 76 % Lymphocytes 11 % Monocytes 10 % Eosinophils 2 % Basophils 0 % Immature Granulocytes 1 NRBCs per 100 WBC 0 Absolute Neutrophils 11.9 (*) Absolute Lymphocytes 1.7 Absolute Monocytes 1.5 (*) Absolute Eosinophils 0.3 Absolute Basophils 0.0 Absolute Immature Granulocytes 0.1 Absolute NRBCs 0.0 ISTAT GASES LACTATE VENOUS POCT - Abnormal Lactic Acid POCT 1.3 Bicarbonate Venous POCT 24 O2 Sat, Venous POCT 81 (*) pCO2 Venous POCT 42 pH Venous POCT 7.37 pO2 Venous POCT 46 ROUTINE UA WITH MICROSCOPIC REFLEX TO CULTURE - Abnormal Color Urine Light Yellow Appearance Urine Clear Glucose Urine Negative Bilirubin Urine Negative Ketones Urine >150 (*) Specific [place] Urine 1.034 Blood Urine Trace (*) pH Urine 5.5 Protein Albumin Urine Negative Urobilinogen Urine Normal Nitrite Urine Negative Leukocyte Esterase Urine Negative RBC Urine 1 WBC Urine 1 Squamous Epithelials Urine 1 Hyaline Casts Urine 1 ISTAT CREATININE POCT - Abnormal Creatinine POCT 0.4 (*) GFR, ESTIMATED POCT >60 TROPONIN T, HIGH SENSITIVITY - Normal Troponin T, High Sensitivity 11 NT PROBNP INPATIENT - Normal N terminal Pro BNP Inpatient 349 GLUCOSE MONITOR NURSING POCT CREATININE MAGNESIUM BLOOD CULTURE Imaging CT Chest Pulmonary Embolism w Contrast Final Result IMPRESSION: 1. No pulmonary artery embolism. 2. [...] Dr. Dakota Dwyer on 01/29/2024 7:30 PM. EKG ECG results from 01/29/24 EKG 12-lead, tracing only Value Systolic Blood Pressure Diastolic Blood Pressure Ventricular Rate 117 Atrial Rate 117 TN Interval 156 QRS Duration 78 QT 316 QTc 440 P Hazen 75 R AXIS 31 T Hazen 66 Interpretation ECG Sinus tachycardia Low voltage QRS Septal infarct , age undetermined Abnormal ECG No previous ECGs available ED Course Medications Administered Medications ipratropium - albuterol 0.5 mg/2.5 mg/3 mL (DUONEB) 0.5-2.5 (3) MG/3ML neb solution (has no administration in time range) LORazepam (ATIVAN) injection 0.25 mg (has no administration in time range) lidocaine 1 % 0.1-1 mL (has no administration in time range) lidocaine (LMX4) cream (has no administration in time range) sodium chloride (PF) 0.9% PF flush 3 mL (has no administration in time range) sodium chloride (PF) 0.9% PF flush 3 mL (has no administration in time range) senna-docusate (SENOKOT-S/PERICOLACE) 8.6-50 MG per tablet 1 tablet (has no administration in time range) Or senna-docusate (SENOKOT-S/PERICOLACE) 8.6-50 MG per tablet 2 tablet (has no administration in time range) calcium carbonate (TUMS) chewable tablet 1,000 mg (has no administration in time range) lidocaine 1 % 0.1-1 mL (has no administration in time range) lidocaine (LMX4) cream (has no administration in time range) sodium chloride (PF) 0.9% PF flush 3 mL (has no administration in time range) sodium chloride (PF) 0.9% PF flush 3 mL (has no administration in time range) enoxaparin ANTICOAGULANT (LOVENOX) injection 40 mg (has no administration in time range) dextrose 5% and 0.9% NaCl infusion (has no administration in time range) acetaminophen (TYLENOL) tablet 650 mg (has no administration in time range) Or acetaminophen (TYLENOL) Suppository 650 mg (has no administration in time range) cefTRIAXone (ROCEPHIN) 2 g vial to attach to NS 100 ml bag for ADULTS or NS 50 ml bag for PEDS (hasno administration in time range) azithromycin (ZITHROMAX) 500 mg in NS 250 mL intermittent infusion (has no administration in time range) azithromycin (ZITHROMAX) tablet 250 mg (has no administration in time range) cefTRIAXone (ROCEPHIN) 1 g vial to attach to NS 100 mL bag for ADULTS or NS 50 mL bag for PEDS (hasno administration in time range) methylPREDNISolone sodium succinate (SOLU-MEDROL) injection 40 mg (has no administration in time range) ipratropium - albuterol 0.5 mg/2.5 mg/3 mL (DUONEB) neb solution 3 mL (has no administration in time range) albuterol (PROVENTIL) neb solution 2.5 mg (has no administration in time range) oxyCODONE (ROXICODONE) tablet 5 mg (has no administration in time range) HYDROmorphone (PF) (DILAUDID) injection 0.3 mg (has no administration in time range) ipratropium - albuterol 0.5 mg/2.5 mg/3 mL (DUONEB) neb solution 6 mL (6 mLs Nebulization $Given 01/29/24 183) sodium chloride (PF) 0.9% PF flush 100 mL (80 mLs Intravenous $Given 01/29/241904) iopamidol (ISOVUE-370) solution 500 mL (60 mLs Intravenous $Given 01/29/241904) cefTRIAXone (ROCEPHIN) 2 g vial to attach to NS 100 ml bag for ADULTS or NS 50 ml bag for PEDS (0 gIntravenous Stopped 01/29/242041) azithromycin (ZITHROMAX) 500 mg in NS 250 mL intermittent infusion (0 mg Intravenous Stopped 01/29/242218) Discussion of Management Dr Santos ED Course ED Course as of 01/29/242236e Jan 29, 20241826 I initially assessed the patient and obtained the above history and physical exam. Medical Decision Making / Diagnosis MIPS CT for PE was ordered because the patient is high risk for pulmonary embolism. NILSA Brown is a 68 year old female who presents to the ED with dyspnea. This likely is a combination of COPD and pneumonia. I was concerned about a PE given her hypoxia, tachycardia, and herrecent surgery and hospitalization. Fortunately CT scan is negative for PE though. No pneumothorax. The patient was persistently hypoxic despite facemask oxygen. She was placed on BiPAP. Work of breathing has improved. Her oxygenation has improved. She is ventilating well based on her VBG. Patient does not appear to be septic. Lactate is normal. She was covered with ceftriaxone and azithromycin given the amoxicillin allergy. Blood culture was drawn first. The patient will be admitted to [facility]. She does not require ICU level care or intubation at this point. Critical Care time was 45 minutes for this patient excluding procedures. Disposition The patient was admitted to the hospital. Diagnosis ICD-10-CM 1. Acute respiratory failure with hypoxia (H) J96.01 2. COPD with acute exacerbation (H) J44.1 3. Pneumonia of both lower lobes due to infectious organism J18.9 Scribe Disclosure: I, Bry Rodriguez, am serving as a scribe at 6:35 PM on 01/29/2024 to document services personally performed by Dakota Dwyer MD based on my observations and the provider's statements to me. Dakota Dwyer MD 01/29/24 2239 documented in this encounter Plan of Treatment Pending Results Name Type Priority Associated Diagnoses Date /Time Blood Culture Arm, Right Microbiology STAT 01/29/2024 6:40 PM CDT documented as of this encounter Procedures Procedure Name Priority Date/Time Associated Diagnosis Comments POTASSIUM STAT 01/30/2024 7:37 AM CDT MAGNESIUM STAT 01/30/2024 7:37 AM CDT ROUTINE UA WITH MICROSCOPIC REFLEX TO CULTURE STAT 01/29/2024 8:[address] CHEST PULMONARY EMBOLISM W CONTRAST STAT 01/29/2024 7:11 PM CDT BLOOD CULTURE STAT 01/29/2024 6:40 PM CDT ISTAT CREATININE POCT STAT 01/29/2024 6:36 PM CDT ISTAT GASES LACTATE VENOUS POCT STAT 01/29/2024 6:24 PM CDT EXTRA TUBE STAT 01/29/2024 6:21 PM CDT EXTRA RED TOP TUBE STAT 01/29/2024 6: 21 PM CDT EXTRA BLUE TOP TUBE STAT 01/29/2024 6 :21 PM CDT CBC WITH PLATELETS AND DIFFERENTIAL STAT 01/29/2024 6:21 PM CDT TROPONIN T, HIGH SENSITIVITY STAT 01/29/2024 6:21 PM CDT CBC WITH PLATELETS & DIFFERENTIAL STAT 01/29/2024 6:21 PM CDT NT PROBNP INPATIENT STAT 01/29/2024 6 :21 PM CDT MAGNESIUM STAT 01/29/2024 6:21 PM CDT CREATININE Add-On 01/29/2024 6:21 PM CDT BASIC METABOLIC PANEL STAT 01/29/2024 6:21 PM CDT EKG 12-LEAD, TRACING ONLY STAT 01/29/2024 6:15 PM CDT documented in this encounter Results * Magnesium (01/30/2024 7:37 AM CDT) [facility] Magnesium 1.7 1.7 - 2.3 mg/dL 01/30/2024 8:29 AM CDT LABORATORY Blood STRUCTURE OF RIGHT UPPER LIMB / Unknown Venipuncture / Unknown 01/30/2024 7:37 AM CDT 01/30/2024 8:17 AM CDT Crescencio Santos MD LAB - BLO OD ORDERABLES [facility] [address] Lab (1st floor, no room number) [place] [address] * Potassium (01/30/2024 7:37 AM CDT) [facility] Potassium 3.7 3.4 - 5.3 mmol/L 01/30/2024 8:29 AM CDT LABORATORY Blood STRUCTURE OF RIGHT UPPER LIMB / Unknown Venipuncture / Unknown 01/30/2024 7:37 AM CDT 01/30/2024 8:17 AM CDT Crescencio Santos MD LAB - BLO OD ORDERABLES [facility] [address] Lab (1st floor, no room number) [place] [address] * (ABNORMAL) UA with Microscopic reflex to Culture (01/29/2024 8:08 PM CDT) Color Urine Light Yellow Colorless, Straw, Light Yellow, Yellow 01/29/2024 8:36 PM CDT LABORATORY Appearance Urine Clear Clear 01/29/20 8:36 PM CDT LABORATORY Glucose Urine Negative Negative mg/dL 01/29/2024 8:36 PM CDT LABORATORY Bilirubin Urine Negative Negative 8:36 PM CDT LABORATORY Ketones Urine >150(A) Negative mg/dL 01/29/2024 8:36 PM CDT LABORATORY Specific [place] Urine 1.034 1.003 - 1.035 01/29/2024 8:36 PM CDT LABORATORY Blood Urine Trace(A) Negative 01/29/2024 8:36 PM CDT LABORATORY pH Urine 5.5 5.0 - 7.0 01/29/2024 8:36 PM CDT LABORATORY Protein Albumin Urine Negative Negative mg/dL 01/29/2024 8:36 PM CDT LABORATORY Urobilinogen Urine Normal Normal, 2.0 mg/dL 01/29/2024 8:36 PM CDT LABORATORY Nitrite Urine Negative Negative 01/29/2024 8:36 PM CDT LABORATORY Leukocyte Esterase Urine Negative Negative 01/29/2024 8:36 PM CDT LABORATORY RBC Urine 1 <=2 /HPF 01/29/2024 8:36 PM CDT LABORATORY WBC Urine 1 <=5 /HPF 01/29/2024 8:36 PM CDT LABORATORY Squamous Epithelials Urine 1 <=1 /HPF 01/29/2024 8:36 PM CDT LABORATORY Hyaline Casts Urine 1 <=2 /LPF 01/29/2024 8:36 PM CDT LABORATORY Urine URINE SPECIMEN OBTAINED BY CLEAN CATCH PROCEDURE / Unknown Non-blood Collection / Unknown 01/29/2024 8:08 PM CDT 01/29/2024 8:17 PM CDT Narrative LABORATORY - 01/29/2024 8:36 PM CDT Urine Culture not indicated Dakota Dwyer MD LAB - URINE ORD ERABLES LABORATORY [facility] Lab [address] Lab (1st floor, no room number) [place] [address] * CT Chest Pulmonary Embolism w Contrast [...] CT CHEST PULMONARY EMBOLISM W CONTRAST LOCATION: [facility] DATE: 01/29/2024 INDICATION: hypoxia; Female sex; Not ; No prior imaging in the last 24 hours; Pulmonary Embolism Rule Out Criteria (PERC) score > 0; Revised [place] Score (RGS) not >= 11; No D [...] CT CHEST PULMONARY EMBOLISM W CONTRAST LOCATION: [facility] DATE: 01/29/2024 INDICATION: hypoxia; Female sex; Not ; No prior imaging in thelast 24 hours; Pulmonary Embolism Rule Out Criteria (PERC) score > 0;Revised [place] Score (RGS) not >= 11; No D [...] PM CDT 01/29/2024 6:40 PM CDT Dakota MATTSON PO CT RH LABORATORY POC [facility] [address] Lab (1st floor, no room number) [place] [address], [facility] * (ABNORMAL) iStat Gases (lactate) venous, POCT [...] LAB - SRINIVASAN POCT RH LABORATORY POC [facility] Care Lab [address] Lab (1st floor, no room number) [place] [address], [facility] * (ABNORMAL) Magnesium (01/29/2024 6:21 PM CDT) Magnesium 1.6(L) 1.7 - 2.3 mg/dL 01/29/2024 10:50 PM CDT RH LABORATORY Blood STRUCTURE OF LEFT UPPER LIMB / Unknown Venipuncture / Unknown 01/29/2024 6:21 PM CDT 01/29/2024 6:24 PM CDT Crescencio Santos MD LAB - BLO OD ORDERABLES Performing Organization Address [facility] Phone [facility] [address] Lab (1st floor, no room number) [place] [phone] * (ABNORMAL) Creatinine (01/29/2024 6:21 PM CDT) Creatinine 0.42(L) 0.51 - 0.95 mg/dL 01/29/2024 10:55 PM CDT LABORATORY GFR Estimate >90 >60 mL/min/1.7 3m2 01/29/2024 10:55 PM CDT RH LABORATORY Comment: eGFR calculated using 2020 CKD-EPI equation. eGFR calculated using 2020 CKD-EPI equation. Blood STRUCTURE OF LEFT UPPER LIMB / Unknown Venipuncture / Unknown 01/29/2024 6:21 PM CDT 01/29/2024 6:24 PM CDT Crescencio Santos MD LAB - BLO OD ORDERABLES Performing Organization Address [facility] Co de Phone Number [facility] [address] Lab (1st floor, no room number) [place] [address] * Nt probnp inpatient (BNP) (01/29/2024 6:21 PM CDT) N terminal Pro BNP Inpatient 349 0 [...] Dakota Dwyer MD LAB - BLOOD ORD ERAONUR [facility] [address] Lab (1st floor, no room number) [place] [address] * Troponin T, High Sensitivity (01/29/2024 6:21 PM CDT) [facility] Troponin T, High Sensitivity 11 <=14 ng/L 01/29/2024 7:22 PM CDT LABORATORY Comment: Either a High Sensitivity Troponin [...] Dwyer MD LAB - BLOOD ORD ERABLES [facility] [address] Lab (1st floor, no room number) [place] [address] * Extra Red Top Tube (01/29/2024 6:21 PM CDT) Hold Specimen [facility] 01/29/2024 7:31 PM CDT RH LABORATORY Blood STRUCTURE OF LEFT UPPER LIMB / Unknown Venipuncture / Unknown 01/29/2024 6:21 PM CDT 01/29/2024 6:24 PM CDT Dakota Dwyer MD LAB - BLOOD ORD ERABLES LABORATORY [facility] Care Lab [address] Lab (1st floor, no room number) [place] [address] * Extra Blue Top Tube (01/29/2024 6:21 PM CDT) Hold Specimen [facility] 01/29/2024 7:31 PM CDT RH LABORATORY Blood STRUCTURE OF LEFT UPPER LIMB / Unknown Venipuncture / Unknown 01/29/2024 6:21 PM CDT 01/29/2024 6:24 PM CDT Dakota Dwyer MD LAB - BLOOD ORD ERABLES LABORATORY [facility] Care Lab [address] Lab (1st floor, no room number) [place] [phone] * (ABNORMAL) CBC with platelets and differential [...] LAB - BLOOD ORD ERABLES RH LABORATORY [facility] Lab [address] Lab (1st floor, no room number) [place] [address], [facility] * (ABNORMAL) Basic metabolic panel (01/29/2024 6:21 PM CDT) Sodium 141 135 - 145 mmol/L 01/29/2024 6:42 PM CDT LABORATORY Potassium 3.8 3.4 - 5.3 mmol/L 01/29/2024 6:42 PM CDT LABORATORY Chloride 102 98 - 107 mmol/L 01/29/2024 6:42 PM CDT LABORATORY Carbon Dioxide (CO2) 19(L) 22 - 29 mmol/L 01/29/2024 6:42 PM CDT LABORATORY Anion Gap 20(H) 7 - 15 mmol/L 01/29/2024 6:42 PM CDT LABORATORY Urea Nitrogen 5.7(L) 8.0 - 23.0 mg/dL 01/29/2024 6:42 PM CDT LABORATORY Creatinine 0.40(L) 0.51 - 0.95 mg/dL 01/29/2024 6:42 PM CDT RH LABORATORY GFR Estimate >90 >60 mL/min/1.7 3m2 01/29/2024 6:42 PM CDT RH LABORATORY Comment:eGFR calculated usin g 2020 CKD-EPI equation. Calcium 8.8 8.8 - [...] Dwyer MD LAB - BLOOD ORD ERABLES [facility] [address] Lab (1st floor, no room number) [place] [address] * EKG 12-lead, tracing only (01/29/2024 6:15 PM CDT) Systolic Blood Pressure mmHg RADIOLOGY RESULTS Diastolic Blood Pressure mmHg RADIOLOGY RESULTS Ventricular Rate 117 BPM RAD IOLOGY RESULTS Atrial Rate 117 BPM RADIOLOG Y RESULTS TN Interval 156 ms RADIOLOG Y RESULTS QRS Duration 78 ms RADIOLO GY RESULTS QT 316 ms RADIOLOGY RESULTS QTc 440 ms RADIOLOGY RESULTS P Hazen 75 degrees RADIOLOGY RESULTS R AXIS 31 degrees RADIOLOGY RESULTS T Hazen 66 degrees RADIOLOGY RESULTS Interpretation ECG Sinus tachycardia Low voltage QRS Septal infarct , age undetermined Abnormal ECG No previous ECGs available Confirmed by - EMERGENCY ROOM, PHYSICIAN ([id number]), design editor BRIANA MONTESINOS ([id number]) on 01/30/2024 6:49:48 AM RADIOLOGY RESULTS 01/29/2024 6:15 PM CDT 01/30/2024 6:49 AM CDT Jorge Iniguez MD ECG ORDERABLES RADIOLOGY RESULTS documented in this encounter Visit Diagnoses Diagnosis Acute respiratory failure with hypoxia (H) Acute respiratory failure COPD with acute exacerbation (H) Obstructive chronic bronchitis with exacerbation Pneumonia of both lower lobes due to infectious organism Acute respiratory failure with hypoxia (H) Acute respiratory failure Respiratory failure (H) Acute respiratory failure documented in this encounter Administered Medications Inactive Administered Medications - up to 3 most recent administrations Medication Order MAR Action Action Date Dose Rate Site acetaminophen (TYLENOL) Suppository 650 mg 650 mg, Rectal, EVERY 4 HOURS PRN, mild pain, other, and adjunct with moderate or severe pain or per patient request, Starting on Sun01/29/24 at 2229, Alternate with ibuprofen if ordered. Maximum acetaminophen dose from all sources = 75 mg/kg/day not to exceed 4 grams/day. acetaminophen (TYLENOL) tablet 650 mg 650 mg, Oral, EVERY 4 HOURS PRN, mild pain, other, and adjunct with moderate or severe pain or per patient request, Starting on Sun01/29/24 at 2229, Alternate with ibuprofen if ordered. Maximum acetaminophen dose from all sources = 75 mg/kg/day not to exceed 4 grams/day. azithromycin (ZITHROMAX) 500 mg in NS 250 mL intermittent infusion STAT, 500 mg, Intravenous, ONCE, On Sun01/29/24 at 1935, For 1 dose, Indications: Community Acquired Pneumonia $New Bag 01/29/2024 8:42 PM CDT 500 mg cefTRIAXone (ROCEPHIN) 2 g vial to attach to NS 100 ml bag for ADULTS or NS 50 ml bag for PEDS STAT, 2 g, Intravenous, ONCE, On Sun01/29/24 at 1935, For 1 dose, Changed to ceftriaxone 2g per Automatic Dose Adjustment Policy for weight > 90kg., Indications: Community Acquired Pneumonia $New Bag 01/29/2024 8:05 PM CDT 2 g dextrose 5% and 0.9% NaCl infusion at 100 mL/hr, Intravenous, CONTINUOUS, Starting on Sun01/29/24 at 2230, Until Sun01/30/24 at 0829 $New Bag 01/29/2024 11:14 PM CDT 100 mL/hr enoxaparin ANTICOAGULANT (LOVENOX) injection 40 mg 40 mg, Subcutaneous, EVERY 24 HOURS, First dose on Sun01/29/24 at 2230, HOLD if platelet count falls below 50% of baseline or less than 100,000/??L and notify provider. $Given 01/29/2024 11:36 PM CDT 40 mg iopamidol (ISOVUE-370) solution 500 mL 500 mL, Intravenous, ONCE, On Sun01/29/24 at 1900, For 1 dose $Given 01/29/2024 7:05 PM CDT 60 mLs ipratropium - albuterol 0.5 mg/2.5 mg/3 mL (DUONEB) neb solution 3 mL 3 mL, Nebulization, 4 TIMES DAILY RT, First dose on Sun01/30/24 at 0800 $Given 01/30/2024 12:19 PM CDT 3 mLs ipratropium - albuterol 0.5 mg/2.5 mg/3 mL (DUONEB) neb solution 6 mL 6 mL, Nebulization, ONCE, On Sun01/29/24 at 1835, For 1 dose $Given 01/29/2024 6:32 PM CDT 6 mLs oxyCODONE (ROXICODONE) tablet 5 mg 5 mg, Oral, EVERY 4 HOURS PRN, moderate pain, Starting on Sun01/29/24 at 2229 $Given 01/29/2024 11:35 PM CDT 5 mg senna-docusate (SENOKOT-S/PERICOLACE) 8.6-50 MG per tablet 1 tablet 1 tablet, Oral, 2 TIMES DAILY PRN, constipation, Starting on Sun01/29/24 at 2229, If no bowel movement in 24 hours, increase to 2 tablets by mouth. IF more than 1 constipation PRN medication is ordered, administer step-bates as indicated, moving to the next step ONLY if prior step ineffective. Step 1: senna-docusate (SENOKOT-S; PERICOLACE) OR bisacodyl (DULCOLAX) EC tablet Step 2: polyethylene glycol (MIRALAX/GLYCOLAX) Step 3: bisacodyl (DULCOLAX) suppository Step 4: enema Hold for loose stools. senna-docusate (SENOKOT-S/PERICOLACE) 8.6-50 MG per tablet 2 tablet 2 tablet, Oral, 2 TIMES DAILY PRN, constipation, Starting on Sun01/29/24 at 2229, IF more than 1 constipation PRN medication is ordered, administer step-bates as indicated, moving to the next step ONLY if prior step ineffective. Step 1: senna-docusate (SENOKOT-S; PERICOLACE) OR bisacodyl (DULCOLAX) EC tablet Step 2: polyethylene glycol (MIRALAX/GLYCOLAX) Step 3: bisacodyl (DULCOLAX) suppository Step 4: enema Hold for loose stools. sodium chloride (PF) 0.9% PF flush 100 mL 100 mL, Intravenous, ONCE, On Sun01/29/24 at 1900, For 1 dose $Given 01/29/2024 7:05 PM CDT 80 mLs documented in this encounter Active and Recently Administered Medications Times are shown in CDT. Scheduled Medication Order 01/28/2024 01/29/2024 01/30/2024 azithromycin (ZITHROMAX) 500 mg in NS 250 mL intermittent infusion (COMPLETED) STAT, 500 mg, Intravenous, ONCE, On Sun01/29/24 at 1935, For 1 dose, Indications: Community Acquired Pneumonia 2041 ($New Bag - Provider: Farideh Perdue, JEWEL)2218 (Stopped - Provider: Farideh Perdue RN) azithromycin (ZITHROMAX) tablet 250 mg Routine, 250 mg, Oral, DAILY, First dose on Sun01/30/24 at 0800, For 4 days, Indications: Community Acquired Pneumonia 1111 (Not Given - Provider: Lilian Ho RN - Reason: Patient/family refused) cefTRIAXone (ROCEPHIN) 2 g vial to attach to NS 100 ml bag for ADULTS or NS 50 ml bag for PEDS (COMPLETED) STAT, 2 g, Intravenous, ONCE, On Sun01/29/24 at 1935, For 1 dose, Changed to ceftriaxone 2g per Automatic Dose Adjustment Policy for weight > 90kg., Indications: Community Acquired Pneumonia 2004 ($New Bag - Provider: Farideh Perdue RN)2041 (Stopped - Provider: Farideh Perdue RN) cefTRIAXone (ROCEPHIN) 2 g vial to attach to NS 100 ml bag for ADULTS or NS 50 ml bag for PEDS Routine, 2 g, Intravenous, EVERY 24 HOURS, First dose on Sun01/30/24 at 1600, Changed to ceftriaxone 2g per Automatic Dose Adjustment Policy for weight > 90kg., Indications: Community Acquired Pneumonia enoxaparin ANTICOAGULANT (LOVENOX) injection 40 mg 40 mg, Subcutaneous, EVERY 24 HOURS, First dose on Sun01/29/24 at 2230, HOLD if platelet count falls below 50% of baseline or less than 100,000/??L and notify provider. 2336 ($Given - Provider: Danni Mejia RN) iopamidol (ISOVUE-370) solution 500 mL (COMPLETED) 500 mL, Intravenous, ONCE, On Sun01/29/24 at 1900, For 1 dose 1905 ($Given - Provider: Angelina Sanchez) ipratropium - albuterol 0.5 mg/2.5 mg/3 mL (DUONEB) neb solution 3 mL 3 mL, Nebulization, 4 TIMES DAILY RT, First dose on Sun01/30/24 at 0800 0717 (Not Given - Provider: Valeria Roa, RT - Reason: Patient/family refused)1219 ($Given - Provider: Valeria Roa, RT) ipratropium - albuterol 0.5 mg/2.5 mg/3 mL (DUONEB) neb solution 6 mL (COMPLETED) 6 mL, Nebulization, ONCE, On Sun01/29/24 at 1835, For 1 dose 1832 ($Given - Provider: Farideh Perdue, JEWEL) LORazepam (ATIVAN) injection 0.25 mg 0.25 mg, Intravenous, ONCE, On Sun01/29/24 at 1930, For 1 dose, IV Route: Dilute with equal volume NS prior to use. This drug may cause significant respiratory depression. Monitor respiratory status and vital signs carefully for 1 hour after each dose. 1929 (Canceled Entry - Provider: Orders Generic Provider - Comment: Automatically canceled at discontinue of medication order) methylPREDNISolone sodium succinate (SOLU-MEDROL) injection 40 mg 40 mg, Intravenous, Administer over 2 Minutes, 2 TIMES DAILY, First dose on Sun01/30/24 at 0800 1112 (Not Given - Provider: Lilian Ho RN - Reason: Patient/family refused) sodium chloride (PF) 0.9% PF flush 100 mL (COMPLETED) 100 mL, Intravenous, ONCE, On Sun01/29/24 at 1900, For 1 dose 1905 ($Given - Provider: Angelina Sanchez) sodium chloride (PF) 0.9% PF flush 3 mL 3 mL, Intracatheter, EVERY 8 HOURS, First dose on Sun01/29/24 at 2230, to lock peripheral IV dormant line 2230 (Canceled Entry - Provider: Orders Generic Provider - Comment: Automatically canceled at discontinue of medication order) 0630 (Canceled Entry - Provider: Orders Generic Provider - Comment: Automatically canceled at discontinue of medication order)1430 (Canceled Entry - Provider: Orders Generic Provider - Comment: Automatically canceled at discontinue of medication order) sodium chloride (PF) 0.9% PF flush 3 mL 3 mL, Intracatheter, EVERY 8 HOURS, First dose on Sun01/29/24 at 2230, to lock peripheral IV dormant line 2230 (Canceled Entry - Provider: Orders Generic Provider - Comment: Automatically canceled at discontinue of medication order) 0630 (Canceled Entry - Provider: Orders Generic Provider - Comment: Automatically canceled at discontinue of medication order)1430 (Canceled Entry - Provider: Orders Generic Provider - Comment: Automatically canceled at discontinue of medication order) Continuous Medication Order 01/28/2024 01/29/2024 01/30/2024 dextrose 5% and 0.9% NaCl infusion at 100 mL/hr, Intravenous, CONTINUOUS, Starting on Sun01/29/24 at 2230, Until Sun01/30/24 at 0829 2314 ($New Bag - Provider: Farideh Perdue RN) 0855 (Stopped - Provider: Lilian Ho RN) PRN Medication Order 01/28/2024 01/29/2024 01/30/2024 acetaminophen (TYLENOL) Suppository 650 mg(Linked Group 1) 650 mg, Rectal, EVERY 4 HOURS PRN, mild pain, other, and adjunct with moderate or severe pain or per patient request, Starting on Sun01/29/24 at 2229, Alternate with ibuprofen if ordered. Maximum acetaminophen dose from all sources = 75 mg/kg/day not to exceed 4 grams/day. acetaminophen (TYLENOL) tablet 650 mg(Linked Group 1) 650 mg, Oral, EVERY 4 HOURS PRN, mild pain, other, and adjunct with moderate or severe pain or per patient request, Starting on Sun01/29/24 at 2229, Alternate with ibuprofen if ordered. Maximum acetaminophen dose from all sources = 75 mg/kg/day not to exceed 4 grams/day. albuterol (PROVENTIL) neb solution 2.5 mg 2.5 mg, Nebulization, EVERY 2 HOURS PRN, shortness of breath, Starting on Sun01/29/24 at 2229 calcium carbonate (TUMS) chewable tablet 1,000 mg 1,000 mg, Oral, 4 TIMES DAILY PRN, heartburn, Starting on Sun01/29/24 at 2229 HYDROmorphone (PF) (DILAUDID) injection 0.3 mg 0.3 mg, Intravenous, EVERY 3 HOURS PRN, severe pain, Starting on Sun01/29/24 at 2229 lidocaine (LMX4) cream Topical, EVERY 1 HOUR PRN, pain, with VAD insertion, Starting on Sun01/29/24 at 222, Apply at least 30 minutes prior to VAD insertion in divided doses as needed for size of site for insertion. MAX Dose: 2.5 g (?? of 5 g tube) Do NOT give if patient has a history of allergy to any local anesthetic or any allie product. Do NOT use both lidocaine intradermal/subcutaneous injection and the lidocaine cream on the same site. lidocaine (LMX4) cream Topical, EVERY 1 HOUR PRN, pain, with VAD insertion, Starting on Sun01/29/24 at 222, Apply at least 30 minutes prior to VAD insertion in divided doses as needed for size of site for insertion. MAX Dose: 2.5 g (?? of 5 g tube) Do NOT give if patient has a history of allergy to any local anesthetic or any allie product. Do NOT use both lidocaine intradermal/subcutaneous injection and the lidocaine cream on the same site. lidocaine 1 % 0.1-1 mL 0.1-1 mL, Other, EVERY 1 HOUR PRN, mild pain with VAD insertion, Starting on Sun01/29/24 at 222, MAX dose 1 mL subcutaneous OR intradermal along the side of the vein in divided doses as needed for VAD insertion. Do NOT give if patient has a history of allergy to any local anesthetic or any allie product. Do NOT use both lidocaine intradermal/subcutaneous injection and the lidocaine cream on the same site. lidocaine 1 % 0.1-1 mL 0.1-1 mL, Other, EVERY 1 HOUR PRN, mild pain with VAD insertion, Starting on Sun01/29/24 at 2229, MAX dose 1 mL subcutaneous OR intradermal along the side of the vein in divided doses as needed for VAD insertion. Do NOT give if patient has a history of allergy to any local anesthetic or any allie product. Do NOT use both lidocaine intradermal/subcutaneous injection and the lidocaine cream on the same site. oxyCODONE (ROXICODONE) tablet 5 mg 5 mg, Oral, EVERY 4 HOURS PRN, moderate pain, Starting on Sun01/29/24 at 2229 2335 ($Given - Provider: Danni Mejia RN) senna-docusate (SENOKOT-S/PERICOLACE) 8.6-50 MG per tablet 1 tablet(Linked Group 2) 1 tablet, Oral, 2 TIMES DAILY PRN, constipation, Starting on Sun01/29/24 at 2228, If no bowel movement in 24 hours, increase to 2 tablets by mouth. IF more than 1 constipation PRN medication is ordered, administer step-bates as indicated, moving to the next step ONLY if prior step ineffective. Step 1: senna-docusate (SENOKOT-S; PERICOLACE) OR bisacodyl (DULCOLAX) EC tablet Step 2: polyethylene glycol (MIRALAX/GLYCOLAX) Step 3: bisacodyl (DULCOLAX) suppository Step 4: enema Hold for loose stools. senna-docusate (SENOKOT-S/PERICOLACE) 8.6-50 MG per tablet 2 tablet(Linked Group 2) 2 tablet, Oral, 2 TIMES DAILY PRN, constipation, Starting on Sun01/29/24 at 2228, IF more than 1 constipation PRN medication is ordered, administer step-bates as indicated, moving to the next step ONLY if prior step ineffective. Step 1: senna-docusate (SENOKOT-S; PERICOLACE) OR bisacodyl (DULCOLAX) EC tablet Step 2: polyethylene glycol (MIRALAX/GLYCOLAX) Step 3: bisacodyl (DULCOLAX) suppository Step 4: enema Hold for loose stools. sodium chloride (PF) 0.9% PF flush 3 mL 3 mL, Intracatheter, EVERY 1 MIN PRN, line flush, other, to ensure patency or to lock dormant line, Starting on Sun01/29/24 at 2228 sodium chloride (PF) 0.9% PF flush 3 mL 3 mL, Intracatheter, EVERY 1 MIN PRN, line flush, other, to ensure patency or to lock dormant line, Starting on Sun01/29/24 at 2228 Linked Groups Order Group 1: acetaminophen (TYLENOL) tablet 650 mgJump to med 650 mg, Oral, EVERY 4 HOURS PRN, mild pain, other, and adjunct with moderate or severe pain or per patient request, Starting on Sun01/29/24 at 2228, Alternate with ibuprofen if ordered. Maximum acetaminophen dose from all sources = 75 mg/kg/day not to exceed 4 grams/day. Or acetaminophen (TYLENOL) Suppository 650 mgJump to med 650 mg, Rectal, EVERY 4 HOURS PRN, mild pain, other, and adjunct with moderate or severe pain or per patient request, Starting on Sun01/29/24 at 2229, Alternate with ibuprofen if ordered. Maximum acetaminophen dose from all sources = 75 mg/kg/day not to exceed 4 grams/day. Group 2: senna-docusate (SENOKOT-S/PERICOLACE) 8.6-50 MG per tablet 1 tabletJump to med 1 tablet, Oral, 2 TIMES DAILY PRN, constipation, Starting on Sun01/29/24 at 2229, If no bowel movement in 24 hours, increase to 2 tablets by mouth. IF more than 1 constipation PRN medication is ordered, administer step-bates as indicated, moving to the next step ONLY if prior step ineffective. Step 1: senna-docusate (SENOKOT-S; PERICOLACE) OR bisacodyl (DULCOLAX) EC tablet Step 2: polyethylene glycol (MIRALAX/GLYCOLAX) Step 3: bisacodyl (DULCOLAX) suppository Step 4: enema Hold for loose stools. Or senna-docusate (SENOKOT-S/PERICOLACE) 8.6-50 MG per tablet 2 tabletJump to med 2 tablet, Oral, 2 TIMES DAILY PRN, constipation, Starting on Sun01/29/24 at 2229, IF more than 1 constipation PRN medication is ordered, administer step-bates as indicated, moving to the next step ONLY if prior step ineffective. Step 1: senna-docusate (SENOKOT-S; PERICOLACE) OR bisacodyl (DULCOLAX) EC tablet Step 2: polyethylene glycol (MIRALAX/GLYCOLAX) Step 3: bisacodyl (DULCOLAX) suppository Step 4: enema Hold for loose stools. documented in this encounter Care Teams Chief Port Director Relationship Specialty Start Date End Date [facility], [address] [address] PCP - General 01/29/24 documented as of this encounter
--- OUTSIDE RECORDS SUMMARY | 2024-01-31 13:49 | XMS_ITS | Continuity of Care Document ---
Author Name [facility] Organization [facility] Care Team Providers Care Supervisor Endless Track Vehicle Name Role Phone [facility] Unavailable Unavailable Medications Combined list of outpatient [...] INHALATION, TEVA [employer], 8.5 g CANISTER Active [id number] 4 2023 8.5 Pharmac y Data Transac tion Service Facilit y ALBUTEROL SULFATE HFA (albuterol sulfate), 90 MCG, HFA AER AD, INHALATION, TEVA [employer], 8.5 g CANISTER Active [id number] 4 2023 8.5 Pharmac y Data Transac tion Service Facilit y ALBUTEROL SULFATE HFA (albuterol sulfate), 90 MCG, HFA AER AD, INHALATION, TEVA [place], 8.5 g CANISTER Active [id number] 4 2023 8.5 Pharmac y Data Transac tion Service Facilit y ALENDRONATE SODIUM (alendronat e sodium), 70 MG, TABLET, ORAL, EXELAN PHARMACE, 4 ea. BLIST PACK Active [id number] 4 2023 12 Pharmac y Data Transac tion Service Facilit y ALENDRONATE SODIUM (alendronat e sodium), 70 MG, TABLET, ORAL, MARLEX PHARM., 4 ea. BLIST PACK Active [id number] 2023 12 Pharmac y Data Transac tion Service Facilit y ALENDRONATE SODIUM (alendronat e sodium), 70 MG, TABLET, ORAL, [employer]., 4 ea. BLIST PACK Active [id number] 2023 12 Pharmac y Data Transac tion Service Facilit y AMLODIPINE BESYLATE (amlodipine besylate), 5 MG, TABLET, ORAL, AVKARE, 1000 ea. BOTTLE Cancele d [id number] : 2023 0 Pharmac y Data Transac tion Service Facilit y AMLODIPINE BESYLATE (amlodipine besylate), 5 MG, TABLET, ORAL, AVKARE, 1000 ea. BOTTLE Cancele d [id number] : 2023 0 Pharmac y Data Transac tion Service Facilit y AMLODIPINE BESYLATE (amlodipine besylate), 5 MG, TABLET, ORAL, AVKARE, 1000 ea. BOTTLE Cancele d [id number] : 2023 0 Pharmac y Data Transac tion Service Facilit y AMLODIPINE BESYLATE (AMLODIPINE BESYLATE), 5 MG, TABLET, ORAL, EXELAN PHARMACE, 1000 ea. BOTTLE Cancele d [id number] : 2023 0 Pharmac y Data Transac tion Service Facilit y AMLODIPINE BESYLATE (AMLODIPINE BESYLATE), 5 MG, TABLET, ORAL, EXELAN PHARMACE, 1000 ea. BOTTLE Cancele d [id number] : 2023 0 Pharmac y Data Transac tion Service Facilit y AMLODIPINE BESYLATE (AMLODIPINE BESYLATE), 5 MG, TABLET, ORAL, EXELAN PHARMACE, 1000 ea. BOTTLE Active [id number] 2023 90 Pharmac y Data Transac tion Service Facilit y DULOXETINE HCL (duloxetine HCl), 20 MG, CAPSULE DR, ORAL, [employer] 60 ea. BOTTLE Cancele d [id number] : 2023 0 Pharmac y Data Transac tion Service Facilit y DULOXETINE HCL (duloxetine HCl), 20 MG, CAPSULE DR, ORAL, [employer] 60 ea. BOTTLE Active [id number] 4 2023 90 Pharmac y Data Transac tion Service Facilit y DULOXETINE HCL (duloxetine HCl), 60 MG, CAPSULE DR, ORAL, [employer] 1000 ea. BOTTLE Active [id number] 2023 90 Pharmac y Data Transac tion Service Facilit y EZETIMIBE (ezetimibe) , 10 MG, TABLET, ORAL, [employer] 500 ea. BOTTLE Cancele d [id number] : 2023 0 Pharmac y Data Transac tion Service Facilit y EZETIMIBE (ezetimibe) , 10 MG, TABLET, ORAL, [employer] 500 ea. BOTTLE Active [id number] 2023 90 Pharmac y Data Transac tion Service Facilit y EZETIMIBE (ezetimibe) , 10 MG, TABLET, ORAL, [employer] 500 ea. BOTTLE Active [id number] 3 2022 90 Pharmac y Data Transac tion Service Facilit y FLUTICASONE -SALMETEROL HFA (fluticason e propionate/ salmeterol xinafoate), 115-21MCG, HFA AER AD, INHALATION, [facility], 12 g CANISTER Active [id number] 4 2023 12 Pharmac y Data Transac tion Service Facilit y FLUTICASONE -SALMETEROL HFA (fluticason e propionate/ salmeterol xinafoate), 115-21MCG, HFA AER AD, INHALATION, [facility], 12 g CANISTER Active [id number] 2023 36 Pharmac y Data Transac tion Service Facilit y MIRTAZAPINE (mirtazapin e), 30 MG, TABLET, ORAL, [employer] 500 ea. BOTTLE Active [id number] 2023 90 Pharmac y Data Transac tion Service Facilit y MIRTAZAPINE (mirtazapin e), 30 MG, TABLET, ORAL, [employer] 500 ea. BOTTLE Active [id number] 2023 90 Pharmac y Data Transac tion Service Facilit y REPATHA SURECLICK (evolocumab ), 140 MG/ML, PEN INJCTR, SUBCUT, [employer] 1 ml SYRINGE Active [id number] 4 2023 6 Pharmac y Data Transac tion Service Facilit y REPATHA SURECLICK (evolocumab ), 140 MG/ML, PEN INJCTR, SUBCUT, [employer] 1 ml SYRINGE Active [id number] 2023 6 Pharmac y Data Transac tion Service Facilit y ROSUVASTATI N CALCIUM (rosuvastat in calcium), 40 MG, TABLET, ORAL, [employer] 1000 ea. BOTTLE Active [id number] 4 2023 90 Pharmac y Data Transac tion Service Facilit y ROSUVASTATI N CALCIUM (rosuvastat in calcium), 40 MG, TABLET, ORAL, [employer] 30 ea. BOTTLE Cancele d [id number] 4 [id number] : 2023 0 Pharmac y Data Transac tion Service Facilit y ROSUVASTATI N CALCIUM (rosuvastat in calcium), 40 MG, TABLET, ORAL, [employer] 30 ea. BOTTLE Active [id number] 4 2023 90 Pharmac y Data Transac tion Service Facilit y Social History Combined list of available smoking, tobacco, and other social history from Department of Defense and Veterans Affairs facilities. Social History Type Response Date Comment Sour e This section is an empty social history section. DoD
--- OUTSIDE RECORDS SUMMARY | 2024-01-31 13:49 | XMS_ITS | Encounter Summary ---
Author Organization [facility] Address [address] [place] [id number] Care Team Providers Care Personal Development Educator Name Role Phone Clay Mckenzie Primary Care Provider Encounter Details Date Type Department Care Team (Latest Contact Info) Description 01/29/2024 Travel Social History Tobacco Use Types Packs/Day Years Used Date Smoking Tobacco: Never Assessed Adolescent Education Answer Date Record ed Getting School Help Needed Not on file 01/28 Sex and Gender Information Value Date Recorded Sex Assigned at Not on file Gender Identity Not on file Sexual Orientation Not on file documented as of this encounter Plan of Treatment Not on file documented as of this encounter Visit Diagnoses Not on filedocumented in this encounter Care Teams Personal Development Educator Relationship Specialty Start Date End Date Magaly, Clay Payan [address] [facility] [address] PCP - General 01/29/24 documented as of this encounter
--- OUTSIDE RECORDS SUMMARY | 2024-01-31 13:49 | XMS_ITS | Referral Summary ---
Author Organization [facility] Address [address] [place] [address] Care Team Providers Care Electromedical Service Engineer Name Role Phone Clinic, Clay Nice Primary Care Provider Encounters Date Type Department Care Team Description 01/29/2024 6:12 PM CDT - 01/30/2024 1:16 PM CDT Hospital Encounter [facility] Emergency Dept [address] [place] [phone] Dakota Dweyr MD Foehrenbacher, MD Jena Ford, Nolberto Miramontes MD Acute respiratory failure with hypoxia (H); COPD with acute exacerbation (H); Pneumonia of both lower lobes due to infectious organism Discharge Disposition: Home or Self Care 01/29/2024 Travel from Last 3 Months Allergies Active Allergy Reactions Criticality Noted Date Comments Amoxicillin Hives 01/29/2024 Medications No known medications Active Problems Problem Noted Date Diagnosed Date Acute respiratory failure with hypoxia Respiratory failure 01/29/2024 Social History Tobacco Use Types Packs/Day Years [...] 01/29/2024 6:16 PM CDT Plan of Treatment Not on file Procedures Procedure Name Priority Date/Time Associated Diagnosis [...] - BLO OD ORDERABLES Performing Organization Address City/[facility]/ZIP Co de Phone Number [facility] Acute Care Lab [address] (1st floor, no room number) [place] [phone] [place] [address] * Magnesium (01/30/2024 7:37 AM CDT) Only the most recent of2 resultswithin the time period is included. Magnesium 1.7 1.7 - 2.3 mg/dL 01/30/2024 8:29 AM CDT LABORATORY Blood STRUCTURE OF RIGHT UPPER LIMB / Unknown Venipuncture / Unknown 01/30/2024 7:37 AM CDT 01/30/2024 8:17 AM CDT Crescencio Santos MD LAB - BLO OD ORDERABLES [facility] Acute Care Lab [address] (1st floor, no room number) [place] [address] * (ABNORMAL) UA with Microscopic reflex to [...] mg/dL 01/29/2024 8:36 PM CDT LABORATORY Specific [place] Urine 1.034 1.003 - 1.035 01/29/2024 8:36 [...] Dwyer MD LAB - URINE ORD ERABLES [facility] Acute Care Lab [address] [facility] Lab (1st floor, no room number) [place] [address], [facility] * CT Chest Pulmonary Embolism w Contrast [...] CT CHEST PULMONARY EMBOLISM W CONTRAST LOCATION: [facility] DATE: 01/29/2024 INDICATION: hypoxia; Female sex; Not ; No prior imaging in the last 24 hours; Pulmonary Embolism Rule Out Criteria (PERC) score > 0; Revised Cresson Score (RGS) not >= 11; No D [...] CT CHEST PULMONARY EMBOLISM W CONTRAST LOCATION: [facility] DATE: 01/29/2024 INDICATION: hypoxia; Female sex; Not ; No prior imaging in thelast 24 hours; Pulmonary Embolism Rule Out Criteria (PERC) score > 0;Revised Cresson Score (RGS) not >= 11; No D [...] PM CDT Dakota Dwyer MD LAB - BEAKER PO CT RH LABORATORY POC [facility] Care Lab [address] (1st floor, no room number) [place] [phone] [place] [address] * (ABNORMAL) iStat Gases (lactate) venous, POCT (01/29/2024 6:24 PM CDT) Pathologist [facility] Lactic Acid POCT 1.3 <=2.0 mmol/L 01/29/2024 [...] 6:29 PM CDT Provider Unknown LAB - BEAKER POCT RH LABORATORY POC [facility] Acute Care Lab [address] (1st floor, no room number) [place] [phone] * Extra Red Top Tube (01/29/2024 6:21 PM CDT) Hold Specimen [facility] 01/29/2024 7:31 PM CDT RH LABORATORY Blood STRUCTURE OF LEFT UPPER LIMB / Unknown Venipuncture / Unknown 01/29/2024 6:21 PM CDT 01/29/2024 6:24 PM CDT Dakota Dwyer MD LAB - BLOOD ORD ERABLES [facility] Care Lab [address] Lab (1st floor, no room number) [place] [address] * Extra Blue Top Tube (01/29/2024 6:21 PM CDT) Hold Specimen [facility] 01/29/2024 7:31 PM CDT RH LABORATORY Blood STRUCTURE OF LEFT UPPER LIMB / Unknown Venipuncture / Unknown 01/29/2024 6:21 PM CDT 01/29/2024 6:24 PM CDT Dakota Dwyer MD LAB - BLOOD ORD ERABLES [facility] Lab [address] Lab (1st floor, no room number) [place] [address] * (ABNORMAL) CBC with platelets and differential [...] Dakota Dwyer MD LAB - BLOOD ORD LOBITO Performing Organization Address [facility]/ZIP Co de Phone Number [facility] Acute Care Lab [address] Lab (1st floor, no room number) [place] [address] * Troponin T, High Sensitivity (01/29/2024 6:21 PM CDT) Pathologist [facility] Troponin T, High Sensitivity 11 <=14 ng/L [...] Dakota Dwyer MD LAB - BLOOD ORD LOBITO [facility] Acute Care Lab [address] Lab (1st floor, no room number) [place] [address], [facility] * Nt probnp inpatient (BNP) (01/29/2024 6:21 [...] - BLOOD ORD ERABLES Performing Organization Address City/[facility]/ZIP Co de Phone Number [facility] Care Lab [address] Lab (1st floor, no room number) [place] [address] * (ABNORMAL) Creatinine (01/29/2024 6:21 PM CDT) [...] - BLO OD ORDERABLES Performing Organization Address City/[facility]/ZIP Co de Phone Number [facility] Care Lab [address] Lab (1st floor, no room number) [place] [address] * (ABNORMAL) Basic metabolic panel (01/29/2024 6:21 PM CDT) Sodium 141 135 - 145 mmol/L 01/29/2024 6:42 PM CDT RH LABORATORY Potassium 3.8 3.4 - 5.3 mmol/L [...] MD LAB - BLOOD ORD ERABLES LABORATORY [facility] Acute Care Lab [address] [facility] Lab (1st floor, no room number) [place] [address], [facility] * EKG 12-lead, tracing only (01/29/2024 6:15 PM CDT) Systolic Blood Pressure mmHg RADIOLOGY RESULTS Diastolic Blood Pressure mmHg RADIOLOGY RESULTS Ventricular Rate 117 BPM RAD IOLOGY RESULTS Atrial Rate 117 BPM RADIOLOG Y RESULTS [place] Interval 156 ms RADIOLOG Y RESULTS QRS Duration 78 ms RADIOLO GY RESULTS QT 316 ms RADIOLOGY RESULTS QTc 440 ms RADIOLOGY RESULTS P [place] 75 degrees RADIOLOGY RESULTS R AXIS 31 degrees RADIOLOGY RESULTS T [place] 66 degrees RADIOLOGY RESULTS Interpretation ECG Sinus tachycardia Low voltage QRS Septal infarct , age undetermined Abnormal ECG No previous ECGs available Confirmed by - EMERGENCY ROOM, PHYSICIAN ([id number]), editor magazine BRIANA MONTESINOS ([email or web address]) on 01/30/2024 6:49:48 AM RADIOLOGY RESULTS 01/29/2024 6:15 PM CDT 01/30/2024 6:49 AM CDT Jorge Iniguez MD ECG ORDERABLES RADIOLOGY RESULTS from Last 3 Months Advance Directives For more information, please contact: [phone] * Full Code (Latest Code Status on File) Date Activated Date Inactivated Comments 01/29/2024 10:29 PM 01/30/2024 3:21 PM All basic a nd advanced life-sustaining interventions are performed as appropriate Question Answer Comments Code status determined by: Other (please documen t) Care Teams Electromedical Service Engineer Relationship Specialty Start Date End Date Clinic, Clay Nice [address] [facility] [place] [address] PCP - General 01/29/24
--- OUTSIDE RECORDS SUMMARY | 2024-01-31 13:49 | XMS_ITS ---
Author Organization [facility] Address [address] [place] [address] Care Team Providers Care Highway Engineering Teacher Name Role Phone Magaly, Clay Nice Primary Care Provider Transitional Care Management Status:Identified (Enrolling) Start date:01/31/2024 Continued Care and Services Coordination
--- OUTSIDE RECORDS SUMMARY | 2024-01-31 13:49 | XMS_ITS | Clinical Summary ---
Author Organization [email or web address] Address [place], [place] [address] Care Team Providers Care Licensed Midwife Name Role Phone Cheyenne Guardado MD Primary [...] Name Administration Dates Next Due COVID-19 vaccine ([employer] 30mcg/0.3mL) 12YO+ FRANCOISE-SUCROSE PF, MDV 11/02/2021 Influenza [...] Comments Blood Pressure 124/80 07/31/2023 9:45 AM CONTENT CURATOR Pulse 66 11/02/2022 11:16 AM CDT Temperature - - Respiratory Rate 14 08/30/2018 10:36 AM CONTENT CURATOR Oxygen Saturation 93% 11/02/2022 11:16 AM CDT Inhaled Oxygen Concentration - - Weight 53.1 kg (117 lb) 07/31/2023 9:45 AM CONTENT CURATOR Height 157.5 cm (5' 2) 11/02/2022 11:16 [...] CHOLESTEROL,TOTAL 108 mg/dL 023 6:42 PM CDT [employer] Comment: Cholesterol, Total Reference Ranges Desirable <200 mg/dL Borderline 200-239 mg/dL High >=240 mg/dL TRIGLYCERIDES 86 <150 mg/dL 10/31/2022 6:42 PM CDT [facility] HDL CHOLESTEROL 47 >40 mg/dL 3 6:42 PM CDT [facility] [employer] LABORAT[facility] NON-HDL CHOLESTEROL 61 <145 mg/dl 10/31/2022 6:42 PM CDT [facility] CHOL/HDL RATIO 2.30 <4.50 10/31/2022 6:42 PM CDT [facility] TRAL LAB[facility] LDL CHOLESTEROL 44 <=130 mg/dL 10/31/2022 6:42 PM CDT [facility] VLDL CHOLESTEROL 17(L) >30 mg/dL 11/01/19 6:42 PM CDT [facility] TRAL LAB[facility] PROVIDER ORDERED STATUS RANDOM 10/31/2022 6:42 PM CDT [facility] TRA LABORATORY Blood BLOOD SPECIMEN / Unknown Venipuncture / Unknown 10/31/2022 9:15 AM CDT 10/31/2022 9:21 AM CDT Pamela Conner NP [facility] [address] [place] [address], * SCAN-MAMMOGRAPHY REPORT (12/19/2007 12:00 AM CDT) Anatomical Region Laterality Modality Other Narrative Procedure Note Scanner - 12/19/2007 12:00 AM CDT Scanner OTHER from Last 3 Months or Most Recently Relevant to Health Maintenance Care Teams Licensed Midwife Relationship Specialty Start Date End Date Cheyenne Guardado MD [address] [place] [address] PCP - General Family Practice 09/02/18
== END 2024-01-31 13:39 | disposition home or self-care (01) ==
PROVIDERS: PCP Family Medicine; Visit Provider Family Medicine
DX: E87.6 Hypokalemia (principal); E83.42 Hypomagnesemia; I10 Essential (primary) hypertension; E78.00 Pure hypercholesterolemia, unspecified; R73.03 Prediabetes; J18.9 Pneumonia, unspecified organism; K63.1 Perforation of intestine (nontraumatic)
CPT/HCPCS: 80048; 83735

== ENCOUNTER 2024-02-08 13:59 | Outpatient (CLI) | payer MEDICARE, OTHER, SELFPAY ==
--- OUTSIDE RECORDS SUMMARY | 2024-02-08 14:03 | XMS_ITS | Encounter Summary ---
Author Organization [facility] Address [address] [place] [address] Care Team Providers Care Shaft Tender Name Role Phone Clay Mckenzie Primary Care [...] on filedocumented in this encounter Care Teams Shaft Tender Relationship Specialty Start Date End Date Magaly, Clay Payan [address] [place] [address] PCP - General 01/29/24 documented as of this encounter
--- OUTSIDE RECORDS SUMMARY | 2024-02-08 14:03 | XMS_ITS | Clinical Summary ---
Author Organization [facility] Address [place], [place] [address] Care Team Providers Care Rural Service Engineer Name Role Phone Cheyenne Guardado MD Primary [...] Name Administration Dates Next Due COVID-19 vaccine ([employer] 30mcg/0.3mL) 12YO+ FRANCOISE-SUCROSE PF, MDV 11/02/2021 Influenza [...] Comments Blood Pressure 124/80 07/31/2023 9:45 AM JOB SUPERINTENDENT Pulse 66 11/02/2022 11:16 AM CDT Temperature - - Respiratory Rate 14 08/30/2018 10:36 AM JOB SUPERINTENDENT Oxygen Saturation 93% 11/02/2022 11:16 AM CDT Inhaled Oxygen Concentration - - Weight 53.1 kg (117 lb) 07/31/2023 9:45 AM JOB SUPERINTENDENT Height 157.5 cm (5' 2) 11/02/2022 11:16 [...] CHOLESTEROL,TOTAL 108 mg/dL 023 6:42 PM CDT [employer] Comment: Cholesterol, Total Reference Ranges Desirable <200 mg/dL Borderline 200-239 mg/dL High >=240 mg/dL TRIGLYCERIDES 86 <150 mg/dL 10/31/2022 6:42 PM CDT [employer] [facility] HDL CHOLESTEROL 47 >40 mg/dL 3 6:42 PM CDT [facility] [employer] LAB[facility] NON-HDL CHOLESTEROL 61 <145 mg/dl 10/31/2022 6:[address] [facility] CHOL/HDL RATIO 2.30 <4.50 10/31/2022 6:42 PM CDT [facility] LAB[facility] LDL CHOLESTEROL 44 <=130 mg/dL 10/31/2022 6:42 PM CDT [facility] VLDL CHOLESTEROL 17(L) >30 mg/dL 11/01/19 6:42 PM CDT [facility] PROVIDER ORDERED STATUS RANDOM 10/31/2022 6:42 PM CDT [facility] TRA [facility] Blood BLOOD SPECIMEN / Unknown Venipuncture / Unknown 10/31/2022 9:15 AM CDT 10/31/2022 9:21 AM CDT Pamela Conner NP [facility] [address] [place] [address], * SCAN-MAMMOGRAPHY REPORT (12/19/2007 12:00 AM CDT) Anatomical Region Laterality Modality Other Narrative Procedure Note Scanner - 12/19/2007 12:00 AM CDT Scanner OTHER from Last 3 Months or Most Recently Relevant to Health Maintenance Care Teams Rural Service Engineer Relationship Specialty Start Date End Date Cheyenne Guardado MD [address] [place] [address] PCP - General Family Practice 09/02/18
--- OUTSIDE RECORDS SUMMARY | 2024-02-08 14:03 | XMS_ITS ---
Author Organization [facility] Address [address] [place] [address] Care Team Providers Care Timers Inspector Name Role Phone Magaly, Clay Nice Primary Care Provider Transitional Care Management Status:Enrolled (Active) Start date:01/31/2024 Enrollment date:02/01/2024 Continued Care and Services Coordination
--- OUTSIDE RECORDS SUMMARY | 2024-02-08 14:03 | XMS_ITS | Continuity of Care Document ---
Author Name [facility] Organization [facility] Care Team Providers Care Steward/Stewardess Second Class Name Role Phone [facility] Unavailable Unavailable Medications Combined list of outpatient [...] INHALATION, [place], 8.5 g CANISTER Active [id number] 4 2023 8.5 Pharmac y Data Transac tion Service Facilit y ALBUTEROL SULFATE HFA (albuterol sulfate), 90 MCG, HFA AER AD, INHALATION, [place], 8.5 g CANISTER Active [id number] 4 2023 8.5 Pharmac y Data Transac tion Service Facilit y ALBUTEROL SULFATE HFA (albuterol sulfate), 90 MCG, HFA AER AD, INHALATION, [place]A [place], 8.5 g CANISTER Active [id number] 4 2023 8.5 Pharmac y Data Transac tion Service Facilit y ALENDRONATE SODIUM (alendronat e sodium), 70 MG, TABLET, ORAL, EXELAN PHARMACE, 4 ea. BLIST PACK Active [id number] 4 2023 12 Pharmac y Data Transac tion Service Facilit y ALENDRONATE SODIUM (alendronat e sodium), 70 MG, TABLET, ORAL, MARLEX PHARM., 4 ea. BLIST PACK Active [id number] 2023 12 Pharmac y Data Transac tion Service Facilit y ALENDRONATE SODIUM (alendronat e sodium), 70 MG, TABLET, ORAL, [employer]LEX [employer]ARM., 4 ea. BLIST PACK Active [id number] 2023 12 Pharmac y Data Transac tion Service Facilit y AMLODIPINE BESYLATE (amlodipine besylate), 5 MG, TABLET, ORAL, AVKARE, 1000 ea. BOTTLE Cancele d [id number] : 2023 0 Pharmac y Data Transac tion Service Facilit y AMLODIPINE BESYLATE (amlodipine besylate), 5 MG, TABLET, ORAL, AVKARE, 1000 ea. BOTTLE Cancele d [id number] : 2023 0 Pharmac y Data Transac tion Service Facilit y AMLODIPINE BESYLATE (amlodipine besylate), 5 MG, TABLET, ORAL, AVKARE, 1000 ea. BOTTLE Cancele d [id number] : 2023 0 Pharmac y Data Transac tion Service Facilit y AMLODIPINE BESYLATE (AMLODIPINE BESYLATE), 5 MG, TABLET, ORAL, EXELAN PHARMACE, 1000 ea. BOTTLE Cancele d [id number] : 2023 0 Pharmac y Data Transac tion Service Facilit y AMLODIPINE BESYLATE (AMLODIPINE BESYLATE), 5 MG, TABLET, ORAL, EXELAN PHARMACE, 1000 ea. BOTTLE Cancele d [id number] 4 [id number] : 2023 0 Pharmac y Data Transac tion Service Facilit y AMLODIPINE BESYLATE (AMLODIPINE BESYLATE), 5 MG, TABLET, ORAL, EXELAN PHARMACE, 1000 ea. BOTTLE Active [id number] 2023 90 Pharmac y Data Transac tion Service Facilit y DULOXETINE HCL (duloxetine HCl), 20 MG, CAPSULE DR, ORAL, [employer] 60 ea. BOTTLE Cancele d [id number] : 2023 0 Pharmac y Data Transac tion Service Facilit y DULOXETINE HCL (duloxetine HCl), 20 MG, CAPSULE DR, ORAL, [employer] 60 ea. BOTTLE Active [id number] 4 2023 90 Pharmac y Data Transac tion Service Facilit y DULOXETINE HCL (duloxetine HCl), 60 MG, CAPSULE DR, ORAL, [employer] 1000 ea. BOTTLE Active [id number] 4 2023 90 Pharmac y Data Transac tion Service Facilit y EZETIMIBE (ezetimibe) , 10 MG, TABLET, ORAL, [employer] 500 ea. BOTTLE Cancele d [id number] : 2023 0 Pharmac y Data Transac tion Service Facilit y EZETIMIBE (ezetimibe) , 10 MG, TABLET, ORAL, [employer] 500 ea. BOTTLE Active [id number] 4 2023 90 Pharmac y Data Transac tion Service Facilit y FLUTICASONE -SALMETEROL HFA (fluticason e propionate/ salmeterol xinafoate), 115-21MCG, HFA AER AD, INHALATION, [facility], 12 g CANISTER Active [id number] 4 2023 12 Pharmac y Data Transac tion Service Facilit y FLUTICASONE -SALMETEROL HFA (fluticason e propionate/ salmeterol xinafoate), 115-21MCG, HFA AER AD, INHALATION, [facility], 12 g CANISTER Active [id number] 2023 36 Pharmac y Data Transac tion Service Facilit y MIRTAZAPINE (mirtazapin e), 30 MG, TABLET, ORAL, [employer] 500 ea. BOTTLE Active [id number] 4 2023 90 Pharmac y Data Transac tion Service Facilit y MIRTAZAPINE (mirtazapin e), 30 MG, TABLET, ORAL, [employer] 500 ea. BOTTLE Active [id number] 4 2023 90 Pharmac y Data Transac tion Service Facilit y REPATHA SURECLICK (evolocumab ), 140 MG/ML, PEN INJCTR, SUBCUT, [employer] 1 ml SYRINGE Active [id number] 2023 6 Pharmac y Data Transac tion Service Facilit y REPATHA SURECLICK (evolocumab ), 140 MG/ML, PEN INJCTR, SUBCUT, [employer] 1 ml SYRINGE Active [id number] 4 2023 6 Pharmac y Data Transac tion Service Facilit y ROSUVASTATI N CALCIUM (rosuvastat in calcium), 40 MG, TABLET, ORAL, [employer] 1000 ea. BOTTLE Active [id number] 2023 90 Pharmac y Data Transac tion Service Facilit y ROSUVASTATI N CALCIUM (rosuvastat in calcium), 40 MG, TABLET, ORAL, [employer] 30 ea. BOTTLE Cancele d [id number] 4 [id number] : 2023 0 Pharmac y Data Transac tion Service Facilit y ROSUVASTATI N CALCIUM (rosuvastat in calcium), 40 MG, TABLET, ORAL, [employer] 30 ea. BOTTLE Active [id number] 4 2023 90 Pharmac y Data Transac tion Service Facilit y Social History Combined list of available smoking, tobacco, and other social history from Department of Defense and Veterans Affairs facilities. Social History Type Response Date Comment [facility] This section is an empty social history section. [employer]
--- OUTSIDE RECORDS SUMMARY | 2024-02-08 14:03 | XMS_ITS | Referral Summary ---
Author Organization [facility] Address [address] [place] [address] Care Team Providers Care Experimental Box Tester Name Role Phone Clinic, [facility] Primary Care Provider Encounters Date Type Department Care Team Description 01/29/2024 6:12 PM CDT - 01/30/2024 1:16 PM CDT Hospital Encounter [facility] Emergency Dept [address] [place] [phone] Dakota Dwyer MD Foehrenbacher, MD Jena Ford, [...] - BLO OD ORDERABLES Performing Organization Address City/[facility]/ZIP Co de Phone Number [facility] Care Lab [address] Lab (1st floor, no room number) [address] * Magnesium (01/30/2024 7:37 AM CDT) Only the most recent of2 resultswithin the time period is included. Magnesium 1.7 1.7 - 2.3 mg/dL 01/30/2024 8:29 AM CDT LABORATORY Blood STRUCTURE OF RIGHT UPPER LIMB / Unknown Venipuncture / Unknown 01/30/2024 7:37 AM CDT 01/30/2024 8:17 AM CDT Crescencio Santos MD LAB - BLO OD ORDERABLES [facility] Acute [facility] Lab [address] (1st floor, no room number) [address] * (ABNORMAL) UA with Microscopic reflex to Culture (01/29/2024 8:08 PM CDT) Color Urine Light Yellow Colorless, Straw, Light Yellow, Yellow 01/29/2024 8:36 PM CDT RH LABORATORY Appearance Urine Clear Clear 01/29/20 8:36 PM CDT [facility] LABORATORY Glucose Urine Negative Negative mg/dL 01/29/2024 8:36 PM CDT [facility] LABORATORY Bilirubin Urine Negative Negative 8:36 PM CDT LABORATORY Ketones Urine >150(A) Negative mg/dL 01/29/2024 8:36 PM CDT RH LABORATORY Specific [place] Urine 1.034 1.003 - 1.035 01/29/2024 8:36 [...] 1 <=2 /LPF 01/29/2024 8:36 PM CDT [facility] LABORATORY Urine URINE SPECIMEN OBTAINED BY CLEAN CATCH PROCEDURE / Unknown Non-blood Collection / Unknown 01/29/2024 8:08 PM CDT 01/29/2024 8:17 PM CDT Narrative [facility] LABORATORY - 01/29/2024 8:36 PM CDT Urine Culture not indicated Dakota Dwyer MD LAB - URINE ORD ERABLES [facility] Lab [address] Lab (1st floor, no room number) [place] [address], [facility] * CT Chest Pulmonary Embolism w [...] CT CHEST PULMONARY EMBOLISM W CONTRAST LOCATION: [facility] DATE: 01/29/2024 INDICATION: hypoxia; Female sex; Not ; No prior imaging in the last 24 hours; Pulmonary Embolism Rule Out Criteria (PERC) score > 0; Revised Raleigh Score (RGS) not >= 11; No D [...] CT CHEST PULMONARY EMBOLISM W CONTRAST LOCATION: [facility] DATE: 01/29/2024 INDICATION: hypoxia; Female sex; Not ; No prior imaging in thelast 24 hours; Pulmonary Embolism Rule Out Criteria (PERC) score > 0;Revised [place] Score (RGS) not >= 11; No D [...] Dwyer MD IMG CT ORDERABL ES * Blood Culture Arm, Right (01/29/2024 6:40 PM CDT) Culture No Growth 02/03/2024 7:01 PM CDT [facility] ID[facility] LABORATORY Blood STRUCTURE OF RIGHT UPPER LIMB / Unknown Venipuncture / Unknown 01/29/2024 6:40 PM CDT 01/29/2024 6:46 PM CDT Dakota Dwyer MD LAB - MICRO GEN ERAL ORDERABLES [facility] LABORATORY [facility] Inf. Diseases Diag. Lab [address] [facility], [address] [place] [address], [facility] * (ABNORMAL) Creatinine POCT (01/29/2024 6:36 PM CDT) Pathologist [facility] Creatinine POCT 0.4(L) 0.5 - 1.0 mg/dL 01/29/2024 6:40 PM CDT RH LABORATORY POC GFR, ESTIMATED POCT >60 >60 mL/min/1.7 3m2 01/29/2024 6:40 PM CDT RH LABORATORY POC Blood, venous BLOOD SPECIMEN / Unknown 01/29/2024 6:36 PM CDT 01/29/2024 6:40 PM CDT Dakota Dwyer MD LAB - BEAKER PO CT RH LABORATORY POC [facility] Acute Care Lab [address] Lab (1st floor, no room number) [place] [address] * (ABNORMAL) iStat Gases (lactate) venous, [...] LAB - BEAKER POCT RH LABORATORY POC [facility] Lab [address] Lab (1st floor, no room number) [place] [phone] * Extra Red Top Tube (01/29/2024 6:21 PM CDT) Hold Specimen [facility] 01/29/2024 7:31 PM CDT RH LABORATORY Blood STRUCTURE OF LEFT UPPER LIMB / Unknown Venipuncture / Unknown 01/29/2024 6:21 PM CDT 01/29/2024 6:24 PM CDT Dakota Dwyer MD LAB - BLOOD ORD ERABLES Performing Organization Address [facility]/ZIP Co de Phone Number [facility] Lab [address] Lab (1st floor, no room number) [place] [address] * Extra Blue Top Tube (01/29/2024 6:21 PM CDT) Hold Specimen [facility] 01/29/2024 7:31 PM CDT RH LABORATORY Blood STRUCTURE OF LEFT UPPER LIMB / Unknown Venipuncture / Unknown 01/29/2024 6:21 PM CDT 01/29/2024 6:24 PM CDT Dakota Dwyer MD LAB - BLOOD ORD ERABLES [facility] Care Lab [address] Lab (1st floor, no room number) [place] [address], [facility] * (ABNORMAL) CBC with platelets and [...] MD LAB - BLOOD ORD ERABLES LABORATORY [facility] Acute Care Lab [address] [facility] Lab (1st floor, no room number) [place] [address], [facility] * Troponin T, High Sensitivity (01/29/2024 6:21 PM CDT) [facility] Troponin T, High Sensitivity 11 <=14 ng/L [...] - BLOOD ORD LOBITO Performing Organization Address [facility]/State/ZIP Co de Phone Number [facility] Lab [address] Lab (1st floor, no room number) [place] [address] * Nt probnp inpatient (BNP) (01/29/2024 [...] - BLOOD ORD LOBITO Performing Organization Address City/[facility]/ZIP Co de Phone Number [facility] Lab [address] Lab (1st floor, no room number) [place] [address] * (ABNORMAL) Creatinine (01/29/2024 6:21 PM CDT) Creatinine 0.42(L) 0.51 - 0.95 mg/dL 01/29/2024 10:55 PM CDT RH LABORATORY GFR Estimate >90 >60 mL/min/1.7 3m2 01/29/2024 10:55 PM CDT RH LABORATORY Comment: eGFR calculated using 2020 CKD-EPI equation. eGFR calculated using 2020 CKD-EPI equation. Blood STRUCTURE OF LEFT UPPER LIMB / Unknown Venipuncture / Unknown 01/29/2024 6:21 PM CDT 01/29/2024 6:24 PM CDT Crescencio Santos MD LAB - BLO OD ORDERABLES LABORATORY [facility] Acute Care Lab [address] Lab (1st floor, no room number) [place] [address] * (ABNORMAL) Basic metabolic panel (01/29/2024 [...] - 0.95 mg/dL 01/29/2024 6:42 PM CDT LABORATORY GFR Estimate >90 >60 mL/min/1.7 3m2 01/29/2024 6:42 PM CDT LABORATORY Comment:eGFR calculated usin g 2020 CKD-EPI equation. Calcium 8.8 8.8 - 10.4 mg/dL 01/29/2024 6:42 PM CDT LABORATORY Comment:Reference intervals for this test were updated on 01/15/2024 to reflect our healthy population more accurately. There may be differences in the flagging of prior results with similar values performed with this method. Those prior results can be interpreted in the context of the updated reference intervals. Glucose 137(H) 70 - 99 mg/dL 01/29/2024 6:42 PM CDT RH LABORATORY Blood STRUCTURE OF LEFT UPPER LIMB / Unknown Venipuncture / Unknown 01/29/2024 6:21 PM CDT 01/29/2024 6:24 PM CDT Dakota Dwyer MD LAB - BLOOD ORD ERABLES RH LABORATORY [facility] Acute Care Lab [address] Lab (1st floor, no room number) [place] [address] * EKG 12-lead, tracing only (01/29/2024 6:15 PM CDT) Systolic Blood Pressure mmHg RADIOLOGY RESULTS Diastolic Blood Pressure mmHg RADIOLOGY RESULTS Ventricular Rate 117 BPM RAD IOLOGY RESULTS Atrial Rate 117 BPM RADIOLOG Y RESULTS WI Interval 156 ms RADIOLOG Y RESULTS QRS Duration 78 ms RADIOLO GY RESULTS QT 316 ms RADIOLOGY RESULTS QTc 440 ms RADIOLOGY RESULTS P [place] 75 degrees RADIOLOGY RESULTS R AXIS 31 degrees RADIOLOGY RESULTS T [place] 66 degrees RADIOLOGY RESULTS Interpretation ECG Sinus tachycardia Low voltage QRS Septal infarct , age undetermined Abnormal ECG No previous ECGs available Confirmed by - EMERGENCY ROOM, PHYSICIAN ([id number]), book or script editor BRIANA MONTESINOS ([email or web address]) on 01/30/2024 6:49:48 AM RADIOLOGY RESULTS 01/29/2024 6:15 PM CDT 01/30/2024 6:49 AM CDT Jorge Iniguez MD ECG ORDERABLES RADIOLOGY RESULTS from Last 3 Months Advance Directives For more information, please contact: [phone] * Full Code (Latest Code Status on File) Date Activated Date Inactivated Comments 01/29/2024 10:29 PM 01/30/2024 3:21 PM All basic a nd advanced life-sustaining interventions are performed as appropriate Question Answer Comments Code status determined by: Other (please documen t) Care Teams Experimental Box Tester Relationship Specialty Start Date End Date [facility], [place] [phone] PCP - General 01/29/24
--- OUTSIDE RECORDS SUMMARY | 2024-02-08 14:03 | XMS_ITS | Clinical Summary ---
Author Organization [place] Address [address] [place] [address] Care Team Providers Care Traffic Operations Engineer Name Role Phone Clinic, [facility] Primary Care Provider Allergies Active Allergy Reactions Criticality Noted Date Comments Amoxicillin Hives 01/29/2024 Medications No known medications Active Problems Problem Noted Date Diagnosed Date Acute respiratory failure with hypoxia Respiratory failure 01/29/2024 Encounters Date Type Department Care Team Description 01/29/2024 6:12 PM CDT - 01/30/2024 1:16 PM CDT Hospital Encounter [facility] Emergency Dept [address] [place] [phone] Dakota Dwyer MD Foehrenbacher, MD Jena Ford, [...] - BLO OD ORDERABLES Performing Organization Address City/[facility]/ZIP Co de Phone Number [facility] Acute Care Lab [address] Lab (1st floor, no room number) [address] * Magnesium (01/30/2024 7:37 AM CDT) Only the most recent of2 resultswithin the time period is included. Magnesium 1.7 1.7 - 2.3 mg/dL 01/30/2024 8:29 AM CDT LABORATORY Blood STRUCTURE OF RIGHT UPPER LIMB / Unknown Venipuncture / Unknown 01/30/2024 7:37 AM CDT 01/30/2024 8:17 AM CDT Crescencio Santos MD LAB - BLO OD ORDERABLES Performing Organization Address City/[facility]/ZIP Co de Phone Number [facility] Acute Care Lab [address] Lab (1st floor, no room number) [address] * (ABNORMAL) UA with Microscopic reflex [...] 01/29/2024 8:36 PM CDT RH LABORATORY Specific [place] Urine 1.034 1.003 - 1.035 01/29/2024 8:36 PM CDT RH LABORATORY Blood Urine Trace(A) Negative 01/29/2024 8:36 PM CDT RH LABORATORY pH Urine 5.5 5.0 - 7.0 [...] MD LAB - URINE ORD ERABLES LABORATORY [facility] Acute Care Lab [address] Lab (1st floor, no room number) [place] [address], [facility] * CT Chest Pulmonary Embolism w [...] CT CHEST PULMONARY EMBOLISM W CONTRAST LOCATION: [facility] DATE: 01/29/2024 INDICATION: hypoxia; Female sex; Not ; No prior imaging in the last 24 hours; Pulmonary Embolism Rule Out Criteria (PERC) score > 0; Revised [place] Score (RGS) not >= 11; No D [...] CT CHEST PULMONARY EMBOLISM W CONTRAST LOCATION: [facility] DATE: 01/29/2024 INDICATION: hypoxia; Female sex; Not ; No prior imaging in thelast 24 hours; Pulmonary Embolism Rule Out Criteria (PERC) score > 0;Revised [place] Score (RGS) not >= 11; No D [...] MICRO GEN ERAL ORDERABLES [facility] IDD LABORATORY [facility] Inf. Diseases Diag. Lab [address] [facility], [address] [place] [address], [facility] * (ABNORMAL) Creatinine POCT (01/29/2024 6:36 PM CDT) Creatinine POCT 0.4(L) 0.5 - 1.0 mg/dL 01/29/2024 6:40 PM CDT RH LABORATORY POC GFR, ESTIMATED POCT >60 >60 mL/min/1.7 3m2 01/29/2024 6:40 PM CDT RH LABORATORY POC Blood, venous BLOOD SPECIMEN / Unknown 01/29/2024 6:36 PM CDT 01/29/2024 6:40 PM CDT Dakota Dwyer MD LAB - BEAKER PO CT RH LABORATORY POC [facility] Acute Care Lab [address] Lab (1st floor, no room number) [place] [address], [facility] * (ABNORMAL) iStat Gases (lactate) venous, [...] CDT Provider Unknown LAB - BEAKER POCT LABORATORY POC [facility] Care Lab [address] Lab (1st floor, no room number) [place] [phone] [place] [address] * Extra Red Top Tube (01/29/2024 6:21 PM CDT) Hold Specimen [facility] 01/29/2024 7:31 PM CDT RH LABORATORY Blood STRUCTURE OF LEFT UPPER LIMB / Unknown Venipuncture / Unknown 01/29/2024 6:21 PM CDT 01/29/2024 6:24 PM CDT Dakota Dwyer MD LAB - BLOOD ORD ERABLES Performing Organization Address City/[facility]/ZIP Co de Phone Number [facility] Care Lab [address] Lab (1st floor, no room number) [place] [phone] [place] [address] * Extra Blue Top Tube (01/29/2024 6:21 PM CDT) Hold Specimen [facility] 01/29/2024 7:31 PM CDT RH LABORATORY Blood STRUCTURE OF LEFT UPPER LIMB / Unknown Venipuncture / Unknown 01/29/2024 6:21 PM CDT 01/29/2024 6:24 PM CDT Dakota Dwyer MD LAB - BLOOD ORD ERABLES [facility] Care Lab [address] Lab (1st floor, no room number) [place] [phone] [place] [address] * (ABNORMAL) CBC with platelets and differential [...] Dwyer MD LAB - BLOOD ORD ERAONUR [facility] Lab [address] Lab (1st floor, no room number) [place] [address] * Troponin T, High Sensitivity (01/29/2024 6:21 PM CDT) [facility] Troponin T, High Sensitivity 11 <=14 ng/L [...] Dwyer MD LAB - BLOOD ORD ERAONUR RH LABORATORY [facility] Acute Care Lab [address] Lab (1st floor, no room number) [place] [address] * Nt probnp inpatient (BNP) (01/29/2024 6:21 PM CDT) N terminal Pro BNP Inpatient 349 0 - 900 pg/mL 01/29/2024 7:22 PM CDT LABORATORY Comment: Reference range shown and results [...] Dwyer MD LAB - BLOOD ORD ERABLES [facility] Care Lab [address] Lab (1st floor, no room number) [place] [address], [facility] * (ABNORMAL) Creatinine (01/29/2024 6:21 PM [...] Santos MD LAB - BLO OD ORDERABLES RH LABORATORY [facility] Acute Care Lab [address] [facility] Lab (1st floor, no room number) [place] [address], [facility] * (ABNORMAL) Basic metabolic panel (01/29/2024 [...] MD LAB - BLOOD ORD ERABLES LABORATORY [facility] Acute Care Lab [address] Lab (1st floor, no room number) [place] [address], [facility] * EKG 12-lead, tracing only (01/29/2024 6:15 PM CDT) Systolic Blood Pressure mmHg RADIOLOGY RESULTS Diastolic Blood Pressure mmHg RADIOLOGY RESULTS Ventricular Rate 117 BPM RAD IOLOGY RESULTS Atrial Rate 117 BPM RADIOLOG Y RESULTS OK Interval 156 ms RADIOLOG Y RESULTS QRS Duration 78 ms RADIOLO GY RESULTS QT 316 ms RADIOLOGY RESULTS QTc 440 ms RADIOLOGY RESULTS P [place] 75 degrees RADIOLOGY RESULTS R AXIS 31 degrees RADIOLOGY RESULTS T [place] 66 degrees RADIOLOGY RESULTS Interpretation ECG Sinus tachycardia Low voltage QRS Septal infarct , age undetermined Abnormal ECG No previous ECGs available Confirmed by - EMERGENCY ROOM, PHYSICIAN ([id number]), scientific publications editor BRIANA MONTESINOS ([id number]) on 01/30/2024 6:49:48 AM RADIOLOGY RESULTS 01/29/2024 6:15 PM CDT 01/30/2024 6:49 AM CDT Jorge Iniguez MD ECG ORDERABLES RADIOLOGY RESULTS from Last 3 Months Advance Directives For more information, please contact: [phone] * Full Code (Latest Code Status on File) Date Activated Date Inactivated Comments 01/29/2024 10:29 PM 01/30/2024 3:21 PM All basic a nd advanced life-sustaining interventions are performed as appropriate Question Answer Comments Code status determined by: Other (please documen t) Care Teams Traffic Operations Engineer Relationship Specialty Start Date End Date Clinic, [facility] [place] [address] [place] [address] PCP - General 01/29/24
--- OUTSIDE RECORDS SUMMARY | 2024-02-08 14:03 | XMS_ITS | Encounter Summary ---
Author Organization [place] Address [address] [place] [address] Care Team Providers Care Plate Mill Hand Name Role Phone Clinic, [facility] Primary Care Provider Reason for Visit * Reason Comments Shortness of Breath * Auth/Cert Specialty Diagnoses / Procedures Referred By Contac t Referred To Contact EMERGENCY MEDICINE Diagnoses Acute respiratory failure with hypoxia (H) Emergency Dept [address] [place] [address] Referral ID Status Reason Start Date Expiration Date Visits Re quested Visits Authorized [id number] 1 1 Encounter Details Date Type Department Care Team (Late st Contact Info) Description 01/29/2024 6:12 PM CDT - 01/30/2024 1:16 PM CDT Hospital Encounter [facility] Emergency Dept [address] [place] [address] Dakota Dwyer MD [address] [facility] [place], [place] [phone] Crescencio Santos MD [address] [place], [place] [phone] Nolberto Bella MD [facility] [address] [place], [place] [id number] Acute respiratory failure with hypoxia (H); COPD [...] Manzanares MD - 01/30/2024 1:16 PM CDT [facility] Hospitalist Discharge Summary Date of Admission: 01/29/2024 [...] However patient requested to go back to [facility] where she had surgery and just discharged today earlier. She was advised to stay here as her current presentation has anything to do with her surgery, as her current problem is respiratory failure. Patient declined to stay, signed AMA and left with a plan to go to [facility]. Her husbandand son at bedside. Patient is aware of the risk associated with leaving AGAINST MEDICAL ADVICE. Consultations This Hospital Stay None Code Status Full Code Time Spent on this Encounter 15 minutes, patient left AMA Darrick Manzanares MD [facility] EMERGENCY DEPT [address] [facility] [address] Physical Exam Vital Signs: Temp: 98.4 ??F (36.9 ??C) Temp src: Oral BP: 112/67 Pulse: 116 Resp: 16 SpO2: 95 % O2 Device: Nasal cannula Oxygen Delivery: 5 LPM Weight: 265 lbs 14 oz See H&P, no detail exam done [facility] Discharge Orders No discharge procedures on [...] Santos MD - 01/29/2024 8:49 PM CDT [facility] History and Physical - Hospitalist Service Date of Admission: 01/29/2024 Assessment & Plan Linnette Brown is a 68 year old female with past medical history including COPD intermittentlyon home O2, anxiety, hypertension and former smoking who presented to [facility] emergency room 01/29/2024. She was actually just discharged from [facility] earlier the day of admission during [...] brought here to the emergency room at [facility] and oxygen saturations were in the low [...] inhalers once verified. 3. Recent admission at [facility] requiring laparotomy for colon perforation sustained [...] 2-4 Days Crescencio Santos MD Hospitalist Service [facility] Securely message with [employer] (more info) Text page via [facility] Paging/Directory Chief Complaint Respiratory failure History of Present Illness Linnette Brown is a 68 year old female with past medical history including COPD intermittentlyon home O2, anxiety, hypertension and former smoking who presented to [facility] emergency room 01/29/2024. She was actually just discharged from [facility] earlier the day of admission during [...] she lived much of her life in [place] and relocated to this area about a [...] CT CHEST PULMONARY EMBOLISM W CONTRAST LOCATION: [facility] DATE: 01/29/2024 INDICATION: hypoxia; Female sex; Not ; No prior imaging in the last 24 hours; Pulmonary Embolism Rule Out Criteria (PERC) score > 0; Revised Jackson Score (RGS) not >= 11; No D [...] Patient wanted to be transferred back to [facility]. Transfer is not possible due level ofcare. Cannot transfer a patient from a higher level of care hospital to a lower level of care hospital. Patient trialed on 5L O2nc and sats were in low to mid 90s at rest. Patient aware of risk of leaving AMA but wants to go to [facility] anyway. Dr Manzanares came to advise patient to continue care here at [facility]. IV removed. AMA paperwork signed. * Sara De Jesus RN - 01/30/2024 6:06 AM CDT [facility] ED Nurse Handoff Report ED Chief complaint: Shortness of Breath . ED Diagnosis: Final diagnoses: Acute respiratory failure with hypoxia (H) COPD with acute exacerbation (H) Pneumonia of both lower lobes due to infectious organism Allergies: Allergies Allergen Reactions Amoxicillin Hives Code Status: Full Code Activity level - Baseline/Home: in bed. Activity Level - Current: in bed. Lift room needed: No. Bariatric: No Clinical Haematologist Needed: No Isolation: No. Infection: Not Applicable. [...] use. The patient was recently admitted at [facility] with a colonic perforation. She underwent [...] Urine Negative Ketones Urine >150 (*) Specific [place] Urine 1.034 Blood Urine Trace (*) pH [...] 40 mg (40 mg Subcutaneous $Given 01/29/24 5155) dextrose 5% and 0.9% NaCl infusion ( Intravenous $New Bag 01/29/24 3636) acetaminophen (TYLENOL) tablet 650 mg (has no [...] Heated high flow NC ED Nurse Name: Saar De Jesus RN 6:06 AM * Sara [...] AM CDT Pt placed on BiPAP by fiction writer as she was desatting on 10 LPM Oxymask. No concerns as pt is satting at 97% on 30% FiO2, resp rate of 21. * Sara De Jesus RN - 01/30/2024 3:08 AM CDT Pt given water by fiction writer as per request- had sip of water. Verbal permission obtained by fiction writer from MD Bella. Pt tolerated well. * Farideh Perdue RN - 01/29/2024 6:59 PM CDT [facility] ED Nurse Handoff Report ED Chief complaint: Shortness of Breath . ED Diagnosis: Final diagnoses: None Allergies: Allergies Allergen Reactions Amoxicillin Hives Code Status: Full Code Activity level - Baseline/Home: independent. Activity Level - Current: assist of 1. Lift room needed: No. Bariatric: No Clinical Haematologist Needed: No Isolation: No. Infection: Not Applicable. [...] Chest Pain AssessmentAssociated Signs/Symptoms: dyspneaChest Pain Intervention: equipment monitor phototypesetting placed; activity minimized; 12-lead ECG obtained 1836 [...] baseline per report. Pt discharged today from [facility] where she was admitted for a ruptured colon after a colonoscopy. * Becky Mir RN - 01/29/2024 6:12 PM CDT Bed: [facility] Expected date: 01/29/24 Expected time: 5:59 PM [...] use. The patient was recently admitted at [facility] with a colonic perforation. She underwent [...] Urine Negative Ketones Urine >150 (*) Specific [place] Urine 1.034 Blood Urine Trace (*) pH [...] Pressure Ventricular Rate 117 Atrial Rate 117 AL Interval 156 QRS Duration 78 QT 316 QTc 440 P [place] 75 R AXIS 31 T [place] 66 Interpretation ECG Sinus tachycardia Low voltage [...] first. The patient [place] be [place] [facility]. She does not require ICU level care [...] documented in this encounter Plan of Treatment Not on file documented as of this encounter Procedures Procedure [...] Results * Magnesium (01/30/2024 7:37 AM CDT) [facility] Magnesium 1.7 1.7 - 2.3 mg/dL 01/30/2024 8:29 AM CDT LABORATORY Blood STRUCTURE OF RIGHT UPPER LIMB / Unknown Venipuncture / Unknown 01/30/2024 7:37 AM CDT 01/30/2024 8:17 AM CDT Crescencio Santos MD LAB - BLO OD ORDERABLES [facility] Acute Care Lab [address] Lab (1st floor, no room number) [place] [phone] * Potassium (01/30/2024 7:37 AM CDT) [facility] Potassium 3.7 3.4 - 5.3 mmol/L 01/30/2024 8:29 AM CDT LABORATORY Blood STRUCTURE OF RIGHT UPPER LIMB / Unknown Venipuncture / Unknown 01/30/2024 7:37 AM CDT 01/30/2024 8:17 AM CDT Crescencio Santos MD LAB - BLO OD ORDERABLES [facility] Acute Care Lab [address] Lab (1st floor, no room number) [place] [phone] * (ABNORMAL) UA with Microscopic reflex to Culture (01/29/2024 8:08 PM CDT) [facility] Color Urine Light Yellow Colorless, Straw, Light Yellow, Yellow 01/29/2024 8:36 PM CDT LABORATORY Appearance Urine Clear Clear 01/29/20 8:36 PM CDT [facility] Glucose Urine Negative Negative mg/dL 01/29/2024 8:36 PM CDT [facility] Bilirubin Urine Negative Negative 8:36 PM CDT [facility] Ketones Urine >150(A) Negative mg/dL 01/29/2024 8:36 PM CDT LABORATORY Specific [place] Urine 1.034 1.003 - 1.035 01/29/2024 8:36 [...] MD LAB - URINE ORD ERABLES LABORATORY [facility] Acute Care Lab [address] Lab (1st floor, no room number) [place] [address], [facility] * CT Chest Pulmonary Embolism w [...] CT CHEST PULMONARY EMBOLISM W CONTRAST LOCATION: [facility] DATE: 01/29/2024 INDICATION: hypoxia; Female sex; Not ; No prior imaging in the last 24 hours; Pulmonary Embolism Rule Out Criteria (PERC) score > 0; Revised Jackson Score (RGS) not >= 11; No D [...] CT CHEST PULMONARY EMBOLISM W CONTRAST LOCATION: [facility] DATE: 01/29/2024 INDICATION: hypoxia; Female sex; Not ; No prior imaging in thelast 24 hours; Pulmonary Embolism Rule Out Criteria (PERC) score > 0;Revised Jackson Score (RGS) not >= 11; No D [...] MICRO GEN ERAL ORDERABLES [facility] LABORATORY [facility] Inf. Diseases Diag. Lab [address], [address] [place] [address] * (ABNORMAL) Creatinine POCT (01/29/2024 6:36 PM CDT) Creatinine POCT 0.4(L) 0.5 - 1.0 mg/dL 01/29/2024 6:40 PM CDT [facility] LABORATORY POC GFR, ESTIMATED POCT >60 >60 mL/min/1.7 3m2 01/29/2024 6:40 PM CDT [facility]ORAT[facility] POC Blood, venous BLOOD SPECIMEN / Unknown 01/29/2024 6:36 PM CDT 01/29/2024 6:40 PM CDT Dakota Dwyer MD LAB - BEAKER PO CT [facility] LABORATORY POC [facility] Acute Care Lab [address] Lab (1st floor, no room number) [place] [address], [facility] * (ABNORMAL) iStat Gases (lactate) venous, [...] LAB - BEAKER POCT [facility] LABORATORY POC [facility] Care Lab [address] Lab (1st floor, no room number) [place] [address] * (ABNORMAL) Magnesium (01/29/2024 6:21 PM CDT) Magnesium 1.6(L) 1.7 - 2.3 mg/dL 01/29/2024 10:50 PM CDT [facility] LABORATORY Blood STRUCTURE OF LEFT UPPER LIMB / Unknown Venipuncture / Unknown 01/29/2024 6:21 PM CDT 01/29/2024 6:24 PM CDT Crescencio Santos MD LAB - BLO OD ORDERABLES LABORATORY [facility] Lab [address] Lab (1st floor, no room number) [place] [address] * (ABNORMAL) Creatinine (01/29/2024 6:21 PM [...] - BLO OD ORDERABLES Performing Organization Address [facility]/ZIP Co de Phone Number [facility] Acute Care Lab [address] Lab (1st floor, no room number) [place] [address] * Nt probnp inpatient (BNP) (01/29/2024 [...] - BLOOD ORD ERABLES Performing Organization Address [facility]/ZIP Co de Phone Number [facility] Acute Care Lab [address] Lab (1st floor, no room number) [place] [address], [facility] * Troponin T, High Sensitivity (01/29/2024 6:21 PM CDT) Troponin T, High Sensitivity 11 <=14 ng/L [...] Dwyer MD LAB - BLOOD ORD ERABLES [facility] Care Lab [address] Lab (1st floor, no room number) [address] [place] [address] * Extra Red Top Tube (01/29/2024 6:21 PM CDT) Hold Specimen [facility] 01/29/2024 7:31 PM CDT [facility] Blood STRUCTURE OF LEFT UPPER LIMB / Unknown Venipuncture / Unknown 01/29/2024 6:21 PM CDT 01/29/2024 6:24 PM CDT Dakota Dwyer MD LAB - BLOOD ORD ERABLES Performing Organization Address City/[facility]/ZIP Co de Phone Number [facility] Care Lab [address] Lab (1st floor, no room number) [place] [address] * Extra Blue Top Tube (01/29/2024 6:21 PM CDT) Hold Specimen JI 01/29/2024 7:31 PM CDT [facility] Blood STRUCTURE OF LEFT UPPER LIMB / Unknown Venipuncture / Unknown 01/29/2024 6:21 PM CDT 01/29/2024 6:24 PM CDT Dakota Dwyer MD LAB - BLOOD ORD ERABLES [facility] Acute Care Lab [address] Lab (1st floor, no room number) [place] [address], [facility] * (ABNORMAL) CBC with platelets and differential (01/29/2024 6:21 PM CDT) [facility] WBC Count 15.6(H) 4.0 - 11.0 10e3/uL [...] MD LAB - BLOOD ORD ERABLES LABORATORY [facility] Acute Care Lab [address] Lab (1st floor, no room number) [place] [address] * (ABNORMAL) Basic metabolic panel (01/29/2024 [...] 6:42 PM CDT [facility]AT[facility] Comment:eGFR calculated us2020 CKD-EPI equation. Calcium 8.8 8.8 - 10.4 [...] - BLOOD ORD ERABLES Performing Organization Address City/[facility]/ZIP Co de Phone Number LABORATORY [facility] Acute Care Lab [address] Lab (1st floor, no room number) [place] [address] * EKG 12-lead, tracing only (01/29/2024 6:15 PM CDT) Systolic Blood Pressure mmHg RADIOLOGY RESULTS Diastolic Blood Pressure mmHg RADIOLOGY RESULTS Ventricular Rate 117 BPM RAD IOLOGY RESULTS Atrial Rate 117 BPM RADIOLOG Y RESULTS AL Interval 156 ms RADIOLOG Y RESULTS QRS Duration 78 ms RADIOLO GY RESULTS QT 316 ms RADIOLOGY RESULTS QTc 440 ms RADIOLOGY RESULTS P [place] 75 degrees RADIOLOGY RESULTS R AXIS 31 degrees RADIOLOGY RESULTS T [place] 66 degrees RADIOLOGY RESULTS Interpretation ECG Sinus tachycardia Low voltage QRS Septal infarct , age undetermined Abnormal ECG No previous ECGs available Confirmed by - EMERGENCY ROOM, PHYSICIAN ([id number]), food expeditor BRIANA MONTESINOS ([id number]) on 01/30/2024 6:49:48 AM [...] For 1 dose, Indications: Community Acquired Pneumonia $ Bag 01/29/2024 8:42 PM CDT 500 mg cefTRIAXone (ROCEPHIN) 2 g vial to attach to NS 100 ml bag for ADULTS or NS 50 ml bag for PEDS STAT, 2 g, Intravenous, ONCE, On Sun01/29/24 at 1935, For 1 dose, Changed to ceftriaxone 2g per Automatic Dose Adjustment Policy for weight > 90kg., Indications: Community Acquired Pneumonia $ Bag 01/29/2024 8:05 PM CDT 2 g dextrose 5% and 0.9% NaCl infusion at 100 mL/hr, Intravenous, CONTINUOUS, Starting on Sun01/29/24 at 2230, Until Sun01/30/24 at 0829 $ Bag 01/29/2024 11:14 PM CDT 100 mL/hr [...] Pneumonia 2041 ($New Bag - Provider: Farideh Perdue RN)2218 (Stopped - Provider: Farideh Perdue RN) azithromycin (ZITHROMAX) tablet 250 mg Routine, 250 mg, Oral, DAILY, First dose on Sun01/30/24 at 0800, For 4 days, Indications: Community Acquired Pneumonia 111 (Not Given - Provider: Lilian Ho RN [...] notify provider. 2336 ($Given - Provider: Danni Mejia, JEWEL) iopamidol (ISOVUE-370) solution 500 mL (COMPLETED) 500 mL, Intravenous, ONCE, On Sun01/29/24 at 1900, For 1 dose 190 ($Given - Provider: Angelina Sanchez) ipratropium - [...] On Sun01/29/24 at 1835, For 1 dose 183 ($Given - Provider: Farideh Perdue, JEWEL) LORazepam [...] shortness of breath, Starting on Sun01/29/24 at 2228 calcium carbonate (TUMS) chewable tablet 1,000 mg 1,000 mg, Oral, 4 TIMES DAILY PRN, heartburn, Starting on Sun01/29/24 at 2228 HYDROmorphone (PF) (DILAUDID) injection 0.3 mg 0.3 mg, Intravenous, EVERY 3 HOURS PRN, severe pain, Starting on Sun01/29/24 at 2228 lidocaine (LMX4) cream Topical, EVERY 1 HOUR PRN, pain, with VAD insertion, Starting on Sun01/29/24 at 2228, Apply at least 30 minutes prior to [...] with VAD insertion, Starting on Sun01/29/24 at 2228, Apply at least 30 minutes prior to [...] with VAD insertion, Starting on Sun01/29/24 at 2228, MAX dose 1 mL subcutaneous OR intradermal [...] DAILY PRN, constipation, Starting on Sun01/29/24 at 222, If no bowel movement in 24 hours, [...] lock dormant line, Starting on Sun01/29/24 at 2229 sodium chloride (PF) 0.9% PF flush 3 mL 3 mL, Intracatheter, EVERY 1 MIN PRN, line flush, other, to ensure patency or to lock dormant line, Starting on Sun01/29/24 at 2229 Linked Groups Order Group 1: acetaminophen (TYLENOL) [...] per patient request, Starting on Sun01/29/24 at 222, Alternate with ibuprofen if ordered. Maximum acetaminophen [...] stools. documented in this encounter Care Teams Plate Mill Hand Relationship Specialty Start Date End Date [address] [address] PCP - General 01/29/24 documented as of this encounter
== END 2024-02-08 14:00 | disposition home or self-care (01) ==
LOC: NFLDREF 14:02
PROVIDERS: PCP Family Medicine; Visit Provider Family Medicine
DX: E87.6 Hypokalemia (principal)
CPT/HCPCS: 80053

== ENCOUNTER 2024-03-18 12:35 | Outpatient (CLI) | payer MEDICARE, OTHER, SELFPAY ==
--- OUTSIDE RECORDS SUMMARY | 2024-03-18 12:38 | XMS_ITS | Clinical Summary ---
Author Organization [email or web address] [facility] Address [place], [place] [address] Care Team Providers Care Gullet Slitter Name Role Phone Cheyenne Guardado MD Primary [...] Name Administration Dates Next Due COVID-19 vaccine ([employer] 30mcg/0.3mL) 12YO+ FRANCOISE-SUCROSE PF, MDV 11/02/2021 Influenza [...] Used Date Smoking Tobacco: Former Cigarettes 1 45.4 S tarted: 11/08/1978 Smokeless Tobacco: Never Tobacco [...] Comments Blood Pressure 124/80 07/31/2023 9:45 AM MICROBIAL SPECIALIST Pulse 66 11/02/2022 11:16 AM CDT Temperature - - Respiratory Rate 14 08/30/2018 10:36 AM MICROBIAL SPECIALIST Oxygen Saturation 93% 11/02/2022 11:16 AM CDT Inhaled Oxygen Concentration - - Weight 53.1 kg (117 lb) 07/31/2023 9:45 AM MICROBIAL SPECIALIST Height 157.5 cm (5' 2) 11/02/2022 11:16 AM CDT Body Mass Index 21.4 11/02/2022 11:16 AM CDT Plan of Treatment Upcoming Encounters Date Type Department Care Team (Late st Contact Info) Description 05/20/2024 11:20 AM MICROBIAL SPECIALIST Telemedicine [facility] [address] [place] [address] Pamela Conner, BEND UP [address] [facility] [address] [place] [address] Health Maintenance Due Date Last Done Comments [...] 2022 Medicare Wellness for age 65+ 2022 BMI (ht and wt on same day) for age 18+ 11/03/2023 11/02/2022, 06/09/2022, 02/28/2022, Additional history exists COVID-19 vaccine series ( - 2022- season) 2024 04/03/2022, 11/02/2021 Influenza for age 65+ 03/02/2024 05/18/2020 , [...] CHOLESTEROL,TOTAL 108 mg/dL 023 6:42 PM CDT [facility] Comment: Cholesterol, Total Reference Ranges Desirable <200 mg/dL Borderline 200-239 mg/dL High >=240 mg/dL TRIGLYCERIDES 86 <150 mg/dL 10/31/2022 6:42 PM CDT [facility] TR[facility] LAB[facility] HDL CHOLESTEROL 47 >40 mg/dL 6:42 PM CDT [facility] NON-HDL CHOLESTEROL 61 <145 mg/dl 10/31/2022 6:42 PM CDT [facility] CHOL/HDL RATIO 2.30 <4.50 10/31/2022 6:42 PM CDT [facility] LDL CHOLESTEROL 44 <=130 mg/dL 10/31/2022 6:42 PM CDT [facility] VLDL CHOLESTEROL 17(L) >30 mg/dL 11/01/19 6:42 PM CDT [facility] TRAL LABORATORY PROVIDER ORDERED STATUS RANDOM 10/31/2022 6:42 PM CDT [facility] Blood BLOOD SPECIMEN / Unknown Venipuncture / Unknown 10/31/2022 9:15 AM CDT 10/31/2022 9:21 AM CDT Pamela Conner NP [facility] [address] [place] [address], * SCAN-MAMMOGRAPHY REPORT (12/19/2007 12:00 AM CDT) Anatomical Region Laterality Modality Other Narrative Procedure Note Scanner - 12/19/2007 12:00 AM CDT Scanner OTHER from Last 3 Months or Most Recently Relevant to Health Maintenance Care Teams Gullet Slitter Relationship Specialty Start Date End Date Cheyenne Guardado MD [address] [place] [address] PCP - General Family Practice 09/02/18
--- OUTSIDE RECORDS SUMMARY | 2024-03-18 12:38 | XMS_ITS | Encounter Summary ---
Author Organization [facility] Address [address] [place] [address] Care Team Providers Care Solvent Plant Operator Name Role Phone Clinic, [facility] Nice Primary Care Provider Reason for Visit * Reason Comments Shortness of Breath * Auth/Cert Specialty Diagnoses / Procedures Referred By Contac t Referred To Contact EMERGENCY MEDICINE Diagnoses Acute respiratory failure with hypoxia (H) Emergency Dept [address] [place] [address] Referral ID Status Reason Start Date Expiration Date Visits Re quested Visits Authorized [id number] 1 1 Encounter Details Date Type Department Care Team (Late st Contact Info) Description 01/29/2024 6:12 PM CDT - 01/30/2024 1:16 PM CDT Hospital Encounter [facility] Emergency Dept [address] [place] [address] Dakota Dwyer MD [address] [place], [place] [phone] Crescencio Santos MD [address] [place], [place] [phone] Nolberto Bella MD [facility] [address] [place], [place] [address] Acute respiratory failure with hypoxia (H); COPD [...] Manzanares MD - 01/30/2024 1:16 PM CDT [facility] Hospitalist Discharge Summary Date of Admission: [...] However patient requested to go back to [facility] where she had surgery and just discharged today earlier. She was advised to stay here as her current presentation has anything to do with her surgery, as her current problem is respiratory failure. Patient declined to stay, signed AMA and left with a plan to go to [facility]. Her husbandand son at bedside. Patient is aware of the risk associated with leaving AGAINST MEDICAL ADVICE. Consultations This Hospital Stay None Code Status Full Code Time Spent on this Encounter 15 minutes, patient left AMA Darrick Manzanares MD [facility] EMERGENCY DEPT [address] [facility] [id number] Physical Exam Vital Signs: Temp: 98.4 ??F (36.9 ??C) Temp src: Oral BP: 112/67 Pulse: 116 Resp: 16 SpO2: 95 % O2 Device: Nasal cannula Oxygen Delivery: 5 LPM Weight: 265 lbs 14 oz See H&P, no detail exam done [facility] Discharge Orders No discharge procedures on [...] Santos MD - 01/29/2024 8:49 PM CDT [facility] History and Physical - Hospitalist Service Date of Admission: 01/29/2024 Assessment & Plan Linnette Brown is a 68 year old female with past medical history including COPD intermittentlyon home O2, anxiety, hypertension and former smoking who presented to [facility] emergency room 01/29/2024. She was actually just discharged from [facility] earlier the day of admission during which [...] brought here to the emergency room at [facility] and oxygen saturations were in the low [...] inhalers once verified. 3. Recent admission at [facility] requiring laparotomy for colon perforation sustained during [...] 2-4 Days Crescencio Santos MD Hospitalist Service [facility] Securely message with [employer] (more info) Text page via [facility] Paging/Directory Chief Complaint Respiratory failure History of Present Illness Linnette Brown is a 68 year old female with past medical history including COPD intermittentlyon home O2, anxiety, hypertension and former smoking who presented to [facility] emergency room 01/29/2024. She was actually just discharged from [facility] earlier the day of admission during which [...] she lived much of her life in [place] and relocated to this area about a [...] CT CHEST PULMONARY EMBOLISM W CONTRAST LOCATION: [facility] DATE: 01/29/2024 INDICATION: hypoxia; Female sex; Not ; No prior imaging in the last 24 hours; Pulmonary Embolism Rule Out Criteria (PERC) score > 0; Revised Ranburne Score (RGS) not >= 11; No D [...] Patient wanted to be transferred back to [facility]. Transfer is not possible due level ofcare. Cannot transfer a patient from a higher level of care hospital to a lower level of care hospital. Patient trialed on 5L O2nc and sats were in low to mid 90s at rest. Patient aware of risk of leaving AMA but wants to go to [facility] anyway. Dr Manzanares came to advise patient to continue care here at [facility]. IV removed. AMA paperwork signed. * Sara De Jesus RN - 01/30/2024 6:06 AM CDT [facility] ED Nurse Handoff Report ED Chief [...] bed. Lift room needed: No. Bariatric: No Book Canvasser Needed: No Isolation: No. Infection: Not Applicable. [...] use. The patient was recently admitted at [facility] with a colonic perforation. She underwent laparotomy [...] Urine Negative Ketones Urine >150 (*) Specific [place] Urine 1.034 Blood Urine Trace (*) pH [...] 40 mg (40 mg Subcutaneous $Given 01/29/24 6395) dextrose 5% and 0.9% NaCl infusion ( Intravenous $New Bag 01/29/24 1581) acetaminophen (TYLENOL) tablet 650 mg (has no [...] AM CDT Pt placed on BiPAP by verse writer as she was desatting on 10 LPM Oxymask. No concerns as pt is satting at 97% on 30% FiO2, resp rate of 21. * Sara De Jesus RN - 01/30/2024 3:08 AM CDT Pt given water by verse writer as per request- had sip of water. Verbal permission obtained by verse writer from MD Bella. Pt tolerated well. * Farideh Perdue RN - 01/29/2024 6:59 PM CDT [facility] ED Nurse Handoff Report ED Chief complaint: Shortness of Breath . ED Diagnosis: Final diagnoses: None Allergies: Allergies Allergen Reactions Amoxicillin Hives Code Status: Full Code Activity level - Baseline/Home: independent. Activity Level - Current: assist of 1. Lift room needed: No. Bariatric: No Book Canvasser Needed: No Isolation: No. Infection: Not Applicable. [...] Chest Pain AssessmentAssociated Signs/Symptoms: dyspneaChest Pain Intervention: security monitor placed; activity minimized; 12-lead ECG obtained [...] baseline per report. Pt discharged today from [facility] where she was admitted for a ruptured colon after a colonoscopy. * Becky Mir RN - 01/29/2024 6:12 PM CDT Bed: [facility] Expected date: 01/29/24 Expected time: 5:59 PM [...] use. The patient was recently admitted at [facility] with a colonic perforation. She underwent laparotomy [...] Urine Negative Ketones Urine >150 (*) Specific [place] Urine 1.034 Blood Urine Trace (*) pH [...] Pressure Ventricular Rate 117 Atrial Rate 117 GA Interval 156 QRS Duration 78 QT 316 QTc 440 P [place] 75 R AXIS 31 T [place] 66 Interpretation ECG Sinus tachycardia Low voltage [...] first. The patient will be admitted to [facility]. She does not require ICU level care [...] Results * Magnesium (01/30/2024 7:37 AM CDT) [facility] Magnesium 1.7 1.7 - 2.3 mg/dL 01/30/2024 8:29 AM CDT LABORATORY Blood STRUCTURE OF RIGHT UPPER LIMB / Unknown Venipuncture / Unknown 01/30/2024 7:37 AM CDT 01/30/2024 8:17 AM CDT Crescencio Santos MD LAB - BLO OD ORDERABLES [facility] Acute Care Lab [address] Lab (1st floor, no room number) [place] [phone] * Potassium (01/30/2024 7:37 AM CDT) [facility] Potassium 3.7 3.4 - 5.3 mmol/L 01/30/2024 8:29 AM CDT LABORATORY Blood STRUCTURE OF RIGHT UPPER LIMB / Unknown Venipuncture / Unknown 01/30/2024 7:37 AM CDT 01/30/2024 8:17 AM CDT Crescencio Santos MD LAB - BLO OD ORDERABLES [facility] Acute Care Lab [address] Lab (1st floor, no room number) [place] [phone] * (ABNORMAL) UA with Microscopic reflex to Culture (01/29/2024 8:08 PM CDT) [facility] Color Urine Light Yellow Colorless, Straw, Light Yellow, Yellow 01/29/2024 8:36 PM CDT LABORATORY Appearance Urine Clear Clear 01/29/20 8:36 PM CDT [facility] LABORATORY Glucose Urine Negative Negative mg/dL 01/29/2024 8:36 PM CDT [facility] LABORATORY Bilirubin Urine Negative Negative 8:36 PM CDT [facility] LABORATORY Ketones Urine >150(A) Negative mg/dL 01/29/2024 8:36 PM CDT LABORATORY Specific [place] Urine 1.034 1.003 - 1.035 01/29/2024 8:36 [...] MD LAB - URINE ORD ERABLES LABORATORY [facility] Acute Care Lab [address] Lab (1st floor, no room number) [place] [address], [facility] * CT Chest [...] CT CHEST PULMONARY EMBOLISM W CONTRAST LOCATION: [facility] DATE: 01/29/2024 INDICATION: hypoxia; Female sex; Not ; No prior imaging in the last 24 hours; Pulmonary Embolism Rule Out Criteria (PERC) score > 0; Revised Ranburne Score (RGS) not >= 11; No D [...] CT CHEST PULMONARY EMBOLISM W CONTRAST LOCATION: [facility] DATE: 01/29/2024 INDICATION: hypoxia; Female sex; Not ; No prior imaging in thelast 24 hours; Pulmonary Embolism Rule Out Criteria (PERC) score > 0;Revised Ranburne Score (RGS) not >= 11; No D [...] MICRO GEN ERAL ORDERABLES UU IDD LABORATORY [facility] Inf. Diseases Diag. Lab [address] [facility], [address] [place] [address] * (ABNORMAL) Creatinine POCT (01/29/2024 6:36 PM CDT) Creatinine POCT 0.4(L) 0.5 - 1.0 mg/dL 01/29/2024 6:40 PM CDT RH LABORATORY POC GFR, ESTIMATED POCT >60 >60 mL/min/1.7 3m2 01/29/2024 6:40 PM CDT [facility] LABORATORY POC Blood, venous BLOOD SPECIMEN / Unknown 01/29/2024 6:36 PM CDT 01/29/2024 6:40 PM CDT Dakota Dwyer MD LAB - BEAKER PO CT [facility] LABORATORY POC [facility] Acute Care Lab [address] Lab (1st floor, no room number) [place] [address], [facility] * (ABNORMAL) iStat [...] LAB - BEAKER POCT RH LABORATORY POC [facility] Care Lab [address] Lab (1st floor, no room number) [place] [address] * (ABNORMAL) Magnesium (01/29/2024 6:21 PM CDT) Magnesium 1.6(L) 1.7 - 2.3 mg/dL 01/29/2024 10:50 PM CDT RH LABORATORY Blood STRUCTURE OF LEFT UPPER LIMB / Unknown Venipuncture / Unknown 01/29/2024 6:21 PM CDT 01/29/2024 6:24 PM CDT Crescencio Santos MD LAB - BLO OD ORDERABLES LABORATORY [facility] Lab [address] Lab (1st floor, no room number) [place] [address] * (ABNORMAL) Creatinine (01/29/2024 6:21 [...] - BLO OD ORDERABLES Performing Organization Address [facility]/ZIP Co de Phone Number [facility] Acute Care Lab [address] Lab (1st floor, no room number) [place] [address] * Nt probnp inpatient (BNP) [...] - BLOOD ORD ERABLES Performing Organization Address [facility]/ZIP Co de Phone Number [facility] Acute Care Lab [address] Lab (1st floor, no room number) [place] [address], [facility] * Troponin T, [...] Dwyer MD LAB - BLOOD ORD ERABLES [facility] Care Lab [address] Lab (1st floor, no room number) [address] [place] [address] * Extra Red Top Tube (01/29/2024 6:21 PM CDT) Hold Specimen [facility] 01/29/2024 7:31 PM CDT RH LABORATORY Blood STRUCTURE OF LEFT UPPER LIMB / Unknown Venipuncture / Unknown 01/29/2024 6:21 PM CDT 01/29/2024 6:24 PM CDT Dakota Dwyer MD LAB - BLOOD ORD ERABLES Performing Organization Address City/[facility]/ZIP Co de Phone Number [facility] Care Lab [address] Lab (1st floor, no room number) [place] [address] * Extra Blue Top Tube (01/29/2024 6:21 PM CDT) Hold Specimen JI 01/29/2024 7:31 PM CDT [facility] LABORATORY Blood STRUCTURE OF LEFT UPPER LIMB / Unknown Venipuncture / Unknown 01/29/2024 6:21 PM CDT 01/29/2024 6:24 PM CDT Dakota Dwyer MD LAB - BLOOD ORD ERABLES [facility] Acute Care Lab [address] Lab (1st floor, no room number) [place] [address], [facility] * (ABNORMAL) CBC with platelets and differential (01/29/2024 6:21 PM CDT) [facility] WBC Count 15.6(H) 4.0 - 11.0 10e3/uL [...] MD LAB - BLOOD ORD ERABLES LABORATORY [facility] Acute Care Lab [address] Lab (1st floor, no room number) [place] [address] * (ABNORMAL) Basic metabolic panel [...] - BLOOD ORD ERABLES Performing Organization Address City/[facility]/ZIP Co de Phone Number LABORATORY [facility] Acute Care Lab [address] Lab (1st floor, no room number) [place] [address] * EKG 12-lead, tracing only (01/29/2024 6:15 PM CDT) Systolic Blood Pressure mmHg RADIOLOGY RESULTS Diastolic Blood Pressure mmHg RADIOLOGY RESULTS Ventricular Rate 117 BPM RAD IOLOGY RESULTS Atrial Rate 117 BPM RADIOLOG Y RESULTS GA Interval 156 ms RADIOLOG Y RESULTS QRS Duration 78 ms RADIOLO GY RESULTS QT 316 ms RADIOLOGY RESULTS QTc 440 ms RADIOLOGY RESULTS P [place] 75 degrees RADIOLOGY RESULTS R AXIS 31 degrees RADIOLOGY RESULTS T [place] 66 degrees RADIOLOGY RESULTS Interpretation ECG Sinus tachycardia Low voltage QRS Septal infarct , age undetermined Abnormal ECG No previous ECGs available Confirmed by - EMERGENCY ROOM, PHYSICIAN ([id number]), editor city BRIANA MONTESINOS ([id number]) on 01/30/2024 6:49:48 AM [...] stools. documented in this encounter Care Teams Solvent Plant Operator Relationship Specialty Start Date End Date [address] [address] PCP - General 01/29/24 documented as of this encounter
--- OUTSIDE RECORDS SUMMARY | 2024-03-18 12:38 | XMS_ITS ---
Author Organization [facility] Address [address] [place] [address] Care Team Providers Care Refueling Ramp Attendant Name Role Phone Magaly, Clay Nice Primary Care Provider Transitional Care Management Status:Closed (Closed) Start date:01/31/2024 Enrollment date:02/01/2024 End date:02/14/2024 Close reason:Goals met Continued Care and Services Coordination
--- OUTSIDE RECORDS SUMMARY | 2024-03-18 12:38 | XMS_ITS | Clinical Summary ---
Author Organization [facility] Address [address] [place] [address] Care Team Providers Care Oil Tank Car Cleaner Name Role Phone Clinic, Clay Nice Primary Care Provider Allergies Active Allergy Reactions Criticality Noted Date Comments Amoxicillin Hives 01/29/2024 Medications No known medications Active Problems Problem Noted Date Diagnosed Date Acute respiratory failure with hypoxia Respiratory failure 01/29/2024 Encounters Date Type Department Care Team Description 01/29/2024 6:12 PM CDT - 01/30/2024 1:16 PM CDT Hospital Encounter [facility] Emergency Dept [address] [place] [address] Dakota Dwyer MD Foehrenbacher, MD Jena Ford, [...] C SCREENING 09/15/1975 LIPID 1997 RSV VACCINE (1 - Risk 60-74 years 1-dose series) 2017 ZOSTER IMMUNIZATION (2 of 2) 01/20/2022 11/25/2021 FALL RISK ASSESSMENT 2022 MEDICARE ANNUAL WELLNESS VISIT 2022 PHQ-2 (once per calendar year) 2023 COVID-19 Vaccine ( season) 2024 08/16/2023, 04/03/2022, 11/02/2021, Additional history exists INFLUENZA [...] - BLO OD ORDERABLES Performing Organization Address City/[facility]/ZIP Co de Phone Number [facility] Lab [address] Lab (1st floor, no room number) [place] [phone] * Magnesium (01/30/2024 7:37 AM CDT) Only the most recent of2 resultswithin the time period is included. Magnesium 1.7 1.7 - 2.3 mg/dL 01/30/2024 8:29 AM CDT LABORATORY Blood STRUCTURE OF RIGHT UPPER LIMB / Unknown Venipuncture / Unknown 01/30/2024 7:37 AM CDT 01/30/2024 8:17 AM CDT Crescencio Santos MD LAB - BLO OD ORDERABLES Performing Organization Address City/[facility]/ZIP Co de Phone Number [facility] Acute Care Lab [address] Lab (1st floor, no room number) [place] [address] * (ABNORMAL) UA with Microscopic reflex to [...] 01/29/2024 8:36 PM CDT RH LABORATORY Specific [place] Urine 1.034 1.003 - 1.035 01/29/2024 8:36 [...] MD LAB - URINE ORD ERABLES LABORATORY [facility] Acute Care Lab [address] Lab (1st floor, no room number) [place] [address] * CT Chest Pulmonary Embolism w Contrast [...] CT CHEST PULMONARY EMBOLISM W CONTRAST LOCATION: [facility] DATE: 01/29/2024 INDICATION: hypoxia; Female sex; Not ; No prior imaging in the last 24 hours; Pulmonary Embolism Rule Out Criteria (PERC) score > 0; Revised [place] Score (RGS) not >= 11; No D [...] CT CHEST PULMONARY EMBOLISM W CONTRAST LOCATION: [facility] DATE: 01/29/2024 INDICATION: hypoxia; Female sex; Not ; No prior imaging in thelast 24 hours; Pulmonary Embolism Rule Out Criteria (PERC) score > 0;Revised [place]coe Score (RGS) not >= 11; No D [...] on 01/29/2024 7:30 PM. Dakota Dwyer MD IM CT ORDERABL ES * Blood Culture Arm, Right (01/29/2024 6:40 PM CDT) Culture No Growth 02/03/2024 7:01 PM CDT UU IDD LABORATORY Blood STRUCTURE OF RIGHT UPPER LIMB / Unknown Venipuncture / Unknown 01/29/2024 6:40 PM CDT 01/29/2024 6:46 PM CDT Dakota Dwyer MD LAB - MICRO GEN ERAL ORDERABLES UU IDD LABORATORY [facility] Inf. Diseases Diag. Lab [address] [facility], [address] [place] [address], [facility] * (ABNORMAL) Creatinine POCT (01/29/2024 6:36 PM CDT) Creatinine POCT 0.4(L) 0.5 - 1.0 mg/dL 01/29/2024 6:40 PM CDT RH LABORATORY POC GFR, ESTIMATED POCT >60 >60 mL/min/1.7 3m2 01/29/2024 6:40 PM CDT RH LABORATORY POC Blood, venous BLOOD SPECIMEN / Unknown 01/29/2024 6:36 PM CDT 01/29/2024 6:40 PM CDT Dakota Dwyer MD LAB - [facility] CT RH LABORATORY POC [facility] Acute Care Lab [address] Lab (1st floor, no room number) [place] [address], [facility] * (ABNORMAL) iStat Gases (lactate) [...] Provider Unknown LAB - BEAKER POCT LABORATORY [facility] Care Lab [address] Lab (1st floor, no room number) [place] [phone] [place] [address] * Extra Red Top Tube (01/29/2024 6:21 PM CDT) Hold Specimen [facility] 01/29/2024 7:31 PM CDT RH LABORATORY Blood STRUCTURE OF LEFT UPPER LIMB / Unknown Venipuncture / Unknown 01/29/2024 6:21 PM CDT 01/29/2024 6:24 PM CDT Dakota Dwyer MD LAB - BLOOD ORD ERABLES Performing Organization Address City/[facility]/ZIP Co de Phone Number [facility] Lab [address] Lab (1st floor, no room number) [place] [phone] * Extra Blue Top Tube (01/29/2024 6:21 PM CDT) Hold Specimen [facility] 01/29/2024 7:31 PM CDT RH LABORATORY Blood STRUCTURE OF LEFT UPPER LIMB / Unknown Venipuncture / Unknown 01/29/2024 6:21 PM CDT 01/29/2024 6:24 PM CDT Dakota Dwyer MD LAB - BLOOD ORD ERABLES [facility] Care Lab [address] Lab (1st floor, no room number) [address] * (ABNORMAL) CBC with platelets and differential [...] MD LAB - BLOOD ORD ERABLES LABORATORY [facility] Acute Care Lab [address] Lab (1st floor, no room number) [place] [address] * Troponin T, High Sensitivity (01/29/2024 6:21 PM CDT) [facility] Troponin T, High Sensitivity 11 <=14 ng/L [...] MD LAB - BLOOD ORD ERABLES LABORATORY [facility] Acute Care Lab [address] Lab (1st floor, no room number) [address] * Nt probnp inpatient (BNP) (01/29/2024 6:21 [...] Dwyer MD LAB - BLOOD ORD ERABLES [facility] Acute Care Lab [address] Lab (1st floor, no room number) [address] * (ABNORMAL) Creatinine (01/29/2024 6:21 PM CDT) [...] Santos MD LAB - BLO OD ORDERABLES [facility] Acute Care Lab [address] Lab (1st floor, no room number) [place] [address], [facility] * (ABNORMAL) Basic metabolic panel (01/29/2024 6:21 PM CDT) Sodium 141 135 - 145 mmol/L 01/29/2024 6:42 PM CDT RH LABORATORY Potassium 3.8 3.4 - 5.3 mmol/L 01/29/2024 6:42 PM CDT RH LABORATORY Chloride 102 98 - 107 mmol/L 01/29/2024 6:42 PM CDT RH LABORATORY Carbon Dioxide (CO2) 19(L) 22 - [...] MD LAB - BLOOD ORD ERABLES LABORATORY [facility] Care Lab [address] Lab (1st floor, no room number) [place] [address], [facility] * EKG 12-lead, tracing only (01/29/2024 6:15 PM CDT) Systolic Blood Pressure mmHg RADIOLOGY RESULTS Diastolic Blood Pressure mmHg RADIOLOGY RESULTS Ventricular Rate 117 BPM RAD IOLOGY RESULTS Atrial Rate 117 BPM RADIOLOG Y RESULTS [place] Interval 156 ms RADIOLOG Y RESULTS QRS Duration 78 ms RADIOLO GY RESULTS QT 316 ms RADIOLOGY RESULTS QTc 440 ms RADIOLOGY RESULTS P [place] 75 degrees RADIOLOGY RESULTS R AXIS 31 degrees RADIOLOGY RESULTS T [place] 66 degrees RADIOLOGY RESULTS Interpretation ECG Sinus tachycardia Low voltage QRS Septal infarct , age undetermined Abnormal ECG No previous ECGs available Confirmed by - EMERGENCY ROOM, PHYSICIAN ([id number]), assistant film editor BRIANA MONTESINOS ([id number]) on 01/30/2024 6:49:48 AM RADIOLOGY RESULTS 01/29/2024 6:15 PM CDT 01/30/2024 6:49 AM CDT Jorge Iniguez MD ECG ORDERABLES RADIOLOGY RESULTS from Last 3 Months Advance Directives For more information, please contact: [phone] * Full Code (Latest Code Status on File) Date Activated Date Inactivated Comments 01/29/2024 10:29 PM 01/30/2024 3:21 PM All basic a nd advanced life-sustaining interventions are performed as appropriate Question Answer Comments Code status determined by: Other (please documen t) Care Teams Oil Tank Car Cleaner Relationship Specialty Start Date End Date [facility], [place] [phone] PCP - General 01/29/24
--- OUTSIDE RECORDS SUMMARY | 2024-03-18 12:38 | XMS_ITS | Continuity of Care Document ---
Author Name [facility] Organization [facility] Care Team Providers Care Jewelry Designer Name Role Phone [facility] Unavailable Unavailable Medications Combined list of outpatient [...] INHALATION, TEVA [place], 8.5 g CANISTER Active [id number] 4 2023 8.5 Pharmac y Data Transac tion Service Facilit y ALBUTEROL SULFATE HFA (albuterol sulfate), 90 MCG, HFA AER AD, INHALATION, [place]A [place], 8.5 g CANISTER Active [id number] 4 2023 8.5 Pharmac y Data Transac tion Service Facilit y ALBUTEROL SULFATE HFA (albuterol sulfate), 90 MCG, HFA AER AD, INHALATION, TEVA [place], 8.5 g CANISTER Active [id number] 4 2023 8.5 Pharmac y Data Transac tion Service Facilit y ALENDRONATE SODIUM (alendronat e sodium), 70 MG, TABLET, ORAL, EXELAN PHARMACE, 4 ea. BLIST PACK Active [id number] 4 2023 12 Pharmac y Data Transac tion Service Facilit y ALENDRONATE SODIUM (alendronat e sodium), 70 MG, TABLET, ORAL, MARLEX PHARM., 4 ea. BLIST PACK Active [id number] 4 2023 12 Pharmac y Data Transac tion Service Facilit y ALENDRONATE SODIUM (alendronat e sodium), 70 MG, TABLET, ORAL, MARLEX PHARM., 4 ea. BLIST PACK Active [id number] 4 2023 12 Pharmac y Data Transac tion Service Facilit y AMLODIPINE BESYLATE (amlodipine besylate), 5 MG, TABLET, ORAL, AVKARE, 1000 ea. BOTTLE Cancele d [id number] : 2023 0 Pharmac y Data Transac tion Service Facilit y AMLODIPINE BESYLATE (amlodipine besylate), 5 MG, TABLET, ORAL, AVKARE, 1000 ea. BOTTLE Cancele d [id number] : 2023 0 Pharmac y Data Transac tion Service Facilit y AMLODIPINE BESYLATE (amlodipine besylate), 5 MG, TABLET, ORAL, AVKARE, 1000 ea. BOTTLE Cancele d [id number] : 2023 0 Pharmac y Data Transac tion Service Facilit y AMLODIPINE BESYLATE (AMLODIPINE BESYLATE), 5 MG, TABLET, ORAL, EXELAN PHARMACE, 1000 ea. BOTTLE Cancele d [id number] : 2023 0 Pharmac y Data Transac tion Service Facilit y AMLODIPINE BESYLATE (AMLODIPINE BESYLATE), 5 MG, TABLET, ORAL, EXELAN PHARMACE, 1000 ea. BOTTLE Cancele d [id number] 4 [id number] : 2023 0 Pharmac y Data Transac tion Service Facilit y AMLODIPINE BESYLATE (AMLODIPINE BESYLATE), 5 MG, TABLET, ORAL, EXELAN PHARMACE, 1000 ea. BOTTLE Active [id number] 4 2023 90 Pharmac y Data Transac tion Service Facilit y DULOXETINE HCL (duloxetine HCl), 20 MG, CAPSULE DR, ORAL, [employer] 60 ea. BOTTLE Cancele d [id number] : 2023 0 Pharmac y Data Transac tion Service Facilit y DULOXETINE HCL (duloxetine HCl), 20 MG, CAPSULE DR, ORAL, [employer] 60 ea. BOTTLE Active [id number] 4 2023 90 Pharmac y Data Transac tion Service Facilit y DULOXETINE HCL (duloxetine HCl), 60 MG, CAPSULE DR, ORAL, [employer] 1000 ea. BOTTLE Active [id number] 4 2023 90 Pharmac y Data Transac tion Service Facilit y EZETIMIBE (ezetimibe) , 10 MG, TABLET, ORAL, [employer] 500 ea. BOTTLE Cancele d [id number] : 2023 0 Pharmac y Data Transac tion Service Facilit y EZETIMIBE (ezetimibe) , 10 MG, TABLET, ORAL, [employer] 500 ea. BOTTLE Active [id number] 2023 90 Pharmac y Data Transac tion Service Facilit y FLUTICASONE -SALMETEROL HFA (fluticason e propionate/ salmeterol xinafoate), 115-21MCG, HFA AER AD, INHALATION, [facility], 12 g CANISTER Active [id number] 2023 12 Pharmac y Data Transac tion Service Facilit y FLUTICASONE -SALMETEROL HFA (fluticason e propionate/ salmeterol xinafoate), 115-21MCG, HFA AER AD, INHALATION, [facility], 12 g CANISTER Active [id number] 2023 36 Pharmac y Data Transac tion Service Facilit y MIRTAZAPINE (mirtazapin e), 30 MG, TABLET, ORAL, [employer] 500 ea. BOTTLE Active [id number] 4 2023 90 Pharmac y Data Transac tion Service Facilit y MIRTAZAPINE (mirtazapin e), 30 MG, TABLET, ORAL, [employer] 500 ea. BOTTLE Active [id number] 4 2023 90 Pharmac y Data Transac tion Service Facilit y REPATHA SURECLICK (evolocumab ), 140 MG/ML, PEN INJCTR, SUBCUT, [employer] 1 ml SYRINGE Active [id number] 4 2023 6 Pharmac y Data Transac tion Service Facilit y REPATHA SURECLICK (evolocumab ), 140 MG/ML, PEN INJCTR, SUBCUT, [employer] 1 ml SYRINGE Active [id number] 4 2023 6 Pharmac y Data Transac tion Service Facilit y ROSUVASTATI N CALCIUM (rosuvastat in calcium), 40 MG, TABLET, ORAL, [employer] 1000 ea. BOTTLE Active [id number] 4 2023 90 Pharmac y Data Transac tion Service Facilit y ROSUVASTATI N CALCIUM (rosuvastat in calcium), 40 MG, TABLET, ORAL, [employer] 30 ea. BOTTLE Cancele d [id number] : 2023 0 Pharmac y Data Transac tion Service Facilit y ROSUVASTATI N CALCIUM (rosuvastat in calcium), 40 MG, TABLET, ORAL, [employer] 30 ea. BOTTLE Active [id number] 4 2023 90 Pharmac y Data Transac tion Service Facilit y Social History Combined list of available smoking, tobacco, and other social history from Department of Defense and Veterans Affairs facilities. Social History Type Response Date Comment [facility] e This section is an empty social history section. DoD
--- OUTSIDE RECORDS SUMMARY | 2024-03-18 12:38 | XMS_ITS | Referral Summary ---
Author Organization [place] Address [address] [place] [address] Care Team Providers Care Pay Station Department Manager Name Role Phone Clinic, Clay Nice Primary Care Provider Encounters Date Type Department Care Team Description 01/29/2024 6:12 PM CDT - 01/30/2024 1:16 PM CDT Hospital Encounter [facility] [address] [place] [phone] Dakota Dwyer MD Foehrenbacher, MD Jena Ford, [...] - BLO OD ORDERABLES Performing Organization Address City/[facility]/ZIP Co de Phone Number [facility] [address] Lab (1st floor, no room number) [address] * Magnesium (01/30/2024 7:37 AM CDT) Only the most recent of2 resultswithin the time period is included. Magnesium 1.7 1.7 - 2.3 mg/dL 01/30/2024 8:29 AM CDT LABORATORY Blood STRUCTURE OF RIGHT UPPER LIMB / Unknown Venipuncture / Unknown 01/30/2024 7:37 AM CDT 01/30/2024 8:17 AM CDT Crescencio Santos MD LAB - BLO OD ORDERABLES [facility] [address] (1st floor, no room number) [address] * (ABNORMAL) UA with Microscopic reflex [...] 01/29/2024 8:36 PM CDT [facility] LABORATORY Specific [place] Urine 1.034 1.003 - 1.035 01/29/2024 8:36 [...] Dwyer MD LAB - URINE ORD ERABLES [facility] [address] Lab (1st floor, no room number) [place] [address], [facility] * CT Chest Pulmonary Embolism w Contrast [...] CT CHEST PULMONARY EMBOLISM W CONTRAST LOCATION: [facility] DATE: 01/29/2024 INDICATION: hypoxia; Female sex; Not ; No prior imaging in the last 24 hours; Pulmonary Embolism Rule Out Criteria (PERC) score > 0; Revised Dearborn Score (RGS) not >= 11; No D [...] CT CHEST PULMONARY EMBOLISM W CONTRAST LOCATION: [facility] DATE: 01/29/2024 INDICATION: hypoxia; Female sex; Not ; No prior imaging in thelast 24 hours; Pulmonary Embolism Rule Out Criteria (PERC) score > 0;Revised Dearborn Score (RGS) not >= 11; No D [...] MICRO GEN ERAL ORDERABLES [facility]AT[facility] Inf. Diseases Diag. Lab [address] [facility], [address] [place] [address], [facility] * (ABNORMAL) Creatinine POCT (01/29/2024 6:36 PM CDT) Pathologist [facility] Creatinine POCT 0.4(L) 0.5 - 1.0 mg/dL 01/29/2024 6:40 PM CDT [facility] LABORATORY POC GFR, ESTIMATED POCT >60 >60 mL/min/1.7 3m2 01/29/2024 6:40 PM CDT [facility] LABORATORY POC Blood, venous BLOOD SPECIMEN / Unknown 01/29/2024 6:36 PM CDT 01/29/2024 6:40 PM CDT Dakota Dwyer MD LAB - BEAKER PO CT [facility] LABORATORY POC [facility] Lab [address] Lab (1st floor, no room number) [place] [address] * (ABNORMAL) iStat Gases (lactate) venous, [...] LAB - BEAKER POCT [facility] LABORATORY POC [facility] Lab [address] [facility] Lab (1st floor, no room number) [place] [id number] * Extra Red Top Tube (01/29/2024 6:21 PM CDT) Hold Specimen [facility] 01/29/2024 7:31 PM CDT [facility] LABORATORY Blood STRUCTURE OF LEFT UPPER LIMB / Unknown Venipuncture / Unknown 01/29/2024 6:21 PM CDT 01/29/2024 6:24 PM CDT Dakota Dwyer MD LAB - BLOOD ORD ERABLES Performing Organization Address [facility]/ZIP Co de Phone Number [facility] Lab [address] Lab (1st floor, no room number) [place] [address] * Extra Blue Top Tube (01/29/2024 6:21 PM CDT) Hold Specimen [facility] 01/29/2024 7:31 PM CDT [facility] LABORATORY Blood STRUCTURE OF LEFT UPPER LIMB / Unknown Venipuncture / Unknown 01/29/2024 6:21 PM CDT 01/29/2024 6:24 PM CDT Dakota Dwyer MD LAB - BLOOD ORD ERABLES [facility] Lab [address] Lab (1st floor, no room number) [place] [address], [facility] * (ABNORMAL) CBC with platelets and differential [...] MD LAB - BLOOD ORD ERABLES LABORATORY [facility] [address] [facility] Lab (1st floor, no room number) [place] [address], [facility] * Troponin T, High Sensitivity (01/29/2024 6:21 PM CDT) [facility] Troponin T, High Sensitivity 11 <=14 ng/L [...] - BLOOD ORD LOBITO Performing Organization Address [facility]/State/ZIP Co de Phone Number [facility] [address] Lab (1st floor, no room number) [place] [address] * Nt probnp inpatient (BNP) (01/29/2024 [...] - BLOOD ORD LOBITO Performing Organization Address City/[facility]/ZIP Co de Phone Number [facility] [address] Lab (1st floor, no room number) [place] [address] * (ABNORMAL) Creatinine (01/29/2024 6:21 PM [...] MD LAB - BLO OD ORDERABLES LABORATORY [facility] [address] Lab (1st floor, no room number) [place] [address] * (ABNORMAL) Basic metabolic panel (01/29/2024 [...] LAB - BLOOD ORD ERABLES [facility] LABORATORY [facility] [address] Lab (1st floor, no room number) [place] [address] * EKG 12-lead, tracing only (01/29/2024 6:15 PM CDT) Systolic Blood Pressure mmHg RADIOLOGY RESULTS Diastolic Blood Pressure mmHg RADIOLOGY RESULTS Ventricular Rate 117 BPM RAD IOLOGY RESULTS Atrial Rate 117 BPM RADIOLOG Y RESULTS AK Interval 156 ms RADIOLOG Y RESULTS QRS Duration 78 ms RADIOLO GY RESULTS QT 316 ms RADIOLOGY RESULTS QTc 440 ms RADIOLOGY RESULTS P [place] 75 degrees RADIOLOGY RESULTS R AXIS 31 degrees RADIOLOGY RESULTS T [place] 66 degrees RADIOLOGY RESULTS Interpretation ECG Sinus tachycardia Low voltage QRS Septal infarct , age undetermined Abnormal ECG No previous ECGs available Confirmed by - EMERGENCY ROOM, PHYSICIAN ([id number]), graphic editor BRIANA MONTESINOS ([email or web address]) on 01/30/2024 6:49:48 AM RADIOLOGY RESULTS 01/29/2024 6:15 PM CDT 01/30/2024 6:49 AM CDT Jorge Iniguez MD ECG ORDERABLES RADIOLOGY RESULTS from Last 3 Months Advance Directives For more information, please contact: [phone] * Full Code (Latest Code Status on File) Date Activated Date Inactivated Comments 01/29/2024 10:29 PM 01/30/2024 3:21 PM All basic a nd advanced life-sustaining interventions are performed as appropriate Question Answer Comments Code status determined by: Other (please documen t) Care Teams Pay Station Department Manager Relationship Specialty Start Date End Date [facility] [place] [id number] PCP - General 01/29/24
--- OUTSIDE RECORDS SUMMARY | 2024-03-18 12:38 | XMS_ITS | Encounter Summary ---
Author Organization [place] Address [address] [place] [address] Care Team Providers Care Ross Carrier Driver Name Role Phone Clay Mckenzie Primary Care [...] on filedocumented in this encounter Care Teams Ross Carrier Driver Relationship Specialty Start Date End Date Magaly, Clay Payan [address] [place] [place] [address] PCP - General 01/29/24 documented as of this encounter
--- NOTE | 2024-03-18 13:00 | CRLHL7_ITS ---
For Patients: As a result of the Century Cures Act, medical imaging exams and procedure reports are released immediately into your electronic medical record. You may view this report before your referring provider. If you have questions, please contact your health care provider. INDICATION: Lung cancer screening. TECHNIQUE: Noncontrast CT images of the chest. COMPARISON: CT chest 01/25/2023. FINDINGS: No focal consolidation, pleural effusion, or pneumothorax. No pulmonary nodules. Mild upper lobe predominant centrilobular emphysema. The heart size is normal. No pericardial effusion. Coronary artery atherosclerotic calcifications. No mediastinal or hilar lymphadenopathy. Cholecystectomy. Multilevel thoracic spondylosis. No aggressive osseous lesions. IMPRESSION: No lung nodules or masses. Lung rads category 1, negative. Continue annual screening with low-dose chest CT in 12 months. Please note that all CT scans at this facility use dose modulation, iterative reconstruction, and/or weight-based dosing when appropriate to reduce radiation dose to as low as reasonably achievable. Dictated by Crescencio Carias MD @ 03/19/2024 7:32:53 AM (Electronically Signed)
== END 2024-03-18 12:36 | disposition home or self-care (01) ==
PROVIDERS: PCP Family Medicine; Visit Provider Family Medicine
DX: F17.210 Nicotine dependence, cigarettes, uncomplicated (principal); Z12.2 Encounter for screening for malignant neoplasm of respiratory organs
CPT/HCPCS: 71271

== ENCOUNTER 2024-05-08 10:48 | Outpatient (CLI) | payer MEDICARE, OTHER, SELFPAY ==
--- NOTE | 2024-05-08 10:45 | CRLHL7_ITS ---
For Patients: As a result of the Century Cures Act, medical imaging exams and procedure reports are released immediately into your electronic medical record. You may view this report before your referring provider. If you have questions, please contact your health care provider. BILATERAL SCREENING MAMMOGRAM WITH COMPUTER-AIDED DETECTION AND TOMOSYNTHESIS TECHNIQUE: CC and MLO views were obtained. These mammographic images have been obtained using full-field digital technique. These mammographic images were interpreted with the benefit of computer-aided detection. Breast tomosynthesis was used in this interpretation. COMPARISON FILM: 02/07/16. FINDINGS: The breasts are heterogeneously dense, which may obscure small masses. IMPRESSION: There is no radiographic evidence for malignancy. ASSESSMENT: BI-RADS Category 1: Negative RECOMMENDATION: Routine screening mammogram in 1 year. A lay language report of this examination will be provided to the patient. RUDOLPH LUA M.D. Diagnostic Radiologist [email or web address] Transcribed: 05/15/2024, 3:[address]/Dictated by: Rudolph Lua MD @ 05/15/2024 10:07:00 AM (Electronically Signed)
--- OUTSIDE RECORDS SUMMARY | 2024-05-08 10:51 | XMS_ITS | Clinical Summary ---
Author Organization [place] Address [address] [place] [address] Care Team Providers Care Supervisor Seaming Name Role Phone Magaly, Clay Nice Primary Care Provider Allergies Active Allergy Reactions Criticality Noted Date Comments Amoxicillin Hives 01/29/2024 Medications No known medications Active Problems Problem Noted Date Diagnosed Date Acute respiratory failure with hypoxia Respiratory failure 01/29/2024 Social History Tobacco Use Types Packs/Day Years Used Date Smoking Tobacco: Never Assessed Adolescent Education Answer Date Record ed Getting School Help Needed Not on file 01/28 Comments No Sex and Gender Information Value Date Recorded Sex Assigned at Not on file Legal Sex Female 6:12 PM CDT Gender Identity Not on file Sexual Orientation [...] Procedure Name Priority Date/Time Associated Diagnosis Comments BASIC METABOLIC PANEL STAT 01/29/2024 6:21 PM CDT from Last 3 Months or Most Recently Relevant to Health Maintenance Results * (ABNORMAL) Basic metabolic panel (01/29/2024 6:21 [...] 6:21 PM CDT 01/29/2024 6:24 PM CDT us Dakota Dwyer MD LAB - BLOOD ORDERABLES Final Result RH LABORATORY [facility] Lab [address] Lab (1st floor, no room number) [place] [address], [facility] from Last 3 Months or Most Recently Relevant to Health Maintenance Insurance MEDICARE MEDICARE Advance Directives For more information, please contact: [phone] * Full Code (Latest Code Status on File) Date Activated Date Inactivated Comments 01/29/2024 10:29 PM 01/30/2024 3:21 PM All basic a nd advanced life-sustaining interventions are performed as appropriate Question Answer Comments Code status determined by: Other (please patricia t) Care Teams Supervisor Seaming Relationship Specialty Start Date End Date [facility] [address] [address] PCP - General 01/29/24
--- OUTSIDE RECORDS SUMMARY | 2024-05-08 10:51 | XMS_ITS | Referral Summary ---
Author Organization [place] Address [address] [place] [address] Care Team Providers Care Voice Pathologist Name Role Phone Magaly, Clay Nice Primary [...] MD LAB - BLOOD ORDERABLES Final Result LABORATORY [facility] Lab [address] Lab (1st floor, no room number) [place] [address], [facility] from Last 3 Months or Most Recently Relevant to Health Maintenance Insurance MEDICARE MEDICARE Advance Directives For more information, please contact: [phone] * Full Code (Latest Code Status on File) Date Activated Date Inactivated Comments 01/29/2024 10:29 PM 01/30/2024 3:21 PM All basic a nd advanced life-sustaining interventions are performed as appropriate Question Answer Comments Code status determined by: Other (please patricia t) Care Teams Voice Pathologist Relationship Specialty Start Date End Date [facility], Clay Nice [address] [place] [address] [place] [address] PCP - General 01/29/24
--- OUTSIDE RECORDS SUMMARY | 2024-05-08 10:52 | XMS_ITS | Clinical Summary ---
Author Organization [facility] Address [place], [place] [address] Care Team Providers Care Customer Experience Manager Name Role Phone Cheyenne Guardado MD Primary [...] Name Administration Dates Next Due COVID-19 vaccine ([employer] 30mcg/0.3mL) 12YO+ FRANCOISE-SUCROSE PF, MDV 11/02/2021 Influenza [...] Used Date Smoking Tobacco: Former Cigarettes 1 45.5 S tarted: 11/08/1978 Smokeless Tobacco: Never Tobacco [...] Comments Blood Pressure 124/80 07/31/2023 9:45 AM ELECTRICAL SOFTWARE ENGINEER Pulse 66 11/02/2022 11:16 AM CDT Temperature - - Respiratory Rate 14 08/30/2018 10:36 AM ELECTRICAL SOFTWARE ENGINEER Oxygen Saturation 93% 11/02/2022 11:16 AM CDT Inhaled Oxygen Concentration - - Weight 53.1 kg (117 lb) 07/31/2023 9:45 AM ELECTRICAL SOFTWARE ENGINEER Height 157.5 cm (5' 2) 11/02/2022 11:16 AM CDT Body Mass Index 21.4 11/02/2022 11:16 AM CDT Plan of Treatment Upcoming Encounters Date Type Department Care Team (Late st Contact Info) Description 05/20/2024 11:20 AM ELECTRICAL SOFTWARE ENGINEER Telemedicine [facility] [address] [place] [address] Pamela Conner, FINAL CLEANER [address] [facility] [address] [place] [address] Health Maintenance Due Date Last Done Comments [...] Additional history exists COVID-19 vaccine series ( season) 2024 04/03/2022, 11/02/2021 Influenza for age [...] CHOLESTEROL,TOTAL 108 mg/dL 023 6:42 PM CDT [facility] Comment: Cholesterol, Total Reference Ranges Desirable <200 mg/dL Borderline 200-239 mg/dL High >=240 mg/dL TRIGLYCERIDES 86 <150 mg/dL 10/31/2022 6:42 PM CDT [facility] TRAL LABORATORY HDL CHOLESTEROL 47 >40 mg/dL 6:42 PM CDT [facility] LAB[facility] NON-HDL CHOLESTEROL 61 <145 mg/dl 10/31/2022 6:42 PM CDT [facility] LAB[facility]ORY CHOL/HDL RATIO 2.30 <4.50 10/31/2022 6:42 PM CDT [facility] TRAL LAB[facility] LDL CHOLESTEROL 44 <=130 mg/dL 10/31/2022 6:42 PM CDT [facility] TRAL LABORATORY VLDL CHOLESTEROL 17(L) >30 mg/dL 11/01/19 6:42 PM CDT [facility] TRAL LABORATORY PROVIDER ORDERED STATUS RANDOM 10/31/2022 6:42 PM CDT [facility] TRAL LAB[facility]ORY Blood BLOOD SPECIMEN / Unknown Venipuncture / Unknown 10/31/2022 9:15 AM CDT 10/31/2022 9:21 AM CDT Pamela Conner NP [facility] [address] [place] [address], * SCAN-MAMMOGRAPHY REPORT (12/19/2007 12:00 AM CDT) Anatomical Region Laterality Modality Other Narrative Procedure Note Scanner - 12/19/2007 12:00 AM CDT Scanner OTHER from Last 3 Months or Most Recently Relevant to Health Maintenance Care Teams Customer Experience Manager Relationship Specialty Start Date End Date Cheyenne Guardado MD [address] [place] [address] PCP - General Family Practice 09/02/18
--- OUTSIDE RECORDS SUMMARY | 2024-05-08 10:52 | XMS_ITS | Encounter Summary ---
Author Organization [place] Address [address] [place] [address] Care Team Providers Care Clinical Office Technician Name Role Phone [facility], Clay [place] Primary Care Provider Encounter Details Date Type [...] on filedocumented in this encounter Care Teams Clinical Office Technician Relationship Specialty Start Date End Date [facility], Clay Payan [address] [place] [address] [place] [id number] PCP - General 01/29/24 documented as of this encounter
--- OUTSIDE RECORDS SUMMARY | 2024-05-08 10:52 | XMS_ITS | Encounter Summary ---
Author Organization [place] Address [address] [place] [address] Care Team Providers Care Equine Pharmacology Technician Name Role Phone Magaly, Clay Nice Primary Care Provider Reason for Visit * Reason Comments Shortness of Breath * Auth/Cert Specialty Diagnoses / Procedures Referred By Contac t Referred To Contact EMERGENCY MEDICINE Diagnoses Acute respiratory failure with hypoxia (H) [facility] [address] [place] [address] Phone: tel:[phone] fax: Referral ID Status Reason Start Date Expiration Date Visits Re quested Visits Authorized [id number] 1 1 Encounter Details Date Type Department Care Team (Late st Contact Info) Description 01/29/2024 6:12 PM CDT - 01/30/2024 1:16 PM CDT Hospital Encounter [facility] Emergency [facility] [address] [place] [address] Dakota Dwyer MD [address] [place] [address] [place] [id number] Crescencio Santos MD [address] [place], [place] [id number] Nolberto Bella MD [facility] [address] [place], [place] [id number] Acute respiratory failure with hypoxia (H); COPD [...] Manzanares MD - 01/30/2024 1:16 PM CDT [facility] Hospitalist Discharge Summary Date of Admission: [...] However patient requested to go back to [facility] where she had surgery and just discharged today earlier. She was advised to stay here as her current presentation has anything to do with her surgery, as her current problem is respiratory failure. Patient declined to stay, signed AMA and left with a plan to go to [facility]. Her husbandand son at bedside. Patient is aware of the risk associated with leaving AGAINST MEDICAL ADVICE. Consultations This Hospital Stay None Code Status Full Code Time Spent on this Encounter 15 minutes, patient left AMA Darrick Manzanares MD [facility] EMERGENCY DEPT [address] [facility] [address] Physical Exam Vital Signs: Temp: 98.4 ??F (36.9 ??C) Temp src: Oral BP: 112/67 Pulse: 116 Resp: 16 SpO2: 95 % O2 Device: Nasal cannula Oxygen Delivery: 5 LPM Weight: 265 lbs 14 oz See H&P, no detail exam done Primary Care Physician [facility] Discharge Orders No discharge procedures on file. Significant Results and Procedures Discharge Medications There are no discharge medications for this patient. Allergies Allergies Allergen Reactions Amoxicillin Hives documented in this encounter Progress Notes * Ailin Keene, - 01/30/2024 6:22 AM CDT A HFNC [...] current respiratory status and needs. * Valeria Roa RT - 01/29/2024 6:37 PM CDT Respiratory Therapy [...] Santos MD - 01/29/2024 8:49 PM CDT [facility] History and Physical - Hospitalist Service Date of Admission: 01/29/2024 Assessment & Plan Linnette Brown is a 68 year old female with past medical history including COPD intermittentlyon home O2, anxiety, hypertension and former smoking who presented to [facility] emergency room 01/29/2024. She was actually just discharged from [facility] earlier the day of admission during which [...] [facility] and oxygen saturations were in the [...] inhalers once verified. 3. Recent admission at [facility] requiring laparotomy for colon perforation sustained during [...] 2-4 Days Crescencio Santos MD Hospitalist Service [facility] Securely message with [employer] (more info) Text page via [facility] Paging/Directory Chief Complaint Respiratory failure History of Present Illness Linnette Brown is a 68 year old female with past medical history including COPD intermittentlyon home O2, anxiety, hypertension and former smoking who presented to [facility] emergency room 01/29/2024. She was actually just discharged from [facility] earlier the day of admission during which [...] she lived much of her life in [place] and relocated to this area about a [...] Out Criteria (PERC) score > 0; Revised [place] Score (RGS) not >= 11; No D [...] in this encounter ED Notes * Lilian Ho, RN - 01/30/2024 1:05 PM CDT Patient wanted to be transferred back to [facility]. Transfer is not possible due [...] advise patient to continue care here at [facility]. IV removed. AMA paperwork signed. * Sara De Jesus RN - 01/30/2024 6:06 AM CDT [facility] ED Nurse Handoff Report ED Chief [...] bed. Lift room needed: No. Bariatric: No Glue Specialty Supervisor Needed: No Isolation: No. Infection: Not Applicable. Respiratory status: High Flow Nasal Cannula Vital Signs (within 30 minutes): Vitals: 01/30/24 0533 01/30/24 0534 01/30/24 0535 01/30/24 0547 BP: 114/68 Pulse: 105 106 105 102 Resp: 22 18 17 Temp: TempSrc: SpO2: 91% 92% [...] use. The patient was recently admitted at [facility] with a colonic perforation. She underwent laparotomy [...] Urine Negative Ketones Urine >150 (*) Specific [place] Urine 1.034 Blood Urine Trace (*) pH [...] 40 mg (40 mg Subcutaneous $Given 01/29/24 2336) dextrose 5% and 0.9% NaCl infusion ( Intravenous $New Bag 01/29/24 2314) acetaminophen (TYLENOL) tablet 650 mg (has no [...] tablet 5 mg (5 mg Oral $Given 01/29/242334) HYDROmorphone (PF) (DILAUDID) injection 0.3 mg (has [...] completed following ED care: Heated high flow [place] ED Nurse Name: Sara De Jesus RN [...] AM CDT Pt placed on BiPAP by writer editor as she was desatting on 10 LPM Oxymask. No concerns as pt is satting at 97% on 30% FiO2, resp rate of 21. * Sara De Jesus RN - 01/30/2024 3:08 AM CDT Pt given water by writer editor as per request- had sip of water. Verbal permission obtained by writer editor from MD Bella. Pt tolerated well. * Farideh Perdue RN - 01/29/2024 6:59 PM CDT [facility] ED Nurse Handoff Report ED Chief complaint: Shortness of Breath . ED Diagnosis: Final diagnoses: None Allergies: Allergies Allergen Reactions Amoxicillin Hives Code Status: Full Code Activity level - Baseline/Home: independent. Activity Level - Current: assist of 1. Lift room needed: No. Bariatric: No Glue Specialty Supervisor Needed: No Isolation: No. Infection: Not Applicable. [...] Chest Pain AssessmentAssociated Signs/Symptoms: dyspneaChest Pain Intervention: monitoring specialist placed; activity minimized; 12-lead ECG obtained 1836 [...] Embolism w Contrast (Results Pending) Treatments provided: shayna Grider Family Comments: Pt here currently by herself [...] 6 mL (6 mLs Nebulization $Given 01/29/24 7279) Drips infusing: No For the majority of [...] baseline per report. Pt discharged today from [facility] where she was admitted for a ruptured colon after a colonoscopy. * Becky Mir RN - 01/29/2024 6:12 PM CDT Bed: [facility] Expected date: 01/29/24 Expected time: 5:59 [...] use. The patient was recently admitted at [facility] with a colonic perforation. She underwent laparotomy [...] -- -- -- 94 % -- -- 01/29/24 1830 132/84 -- -- 116 -- -- -- -- 01/29/24 182 -- -- -- -- -- (!) 84 % -- -- 01/29/241827 -- -- -- 115 29 (!) 80 % -- -- 01/29/241826 -- -- -- 115 17 (!) 78 % -- -- 01/29/241823 -- 98.8 ??F (37.1 ??C) Temporal -- -- -- -- -- 01/29/241815 (!) 130/92 -- -- 118 26 94 [...] Urine Negative Ketones Urine >150 (*) Specific [place] Urine 1.034 Blood Urine Trace (*) pH [...] Pressure Ventricular Rate 117 Atrial Rate 117 MA Interval 156 QRS Duration 78 QT 316 QTc 440 P [place] 75 R AXIS 31 T [place] 66 Interpretation ECG Sinus tachycardia Low voltage [...] Santos ED Course ED Course as of 01/29/242236Jan 29, 20241826 I initially assessed the patient [...] first. The patient will be admitted to [facility]. She does not require ICU level care [...] statements to me. Dakota Dwyer MD 01/29/24 documented in this encounter Plan of Treatment [...] Results * Magnesium (01/30/2024 7:37 AM CDT) Magnesium 1.7 1.7 - 2.3 mg/dL 01/30/2024 8:29 AM CDT LABORATORY Blood STRUCTURE OF RIGHT UPPER LIMB / Unknown Venipuncture / Unknown 01/30/2024 7:37 AM CDT 01/30/2024 8:17 AM CDT Crescencio Santos MD LAB - BLOOD ORDER ELENI Final Result [facility] Acute Care Lab [address] [facility] Lab (1st floor, no room number) [place] [address], [facility] * Potassium (01/30/2024 7:37 AM CDT) Potassium 3.7 3.4 - 5.3 mmol/L 01/30/2024 8:29 AM CDT LABORATORY Blood STRUCTURE OF RIGHT UPPER LIMB / Unknown Venipuncture / Unknown 01/30/2024 7:37 AM CDT 01/30/2024 8:17 AM CDT us Crescencio Santos MD LAB - BLOOD ORDER ELENI Final Result LABORATORY [facility] Acute Care Lab [address] Lab (1st floor, no room number) [place] [address], [facility] * (ABNORMAL) UA with Microscopic reflex [...] mg/dL 01/29/2024 8:36 PM CDT LABORATORY Specific [place] Urine 1.034 1.003 - 1.035 01/29/2024 8:36 [...] 8:36 PM CDT Urine Culture not indicated us Dakota Dwyer MD LAB - URINE ORDERABLES Final Result [facility] Acute Care Lab [address] Lab (1st floor, no room number) [place] [address] * CT Chest Pulmonary Embolism w [...] Out Criteria (PERC) score > 0; Revised [place] Score (RGS) not >= 11; No D [...] Rule Out Criteria (PERC) score > 0;Revised [place] Score (RGS) not >= 11; No D [...] 7:30 PM. Dakota Dwyer MD IMG CT ORDERABLES Final Result * Blood Culture Arm, Right (01/29/2024 6:40 PM CDT) Culture No Growth 02/03/2024 7:01 PM CDT [facility] Blood STRUCTURE OF RIGHT UPPER LIMB / Unknown Venipuncture / Unknown 01/29/2024 6:40 PM CDT 01/29/2024 6:46 PM CDT Dakota Dwyer MD LAB - MICRO GENERAL ORD ERABLES Final Result [facility]ORAT[facility] Lab [address] [facility], [address] [place] [address], [facility] * (ABNORMAL) Creatinine POCT (01/29/2024 6:36 PM CDT) [facility] Creatinine POCT 0.4(L) 0.5 - 1.0 mg/dL 01/29/2024 6:40 PM CDT [facility] LABORATORY POC GFR, ESTIMATED POCT >60 >60 mL/min/1.7 3m2 01/29/2024 6:40 PM CDT [facility] LABORATORY POC Blood, venous BLOOD SPECIMEN / Unknown 01/29/2024 6:36 PM CDT 01/29/2024 6:40 PM CDT Dakota Dwyer MD LAB - BEAKER POCT Final Result [facility] LABORATORY POC [facility] Acute Care Lab [address] Lab (1st floor, no room number) [place] [address], [facility] * (ABNORMAL) iStat Gases (lactate) venous, [...] 6:24 PM CDT 01/29/2024 6:29 PM CDT us Provider Unknown LAB - BEAKER POCT Final Result LABORATORY POC [facility] Lab [address] Lab (1st floor, no room number) [address] [place] [address] * (ABNORMAL) Magnesium (01/29/2024 6:21 PM CDT) [facility] Magnesium 1.6(L) 1.7 - 2.3 mg/dL 01/29/2024 10:50 PM CDT LABORATORY Blood STRUCTURE OF LEFT UPPER LIMB / Unknown Venipuncture / Unknown 01/29/2024 6:21 PM CDT 01/29/2024 6:24 PM CDT us Crescencio Santos MD LAB - BLOOD ORDER ELENI Final Result LABORATORY [facility] Lab [address] Lab (1st floor, no room number) [place] [address] * (ABNORMAL) Creatinine (01/29/2024 6:21 PM CDT) [facility] Creatinine 0.42(L) 0.51 - 0.95 mg/dL 01/29/2024 10:55 PM CDT LABORATORY GFR Estimate >90 >60 mL/min/1.7 3m2 01/29/2024 10:55 PM CDT [facility] LABORATORY Comment: eGFR calculated using 2020 CKD-EPI equation. eGFR calculated using 2020 CKD-EPI equation. Blood STRUCTURE OF LEFT UPPER LIMB / Unknown Venipuncture / Unknown 01/29/2024 6:21 PM CDT 01/29/2024 6:24 PM CDT Crescencio Santos MD LAB - BLOOD ORDER ELENI Final Result Performing Organization Address City/[place] Hospital/ZIP Co de Phone Number [facility] Care Lab [address] Lab (1st floor, no room number) [place] [address] * Nt probnp inpatient (BNP) [...] MD LAB - BLOOD ORDERABLES Final Result [facility] Acute Care Lab [address] Lab (1st floor, no room number) [place] [address] * Troponin T, High Sensitivity [...] CDT Dakota Dwyer MD LAB - BLOOD ORDERABLES Final Result [facility] Acute Care Lab [address] Lab (1st floor, no room number) [place] [address], [facility] * Extra Red Top Tube (01/29/2024 6:21 PM CDT) Pathologist [facility] Hold Specimen JIC 01/29/2024 7:31 PM CDT LABORATORY Blood STRUCTURE OF LEFT UPPER LIMB / Unknown Venipuncture / Unknown 01/29/2024 6:21 PM CDT 01/29/2024 6:24 PM CDT Dakota Dwyer MD LAB - BLOOD ORDERABLES Final Result [facility] Acute [facility] Lab [address] Lab (1st floor, no room number) [place] [address] * Extra Blue Top Tube (01/29/2024 6:21 PM CDT) Hold Specimen JIC 01/29/2024 7:31 PM CDT [facility] LABORATORY Blood STRUCTURE OF LEFT UPPER LIMB / Unknown Venipuncture / Unknown 01/29/2024 6:21 PM CDT 01/29/2024 6:24 PM CDT us Dakota Dwyer MD LAB - BLOOD ORDERABLES Final Result [facility] LABORATORY [facility] Acute Care Lab [address] Lab (1st floor, no room number) [place] [phone] * (ABNORMAL) CBC with platelets [...] - BLOOD ORDERABLES Final Result [facility] LABORATORY [facility] Acute Care Lab [address] [facility] Lab (1st floor, no room number) [place] [address], [facility] * (ABNORMAL) Basic metabolic panel (01/29/2024 [...] LAB - BLOOD ORDERABLES Final Result LABORATORY [facility] Acute Care Lab [address] Lab (1st floor, no room number) [place] [address], [facility] * EKG 12-lead, tracing only (01/29/2024 6:15 PM CDT) Systolic Blood Pressure mmHg RADIOLOGY RESULTS Diastolic Blood Pressure mmHg RADIOLOGY RESULTS Ventricular Rate 117 BPM RAD IOLOGY RESULTS Atrial Rate 117 BPM RADIOLOG Y RESULTS MA Interval 156 ms RADIOLOG Y RESULTS QRS Duration 78 ms RADIOLO GY RESULTS QT 316 ms RADIOLOGY RESULTS QTc 440 ms RADIOLOGY RESULTS P [place] 75 degrees RADIOLOGY RESULTS R AXIS 31 degrees RADIOLOGY RESULTS T [place] 66 degrees RADIOLOGY RESULTS Interpretation ECG Sinus tachycardia Low voltage QRS Septal infarct , age undetermined Abnormal ECG No previous ECGs available Confirmed by - EMERGENCY ROOM, PHYSICIAN ([id number]), editor school photograph BRIANA MONTESINOS (Jagjit) on 01/30/2024 6:49:48 AM RADIOLOGY RESULTS 01/29/2024 6:15 PM CDT 01/30/2024 6:49 AM CDT us Jorge Iniguez MD ECG ORDERABLES Edited Resul t - Final RADIOLOGY RESULTS documented in this encounter Visit [...] 1935, For 1 dose, Indications: Community Acquired PneumoniaIndications:Community Acquired Pneumonia $New Bag 01/29/2024 8:42 PM CDT 500 mg cefTRIAXone (ROCEPHIN) 2 g vial to attach to NS 100 ml bag for ADULTS or NS 50 ml bag for PEDS STAT, 2 g, Intravenous, ONCE, On Sun01/29/24 at 1935, For 1 dose, Changed to ceftriaxone 2g per Automatic Dose Adjustment Policy for weight > 90kg., Indications: Community Acquired PneumoniaIndications:Community Acquired Pneumonia $New Bag 01/29/2024 8:05 PM [...] For 4 days, Indications: Community Acquired Pneumonia 1112 (Not Given - Provider: Lilian Ho [...] Pneumonia 2004 ($New Bag - Provider: Farideh Perdue, RN)2041 (Stopped - Provider: Farideh Perdue, RN) cefTRIAXone (ROCEPHIN) 2 g vial to [...] carefully for 1 hour after each dose. 1930 (Canceled Entry - Provider: Orders Generic Provider [...] shortness of breath, Starting on Sun01/29/24 at 222 calcium carbonate (TUMS) chewable tablet 1,000 mg 1,000 mg, Oral, 4 TIMES DAILY PRN, heartburn, Starting on Sun01/29/24 at 2229 HYDROmorphone (PF) (DILAUDID) injection 0.3 mg 0.3 mg, Intravenous, EVERY 3 HOURS PRN, severe pain, Starting on Sun01/29/24 at 2229 lidocaine (LMX4) cream Topical, EVERY 1 HOUR PRN, pain, with VAD insertion, Starting on Sun01/29/24 at 2229, Apply at least 30 minutes prior to [...] VAD insertion, Starting on Sun01/29/24 at 2229, Apply at least 30 minutes prior to [...] stools. documented in this encounter Care Teams Equine Pharmacology Technician Relationship Specialty Start Date End Date [address] [address] PCP - General 01/29/24 documented as of this encounter
--- OUTSIDE RECORDS SUMMARY | 2024-05-08 10:52 | XMS_ITS | Continuity of Care Document ---
Author Name [facility] Organization [facility] Care Team Providers Care Puncher And Fastener Name Role Phone [facility] Unavailable Unavailable Medications Combined list of outpatient medications from Department of Defense and Veterans Affairs facilities.Medications provided include 1) outpatient medications from the last 15 months, and 2) patient-reported medications. Medication Details Route Status Patient Instructions Prescription Expires Prescription Number Last Dispense Date Ordering Provider Order Date Order Qty Source ALENDRONATE SODIUM (alendronat e sodium), 70 MG, TABLET, ORAL, [facility] 4 ea. BLIST PACK Active [id number] 2023 12 Pharmac y Data Transac tion Service Facilit y AMLODIPINE BESYLATE (amlodipine besylate), 5 MG, TABLET, ORAL, AVKARE, 1000 ea. BOTTLE Cancele d [id number] 4 [id number] : 2023 0 Pharmac y Data Transac tion Service Facilit y AMLODIPINE BESYLATE (amlodipine besylate), 5 MG, TABLET, ORAL, AVKARE, 1000 ea. BOTTLE Cancele d [id number] 4 [id number] : 2023 0 Pharmac y Data Transac tion Service Facilit y AMLODIPINE BESYLATE (amlodipine besylate), 5 MG, TABLET, ORAL, [employer], 1000 ea. BOTTLE Cancele d [id number] : 2023 0 Pharmac y Data Transac tion Service Facilit y AMLODIPINE BESYLATE (AMLODIPINE BESYLATE), 5 MG, TABLET, ORAL, [employer] PHARMACE, 1000 ea. BOTTLE Cancele d [id number] : 2023 0 Pharmac y Data Transac tion Service Facilit y AMLODIPINE BESYLATE (AMLODIPINE BESYLATE), 5 MG, TABLET, ORAL, [employer] PHARMACE, 1000 ea. BOTTLE Cancele d [id number] : 2023 0 Pharmac y Data Transac tion Service Facilit y AMLODIPINE BESYLATE (AMLODIPINE BESYLATE), 5 MG, TABLET, ORAL, [facility] PHARMACE, 1000 ea. BOTTLE Active [id number] 4 2023 90 Pharmac y Data Transac tion Service Facilit y DULOXETINE HCL (duloxetine HCl), 20 MG, CAPSULE DR, ORAL, [employer] 60 ea. BOTTLE Cancele d [id number] : 2023 0 Pharmac y Data Transac tion Service Facilit y DULOXETINE HCL (duloxetine HCl), 20 MG, CAPSULE DR, ORAL, [employer] 60 ea. BOTTLE Active [id number] 4 2023 90 Pharmac y Data Transac tion Service Facilit y DULOXETINE HCL (duloxetine HCl), 60 MG, CAPSULE DR, ORAL, [employer] 1000 ea. BOTTLE Active [id number] 2023 90 Pharmac y Data Transac tion Service Facilit y EZETIMIBE (ezetimibe) , 10 MG, TABLET, ORAL, [employer] 500 ea. BOTTLE Cancele d [id number] 4 [id number] : 2023 0 Pharmac y Data Transac tion Service Facilit y EZETIMIBE (ezetimibe) , 10 MG, TABLET, ORAL, [employer] 500 ea. BOTTLE Active [id number] 4 2023 90 Pharmac y Data Transac tion Service Facilit y MIRTAZAPINE (mirtazapin e), 30 MG, TABLET, ORAL, [employer] 500 ea. BOTTLE Active [id number] 4 2023 90 Pharmac y Data Transac tion Service Facilit y MIRTAZAPINE (mirtazapin e), 30 MG, TABLET, ORAL, [employer] 500 ea. BOTTLE Active [id number] 4 2023 90 Pharmac y Data Transac tion Service Facilit y REPATHA SURECLICK (evolocumab ), 140 MG/ML, PEN INJCTR, SUBCUT, [employer] 1 ml SYRINGE Active [id number] 2023 6 Pharmac y Data Transac tion Service Facilit y REPATHA SURECLICK (evolocumab ), 140 MG/ML, PEN INJCTR, SUBCUT, [employer] 1 ml SYRINGE Active [id number] 2023 6 Pharmac y Data Transac tion Service Facilit y ROSUVASTATI N CALCIUM (rosuvastat in calcium), 40 MG, TABLET, ORAL, [employer] 1000 ea. BOTTLE Active [id number] 4 2023 90 Pharmac y Data Transac tion Service Facilit y ROSUVASTATI N CALCIUM (rosuvastat in calcium), 40 MG, TABLET, ORAL, [employer] 30 ea. BOTTLE Cancele d [id number] 4 [id number] : 2023 0 Pharmac y Data Transac tion Service Facilit y ROSUVASTATI N CALCIUM (rosuvastat in calcium), 40 MG, TABLET, ORAL, [employer] 30 ea. BOTTLE Active [id number] 4 2023 90 Pharmac y Data Transac tion Service Facilit y Social History Combined list of available smoking, tobacco, and other social history from Department of Defense and Veterans Affairs facilities. Social History Type Response Date Comment [facility] e This section is an empty social history section. DoD
--- OUTSIDE RECORDS SUMMARY | 2024-05-08 10:52 | XMS_ITS ---
Author Organization [place] Address [address] [place] [address] Care Team Providers Care Lime Kiln Tender Name Role Phone Clay Mckenzie Primary Care Provider Transitional Care Management Status:Closed (Closed) Start date:01/31/2024 Enrollment date:02/01/2024 End date:02/14/2024 Close reason:Goals met Continued Care and Services Coordination
== END 2024-05-08 10:49 | disposition home or self-care (01) ==
LOC: MAMMO 10:49
PROVIDERS: PCP Family Medicine; Visit Provider Family Medicine
DX: Z12.31 Encounter for screening mammogram for malignant neoplasm of breast (principal); R92.333 Mammographic heterogeneous density, bilateral breasts
CPT/HCPCS: 77063; 77067

== ENCOUNTER 2024-05-13 08:20 | Outpatient (CLI) | payer MEDICARE, OTHER, SELFPAY ==
--- OUTSIDE RECORDS SUMMARY | 2024-05-16 10:40 | XMS_ITS | Continuity of Care Document ---
Author Name [facility] Organization [facility] Care Team Providers Care Review Engineer Name Role Phone [facility] Unavailable Unavailable Medications Combined list of outpatient [...] MARLEX PHARM., 4 ea. BLIST PACK Active [id number] 2023 12 Pharmac y Data Transac tion Service Facilit y AMLODIPINE BESYLATE (amlodipine besylate), 5 MG, TABLET, ORAL, AVKARE, 1000 ea. BOTTLE Cancele d [id number] : 2023 0 Pharmac y Data Transac tion Service Facilit y AMLODIPINE BESYLATE (amlodipine besylate), 5 MG, TABLET, ORAL, AVKARE, 1000 ea. BOTTLE Cancele d [id number] : 2023 0 Pharmac y Data Transac tion Service Facilit y AMLODIPINE BESYLATE (amlodipine besylate), 5 MG, TABLET, ORAL, AVKARE, 1000 ea. BOTTLE Cancele d [id number] : 2023 0 Pharmac y Data Transac tion Service Facilit y AMLODIPINE BESYLATE (AMLODIPINE BESYLATE), 5 MG, TABLET, ORAL, EXELAN PHARMACE, 1000 ea. BOTTLE Cancele d [id number] : 2023 0 Pharmac y Data Transac tion Service Facilit y AMLODIPINE BESYLATE (AMLODIPINE BESYLATE), 5 MG, TABLET, ORAL, EXELAN PHARMACE, 1000 ea. BOTTLE Cancele d [id number] : 2023 0 Pharmac y Data Transac tion Service Facilit y AMLODIPINE BESYLATE (AMLODIPINE BESYLATE), 5 MG, TABLET, ORAL, [facility] PHARMACE, 1000 ea. BOTTLE Active [id number] 4 2023 90 Pharmac y Data Transac tion Service Facilit y DULOXETINE HCL (duloxetine HCl), 20 MG, CAPSULE DR, ORAL, [employer] 60 ea. BOTTLE Cancele d [id number] : 2023 0 Pharmac y Data Transac tion Service Facilit y DULOXETINE HCL (duloxetine HCl), 20 MG, CAPSULE DR, ORAL, [employer] 60 ea. BOTTLE Active [id number] 4 2023 90 Pharmac y Data Transac tion Service Facilit y DULOXETINE HCL (duloxetine HCl), 60 MG, CAPSULE DR, ORAL, [employer] 1000 ea. BOTTLE Active [id number] 4 2023 90 Pharmac y Data Transac tion Service Facilit y EZETIMIBE (ezetimibe) , 10 MG, TABLET, ORAL, [employer] 500 ea. BOTTLE Cancele d [id number] : 2023 0 Pharmac y Data Transac tion Service Facilit y EZETIMIBE (ezetimibe) , 10 MG, TABLET, ORAL, [employer] 500 ea. BOTTLE Active [id number] 2023 90 Pharmac y Data Transac tion Service Facilit y MIRTAZAPINE (mirtazapin e), 30 MG, TABLET, ORAL, [employer] 500 ea. BOTTLE Active [id number] 4 2023 90 Pharmac y Data Transac tion Service Facilit y MIRTAZAPINE (mirtazapin e), 30 MG, TABLET, ORAL, [employer] 500 ea. BOTTLE Active [id number] 4 2023 90 Pharmac y Data Transac tion Service Facilit y REPATHA SURECLICK (evolocumab ), 140 MG/ML, PEN INJCTR, SUBCUT, [employer] 1 ml SYRINGE Active [id number] 2023 6 Pharmac y Data Transac tion Service Facilit y REPATHA SURECLICK (evolocumab ), 140 MG/ML, PEN INJCTR, SUBCUT, [employer] 1 ml SYRINGE Active [id number] 4 2023 6 Pharmac y Data Transac tion Service Facilit y ROSUVASTATI N CALCIUM (rosuvastat in calcium), 40 MG, TABLET, ORAL, [employer] 1000 ea. BOTTLE Active [id number] 4 2023 90 Pharmac y Data Transac tion Service Facilit y ROSUVASTATI N CALCIUM (rosuvastat in calcium), 40 MG, TABLET, ORAL, [employer] 30 ea. BOTTLE Cancele d [id number] 4 [id number] : 2023 0 Pharmac y Data Transac tion Service Facilit y ROSUVASTATI N CALCIUM (rosuvastat in calcium), 40 MG, TABLET, ORAL, [employer] 30 ea. BOTTLE Active [id number] 4 2023 90 Pharmac y Data Transac tion Service Facilit y Social History Combined list of available smoking, tobacco, and other social history from Department of Defense and Veterans Affairs facilities. Social History Type Response Date Comment [facility] e This section is an empty social history section. DoD
--- OUTSIDE RECORDS SUMMARY | 2024-05-16 10:40 | XMS_ITS | Referral Summary ---
Author Organization [facility] Address [address] [place] [address] Care Team Providers Care Rotor Assembler Name Role Phone Magaly, Clay Nice Primary [...] LAB - BLOOD ORDERABLES Final Result LABORATORY [facility] [address] Lab (1st floor, no room number) [place] [address], [facility] from Last 3 Months or Most Recently Relevant to Health Maintenance Insurance MEDICARE MEDICARE Advance Directives For more information, please contact: [phone] * Full Code (Latest Code Status on File) Date Activated Date Inactivated Comments 01/29/2024 10:29 PM 01/30/2024 3:21 PM All basic a nd advanced life-sustaining interventions are performed as appropriate Question Answer Comments Code status determined by: Other (please patricia t) Care Teams Rotor Assembler Relationship Specialty Start Date End Date [facility], Clay Nice [address] [place] [address] [place] [address] PCP - General 01/29/24
--- OUTSIDE RECORDS SUMMARY | 2024-05-16 10:40 | XMS_ITS | Clinical Summary ---
Author Organization [facility] Address [address] [place] [address] Care Team Providers Care News Department Intern Name Role Phone Magaly, Clay Nice Primary [...] - BLOOD ORDERABLES Final Result [facility] LABORATORY [facility] [address] Lab (1st floor, no room number) [place] [address], [facility] from Last 3 Months or Most Recently Relevant to Health Maintenance Insurance MEDICARE MEDICARE Advance Directives For more information, please contact: [phone] * Full Code (Latest Code Status on File) Date Activated Date Inactivated Comments 01/29/2024 10:29 PM 01/30/2024 3:21 PM All basic a nd advanced life-sustaining interventions are performed as appropriate Question Answer Comments Code status determined by: Other (please patricia t) Care Teams News Department Intern Relationship Specialty Start Date End Date [facility] [address] [address] PCP - General 01/29/24
--- OUTSIDE RECORDS SUMMARY | 2024-05-16 10:40 | XMS_ITS ---
Author Organization [facility] Address [address] [place] [address] Care Team Providers Care Adoption Coordinator Name Role Phone Clay Mckenzie Primary Care Provider Transitional Care Management Status:Closed (Closed) Start date:01/31/2024 Enrollment date:02/01/2024 End date:02/14/2024 Close reason:Goals met Continued Care and Services Coordination
== END 2024-05-13 08:21 | disposition home or self-care (01) ==
LOC: NFLDREF 05-16 10:38
PROVIDERS: PCP Family Medicine; Referring Provider Family Medicine; Visit Provider Family Medicine
DX: I10 Essential (primary) hypertension (principal); R73.03 Prediabetes; M81.0 Age-related osteoporosis without current pathological fracture
CPT/HCPCS: 80053; 82306

== ENCOUNTER 2024-07-07 09:04 | Outpatient (CLI) | payer MEDICARE, OTHER, SELFPAY ==
--- NOTE | 2024-07-07 09:15 | CRLHL7_ITS ---
For Patients: As a result of the Cures Act, medical imaging exams and procedure reports are released immediately into your electronic medical record. You may view this report before your referring provider. If you have questions, please contact your health care provider. INDICATION: Elevated liver function tests COMPARISON: 01/18/2022 TECHNIQUE: Real time vogt scale imaging and color Doppler analysis was performed of the right upper quadrant. FINDINGS: The liver is mildly coarsened with suggestion of a slightly nodular contour. No intrahepatic mass. Main portal vein is patent with antegrade flow and measures 1.4 cm. Velocity 11 cm/second. There is a normal appearance of the hepatic IVC. Mild ectasia of the aorta noted. There is no evidence of ascites. The gallbladder is absent. The common bile duct measures up to 1.2 cm at the pancreatic head, increased from the prior study. The pancreas appears normal. There is no evidence of a stone or hydronephrosis within the right kidney. The right kidney measures 12.0 cm in length. IMPRESSION: Increased size of the common bile duct since the prior study, now measuring up to 1.2 cm. Consider MRCP for further evaluation. Possible chronic underlying liver disease. No intrahepatic mass or ascites. Dictated by Rudolph Rutherford MD @ 07/07/2024 10:32:36 AM (Electronically Signed)
== END 2024-07-07 09:05 | disposition home or self-care (01) ==
LOC: US 09:06
PROVIDERS: PCP Family Medicine; Visit Provider Family Medicine
DX: R79.89 Other specified abnormal findings of blood chemistry (principal)
CPT/HCPCS: 76705

== ENCOUNTER 2024-07-15 09:07 | Outpatient (CLI) | payer MEDICARE, OTHER, SELFPAY ==
--- NOTE | 2024-07-15 09:15 | CRLHL7_ITS ---
For Patients: As a result of the Cures Act, medical imaging exams and procedure reports are released immediately into your electronic medical record. You may view this report before your referring provider. If you have questions, please contact your health care provider. INDICATION: Elevated liver function tests; dilated bile duct on ultrasound. COMPARISON: Ultrasound examination of the right upper quadrant of the abdomen July 07, 2024; CT abdomen pelvis July 31, 2012, February 19, 2015 and January 18, 2022. Technique: MRCP; 3D reformations. FINDINGS: Prominent intra as well as extrahepatic biliary duct system with the extrahepatic common bile duct measuring 10 mm in diameter. No evidence of choledocholithiasis. Pancreatic duct measures 3.9 mm in diameter. Status post cholecystectomy. Liver, spleen and pancreas are unremarkable. The adrenal glands are unremarkable. Kidneys are normal. IMPRESSION: 1. Nonobstructive dilatation of the biliary duct system without any evidence of choledocholithiasis; rule out reservoir effect from previous cholecystectomy. 2. S/p cholecystectomy. Dictated by Jon Dukes MD @ 07/15/2024 1:54:13 PM (Electronically Signed)
== END 2024-07-15 09:08 | disposition home or self-care (01) ==
LOC: MRI 09:08
PROVIDERS: PCP Family Medicine; Visit Provider Family Medicine
DX: R93.5 Abnormal findings on diagnostic imaging of other abdominal regions, including retroperitoneum (principal); R79.89 Other specified abnormal findings of blood chemistry
CPT/HCPCS: 74181

== ENCOUNTER 2024-07-22 13:50 | Emergency (ER) | payer MEDICARE, OTHER, SELFPAY ==
[2024-07-22 13:52] VITALS: BP 103/64; PULSE 81; RESP 18; TEMP 36.2; O2SAT 97; BMI 20.5
--- OUTSIDE RECORDS SUMMARY | 2024-07-22 13:52 | XMS_ITS | Clinical Summary ---
Author Organization [facility] Address [address] [place] [address] Care Team Providers Care Aircraft Power Plant Assembler Name Role Phone Magaly, Clay Nice [...] 116 01/30/2024 12:19 PM CDT Temperature 36.9 C (98.4 F) 01/30/2024 6:45 AM CDT Respiratory Rate 16 01/30/2024 12:19 PM CDT [...] ASSESSMENT 2022 MEDICARE ANNUAL WELLNESS VISIT 2022 COVID-19 Vaccine ( season) 2024 08/16/2023, 04/03/2022, 11/02/2021, Additional history exists INFLUENZA VACCINE (#1) 2024 , 05/18/2020, 04/04/2019, Additional history exists PHQ-2 (once per calendar year) 2024 GLUCOSE 01/28/2027 01/29/2024 DTAP/TDAP/TD IMMUNIZATION (2 - Td or Tdap) 06/07/2027 06/07/2017, 01/31/2017, 02/22/2004 Pneumococcal Vaccine: 50+ Years Completed 01/11/2023, 06/07/2017 HPV IMMUNIZATION Aged [...] - BLOOD ORDERABLES Final Result RH LABORATORY [facility] [address] Lab (1st floor, no room number) [place] [address], [facility] from Last 3 Months or Most Recently Relevant to Health Maintenance Insurance MEDICARE MEDICARE Advance Directives For more information, please contact: [phone] * Full Code (Latest Code Status on File) Date Activated Date Inactivated Comments 01/29/2024 10:29 PM 01/30/2024 3:21 PM All basic a nd advanced life-sustaining interventions are performed as appropriate Question Answer Comments Code status determined by: Other (please patricia mcdowell) Care Teams Aircraft Power Plant Assembler Relationship Specialty Start Date [facility] [address] [place] [address] PCP - General 01/29/24
--- OUTSIDE RECORDS SUMMARY | 2024-07-22 13:52 | XMS_ITS | Continuity of Care Document ---
Author Name [facility] Organization [facility] Care Team Providers Care Emergency Communications Operator Name Role Phone [facility] Unavailable Unavailable Medications Combined list of outpatient [...] MARLEX PHARM., 4 ea. BLIST PACK Active [id number] 2023 12 Pharmac y Data Transac tion Service Facilit y AMLODIPINE BESYLATE (amlodipine besylate), 5 MG, TABLET, ORAL, AVKARE, 1000 ea. BOTTLE Cancele d [id number] : 2023 0 Pharmac y Data Transac tion Service Facilit y AMLODIPINE BESYLATE (amlodipine besylate), 5 MG, TABLET, ORAL, AVKARE, 1000 ea. BOTTLE Cancele d [id number] : 2023 0 Pharmac y Data Transac tion Service Facilit y AMLODIPINE BESYLATE (amlodipine besylate), 5 MG, TABLET, ORAL, AVKARE, 1000 ea. BOTTLE Cancele d [id number] : 2023 0 Pharmac y Data Transac tion Service Facilit y AMLODIPINE BESYLATE (AMLODIPINE BESYLATE), 5 MG, TABLET, ORAL, EXELAN PHARMACE, 1000 ea. BOTTLE Cancele d [id number] : 2023 0 Pharmac y Data Transac tion Service Facilit y AMLODIPINE BESYLATE (AMLODIPINE BESYLATE), 5 MG, TABLET, ORAL, EXELAN PHARMACE, 1000 ea. BOTTLE Cancele d [id number] : 2023 0 Pharmac y Data Transac tion Service Facilit y AMLODIPINE BESYLATE (AMLODIPINE BESYLATE), 5 MG, TABLET, ORAL, [facility] PHARMACE, 1000 ea. BOTTLE Active [id number] 2023 90 Pharmac y Data Transac tion Service Facilit y DULOXETINE HCL (duloxetine HCl), 20 MG, CAPSULE DR, ORAL, [employer] 60 ea. BOTTLE Cancele d [id number] : 2023 0 Pharmac y Data Transac tion Service Facilit y DULOXETINE HCL (duloxetine HCl), 20 MG, CAPSULE DR, ORAL, [employer] 60 ea. BOTTLE Active [id number] 2023 90 Pharmac y Data Transac tion Service Facilit y DULOXETINE HCL (duloxetine HCl), 60 MG, CAPSULE DR, ORAL, [employer] 1000 ea. BOTTLE Active [id number] 2023 90 Pharmac y Data Transac tion Service Facilit y EZETIMIBE (ezetimibe) , 10 MG, TABLET, ORAL, [employer] 500 ea. BOTTLE Cancele d [id number] 4 [id number] : 2023 0 Pharmac y Data Transac tion Service Facilit y EZETIMIBE (ezetimibe) , 10 MG, TABLET, ORAL, [employer] 500 ea. BOTTLE Active [id number] 2023 90 Pharmac y Data Transac tion Service Facilit y MIRTAZAPINE (mirtazapin e), 30 MG, TABLET, ORAL, [employer] 500 ea. BOTTLE Active [id number] 2023 90 Pharmac y Data Transac tion Service Facilit y MIRTAZAPINE (mirtazapin e), 30 MG, TABLET, ORAL, [employer] 500 ea. BOTTLE Active [id number] 2023 90 Pharmac y Data Transac tion Service Facilit y REPATHA SURECLICK (evolocumab ), 140 MG/ML, PEN INJCTR, SUBCUT, [employer] 1 ml SYRINGE Active [id number] 2023 6 Pharmac y Data Transac tion Service Facilit y REPATHA SURECLICK (evolocumab ), 140 MG/ML, PEN INJCTR, SUBCUT, [employer] 1 ml SYRINGE Active [id number] 2023 6 Pharmac y Data Transac tion Service Facilit y ROSUVASTATI N CALCIUM (rosuvastat in calcium), 40 MG, TABLET, ORAL, [employer] 1000 ea. BOTTLE Active [id number] 2023 90 Pharmac y Data Transac tion Service Facilit y ROSUVASTATI N CALCIUM (rosuvastat in calcium), 40 MG, TABLET, ORAL, [employer] 30 ea. BOTTLE Cancele d [id number] : 2023 0 Pharmac y Data Transac tion Service Facilit y ROSUVASTATI N CALCIUM (rosuvastat in calcium), 40 MG, TABLET, ORAL, [employer] 30 ea. BOTTLE Active [id number] 2023 90 Pharmac y Data Transac tion Service Facilit y Social History Combined list of available smoking, tobacco, and other social history from Department of Defense and Veterans Affairs facilities. Social History Type Response Date Comment [facility] e This section is an empty social history section. DoD
--- OUTSIDE RECORDS SUMMARY | 2024-07-22 13:52 | XMS_ITS | Referral Summary ---
Author Organization [facility] Address [address] [place] [address] Care Team Providers Care Implementation Director Name Role Phone Magaly, Clay Nice Primary [...] LAB - BLOOD ORDERABLES Final Result LABORATORY [facility] Acute [facility] Lab [address] Lab (1st floor, no room number) [place] [address], [facility] from Last 3 Months or Most Recently Relevant to Health Maintenance Insurance MEDICARE MEDICARE Advance Directives For more information, please contact: [phone] * Full Code (Latest Code Status on File) Date Activated Date Inactivated Comments 01/29/2024 10:29 PM 01/30/2024 3:21 PM All basic a nd advanced life-sustaining interventions are performed as appropriate Question Answer Comments Code status determined by: Other (please documen t) Care Teams Implementation Director Relationship Specialty Start Date End Date [facility], Clay Nice [address] [place] [address] [place] [address] PCP - General 01/29/24
--- OUTSIDE RECORDS SUMMARY | 2024-07-22 13:53 | XMS_ITS | Clinical Summary ---
Author Organization [facility] [place], [place] [address] Care Team Providers Care Ip Litigation Paralegal Name Role Phone Cheyenne Guardado MD Primary Care Provider + Allergies Active Allergy Reactions Criticality Noted Date Comments Amoxicillin Rash Low 11/08/2018 Rash as well as feels flush. Venlafaxine Contact Dermatitis High 10/18/2021 Medications albuterol (PROVENTIL) 0.083 % neb solution VVN Q 4 H PRN 5 019 Active PROAIR HFA 90 mcg/actuation inhaler 018 Active ADVAIR HFA 115-21 mcg/actuation inhaler 018 Active DULoxetine (CYMBALTA) 20 mg Delayed-release capsule Take 1 Capsule by mouth once daily. 023 Active DULoxetine (CYMBALTA) 60 mg Delayed-release capsule Take 1 Capsule by mouth once daily. 023 Active cholecalciferol, Vitamin D3, 5,000 unit tab tabletIndications:Low vitamin D level Take 1 Tablet (5,000 units) by mouth once daily. 0 023 Active aspirin (ECOTRIN) 81 mg enteric coated tablet Take 1 Tablet (81 mg) by mouth once daily with a meal. 0 023 Active mirtazapine (REMERON) 7.5 mg tablet Take 5.5 Tablets (41.25 mg) by mouth at bedtime. 023 Active alendronate (FOSAMAX) 70 mg tablet Take 70 mg by mouth once a week in the morning. 023 Active rosuvastatin (CRESTOR) 40 mg tabletIndications:Famil ial hypercholesterolemia Take 1 Tablet (40 mg) by mouth at bedtime. 90 Tablet 3 024 Active ezetimibe (ZETIA) 10 mg tabletIndications:Famil ial hypercholesterolemia Take 1 Tablet (10 mg) by mouth once daily. 90 Tablet 3 024 Active evolocumab (Repatha SureClick) 140 mg/mL subcutaneous pen injectorIndications:Hyp erlipidemia, unspecified hyperlipidemia type Inject 1 mL (140 mg) subcutaneous every 2 weeks. Inject into abdomen, thigh, or upper arm; rotate injection sites. 6 mL 3 024 Active amLODIPine (NORVASC) 5 mg tabletIndications:Hyper tension Take 1 Tablet (5 mg) by mouth once daily. 90 Tablet 3 024 Active Active Problems Patient Care Coordination No te Formatting of this note is d ifferent from the original. HF/Structural/Prevention Research Eligibility Review Date: 08/04/19 Upcoming Visit Location: [facility] Age: 63 y.o. Research Purpose Insurance Type: Uncertain Body mass index is 25.8 kg/m . Social History Tobacco Use Smoking Status Current Every Day Smoker Packs/day: 1.00 Types: Cigarettes Start date: 11/08/1978 Smokeless Tobacco Never Used Social History Substance and Sexual Activity Alcohol Use Not Currently Frequency: Never Binge frequency: Never Comments: HF: DNQ Structural: DNQ Prevention: No DMII Vesalius: no d/t on repatha currently Problem Noted Date Diagnosed Date Current every day smoker 11/12/2018 Familial hypercholesterolemia w LDL 303. Normal Lp(a) 11/07/2018 Low vitamin D level - 13 11/07/2018 Borderline Low vitamin B12 level 11/07/2018 Chronic obstructive pulmonary disease 11/20/2016 Encounters Date Type Department Care Team Description 05/20/2024 11:20 AM EXHAUST MACHINE OPERATOR Telemedicine [address] Perez [address] [place] [address] Pamela Conner, FURNITURE ASSEMBLY SUPERVISOR CV Preventive Cardiology Est from Last 3 Months Immunizations Name Administration Dates Next Due COVID-19 vaccine ([employer] 30mcg/0.3mL) 12YO+ FRANCOISE-SUCROSE MIHAI GALARZA 11/02/2021 Influenza RIV4 (Age 18+ Year s) [...] Used Date Smoking Tobacco: Former Cigarettes 1 45.7 S tarted: 11/08/1978 Smokeless Tobacco: Never Tobacco Cessation:Counseling Given: Not Answered Comments:0.5 to 1 pack per day Alcohol Use Standard Drinks/Week Comments Not Currently 1 (1 standard drink = 0.6 oz pure alcohol) ocassional glass of wine 07/31/23 Financial Resource Strain Answer Date R ecorded Difficulty of Paying Living Expenses Not on file 07/02/2021 Difficulty of Paying Living Expenses Not on file 07/02/2021 Comments No Sex and Gender Information Value Date Recorded Sex Assigned at Not on file Legal Sex Female 5:25 AM EXHAUST MACHINE OPERATOR Gender Identity Not on file Sexual Orientation Not on file Obstetrics History Last Filed Vital Signs Vital Sign Reading Time Taken Comments Blood Pressure 124/80 07/31/2023 9:45 AM EXHAUST MACHINE OPERATOR Pulse 66 11/02/2022 11:16 AM CDT Temperature - - Respiratory Rate 14 08/30/2018 10:36 AM EXHAUST MACHINE OPERATOR Oxygen Saturation 93% 11/02/2022 11:16 AM CDT Inhaled Oxygen Concentration - - Weight 53.1 kg (117 lb) 07/31/2023 9:45 AM EXHAUST MACHINE OPERATOR Height 157.5 cm (5' 2) 11/02/2022 11:16 AM CDT Body Mass Index 21.4 11/02/2022 11:16 AM CDT Plan of Treatment Health Maintenance Due Date Last Done Comments Depression screening for age 12+ 1969 Hepatitis C screening for ag e 18-79 09/15/1975 Colonoscopy through age 75 2002 Zoster (shingles) series for age 50+ (1 of 2) 09/15/2007 Mammogram for age 45-75 12/18/2008 12/19/2007 RSV vaccine for adults or (1 - Risk 60-74 years 1-dose series) 2017 Pneumococcal series for age 50+ (2 of 2 - PCV) 06/07/2018 06/07/2017 [...] 07/18/2002, Additional history exists Tdap Completed 06/07/2017 COVID-19 vaccine series Completed 03/31/20 24, 08/16/2023, 04/03/2022, Additional history exists Procedures Procedure Name Priority Date/Time Associated Diagnosis [...] CHOLESTEROL,TOTAL 108 mg/dL 023 6:42 PM CDT [facility] Comment: Cholesterol, Total Reference Ranges Desirable <200 mg/dL Borderline 200-239 mg/dL High >=240 mg/dL TRIGLYCERIDES 86 <150 mg/dL 10/31/2022 6:42 PM CDT [facility] HDL CHOLESTEROL 47 >40 [...] 9:15 AM CDT 10/31/2022 9:21 AM CDT us Pamela Conner NP CHEMISTRY Final Result [facility] [address] [place] [address], [place] * SCAN-MAMMOGRAPHY REPORT (12/19/2007 12:00 AM CDT) Anatomical Region Laterality Modality Other Narrative Procedure Note Scanner - 12/19/2007 12:00 AM CDT us Scanner OTHER Final Result from Last 3 Months or Most Recently Relevant to Health Maintenance Insurance MEDICARE PART A HB ONLY MEDICARE PART B HB ONLY MEDICARE PB ONLY FOR LIFE Care Teams Ip Litigation Paralegal Relationship Specialty Start Date End Date Cheyenne Guardado MD [address] [place] [address] PCP - General Family Practice 09/02/18
--- NOTE | 2024-07-22 14:25 | CRLHL7_ITS ---
For Patients: As a result of the Century Cures Act, medical imaging exams and procedure reports are released immediately into your electronic medical record. You may view this report before your referring provider. If you have questions, please contact your health care provider. INDICATION: Headache TECHNIQUE: CT head without contrast. COMPARISON: Head CT 01/03/2023 FINDINGS: CSF spaces: Within normal limits for age. Brain parenchyma: No intracranial bleed or mass effect. Focal encephalomalacia in the high left frontal lobe. Skull base and calvarium: Mild mucosal thickening and patchy opacification paranasal sinuses. Air-fluid level within the left maxillary sinus. The visualized orbits are grossly unremarkable. No skull fractures. IMPRESSION: 1. No intracranial bleed or mass effect. 2. Sinus mucosal thickening with air-fluid level in left maxillary sinus. In the correct clinical setting this can be seen in acute sinusitis. 3. Focal encephalomalacia in the high left frontal lobe the site of the previously noted parenchymal hemorrhage. Please note that all CT scans at this facility use dose modulation, iterative reconstruction, and/or weight-based dosing when appropriate to reduce radiation dose to as low as reasonably achievable. Dictated by Nawaf Alatorre MD @ 07/22/2024 3:04:23 PM (Electronically Signed)
[2024-07-22 14:49] LABS: PCR FLU A Negative PCR FLU A (Negative); PCR FLU B Negative PCR FLU B (Negative); PCR RSV Negative PCR RSV (Negative); SARS PCR* Negative SARS-CoV-2 (Negative)
[2024-07-22] MEDS: ACETAMINOPHEN 500 MG TABLET 1000 MG PO (14:50)
--- OUTSIDE RECORDS SUMMARY | 2024-07-22 14:54 | XMS_ITS | Continuity of Care Document ---
Author Name [facility] Organization [facility] Care Team Providers Care Cloth Winder Machine Operator Name Role Phone [facility] Unavailable Unavailable Medications Combined list of outpatient [...] MARLEX PHARM., 4 ea. BLIST PACK Active [id number] 2023 12 Pharmac y Data Transac tion Service Facilit y AMLODIPINE BESYLATE (amlodipine besylate), 5 MG, TABLET, ORAL, AVKARE, 1000 ea. BOTTLE Cancele d [id number] 4 [id number] : 2023 0 Pharmac y Data Transac tion Service Facilit y AMLODIPINE BESYLATE (amlodipine besylate), 5 MG, TABLET, ORAL, AVKARE, 1000 ea. BOTTLE Cancele d [id number] 4 [id number] : 2023 0 Pharmac y Data Transac tion Service Facilit y AMLODIPINE BESYLATE (amlodipine besylate), 5 MG, TABLET, ORAL, AVKARE, 1000 ea. BOTTLE Cancele d [id number] 4 [id number] : 2023 0 Pharmac y Data Transac tion Service Facilit y AMLODIPINE BESYLATE (AMLODIPINE BESYLATE), 5 MG, TABLET, ORAL, EXELAN PHARMACE, 1000 ea. BOTTLE Cancele d [id number] 4 [id number] : 2023 0 Pharmac y Data Transac tion Service Facilit y AMLODIPINE BESYLATE (AMLODIPINE BESYLATE), 5 MG, TABLET, ORAL, EXELAN PHARMACE, 1000 ea. BOTTLE Cancele d [id number] 4 [id number] : 2023 0 Pharmac y Data Transac tion Service Facilit y AMLODIPINE BESYLATE (AMLODIPINE BESYLATE), 5 MG, TABLET, ORAL, [facility] PHARMACE, 1000 ea. BOTTLE Active [id number] 4 2023 90 Pharmac y Data Transac tion Service Facilit y DULOXETINE HCL (duloxetine HCl), 20 MG, CAPSULE DR, ORAL, [employer] 60 ea. BOTTLE Cancele d [id number] 4 [id number] : 2023 0 Pharmac y Data Transac tion Service Facilit y DULOXETINE HCL (duloxetine HCl), 20 MG, CAPSULE DR, ORAL, [employer] 60 ea. BOTTLE Active [id number] 2023 90 Pharmac y Data Transac tion Service Facilit y DULOXETINE HCL (duloxetine HCl), 60 MG, CAPSULE DR, ORAL, [employer] 1000 ea. BOTTLE Active [id number] 4 2023 90 Pharmac y Data Transac tion Service Facilit y EZETIMIBE (ezetimibe) , 10 MG, TABLET, ORAL, [employer] 500 ea. BOTTLE Cancele d [id number] 4 [id number] : 2023 0 Pharmac y Data Transac tion Service Facilit y EZETIMIBE (ezetimibe) , 10 MG, TABLET, ORAL, [employer] 500 ea. BOTTLE Active [id number] 4 2023 90 Pharmac y Data Transac tion Service Facilit y MIRTAZAPINE (mirtazapin e), 30 MG, TABLET, ORAL, [employer] 500 ea. BOTTLE Active [id number] 4 2023 90 Pharmac y Data Transac tion Service Facilit y MIRTAZAPINE (mirtazapin e), 30 MG, TABLET, ORAL, [employer] 500 ea. BOTTLE Active [id number] 4 2023 90 Pharmac y Data Transac tion Service Facilit y REPATHA SURECLICK (evolocumab ), 140 MG/ML, PEN INJCTR, SUBCUT, [employer] 1 ml SYRINGE Active [id number] 2023 6 Pharmac y Data Transac tion Service Facilit y REPATHA SURECLICK (evolocumab ), 140 MG/ML, PEN INJCTR, SUBCUT, [employer] 1 ml SYRINGE Active [id number] 4 2023 6 Pharmac y Data Transac tion Service Facilit y ROSUVASTATI N CALCIUM (rosuvastat in calcium), 40 MG, TABLET, ORAL, [employer] 1000 ea. BOTTLE Active [id number] 4 2023 90 Pharmac y Data Transac tion Service Facilit y ROSUVASTATI N CALCIUM (rosuvastat in calcium), 40 MG, TABLET, ORAL, [employer] 30 ea. BOTTLE Cancele d [id number] 4 [id number] : 2023 0 Pharmac y Data Transac tion Service Facilit y ROSUVASTATI N CALCIUM (rosuvastat in calcium), 40 MG, TABLET, ORAL, [employer] 30 ea. BOTTLE Active [id number] 4 2023 90 Pharmac y Data Transac tion Service Facilit y Social History Combined list of available smoking, tobacco, and other social history from [facility] of Defense and [facility] Affairs facilities. Social History Type Response Date Comment [facility] e This section is an empty social history section. DoD
--- NOTE | 2024-07-22 16:15 | ED.HA ---
HPI - Headache General Date Seen: 07/22/24 Chief Complaint: Headache/Migraine Stated Complaint: Headache 4 days and broken bv in R eye Time Seen by Provider: 07/22/24 13:55 Source: patient and family Mode of arrival: ambulatory Limitations: no limitations History of Present Illness HPI Narrative: Patient is a very nice 68-year-old female who presents here with a headache she describes it across her forehead, more left than right, she has had this now for 3-4 days not the worst headache in her life, she has had a previous intraventricular bleed. This was secondary to a fall when she was in [place]. She describes a little bit of nausea with this worse when she bends over, she has also been coughing, and describes that her right eye has some reddened now. She notices no decreased the visual look acuity, she describes no double vision, or any other problem with this. She denies no fevers or chills, but overall has felt weak and fatigued for the past few days. Has had some increasing discharge out of her nose, denies any significant cough. MD elicited complaint: headache Onset (ago): day(s) Onset description: gradually Location: left and frontal Quality & Timing: throbbing Exacerbating factors: none Relieving factors: nothing Context: occurred at rest Associated symptoms: nausea and other Treatments prior to arrival: none Related Data Home Medications ?Medication ?Instructions ?Recorded ?Confirmed evolocumab 140 mg/mL subcutaneous 140 mg subcut Q14D 01/18/22 07/22/24 pen injector (Boyd Newton) ezetimibe 10 mg tablet 10 mg PO DAILY 01/18/22 07/22/24 mirtazapine 30 mg tablet 30 mg PO HS 01/18/22 07/22/24 rosuvastatin 40 mg tablet 40 mg PO HS 01/18/22 07/22/24 aspirin 81 mg tablet,delayed 81 mg PO DAILY 12/22/22 07/22/24 release (Adult Low Dose Aspirin) duloxetine 20 mg capsule,delayed 20 mg PO DAILY 12/22/22 07/22/24 release duloxetine 60 mg capsule,delayed 60 mg PO DAILY 12/22/22 07/22/24 release cholecalciferol (vitamin D3) 125 125 mcg PO DAILY 01/31/23 07/22/24 mcg (5,000 unit) capsule Previous Rx's ?Medication ?Instructions ?Recorded albuterol sulfate 2.5 mg/3 mL 2.5 mg (3 mL) continuous 04/05/22 (0.083 %) solution for nebulization nebulization Q4H PRN bronchospasm #90 mL albuterol sulfate 90 mcg/actuation 2 puff inhalation Q4H PRN 02/19/24 aerosol inhaler shortness of breath or wheezing #8.5 grams alendronate 70 mg tablet (Fosamax) 70 mg PO QWEEK #14 tabs 02/19/24 amlodipine 5 mg tablet 5 mg PO DAILY #90 tabs 02/19/24 fluticasone propionate 115 2 puff inhalation BID #12 grams 02/19/24 mcg-salmeterol 21 mcg/actuation HFA inhaler levofloxacin 500 mg tablet 500 mg PO DAILY 10 days #20 tabs 07/22/24 Allergies Allergy/AdvReac Type Severity Reaction Status Date / Time amoxicillin Allergy Intermediate Verified 07/22/24 13:59 hydrocodone Allergy Intermediate Verified 07/22/24 13:59 venlafaxine Allergy Intermediate Hives Verified 07/22/24 13:59 atorvastatin AdvReac Unknown Verified 07/22/24 13:59 simvastatin AdvReac Unknown Verified 07/22/24 13:59 Review of Systems Status of ROS: Reports: 10 or more systems reviewed and unremarkable except as noted in History and below [facility] Medical History Abnormal US (ultrasound) of abdomen (07/2024) ?R93.5 - Abnormal findings on diagnostic imaging of other abdominal regions, including retroperitoneum (ICD-10) Hypomagnesemia ?E83.42 - Hypomagnesemia (ICD-10) Hypokalemia (01/28/24) ?E87.6 - Hypokalemia (ICD-10) COPD exacerbation (01/30/24) ?J44.1 - Chronic obstructive pulmonary disease with (acute) exacerbation (ICD-10) Colon perforation (01/24/24) ?K63.1 - Perforation of intestine (nontraumatic) (ICD-10) Acute exacerbation of chronic obstructive pulmonary disease ?J44.1 - Chronic obstructive pulmonary disease with (acute) exacerbation (ICD-10) Acute respiratory failure (01/29/24) ?J96.00 - Acute respiratory failure, unspecified whether with hypoxia or hypercapnia (ICD-10) Allergic rhinitis ?J30.9 - Allergic rhinitis, unspecified (ICD-10) Chronic sinusitis ?J32.9 - Chronic sinusitis, unspecified (ICD-10) Osteoarthritis involving multiple joints on both sides of body ?M15.9 - Polyosteoarthritis, unspecified (ICD-10) SRAVAN and COPD overlap syndrome ?G47.33 - Obstructive sleep apnea (adult) (pediatric) (ICD-10) ?J44.9 - Chronic obstructive pulmonary disease, unspecified (ICD-10) Edentulism ?K08.109 - Complete loss of teeth, unspecified cause, unspecified class (ICD-10) Smoker ?F17.200 - Nicotine dependence, unspecified, uncomplicated (ICD-10) Hypertension ?I10 - Essential (primary) hypertension (ICD-10) Hypercholesterolemia ?E78.00 - Pure hypercholesterolemia, unspecified (ICD-10) Obstructive sleep apnea syndrome ?G47.33 - Obstructive sleep apnea (adult) (pediatric) (ICD-10) RSV infection (~05/2023) ?B33.8 - Other specified viral diseases (ICD-10) Brain bleed (11/18/22) ?I61.9 - Nontraumatic intracerebral hemorrhage, unspecified (ICD-10) Screening for lung cancer (11/2021) ?Z12.2 - Encounter for screening for malignant neoplasm of respiratory organs (ICD-10) Colon polyp ?K63.5 - Polyp of colon (ICD-10) Osteoporosis (12/2022) ?M81.0 - Age-related osteoporosis without current pathological fracture (ICD-10) Mixed anxiety depressive disorder ?F41.8 - Other specified anxiety disorders (ICD-10) Chronic obstructive pulmonary disease (01/13/13) ?J44.9 - Chronic obstructive pulmonary disease, unspecified (ICD-10) Insomnia ?G47.00 - Insomnia, unspecified (ICD-10) Encounter for counseling regarding advance directives (04/04/19) ?Z71.89 - Other specified counseling (ICD-10) Surgical History S/P exploratory laparotomy (01/24/24) ?Z98.890 - Other specified postprocedural states (ICD-10) History of tonsillectomy (01/13/13) ?Z90.89 - Acquired absence of other organs (ICD-10) History of knee surgery (12/2003) ?Z98.890 - Other specified postprocedural states (ICD-10) History of esophagogastroduodenoscopy (2014) ?Z98.890 - Other specified postprocedural states (ICD-10) History of dilation and curettage (01/13/13) ?Z98.890 - Other specified postprocedural states (ICD-10) Status post colonoscopy with polypectomy (2014) ?Z98.890 - Other specified postprocedural states (ICD-10) H/O: hysterectomy ?Z90.710 - Acquired absence of both cervix and uterus (ICD-10) History of salpingo-oophorectomy ?Z90.79 - Acquired absence of other genital organ(s) (ICD-10) ?Z90.721 - Acquired absence of ovaries, unilateral (ICD-10) S/P laparoscopic cholecystectomy (2014) ?Z90.49 - Acquired absence of other specified parts of digestive tract (ICD-10) S/P sacrocolpopexy (2016) ?Z98.890 - Other specified postprocedural states (ICD-10) Family History Mother Diabetes High blood pressure Myocardial infarction, Onset Age: 93 Rheumatoid arthritis Valvular heart disease Father Myocardial infarction, Onset Age: 83 Maternal Grandfather Stroke, Onset Age: 42 Other Bipolar disorder Colonic polyp Schizophrenia Social History Narrative: lives withrene Greene who has MS, 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 Her son and grandson also live with her. Non smoker, 10/2022 ex-cigarette smoker- 40 pack years does not drink alcohol Walks 30 minutes 5 days a week 3 kids, sons adult What is your current living situation?: I presently have a place to live Problems where you live: no known problems Problems where you live details: NA In the past 12 months, utilities in danger of being shut off: no In past 12 months, lack of transportation kept you from medical appts, meetings, work, or getting things needed for daily living: no In the past 12 mos, have been you worried that your food would run out before you had money to buy more?: never true In the past 12 mos, the food you bought just didn't last and you didn't have money to buy more?: never true Highest level of school completed/degree received: some college, no degree Smoking Status: Current some day smoker Do you use any of these nicotine containing products: None Nicotine containing products detail: quit in November 2022 Second hand tobacco smoke exposure: Yes How often do you have a drink containing alcohol: never How often do you have six or more drinks on one occasion: Never AUDIT-C Alcohol total score: 0 Non-prescribed substance use: denies use Caffeine: Yes How often does anyone, including family, friends and others, physically hurt you: never How often does anyone, including family, friends and others, insult or talk down to you: never How often does anyone, including family, friends and others, threaten you with harm: never How often does anyone, including family, friends and others, scream or curse at you: never service: Yes Exam Narrative: Exam Narrative: On examination in room 1 she is in no apparent distress she is pleasant and alert, pupils equal round reactive to light there is no nystagmus, visual garcia are normal, and her visual discs are crisp bilaterally. She does have right-sided medial temp oral, subconjunctival hemorrhage noted. Her TMs are normal her neck is supple and full range of motion with absence of meningismus there is no tenderness over head or neck. She has no evidence of any bruising or trauma, she describes a pressure across her frontal region bilaterally. Mouth opening is normal, there is no trismus, neck is supple, good air entry bilaterally with slightly prolonged expiratory phase, heart sounds no clicks murmurs or gallops, she moves all extremities independently and well. Skin reveals no petechiae rashes neurologically intact moving her upper lower extremities, proximal distal muscle groups are normal, find more moves fingers nose testing are normal bilaterally in her upper extremities. Const: Vital Signs, click to edit/add: Vital Signs - 24 hr 07/22/24 13:52 Temperature 97.1 F L Pulse Rate [Pulse Oximeter] 81 Respiratory Rate 18 Blood Pressure [Ri ght Upper Arm] 103/64 Pulse Oximetry 97 Oxygen Delivery Me thod Room Air Documenting provider has reviewed patient's vital signs: yes Course Course ED Course: I discussed with her that the symptoms and also her findings on CT did not show any evidence of bleed but there is evidence sinusitis, I do think this is the cause of her headache, I would recommend treat with antibiotics given her penicillin allergy I think use of Levaquin, which she has tolerated fine in the past would be appropriate. We went over signs and symptoms to worsen that she should return, she is very comfortable this. Vital Signs Vital signs: Initial Vital Signs Temperature 97.1 F L 07/22/24 13:52 Temperature Source Temporal Artery Scan 07/22/24 13:52 Pulse Rate 81 07/22/24 13:52 Respiratory Rate 18 07/22/24 13:52 Blood Pressure 103/64 07/22/24 13:52 Blood Pressure Mean 77 07/22/24 13:52 Blood Pressure Position Sitting 07/22/24 13:52 Pulse Oximetry 97 07/22/24 13:52 Oxygen Delivery Method Room Air 07/22/24 13:52 Vital Signs Temperature 97.1 F L 07/22/24 13:52 Pulse Rate 81 07/22/24 13:52 Respiratory Rate 18 07/22/24 13:52 Blood Pressure 103/64 07/22/24 13:52 Pulse Oximetry 97 07/22/24 13:52 Oxygen Delivery Method Room Air 07/22/24 13:52 Temperature 97.1 F L 07/22/24 13:52 Pulse Rate 81 07/22/24 13:52 Respiratory Rate 18 07/22/24 13:52 Blood Pressure 103/64 07/22/24 13:52 Pulse Oximetry 97 07/22/24 13:52 Oxygen Delivery Method Room Air 07/22/24 13:52 Medications Administered Medications: Discontinued Medications Generic Name Dose Route Start Last Admin Trade Name Freq PRN Reason Stop Dose Admin Acetaminophen 1,000 mg 07/22/24 14:26 07/22/24 14:50 Acetaminophen 500 Mg Tablet PO 07/22/24 14:27 1,000 mg ONCE ONE Administration MDM - Headache MDM Narrative Medical decision making narrative: Life-threatening differential diagnosis include subarachnoid hemorrhage, meningitis, encephalitis, carbon monoxide poisoning, and intracerebral hemorrhage. Other differential diagnosis include but not limited to migraine, cluster headache, tension headache, DRY PAN OPERATOR vasculitis, mass lesion, temporal arteritis, click acute closed angle glaucoma, septal and trigeminal neuralgia, sinusitis, closed head injury, and stroke Differential Diagnosis Differential diagnosis: Likely migraine, tension headache, subarachnoid hemorrhage, headache, meningitis, sinusitis and postconcussion syndrome Medical Records Attestation: I reviewed the patient's medical records. Lab Data Attestation: I reviewed the patient's lab results. Labs: Lab Results 07/22/24 Range/Units 14:02 SARS-CoV-2 (PCR) Negative SARS-CoV-2 (Negative) Influenza Type A (PCR) Negative PCR FLU A (Negative) Influenza Type B (PCR) Negative PCR FLU B (Negative) RSV (PCR) Negative PCR RSV (Negative) Imaging Data CT scan - head: Attestation: I have reviewed the pertinent imaging results. My impression: Negative acute, there is an air-fluid level in the left frontal area. Radiologist's impression: [place] [address] Diagnostic Imaging Report Patient: Linnette Brown MR#: [id number] : 1955 Acct:[id number] Loc: ED Service Date: 07/22/[address]: Ordering Physician: Rubén Palacios M.D. Date of Service: 07/22/24 Procedure(s): CT head/brain wo con Accession Number(s): [id number] cc: Cheyenne Guardado M.D.; Rubén Palacios M.D.~ For Patients: As a result of the Cures Act, medical imaging exams and procedure reports are released immediately into your electronic medical record. You may view this report before your referring provider. If you have questions, please contact your health care provider. INDICATION: Headache TECHNIQUE: CT head without contrast. COMPARISON: Head CT 01/03/2023 FINDINGS: CSF spaces: Within normal limits for age. Brain parenchyma: No intracranial bleed or mass effect. Focal encephalomalacia in the high left frontal lobe. Skull base and calvarium: Mild mucosal thickening and patchy opacification paranasal sinuses. Air-fluid level within the left maxillary sinus. The visualized orbits are grossly unremarkable. No skull fractures. IMPRESSION: 1. No intracranial bleed or mass effect. 2. Sinus mucosal thickening with air-fluid level in left maxillary sinus. In the correct clinical setting this can be seen in acute sinusitis. 3. Focal encephalomalacia in the high left frontal lobe the site of the previously noted parenchymal hemorrhage. Please note that all CT scans at this facility use dose modulation, iterative reconstruction, and/or weight-based dosing when appropriate to reduce radiation dose to as low as reasonably achievable. Dictated by Nawaf Alatorre MD @ 07/22/2024 3:04:23 PM Discharge Plan Discharge Clinical Impression: Sinusitis Patient Disposition: Home w/ Parent or Adult Instructions: Sinusitis (ED), Rhinosinusitis (DC) Additional Instructions: Home rest use of levaquin, he should be starting to feel better in 7-10 days, follow-up with primary care if this fails to give the relief then I would recommend following up with ENT, reassuring CT other than sinusitis. Activity Level: Light activity Discharge Diet: Regular Prescriptions: New levofloxacin 500 mg tablet 500 mg PO DAILY 10 Days Qty: 20 0RF No Action duloxetine 60 mg capsule,delayed release(DR/EC) 60 mg PO DAILY Patient Comments: total dose 80mg duloxetine 20 mg capsule,delayed release(DR/EC) 20 mg PO DAILY Patient Comments: total dose 80mg aspirin [Adult Low Dose Aspirin] 81 mg tablet,delayed release (DR/EC) 81 mg PO DAILY alendronate [Fosamax] 70 mg tablet 70 mg PO QWEEK Qty: 14 3RF amlodipine 5 mg tablet 5 mg PO DAILY Qty: 90 3RF fluticasone propion-salmeterol 115-21 mcg/actuation HFA aerosol inhaler 2 puff inhalation BID Qty: 12 12RF albuterol sulfate 90 mcg/actuation HFA aerosol inhaler 2 puff inhalation Q4H PRN (Reason: shortness of breath or wheezing) Qty: 8.5 12RF mirtazapine 30 mg tablet 30 mg PO HS ezetimibe 10 mg tablet 10 mg PO DAILY rosuvastatin 40 mg tablet 40 mg PO HS Repatha [employer] 140 mg/mL pen injector 140 mg SUBCUT Q14D albuterol sulfate 2.5 mg /3 mL (0.083 %) solution for nebulization 2.5 mg continuous nebulization Q4H PRN (Reason: bronchospasm) Qty: 90 2RF cholecalciferol (vitamin D3) 125 mcg (5,000 unit) capsule 125 mcg PO DAILY Follow Up/Referrals: Cheyenne Guardado MD [Primary Care Provider] - Stand Alone Forms: [employer] Info Instructions
== END 2024-07-22 15:57 | disposition home or self-care (01) ==
PROVIDERS: Emergency Provider Family Medicine; PCP Family Medicine
DX: J32.9 Chronic sinusitis, unspecified (principal)
CPT/HCPCS: 70450; 87631; 99284; A9270

== ENCOUNTER 2025-02-16 09:16 | Outpatient (CLI) | payer MEDICARE, OTHER, SELFPAY | END 2025-02-16 09:17 | disposition home or self-care (01) | LOC: NFLDREF 02-19 08:25 | PROVIDERS: PCP Family Medicine; Referring Provider Family Medicine; Visit Provider Family Medicine | DX: E78.5 Hyperlipidemia, unspecified (principal); I10 Essential (primary) hypertension; M81.0 Age-related osteoporosis without current pathological fracture; R73.03 Prediabetes; R74.01 Elevation of levels of liver transaminase levels; R53.83 Other fatigue; Z11.59 Encounter for screening for other viral diseases; Z13.6 Encounter for screening for cardiovascular disorders | CPT/HCPCS: 80053; 80061; 82306; 84443; 86803; 87340 ==

== ENCOUNTER 2025-03-19 14:21 | Outpatient (CLI) | payer MEDICARE, OTHER, SELFPAY ==
--- NOTE | 2025-03-19 14:30 | CRLHL7_ITS ---
For Patients: As a result of the Century Cures Act, medical imaging exams and procedure reports are released immediately into your electronic medical record. You may view this report before your referring provider. If you have questions, please contact your health care provider. DXA BONE MINERAL DENSITY STUDY Reason for exam: Age-related osteoporosis. Current height (in): 61.5. Weight (lb): 125. Menopause age: 57. Ethnicity: White. 1. Have you had a previous hip or vertebral fracture? No. 2. Have you had any fractures during your adult life which did not result from significant trauma (e.g., auto accident)? No. 3. Did either of your parents have a hip fracture? No. 4. Do you smoke? No. 5. Have you ever taken Glucocorticoids? Yes. 6. Do you have rheumatoid arthritis? Yes. 7. Do you have secondary osteoporosis? Yes. 8. Do you drink 3 or more alcoholic drinks per day? No. 9. Are you being treated for osteoporosis? Yes. 10. Have you ever taken any of the following medications: Actonel, Evista, Fosamax, Miacalcin, Reclast, Boniva, Forteo, HRT (i.e. estrogen/hormone therapy), Protelos, Prolia, Vitamin D, Calcium, other ??? please specify. ANSWER: Yes, vitamin D and calcium. 11. Do you have any of the following medical conditions: Anorexia or bulimia, asthma or emphysema, end stage renal disease, hyperparathyroidism, any seizure disorders, cancer, inflammatory bowel diseases, hysterectomy, other ??? please specify. ANSWER: Yes, asthma or emphysema and hysterectomy. 12. What was your maximum height (inches)? 62. 13. Do you perform weight bearing exercise regularly? No. 14. Do you regularly consume dairy products? Yes. 15. Do you drink caffeinated beverages? Yes. 16. At what age did your period start? 15. 17. Are you premenopausal? No. 18. How many full-term pregnancies have you had? 3. 19. Have you ever missed your period for more than 6 months in a row (not including or menopause)? No. TECHNIQUE: Bone mineral density study was performed using the [facility]. FINDINGS: The results of the study expressed as bone mineral density (BMD) are as follows: Lumbar spine L1 to L4: BMD: 0.660 g/cm2. T-score: -3.5. Z-score: -1.6. Neck Left: BMD: 0.466 g/cm2. T-score: -3.5. Z-score: -1.8. Right: BMD: 0.516 g/cm2. T-score: -3.0. Z-score: -1.4. Total Left: BMD: 0.547 g/cm2. T-score: -3.2. Z-score: -1.9. Right: BMD: 0.555 g/cm2. T-score: -3.2. Z-score: -1.8. IMPRESSION: Osteoporosis. *Comparison exams done prior to 12/2019 were performed on different unit, [employer]. COMPARISON: Compared with scan of 01/25/2023, the bone mineral density has increased by 3.0 percent at the spine and decreased by 2.1 percent at the hip. Rudolph Rutherford M.D. Diagnostic Radiologist [email or web address] KRYSTIN/deepti tatum/Dictated by: Rudolph Rutherford MD @ 03/19/2025 3:24:00 PM (Electronically Signed)
--- NOTE | 2025-03-19 15:00 | CRLHL7_ITS ---
For Patients: As a result of the Cures Act, medical imaging exams and procedure reports are released immediately into your electronic medical record. You may view this report before your referring provider. If you have questions, please contact your health care provider. INDICATION: Lung cancer screening. History of smoking. High risk patient with greater than 43 pack-year smoking history. TECHNIQUE: Low-dose lung cancer screening non-contrast CT chest. Dose reduction techniques were used. COMPARISON: 03/18/2024 FINDINGS: NODULES: 2 millimeter calcified granuloma within the lingula. LUNGS AND PLEURA: Emphysema. MEDIASTINUM: Atherosclerotic changes. No adenopathy. CORONARY ARTERY CALCIFICATION: Moderate. LIMITED UPPER ABDOMEN: Postop changes of cholecystectomy. MUSCULOSKELETAL: Subacute fractures of the right posterolateral 11th and 9th ribs. IMPRESSION: Negative for lung cancer screening purposes. LUNG-RADS CATEGORY: 2: Benign. RADIOLOGIST RECOMMENDATION: Continue annual screening, if eligible, with low-dose CT chest in 12 months. Please note that all CT scans at this facility use dose modulation, iterative reconstruction, and/or weight-based dosing when appropriate to reduce radiation dose to as low as reasonably achievable. Dictated by Rudolph Rutherford MD @ 03/19/2025 3:41:39 PM (Electronically Signed)
== END 2025-03-19 14:22 | disposition home or self-care (01) ==
LOC: RAD 14:23
PROVIDERS: PCP Family Medicine; Visit Provider Family Medicine
DX: Z12.2 Encounter for screening for malignant neoplasm of respiratory organs (principal); F17.210 Nicotine dependence, cigarettes, uncomplicated; M81.0 Age-related osteoporosis without current pathological fracture
CPT/HCPCS: 71271; 77080